=== PATIENT | male | born 1955 | race American Indian/Alaskan Native ===

== ENCOUNTER 2017-08-07 07:49 | Emergency (ER) | payer MEDICAID ==
[~2017-08-07] VITALS: Ht 177.8 cm; Wt 78.0 kg
[~2017-08-07 07:49] MED LIST: ATOR10TA PO; CANE-100; CHLO25CA10 PO; DICL75TA5 PO; HYDR-569 PO; IBUP-1985 PO; IBUP-1986 PO; LEVE250T PO; LEVO137T2 PO; LEVO150T PO; NAPR-1154 PO; NAPR220T67 PO; PHE12.5T PO
[2017-08-07] MEDS ORDERED: normal saline 1000ML IV soln IVB ONE (08:40)
[2017-08-07 09:14] LABS: BASOPHILS % (AUTO) 0.5 % (0-1); EOSINOPHILS % (AUTO) 1.3 % (0-6); HEMATOCRIT 29.7 % (42.0-52.0); HEMOGLOBIN 10.3 g/dl (14.0-17.9); LYMPHOCYTES # (AUTO) 1.1 X10'3 (1.1-4.8); LYMPHOCYTES % (AUTO) 36.3 % (21-51); MEAN CORPUSCULAR HEMOGLOBIN 34.5 PG (27.0-31.0); MEAN CORPUSCULAR HGB CONC 34.8 % (33.0-36.5); MEAN CORPUSCULAR VOLUME 99.2 FL (78-98); MEAN PLATELET VOLUME 6.5 FL (7.4-10.4); MONOCYTES # (AUTO) 0.2 X10'3 (0-0.9); MONOCYTES % (AUTO) 7.5 % (2-12); NEUTROPHILS # (AUTO) 1.7 X10'3 (1.8-7.7); NEUTROPHILS % (AUTO) 54.4 % (42-75); PLATELET COUNT 110 X10'3 (140-440); RED CELL DISTRIBUTION WIDTH 18.1 % (11.5-14.5); WHITE BLOOD COUNT 3.1 X10'3 (4.5-11.0)
[2017-08-07] MEDS: ondansetron/PF 4mg/2ml inj IV ONE ×2 (09:20→09:38)
[2017-08-07] MEDS ORDERED: LEVO75TA PO (09:25)
[2017-08-07 09:28] LABS: ALANINE AMINOTRANSFERASE 50 U/L (12-78); ALBUMIN 3.4 G/DL (3.4-5.0); ALBUMIN/GLOBULIN RATIO 0.9 (1.1-1.5); ALKALINE PHOSPHATASE 92 IU/L (46-116); ANION GAP 13 (8-16); ASPARTATE AMINO TRANSFERASE 98 U/L (10-37); BILIRUBIN,TOTAL 0.4 MG/DL (0.1-1.0); BLOOD UREA NITROGEN 10 MG/DL (7-18); BUN/CREATININE RATIO 9.1 (5.4-32.0); CALCIUM 8.4 MG/DL (8.5-10.1); CHLORIDE 103 MMOL/L (99-107); ETHANOL 0.189 GM/DL (0.0-0.010); GLUCOSE 98 MG/DL (70-104); POTASSIUM 3.5 MMOL/L (3.5-5.1); SODIUM 141 MMOL/L (135-145); TOTAL CARBON DIOXIDE 24.9 MMOL/L (24-32); TOTAL PROTEIN 7.4 G/DL (6.4-8.2); eGFR 68 ML/MIN
[2017-08-07] MEDS ORDERED: AMOX500C2 PO (09:36)
[2017-08-07 09:58] LABS: PROTHROMBIN TIME 10.4 SECONDS (9.0-12.0)
[2017-08-07 10:12] LABS: URINE AMPHETAMINE SCREEN POSITIVE (Neg); URINE BARBITUATE SCREEN NEGATIVE (Neg); URINE BENZODIAZEPINES SCREEN NEGATIVE (Neg); URINE CANNABINOID SCREEN NEGATIVE (Neg); URINE COCAINE SCREEN NEGATIVE (Neg); URINE METHADONE SCREEN NEGATIVE (Neg); URINE OPIATE SCREEN NEGATIVE (Neg); URINE PHENCYCLIDINE SCREEN NEGATIVE (Neg)
[2017-08-07 10:25] VITALS: BP 119/75
[2017-08-09] MEDS ORDERED: AMOX-422 PO (17:30)
[2017-08-09] MEDS ORDERED: HYDR-569 PO (17:30)
[2017-08-09] MEDS ORDERED: LEVO150T PO (17:30)
[2017-08-26] MEDS ORDERED: SYN0.088T PO (07:00)
[2017-08-26] MEDS ORDERED: LEVO150T PO (07:14)
== END 2017-08-07 10:28 | disposition home or self-care (01) ==
LOC: ER 07:50
DX: S02.40DA Maxillary fracture, left side, initial encounter for closed fracture (principal); S02.40FA Zygomatic fracture, left side, initial encounter for closed fracture; S02.2XXA Fracture of nasal bones, initial encounter for closed fracture; G89.29 Other chronic pain; I10 Essential (primary) hypertension; E03.9 Hypothyroidism, unspecified; F12.10 Cannabis abuse, uncomplicated; F15.10 Other stimulant abuse, uncomplicated; F10.10 Alcohol abuse, uncomplicated; Z86.73 Personal history of transient ischemic attack (TIA), and cerebral infarction without residual deficits; Z98.890 Other specified postprocedural states; Z88.8 Allergy status to other drugs, medicaments and biological substances; X58.XXXA Exposure to other specified factors, initial encounter; Y93.89 Activity, other specified; Y92.89 Other specified places as the place of occurrence of the external cause; Y99.8 Other external cause status
CPT/HCPCS: 36415; 70450; 70486; 80053; 80305; 80320; 82140; 85025; 85610; 99285; J2405; J7030

== ENCOUNTER 2017-09-05 03:02 | Emergency (ER) | payer MEDICAID ==
[~2017-09-05] VITALS: Ht 157.5 cm; Wt 80.0 kg
[~2017-09-05 03:02] MED LIST changes: +AMOX500C2 PO; -ATOR10TA PO; -CANE-100; -CHLO25CA10 PO; -DICL75TA5 PO; -IBUP-1985 PO; -IBUP-1986 PO; -LEVE250T PO; -LEVO137T2 PO; +LEVO75TA PO; -NAPR-1154 PO; -NAPR220T67 PO; -PHE12.5T PO; +SYN0.088T PO
[2017-09-05] MEDS ORDERED: ibuprofen tablet 400 MG TABLET PO ONE (03:40)
[2017-09-05] MEDS ORDERED: ondansetron 4mg rapidly disintigrating tab PO ONE (03:40)
[2017-09-05 03:47] VITALS: BP 125/82
== END 2017-09-05 04:06 | disposition home or self-care (01) ==
LOC: ER 03:02
DX: G44.309 Post-traumatic headache, unspecified, not intractable (principal); I10 Essential (primary) hypertension; E03.9 Hypothyroidism, unspecified; G89.29 Other chronic pain; Z87.442 Personal history of urinary calculi; F12.10 Cannabis abuse, uncomplicated; F15.10 Other stimulant abuse, uncomplicated; Z88.8 Allergy status to other drugs, medicaments and biological substances
CPT/HCPCS: 99283

== ENCOUNTER 2017-09-08 15:40 | Emergency (ER) | payer MEDICAID ==
[~2017-09-08] VITALS: Ht 175.3 cm; Wt 70.0 kg
[~2017-09-08 15:40] MED LIST changes: -AMOX500C2 PO
[2017-09-08] MEDS ORDERED: normal saline 1000ML IV soln IVB ONE (16:35)
[2017-09-08] MEDS ORDERED: pantoprazole 40 MG vial IV ONE (16:35)
[2017-09-08] MEDS ORDERED: ondansetron/PF 4mg/2ml inj IV ONE (16:35)
[2017-09-08 16:50] LABS: BASOPHILS % (AUTO) 0.4 % (0-1); EOSINOPHILS # (AUTO) 0.2 X10'3 (0-0.9); EOSINOPHILS % (AUTO) 4.2 % (0-6); HEMATOCRIT 30.4 % (42.0-52.0); HEMOGLOBIN 10.1 g/dl (14.0-17.9); LYMPHOCYTES # (AUTO) 1.4 X10'3 (1.1-4.8); LYMPHOCYTES % (AUTO) 30.8 % (21-51); MEAN CORPUSCULAR HEMOGLOBIN 32.3 PG (27.0-31.0); MEAN CORPUSCULAR HGB CONC 33.3 % (33.0-36.5); MEAN CORPUSCULAR VOLUME 96.8 FL (78-98); MEAN PLATELET VOLUME 6.1 FL (7.4-10.4); MONOCYTES # (AUTO) 0.5 X10'3 (0-0.9); MONOCYTES % (AUTO) 10.9 % (2-12); NEUTROPHILS # (AUTO) 2.5 X10'3 (1.8-7.7); NEUTROPHILS % (AUTO) 53.7 % (42-75); PLATELET COUNT 200 X10'3 (140-440); RED BLOOD COUNT 3.14 X10'6 (4.70-6.10); RED CELL DISTRIBUTION WIDTH 16.6 % (11.5-14.5); WHITE BLOOD COUNT 4.6 X10'3 (4.5-11.0)
[2017-09-08 17:00] LABS: PROTHROMBIN TIME 10.2 SECONDS (9.0-12.0)
[2017-09-08 17:06] LABS: ALANINE AMINOTRANSFERASE 51 U/L (12-78); ALBUMIN 3.2 G/DL (3.4-5.0); ALBUMIN/GLOBULIN RATIO 0.7 (1.1-1.5); ALKALINE PHOSPHATASE 99 IU/L (46-116); ANION GAP 9 (8-16); ASPARTATE AMINO TRANSFERASE 65 U/L (10-37); BILIRUBIN,TOTAL 0.3 MG/DL (0.1-1.0); BLOOD UREA NITROGEN 8 MG/DL (7-18); BUN/CREATININE RATIO 9.4 (5.4-32.0); CALCIUM 8.2 MG/DL (8.5-10.1); CHLORIDE 107 MMOL/L (99-107); CREATININE 0.85 MG/DL (0.60-1.10); ETHANOL 0.042 GM/DL (0.0-0.010); GLUCOSE 107 MG/DL (70-104); LIPASE 136 U/L (73-393); POTASSIUM 3.3 MMOL/L (3.5-5.1); SODIUM 142 MMOL/L (135-145); TOTAL CARBON DIOXIDE 26.2 MMOL/L (24-32); TOTAL PROTEIN 7.5 G/DL (6.4-8.2); eGFR > 90 ML/MIN
[2017-09-08] MEDS ORDERED: PANT-47 PO (18:07)
[2017-09-08 18:36] VITALS: BP 120/81
== END 2017-09-08 18:38 | disposition home or self-care (01) ==
LOC: ER 15:41
DX: K29.20 Alcoholic gastritis without bleeding (principal); R10.13 Epigastric pain; R07.9 Chest pain, unspecified; I10 Essential (primary) hypertension; E03.9 Hypothyroidism, unspecified; G89.29 Other chronic pain; F12.10 Cannabis abuse, uncomplicated; F15.10 Other stimulant abuse, uncomplicated; F17.200 Nicotine dependence, unspecified, uncomplicated; Z90.89 Acquired absence of other organs; Z98.890 Other specified postprocedural states; Z59.0 Homelessness; Z56.0 Unemployment, unspecified; Z86.73 Personal history of transient ischemic attack (TIA), and cerebral infarction without residual deficits; Z87.442 Personal history of urinary calculi; Z79.899 Other long term (current) drug therapy; Z88.8 Allergy status to other drugs, medicaments and biological substances
CPT/HCPCS: 36415; 71045; 80053; 80320; 83690; 84484; 85025; 85610; 93005; 99285

== ENCOUNTER 2017-09-11 22:46 | Emergency (ER) | payer MEDICAID ==
[~2017-09-11] VITALS: Ht 177.8 cm; Wt 80.0 kg
[~2017-09-11 22:46] MED LIST changes: +PANT-47 PO
[2017-09-11 22:53] VITALS: BP 152/78
[2017-09-11 23:14] LABS: BASOPHILS % (AUTO) 0.4 % (0-1); EOSINOPHILS % (AUTO) 0.6 % (0-6); HEMATOCRIT 28.6 % (42.0-52.0); HEMOGLOBIN 9.8 g/dl (14.0-17.9); LYMPHOCYTES # (AUTO) 1.2 X10'3 (1.1-4.8); LYMPHOCYTES % (AUTO) 33.2 % (21-51); MEAN CORPUSCULAR HEMOGLOBIN 32.2 PG (27.0-31.0); MEAN CORPUSCULAR HGB CONC 34.2 % (33.0-36.5); MEAN PLATELET VOLUME 6.9 FL (7.4-10.4); MONOCYTES # (AUTO) 0.5 X10'3 (0-0.9); MONOCYTES % (AUTO) 13.8 % (2-12); NEUTROPHILS # (AUTO) 1.9 X10'3 (1.8-7.7); PLATELET COUNT 135 X10'3 (140-440); RED BLOOD COUNT 3.05 X10'6 (4.70-6.10); RED CELL DISTRIBUTION WIDTH 16.6 % (11.5-14.5); WHITE BLOOD COUNT 3.7 X10'3 (4.5-11.0)
[2017-09-11 23:28] LABS: ALANINE AMINOTRANSFERASE 40 U/L (12-78); ALBUMIN/GLOBULIN RATIO 0.7 (1.1-1.5); ALKALINE PHOSPHATASE 86 IU/L (46-116); ANION GAP 11 (8-16); ASPARTATE AMINO TRANSFERASE 60 U/L (10-37); BILIRUBIN,TOTAL 0.4 MG/DL (0.1-1.0); BLOOD UREA NITROGEN 13 MG/DL (7-18); BUN/CREATININE RATIO 13.1 (5.4-32.0); CALCIUM 8.3 MG/DL (8.5-10.1); CHLORIDE 98 MMOL/L (99-107); CREATININE 0.99 MG/DL (0.60-1.10); GLUCOSE 104 MG/DL (70-104); POTASSIUM 3.3 MMOL/L (3.5-5.1); SODIUM 134 MMOL/L (135-145); TOTAL CARBON DIOXIDE 25.3 MMOL/L (24-32); TOTAL PROTEIN 7.2 G/DL (6.4-8.2); eGFR 77 ML/MIN
[2017-09-12] MEDS ORDERED: levoFLOXACIN 500mg tablet PO ONE (00:50)
[2017-09-12] MEDS ORDERED: LEVO750T21 PO (00:52)
== END 2017-09-12 01:18 | disposition home or self-care (01) ==
LOC: ER 22:47
DX: J18.9 Pneumonia, unspecified organism (principal); I10 Essential (primary) hypertension; E03.9 Hypothyroidism, unspecified; G89.29 Other chronic pain; F17.200 Nicotine dependence, unspecified, uncomplicated; F15.10 Other stimulant abuse, uncomplicated; F12.10 Cannabis abuse, uncomplicated; Z86.73 Personal history of transient ischemic attack (TIA), and cerebral infarction without residual deficits; Z87.442 Personal history of urinary calculi; Z98.890 Other specified postprocedural states; Z59.0 Homelessness; Z56.0 Unemployment, unspecified; Z88.8 Allergy status to other drugs, medicaments and biological substances; Z79.899 Other long term (current) drug therapy
CPT/HCPCS: 36415; 71046; 80053; 84484; 85025; 93005; 99285

== ENCOUNTER 2017-09-20 14:45 | Emergency (ER) | payer MEDICAID ==
[~2017-09-20] VITALS: Ht 177.8 cm; Wt 77.3 kg
[2017-09-20 16:14] LABS: BASOPHILS % (AUTO) 0.4 % (0-1); EOSINOPHILS # (AUTO) 0.2 X10'3 (0-0.9); HEMATOCRIT 29.4 % (42.0-52.0); HEMOGLOBIN 9.9 g/dl (14.0-17.9); LYMPHOCYTES # (AUTO) 1.9 X10'3 (1.1-4.8); LYMPHOCYTES % (AUTO) 23.7 % (21-51); MEAN CORPUSCULAR HEMOGLOBIN 31.4 PG (27.0-31.0); MEAN CORPUSCULAR HGB CONC 33.5 % (33.0-36.5); MEAN CORPUSCULAR VOLUME 93.8 FL (78-98); MEAN PLATELET VOLUME 6.3 FL (7.4-10.4); MONOCYTES # (AUTO) 0.6 X10'3 (0-0.9); MONOCYTES % (AUTO) 7.3 % (2-12); NEUTROPHILS # (AUTO) 5.3 X10'3 (1.8-7.7); NEUTROPHILS % (AUTO) 66.6 % (42-75); PLATELET COUNT 258 X10'3 (140-440); RED BLOOD COUNT 3.14 X10'6 (4.70-6.10); WHITE BLOOD COUNT 7.9 X10'3 (4.5-11.0)
[2017-09-20 16:29] LABS: ALANINE AMINOTRANSFERASE 48 U/L (12-78); ALBUMIN 2.7 G/DL (3.4-5.0); ALBUMIN/GLOBULIN RATIO 0.5 (1.1-1.5); ALKALINE PHOSPHATASE 89 IU/L (46-116); ANION GAP 7 (8-16); ASPARTATE AMINO TRANSFERASE 77 U/L (10-37); BILIRUBIN,TOTAL 0.3 MG/DL (0.1-1.0); BLOOD UREA NITROGEN 14 MG/DL (7-18); BUN/CREATININE RATIO 10.8 (5.4-32.0); CHLORIDE 103 MMOL/L (99-107); GLUCOSE 99 MG/DL (70-104); POTASSIUM 3.1 MMOL/L (3.5-5.1); SODIUM 138 MMOL/L (135-145); TOTAL PROTEIN 7.9 G/DL (6.4-8.2); eGFR 56 ML/MIN
[2017-09-20 16:40] LABS: PARTIAL THROMBOPLASTIN TIME 30 SECONDS (22-32); PROTHROMBIN TIME 10.2 SECONDS (9.0-12.0)
[2017-09-20] MEDS ORDERED: CefTRIAXone 2gm/NS 100ml IVPB 100 ML IV ONE (17:00)
[2017-09-20] MEDS ORDERED: azithromycin 250mg tablet PO ONE (17:00)
[2017-09-20] MEDS ORDERED: AZIT-63 PO (17:03)
[2017-09-20] MEDS ORDERED: potassium Cl oral solution 20 MEQ/15 ML PO ONE (17:05)
[2017-09-20] MEDS ORDERED: acetaminophen 325mg tablet PO ONE (17:05)
[2017-09-20] MEDS ORDERED: normal saline 1000ML IV soln IVB ONE (17:05)
[2017-09-20 18:08] VITALS: BP 161/93
== END 2017-09-20 18:08 | disposition home or self-care (01) ==
LOC: ER 14:47
DX: J18.1 Lobar pneumonia, unspecified organism (principal); R74.0 Nonspecific elevation of levels of transaminase and lactic acid dehydrogenase [LDH]; E87.6 Hypokalemia; I10 Essential (primary) hypertension; E03.9 Hypothyroidism, unspecified; G89.29 Other chronic pain; F12.10 Cannabis abuse, uncomplicated; F15.10 Other stimulant abuse, uncomplicated; Z86.73 Personal history of transient ischemic attack (TIA), and cerebral infarction without residual deficits; Z90.89 Acquired absence of other organs; Z59.0 Homelessness; Z56.0 Unemployment, unspecified; Z98.890 Other specified postprocedural states; Z88.8 Allergy status to other drugs, medicaments and biological substances; Z79.899 Other long term (current) drug therapy
CPT/HCPCS: 36415; 71045; 80053; 83605; 85025; 85610; 85730; 87040; 87502; 87503; 93005; 96365; 99285; J0696; J7030; 84484

== ENCOUNTER 2018-01-19 13:30 | Emergency (ER) | payer MEDICAID ==
[~2018-01-19] VITALS: Ht 177.8 cm; Wt 79.5 kg
[~2018-01-19 13:30] MED LIST changes: -SYN0.088T PO
[2018-01-19 13:39] VITALS: BP 156/134
[2018-01-19] MEDS ORDERED: HYDROcodone/acetaminophen 10/325mg tab PO ONE (14:05)
[2018-01-19] MEDS ORDERED: HYDR-565 PO (14:49)
== END 2018-01-19 15:03 | disposition home or self-care (01) ==
LOC: ER 13:31
DX: S22.32XA Fracture of one rib, left side, initial encounter for closed fracture (principal); I10 Essential (primary) hypertension; E03.9 Hypothyroidism, unspecified; G89.29 Other chronic pain; F12.10 Cannabis abuse, uncomplicated; F15.10 Other stimulant abuse, uncomplicated; Z87.442 Personal history of urinary calculi; Z86.73 Personal history of transient ischemic attack (TIA), and cerebral infarction without residual deficits; Z98.890 Other specified postprocedural states; Z56.0 Unemployment, unspecified; Z59.0 Homelessness; Z88.8 Allergy status to other drugs, medicaments and biological substances; Z79.899 Other long term (current) drug therapy; X58.XXXA Exposure to other specified factors, initial encounter; Y93.89 Activity, other specified; Y92.89 Other specified places as the place of occurrence of the external cause; Y99.8 Other external cause status
CPT/HCPCS: 71046; 99284

== ENCOUNTER 2018-02-08 10:19 | Emergency (ER) | payer MEDICAID ==
[~2018-02-08] VITALS: Ht 177.8 cm; Wt 76.3 kg
[~2018-02-08 10:19] MED LIST changes: +HYDR-565 PO
[2018-02-08 10:37] VITALS: BP 121/83
[2018-02-08] MEDS ORDERED: IBUP-1984 PO (11:01)
== END 2018-02-08 11:12 | disposition home or self-care (01) ==
LOC: ER 10:19
DX: S29.9XXA Unspecified injury of thorax, initial encounter (principal); M25.522 Pain in left elbow; I10 Essential (primary) hypertension; E03.9 Hypothyroidism, unspecified; G89.29 Other chronic pain; F12.90 Cannabis use, unspecified, uncomplicated; F15.90 Other stimulant use, unspecified, uncomplicated; Z86.73 Personal history of transient ischemic attack (TIA), and cerebral infarction without residual deficits; Z87.442 Personal history of urinary calculi; Z98.890 Other specified postprocedural states; Z59.0 Homelessness; Z56.0 Unemployment, unspecified; Z88.8 Allergy status to other drugs, medicaments and biological substances; Z79.899 Other long term (current) drug therapy; W18.30XA Fall on same level, unspecified, initial encounter; Y93.89 Activity, other specified; Y92.89 Other specified places as the place of occurrence of the external cause; Y99.8 Other external cause status
CPT/HCPCS: 71046; 99284

== ENCOUNTER 2018-02-19 08:22 | Emergency (ER) | payer MEDICAID ==
[~2018-02-19] VITALS: Ht 177.8 cm; Wt 85.0 kg
[~2018-02-19 08:22] MED LIST changes: +IBUP-1984 PO
[2018-02-19] MEDS ORDERED: dexamethasone 4mg tablet PO STA (09:20)
[2018-02-19] MEDS ORDERED: ketorolac trometh inj. 60 MG/2 ML VIAL IM STA (09:20)
[2018-02-19] MEDS ORDERED: GUAI600T45 PO (09:22)
[2018-02-19 09:50] VITALS: BP 131/78
== END 2018-02-19 09:52 | disposition home or self-care (01) ==
LOC: ER 08:23
DX: G89.29 Other chronic pain (principal); M54.9 Dorsalgia, unspecified; I10 Essential (primary) hypertension; E03.9 Hypothyroidism, unspecified; F12.10 Cannabis abuse, uncomplicated; F15.10 Other stimulant abuse, uncomplicated; Z86.73 Personal history of transient ischemic attack (TIA), and cerebral infarction without residual deficits; Z88.6 Allergy status to analgesic agent
CPT/HCPCS: 96372; 99284; J1885; J8540

== ENCOUNTER 2018-03-02 21:20 | Emergency (ER) | payer MEDICAID ==
[~2018-03-02] VITALS: Ht 180.3 cm; Wt 74.0 kg
[~2018-03-02 21:20] MED LIST changes: +GUAI600T45 PO; -HYDR-565 PO
[2018-03-02 21:45] LABS: PARTIAL THROMBOPLASTIN TIME 29 SECONDS (22-32); PROTHROMBIN TIME 10.2 SECONDS (9.0-12.0)
[2018-03-02 21:48] LABS: ANION GAP 10 (8-16); BILIRUBIN,TOTAL 0.3 MG/DL (0.1-1.0); BLOOD UREA NITROGEN 8 MG/DL (7-18); BUN/CREATININE RATIO 8.5 (5.4-32.0); CALCIUM 8.6 MG/DL (8.5-10.1); CHLORIDE 103 MMOL/L (99-107); CREATININE 0.94 MG/DL (0.60-1.10); GLUCOSE 103 MG/DL (70-104); POTASSIUM 4.2 MMOL/L (3.5-5.1); SODIUM 139 MMOL/L (135-145); eGFR 82 ML/MIN
[2018-03-02 21:49] LABS: ALANINE AMINOTRANSFERASE 79 U/L (12-78); ALBUMIN 3.8 G/DL (3.4-5.0); ALBUMIN/GLOBULIN RATIO 0.8 (1.1-1.5); ALKALINE PHOSPHATASE 120 IU/L (46-116); ASPARTATE AMINO TRANSFERASE 166 U/L (10-37); TOTAL PROTEIN 8.4 G/DL (6.4-8.2)
[2018-03-02 21:51] LABS: TROPONIN I < 0.04 NG/ML (0.0-0.05)
[2018-03-02 21:56] LABS: BASOPHILS % (AUTO) 0.8 % (0-1); EOSINOPHILS # (AUTO) 0.1 X10'3 (0-0.9); EOSINOPHILS % (AUTO) 2.3 % (0-6); HEMATOCRIT 31.8 % (42.0-52.0); HEMOGLOBIN 11.2 g/dl (14.0-17.9); LYMPHOCYTES # (AUTO) 2.7 X10'3 (1.1-4.8); LYMPHOCYTES % (AUTO) 59.6 % (21-51); MEAN CORPUSCULAR HEMOGLOBIN 33.7 PG (27.0-31.0); MEAN CORPUSCULAR HGB CONC 35.3 % (33.0-36.5); MEAN CORPUSCULAR VOLUME 95.5 FL (78-98); MEAN PLATELET VOLUME 6.9 FL (7.4-10.4); MONOCYTES # (AUTO) 0.4 X10'3 (0-0.9); MONOCYTES % (AUTO) 9.1 % (2-12); NEUTROPHILS # (AUTO) 1.3 X10'3 (1.8-7.7); NEUTROPHILS % (AUTO) 28.2 % (42-75); PLATELET COUNT 125 X10'3 (140-440); RED BLOOD COUNT 3.33 X10'6 (4.70-6.10); RED CELL DISTRIBUTION WIDTH 17.9 % (11.5-14.5); WHITE BLOOD COUNT 4.6 X10'3 (4.5-11.0)
[2018-03-02 22:54] LABS: ETHANOL 0.384 GM/DL (0.0-0.010)
[2018-03-02 23:33] VITALS: BP 145/99
[2018-03-02 23:43] LABS: CLARITY,URINE CLEAR (Clear); COLOR,URINE YELLOW (Yellow); GLUCOSE, URINE NEGATIVE (Neg); KETONES,URINE NEGATIVE (Neg); LEUKOCYTE ESTERASE ,URINE NEGATIVE (Neg); NITRITES, URINE NEGATIVE (Neg); OCCULT BLOOD,URINE NEGATIVE (Neg); PROTEIN,URINE NEGATIVE (Neg); UROBILINOGEN,URINE 0.2 E.U/dL (0.2-1.0)
[2018-03-02 23:55] LABS: UA COLLECTION TYPE CLN CATCH MIDSTREAM
[2018-03-02 23:56] LABS: URINE AMPHETAMINE SCREEN NEGATIVE (Neg); URINE BARBITUATE SCREEN NEGATIVE (Neg); URINE BENZODIAZEPINES SCREEN NEGATIVE (Neg); URINE CANNABINOID SCREEN NEGATIVE (Neg); URINE COCAINE SCREEN NEGATIVE (Neg); URINE METHADONE SCREEN NEGATIVE (Neg); URINE OPIATE SCREEN NEGATIVE (Neg); URINE PHENCYCLIDINE SCREEN NEGATIVE (Neg)
[2018-03-04] MEDS ORDERED: THI100T PO (10:03)
[2018-03-04] MEDS ORDERED: FOLI0.4T2 PO (10:03)
[2018-03-04] MEDS ORDERED: CEPH-571 PO (10:03)
== END 2018-03-03 01:19 | disposition home or self-care (01) ==
LOC: ER 21:21
DX: F10.129 Alcohol abuse with intoxication, unspecified (principal); I10 Essential (primary) hypertension; F12.90 Cannabis use, unspecified, uncomplicated; F15.90 Other stimulant use, unspecified, uncomplicated; G89.29 Other chronic pain; E89.0 Postprocedural hypothyroidism; Z59.0 Homelessness; Z56.0 Unemployment, unspecified; Z88.8 Allergy status to other drugs, medicaments and biological substances; Z79.899 Other long term (current) drug therapy
CPT/HCPCS: 36415; 70450; 71045; 80053; 80305; 80320; 81003; 84484; 85025; 85610; 85730; 93005; 99285

== ENCOUNTER 2018-03-04 09:41 | Emergency (ER) | payer MEDICAID ==
[~2018-03-04] VITALS: Ht 175.3 cm; Wt 80.0 kg
[2018-03-04] MEDS ORDERED: CEPH-571 PO (10:03)
[2018-03-04] MEDS ORDERED: FOLI0.4T2 PO (10:03)
[2018-03-04] MEDS ORDERED: THI100T PO (10:03)
[2018-03-04] MEDS ORDERED: thiamine 100mg/ml 2ml inj. IV ONE (10:50)
[2018-03-04] MEDS ORDERED: normal saline 1000ML IV soln IVB ONE (10:50)
[2018-03-04] MEDS ORDERED: ondansetron/PF 4mg/2ml inj IV ONE (10:50)
[2018-03-04] MEDS ORDERED: folic acid 1mg/0.2ml inj IV ONE (10:50)
[2018-03-04] MEDS ORDERED: acetaminophen 325mg tablet PO ONE (11:50)
[2018-03-04 11:54] VITALS: BP 144/91
== END 2018-03-04 13:25 | disposition home or self-care (01) ==
LOC: ER 09:41
DX: F10.929 Alcohol use, unspecified with intoxication, unspecified (principal); L03.114 Cellulitis of left upper limb; F12.90 Cannabis use, unspecified, uncomplicated; F15.90 Other stimulant use, unspecified, uncomplicated; I10 Essential (primary) hypertension; G89.29 Other chronic pain; E03.9 Hypothyroidism, unspecified; Z86.73 Personal history of transient ischemic attack (TIA), and cerebral infarction without residual deficits; Z88.8 Allergy status to other drugs, medicaments and biological substances; Z79.899 Other long term (current) drug therapy; Z59.0 Homelessness; Z56.0 Unemployment, unspecified
CPT/HCPCS: 70450; 96374; 96375; 99285; J2405; J3411; J3490; J7030

== ENCOUNTER 2018-03-09 01:01 | Emergency (ER) | payer MEDICAID ==
[~2018-03-09] VITALS: Ht 172.7 cm; Wt 81.8 kg
[~2018-03-09 01:01] MED LIST changes: +CEPH-571 PO; +FOLI0.4T2 PO; +THI100T PO
[2018-03-09 01:05] VITALS: BP 123/78
[2018-03-09] MEDS ORDERED: ketorolac trometh inj. 60 MG/2 ML VIAL IM ONE (01:35)
== END 2018-03-09 02:00 | disposition home or self-care (01) ==
LOC: ER 01:01
DX: F10.129 Alcohol abuse with intoxication, unspecified (principal); I10 Essential (primary) hypertension; G89.29 Other chronic pain; F17.210 Nicotine dependence, cigarettes, uncomplicated; F12.90 Cannabis use, unspecified, uncomplicated; F15.90 Other stimulant use, unspecified, uncomplicated; E89.0 Postprocedural hypothyroidism; Z59.0 Homelessness; Z56.0 Unemployment, unspecified; Z98.890 Other specified postprocedural states; Z79.2 Long term (current) use of antibiotics; Z88.8 Allergy status to other drugs, medicaments and biological substances; Z79.899 Other long term (current) drug therapy
CPT/HCPCS: 96372; 99284; J1885

== ENCOUNTER 2018-04-11 14:05 | Emergency (ER) | payer MEDICAID ==
[~2018-04-11] VITALS: Ht 177.8 cm; Wt 77.0 kg
[~2018-04-11 14:05] MED LIST changes: -FOLI0.4T2 PO; -IBUP-1984 PO; -THI100T PO
[2018-04-11] MEDS ORDERED: normal saline 1000ML IV soln IVB ONE (14:15)
[2018-04-11 14:39] LABS: BASOPHILS % (AUTO) 0.6 % (0-1); EOSINOPHILS # (AUTO) 0.1 X10'3 (0-0.9); EOSINOPHILS % (AUTO) 4.1 % (0-6); HEMATOCRIT 26.3 % (42.0-52.0); HEMOGLOBIN 8.9 g/dl (14.0-17.9); LYMPHOCYTES # (AUTO) 1.4 X10'3 (1.1-4.8); LYMPHOCYTES % (AUTO) 44.1 % (21-51); MEAN CORPUSCULAR HEMOGLOBIN 31.9 PG (27.0-31.0); MEAN CORPUSCULAR HGB CONC 33.9 % (33.0-36.5); MEAN PLATELET VOLUME 6.6 FL (7.4-10.4); MONOCYTES # (AUTO) 0.3 X10'3 (0-0.9); MONOCYTES % (AUTO) 10.3 % (2-12); NEUTROPHILS # (AUTO) 1.3 X10'3 (1.8-7.7); NEUTROPHILS % (AUTO) 40.9 % (42-75); PLATELET COUNT 135 X10'3 (140-440); RED CELL DISTRIBUTION WIDTH 16.6 % (11.5-14.5); WHITE BLOOD COUNT 3.1 X10'3 (4.5-11.0)
[2018-04-11 14:53] LABS: ALANINE AMINOTRANSFERASE 35 U/L (12-78); ALBUMIN 3.1 G/DL (3.4-5.0); ALBUMIN/GLOBULIN RATIO 0.8 (1.1-1.5); ALKALINE PHOSPHATASE 86 IU/L (46-116); ANION GAP 13 (8-16); ASPARTATE AMINO TRANSFERASE 50 U/L (10-37); BILIRUBIN,TOTAL 0.2 MG/DL (0.1-1.0); BLOOD UREA NITROGEN 12 MG/DL (7-18); BUN/CREATININE RATIO 11.8 (5.4-32.0); CALCIUM 7.7 MG/DL (8.5-10.1); CHLORIDE 107 MMOL/L (99-107); CREATININE 1.02 MG/DL (0.60-1.10); GLUCOSE 109 MG/DL (70-104); POTASSIUM 3.2 MMOL/L (3.5-5.1); SODIUM 141 MMOL/L (135-145); TOTAL CARBON DIOXIDE 20.7 MMOL/L (24-32); TOTAL PROTEIN 6.9 G/DL (6.4-8.2); eGFR 74 ML/MIN
[2018-04-11] MEDS ORDERED: thiamine 100mg tablet PO ONE (14:55)
[2018-04-11] MEDS ORDERED: folic acid 1mg tablet PO ONE (14:55)
[2018-04-11] MEDS ORDERED: magnesium oxide 400mg tablet PO ONE (14:55)
[2018-04-11] MEDS ORDERED: potassium Cl 20 mEq SR tablet PO ONE (14:55)
[2018-04-11 15:00] LABS: CREATINE KINASE 96 U/L (39-308); ETHANOL 0.278 GM/DL (0.0-0.010); MAGNESIUM 1.6 MG/DL (1.5-2.4)
[2018-04-11 15:20] VITALS: BP 146/94
== END 2018-04-11 15:37 | disposition home or self-care (01) ==
LOC: ER 14:06
DX: F10.129 Alcohol abuse with intoxication, unspecified (principal); E87.8 Other disorders of electrolyte and fluid balance, not elsewhere classified; D64.9 Anemia, unspecified; Y90.9 Presence of alcohol in blood, level not specified; I10 Essential (primary) hypertension; G89.29 Other chronic pain; E03.9 Hypothyroidism, unspecified; F12.90 Cannabis use, unspecified, uncomplicated; F15.90 Other stimulant use, unspecified, uncomplicated; Z86.73 Personal history of transient ischemic attack (TIA), and cerebral infarction without residual deficits; Z98.890 Other specified postprocedural states; Z88.8 Allergy status to other drugs, medicaments and biological substances; Z79.899 Other long term (current) drug therapy; Z59.0 Homelessness; Z56.0 Unemployment, unspecified
CPT/HCPCS: 36415; 80053; 80320; 82550; 83735; 83874; 84484; 85025; 93005; 96360; 99285; J7030

== ENCOUNTER 2018-04-14 12:16 | Emergency (ER) | payer MEDICAID ==
[~2018-04-14] VITALS: Ht 177.8 cm; Wt 79.0 kg
[2018-04-14] MEDS ORDERED: levoTHYROXINE 75mcg tablet PO ONE (12:35)
[2018-04-14] MEDS ORDERED: LEVO150T8 PO (12:36)
[2018-04-14 13:33] LABS: HEMATOCRIT 28.8 % (42.0-52.0); HEMOGLOBIN 9.8 g/dl (14.0-17.9); MEAN CORPUSCULAR HEMOGLOBIN 31.6 PG (27.0-31.0); MEAN CORPUSCULAR VOLUME 92.9 FL (78-98); MEAN PLATELET VOLUME 6.5 FL (7.4-10.4); PLATELET COUNT 115 X10'3 (140-440); RED CELL DISTRIBUTION WIDTH 15.4 % (11.5-14.5); WHITE BLOOD COUNT 2.9 X10'3 (4.5-11.0)
[2018-04-14 13:49] LABS: ALANINE AMINOTRANSFERASE 34 U/L (12-78); ALBUMIN 3.4 G/DL (3.4-5.0); ALBUMIN/GLOBULIN RATIO 0.8 (1.1-1.5); ALKALINE PHOSPHATASE 98 IU/L (46-116); ANION GAP 9 (8-16); ASPARTATE AMINO TRANSFERASE 54 U/L (10-37); BILIRUBIN,TOTAL 0.6 MG/DL (0.1-1.0); BLOOD UREA NITROGEN 8 MG/DL (7-18); BUN/CREATININE RATIO 9.3 (5.4-32.0); CALCIUM 8.4 MG/DL (8.5-10.1); CHLORIDE 101 MMOL/L (99-107); CREATININE 0.86 MG/DL (0.60-1.10); ETHANOL < 0.010 GM/DL (0.0-0.010); GLUCOSE 100 MG/DL (70-104); SODIUM 136 MMOL/L (135-145); TOTAL CARBON DIOXIDE 25.9 MMOL/L (24-32); TOTAL PROTEIN 7.5 G/DL (6.4-8.2); eGFR 90 ML/MIN
[2018-04-14] MEDS ORDERED: LORazepam 2 mg/ml vial IV ONE (14:05)
[2018-04-14 14:10] LABS: TOTAL CELLS COUNTED 100
[2018-04-14 14:12] LABS: URINE AMPHETAMINE SCREEN NEGATIVE (Neg); URINE BARBITUATE SCREEN NEGATIVE (Neg); URINE BENZODIAZEPINES SCREEN POSITIVE (Neg); URINE CANNABINOID SCREEN NEGATIVE (Neg); URINE COCAINE SCREEN NEGATIVE (Neg); URINE METHADONE SCREEN NEGATIVE (Neg); URINE OPIATE SCREEN NEGATIVE (Neg); URINE PHENCYCLIDINE SCREEN NEGATIVE (Neg)
[2018-04-14 14:13] LABS: PLATELET ESTIMATE DECREASED
[2018-04-14] MEDS ORDERED: CHLO25CA10 PO (15:36)
[2018-04-14 16:33] VITALS: BP 148/84
== END 2018-04-14 16:36 | disposition home or self-care (01) ==
LOC: ER 12:17
DX: R41.0 Disorientation, unspecified (principal); M54.5 Low back pain; F10.230 Alcohol dependence with withdrawal, uncomplicated; I10 Essential (primary) hypertension; E03.9 Hypothyroidism, unspecified; F12.90 Cannabis use, unspecified, uncomplicated; F15.90 Other stimulant use, unspecified, uncomplicated; F17.210 Nicotine dependence, cigarettes, uncomplicated; G89.29 Other chronic pain; Z86.73 Personal history of transient ischemic attack (TIA), and cerebral infarction without residual deficits; Z98.890 Other specified postprocedural states; Z88.8 Allergy status to other drugs, medicaments and biological substances; Z79.899 Other long term (current) drug therapy; Y90.9 Presence of alcohol in blood, level not specified; Z59.0 Homelessness; Z56.0 Unemployment, unspecified
CPT/HCPCS: 36415; 70450; 80053; 80305; 80320; 85025; 93005; 96374; 99285; J2060

== ENCOUNTER 2018-04-20 23:33 | Emergency (ER) | payer MEDICAID ==
[~2018-04-20] VITALS: Ht 177.8 cm; Wt 80.0 kg
[~2018-04-20 23:33] MED LIST changes: -CEPH-571 PO; +FERR325T29 PO; -GUAI600T45 PO; -HYDR-569 PO; -LEVO75TA PO; -PANT-47 PO; +PANT40TA4 PO
[2018-04-20 23:36] VITALS: BP 149/96
[2018-04-21] MEDS ORDERED: diphenhydrAMINE 25mg capsule PO ONE (01:05)
[2018-04-21] MEDS ORDERED: DIPH-423 PO (01:07)
[2018-04-21] MEDS ORDERED: THI100T PO (01:07)
[2018-04-21] MEDS ORDERED: thiamine 100mg tablet PO ONE (01:10)
[2018-04-21] MEDS ORDERED: traMADol 50MG tablet PO ONE (01:10)
== END 2018-04-21 01:16 | disposition home or self-care (01) ==
LOC: ER 23:33
DX: L29.9 Pruritus, unspecified (principal); R06.02 Shortness of breath; I10 Essential (primary) hypertension; E03.9 Hypothyroidism, unspecified; G89.29 Other chronic pain; F12.10 Cannabis abuse, uncomplicated; F15.10 Other stimulant abuse, uncomplicated; Z86.73 Personal history of transient ischemic attack (TIA), and cerebral infarction without residual deficits; Z90.89 Acquired absence of other organs; Z56.0 Unemployment, unspecified; Z59.0 Homelessness; Z98.890 Other specified postprocedural states; Z88.8 Allergy status to other drugs, medicaments and biological substances; Z79.899 Other long term (current) drug therapy
CPT/HCPCS: 99284; Q0163

== ENCOUNTER 2018-05-03 17:03 | Emergency (ER) | payer MEDICAID ==
[~2018-05-03] VITALS: Ht 177.8 cm; Wt 80.0 kg
[~2018-05-03 17:03] MED LIST changes: +DIPH-423 PO; +THI100T PO
[2018-05-03 17:26] VITALS: BP 102/71
[2018-05-04] MEDS ORDERED: CEPH500C5 PO (17:24)
[2018-05-04] MEDS ORDERED: SULF1TAB49 PO (17:24)
== END 2018-05-03 19:00 | disposition left against medical advice (07) ==
LOC: ER 17:04
DX: L98.9 Disorder of the skin and subcutaneous tissue, unspecified (principal); Z53.21 Procedure and treatment not carried out due to patient leaving prior to being seen by health care provider

== ENCOUNTER 2018-05-10 14:11 | Emergency (ER) | payer MEDICAID ==
[~2018-05-10] VITALS: Ht 177.8 cm; Wt 79.0 kg
[~2018-05-10 14:11] MED LIST changes: +CEPH500C5 PO; +SULF1TAB49 PO
[2018-05-10] MEDS ORDERED: CEPH-571 PO (14:34)
[2018-05-10] MEDS ORDERED: SULF1TAB49 PO (14:34)
[2018-05-10 14:42] VITALS: BP 124/92
== END 2018-05-10 14:43 | disposition home or self-care (01) ==
LOC: ER 14:12
DX: L03.114 Cellulitis of left upper limb (principal); L03.113 Cellulitis of right upper limb; F19.10 Other psychoactive substance abuse, uncomplicated; I10 Essential (primary) hypertension; E03.9 Hypothyroidism, unspecified; G89.29 Other chronic pain; F12.90 Cannabis use, unspecified, uncomplicated; F15.90 Other stimulant use, unspecified, uncomplicated; Z86.73 Personal history of transient ischemic attack (TIA), and cerebral infarction without residual deficits; Z98.890 Other specified postprocedural states; Z59.0 Homelessness; Z56.0 Unemployment, unspecified; Z88.6 Allergy status to analgesic agent; Z88.8 Allergy status to other drugs, medicaments and biological substances; Z79.899 Other long term (current) drug therapy
CPT/HCPCS: 99283

== ENCOUNTER 2018-05-17 07:33 | Emergency (ER) | payer MEDICAID ==
[~2018-05-17] VITALS: Ht 177.8 cm; Wt 82.3 kg
[~2018-05-17 07:33] MED LIST changes: +CEPH-571 PO
[2018-05-17 08:35] VITALS: BP 108/59
== END 2018-05-17 08:36 | disposition home or self-care (01) ==
LOC: ER 07:34
DX: G89.29 Other chronic pain (principal); R53.1 Weakness; I10 Essential (primary) hypertension; E03.9 Hypothyroidism, unspecified; F12.90 Cannabis use, unspecified, uncomplicated; F15.90 Other stimulant use, unspecified, uncomplicated; Z86.73 Personal history of transient ischemic attack (TIA), and cerebral infarction without residual deficits; Z98.890 Other specified postprocedural states; Z59.0 Homelessness; Z56.0 Unemployment, unspecified; Z90.89 Acquired absence of other organs; Z87.442 Personal history of urinary calculi; Z88.8 Allergy status to other drugs, medicaments and biological substances; Z88.6 Allergy status to analgesic agent; Z79.899 Other long term (current) drug therapy
CPT/HCPCS: 99281

== ENCOUNTER 2018-06-17 14:43 | Emergency (ER) | payer MEDICAID ==
[~2018-06-17] VITALS: Ht 177.8 cm; Wt 80.0 kg
[~2018-06-17 14:43] MED LIST changes: -SULF1TAB49 PO; -THI100T PO
[2018-06-17] MEDS ORDERED: ketorolac trometh inj. 60 MG/2 ML VIAL IM ONE (15:05)
[2018-06-17] MEDS ORDERED: acetaminophen 325mg tablet PO ONE (15:05)
[2018-06-17] MEDS ORDERED: LIDOcaine 5% patch TP ONE (15:05)
[2018-06-17] MEDS ORDERED: levoFLOXACIN 750MG TABLET PO ONE (15:55)
[2018-06-17] MEDS ORDERED: HYDR-3965 PO (16:06)
[2018-06-17] MEDS ORDERED: LEVO750T21 PO (16:06)
[2018-06-17] MEDS ORDERED: LIDO700A32 TOP (16:06)
[2018-06-17 16:18] VITALS: BP 139/89
== END 2018-06-17 16:19 | disposition home or self-care (01) ==
LOC: ER 14:43
DX: R07.81 Pleurodynia (principal); R07.89 Other chest pain; I10 Essential (primary) hypertension; E03.9 Hypothyroidism, unspecified; G89.29 Other chronic pain; E10.9 Type 1 diabetes mellitus without complications; F12.90 Cannabis use, unspecified, uncomplicated; F15.90 Other stimulant use, unspecified, uncomplicated; Z88.8 Allergy status to other drugs, medicaments and biological substances; Z79.2 Long term (current) use of antibiotics; Z79.899 Other long term (current) drug therapy; Z86.73 Personal history of transient ischemic attack (TIA), and cerebral infarction without residual deficits; Z86.718 Personal history of other venous thrombosis and embolism; Z87.442 Personal history of urinary calculi; Z56.0 Unemployment, unspecified; Z59.0 Homelessness
CPT/HCPCS: 71045; 93005; 96372; 99284; J1885

== ENCOUNTER 2018-06-23 08:00 | Emergency (ER) | payer MEDICAID ==
[~2018-06-23] VITALS: Ht 177.8 cm; Wt 79.1 kg
[~2018-06-23 08:00] MED LIST changes: +HYDR-3965 PO; +LEVO750T21 PO; +LIDO700A32 TOP
[2018-06-23] MEDS ORDERED: normal saline 1000ML IV soln IVB ONE (08:10)
[2018-06-23 08:34] LABS: BASOPHILS % (AUTO) 0.5 % (0-1); EOSINOPHILS % (AUTO) 0.9 % (0-6); HEMATOCRIT 31.5 % (42.0-52.0); HEMOGLOBIN 10.6 g/dl (14.0-17.9); LYMPHOCYTES # (AUTO) 1.1 X10'3 (1.1-4.8); MEAN CORPUSCULAR HEMOGLOBIN 29.1 PG (27.0-31.0); MEAN CORPUSCULAR HGB CONC 33.8 % (33.0-36.5); MEAN CORPUSCULAR VOLUME 86.2 FL (78-98); MEAN PLATELET VOLUME 7.2 FL (7.4-10.4); MONOCYTES # (AUTO) 0.5 X10'3 (0-0.9); MONOCYTES % (AUTO) 15.9 % (2-12); NEUTROPHILS # (AUTO) 1.4 X10'3 (1.8-7.7); NEUTROPHILS % (AUTO) 46.7 % (42-75); PLATELET COUNT 128 X10'3 (140-440); RED BLOOD COUNT 3.65 X10'6 (4.70-6.10); RED CELL DISTRIBUTION WIDTH 21.4 % (11.5-14.5); WHITE BLOOD COUNT 3.1 X10'3 (4.5-11.0)
[2018-06-23 08:51] LABS: ALANINE AMINOTRANSFERASE 34 U/L (12-78); ALBUMIN 3.6 G/DL (3.4-5.0); ALBUMIN/GLOBULIN RATIO 0.8 (1.1-1.5); ALKALINE PHOSPHATASE 85 IU/L (46-116); ANION GAP 12 (8-16); ASPARTATE AMINO TRANSFERASE 68 U/L (10-37); BILIRUBIN,TOTAL 0.8 MG/DL (0.1-1.0); BLOOD UREA NITROGEN 18 MG/DL (7-18); BUN/CREATININE RATIO 11.5 (5.4-32.0); CALCIUM 8.9 MG/DL (8.5-10.1); CHLORIDE 94 MMOL/L (99-107); CREATININE 1.56 MG/DL (0.60-1.10); ETHANOL 0.033 GM/DL (0.0-0.010); GLUCOSE 102 MG/DL (70-104); MAGNESIUM 1.8 MG/DL (1.5-2.4); SODIUM 131 MMOL/L (135-145); TOTAL PROTEIN 8.3 G/DL (6.4-8.2); TROPONIN I < 0.04 NG/ML (0.0-0.05); eGFR 45 ML/MIN
[2018-06-23 08:53] LABS: ACETAMINOPHEN < 2.0 UG/ML (10-30)
[2018-06-23 08:55] LABS: POTASSIUM 2.9 MMOL/L (3.5-5.1)
[2018-06-23] MEDS ORDERED: potassium Cl 20 mEq SR tablet PO ONE (09:00)
[2018-06-23] MEDS ORDERED: thiamine 100mg/ml 2ml inj. IV ONE (09:00)
[2018-06-23 09:36] LABS: PARTIAL THROMBOPLASTIN TIME 29 SECONDS (22-32); PROTHROMBIN TIME 10.8 SECONDS (9.0-12.0)
[2018-06-23] MEDS ORDERED: THI100T PO (09:57)
[2018-06-23 10:27] VITALS: BP 131/62
== END 2018-06-23 10:28 | disposition home or self-care (01) ==
LOC: ER 08:00
DX: E87.6 Hypokalemia (principal); F10.20 Alcohol dependence, uncomplicated; R53.1 Weakness; I10 Essential (primary) hypertension; E03.9 Hypothyroidism, unspecified; G89.29 Other chronic pain; F12.90 Cannabis use, unspecified, uncomplicated; F15.90 Other stimulant use, unspecified, uncomplicated; Z59.0 Homelessness; Z56.0 Unemployment, unspecified; Z90.89 Acquired absence of other organs; Z98.890 Other specified postprocedural states; Z86.73 Personal history of transient ischemic attack (TIA), and cerebral infarction without residual deficits; Z88.8 Allergy status to other drugs, medicaments and biological substances; Z88.6 Allergy status to analgesic agent; Z79.899 Other long term (current) drug therapy; Y90.9 Presence of alcohol in blood, level not specified
CPT/HCPCS: 36415; 70450; 71045; 80053; 80320; 80329; 83735; 84484; 85025; 85610; 85730; 93005; 99285; J3411; J7030; 96360

== ENCOUNTER 2018-07-11 15:15 | Emergency (ER) | payer MEDICAID ==
[~2018-07-11] VITALS: Ht 177.8 cm; Wt 83.8 kg
[~2018-07-11 15:15] MED LIST changes: -LEVO750T21 PO; +THI100T PO
[2018-07-11 15:17] VITALS: BP 122/80
[2018-07-11] MEDS ORDERED: SYN0.088T PO (16:44)
[2018-07-11] MEDS ORDERED: ciprofloxacin 0.3% 2.5ml ophthalmic solution LEFTEYE SCH (20:00)
== END 2018-07-11 16:54 | disposition home or self-care (01) ==
LOC: ER 15:15
DX: S02.82XD Fracture of other specified skull and facial bones, left side, subsequent encounter for fracture with routine healing (principal); S02.2XXD Fracture of nasal bones, subsequent encounter for fracture with routine healing; H10.89 Other conjunctivitis; I10 Essential (primary) hypertension; E03.9 Hypothyroidism, unspecified; G89.29 Other chronic pain; F12.90 Cannabis use, unspecified, uncomplicated; F15.90 Other stimulant use, unspecified, uncomplicated; Z76.0 Encounter for issue of repeat prescription; Z86.73 Personal history of transient ischemic attack (TIA), and cerebral infarction without residual deficits; Z90.89 Acquired absence of other organs; Z98.890 Other specified postprocedural states; Z59.0 Homelessness; Z56.0 Unemployment, unspecified; Z88.8 Allergy status to other drugs, medicaments and biological substances; Z88.6 Allergy status to analgesic agent; Z79.899 Other long term (current) drug therapy; Y04.0XXD Assault by unarmed brawl or fight, subsequent encounter
CPT/HCPCS: 99284

== ENCOUNTER 2018-07-24 12:55 | Emergency (ER) | payer MEDICAID ==
[~2018-07-24] VITALS: Ht 157.5 cm; Wt 80.0 kg
[~2018-07-24 12:55] MED LIST changes: -HYDR-3965 PO; +SYN0.088T PO
[2018-07-24 13:19] VITALS: BP 114/75
[2018-07-24] MEDS ORDERED: TRAM50TA2 PO (15:17)
== END 2018-07-24 15:34 | disposition home or self-care (01) ==
LOC: ER 12:55
DX: S52.121A Displaced fracture of head of right radius, initial encounter for closed fracture (principal); S22.32XA Fracture of one rib, left side, initial encounter for closed fracture; M25.562 Pain in left knee; R60.0 Localized edema; I10 Essential (primary) hypertension; E03.9 Hypothyroidism, unspecified; G89.29 Other chronic pain; F12.90 Cannabis use, unspecified, uncomplicated; F15.90 Other stimulant use, unspecified, uncomplicated; Z88.8 Allergy status to other drugs, medicaments and biological substances; Z79.2 Long term (current) use of antibiotics; Z79.899 Other long term (current) drug therapy; Z86.73 Personal history of transient ischemic attack (TIA), and cerebral infarction without residual deficits; Z59.0 Homelessness; Z56.0 Unemployment, unspecified; W18.39XA Other fall on same level, initial encounter; Y93.89 Activity, other specified; Y92.89 Other specified places as the place of occurrence of the external cause; Y99.8 Other external cause status
CPT/HCPCS: 29105; 29505; 71111; 73080; 73564; 99284

== ENCOUNTER 2018-09-01 10:59 | Emergency (ER) | payer MEDICAID ==
[~2018-09-01] VITALS: Ht 177.8 cm; Wt 87.0 kg
[~2018-09-01 10:59] MED LIST changes: -SYN0.088T PO; -THI100T PO
[2018-09-01 12:58] LABS: BASOPHILS % (AUTO) 0.3 % (0-1); EOSINOPHILS % (AUTO) 0.9 % (0-6); HEMATOCRIT 27.3 % (42.0-52.0); HEMOGLOBIN 9.1 g/dl (14.0-17.9); LYMPHOCYTES # (AUTO) 1.6 X10'3 (1.1-4.8); LYMPHOCYTES % (AUTO) 53.1 % (21-51); MEAN CORPUSCULAR HEMOGLOBIN 29.7 PG (27.0-31.0); MEAN CORPUSCULAR HGB CONC 33.5 % (33.0-36.5); MEAN CORPUSCULAR VOLUME 88.7 FL (78-98); MEAN PLATELET VOLUME 7.2 FL (7.4-10.4); MONOCYTES # (AUTO) 0.3 X10'3 (0-0.9); MONOCYTES % (AUTO) 8.8 % (2-12); NEUTROPHILS # (AUTO) 1.1 X10'3 (1.8-7.7); NEUTROPHILS % (AUTO) 36.9 % (42-75); PLATELET COUNT 77 X10'3 (140-440); RED BLOOD COUNT 3.08 X10'6 (4.70-6.10); RED CELL DISTRIBUTION WIDTH 16.7 % (11.5-14.5)
[2018-09-01 13:00] LABS: CLARITY,URINE CLEAR (Clear); COLOR,URINE STRAW (Yellow); GLUCOSE, URINE NEGATIVE (Neg); KETONES,URINE NEGATIVE (Neg); LEUKOCYTE ESTERASE ,URINE NEGATIVE (Neg); NITRITES, URINE NEGATIVE (Neg); OCCULT BLOOD,URINE NEGATIVE (Neg); PROTEIN,URINE NEGATIVE (Neg)
[2018-09-01 13:01] LABS: UA COLLECTION TYPE CLN CATCH MIDSTREAM
[2018-09-01 13:10] LABS: INR 1.1 INR; PARTIAL THROMBOPLASTIN TIME 29 SECONDS (22-32); PROTHROMBIN TIME 10.7 SECONDS (9.0-12.0)
[2018-09-01 13:18] LABS: ALANINE AMINOTRANSFERASE 37 U/L (12-78); ALBUMIN 3.6 G/DL (3.4-5.0); ALBUMIN/GLOBULIN RATIO 0.9 (1.1-1.5); ALKALINE PHOSPHATASE 87 IU/L (46-116); ANION GAP 11 (8-16); ASPARTATE AMINO TRANSFERASE 82 U/L (10-37); BILIRUBIN,TOTAL 0.4 MG/DL (0.1-1.0); BLOOD UREA NITROGEN 18 MG/DL (7-18); BUN/CREATININE RATIO 14.6 (5.4-32.0); CALCIUM 8.6 MG/DL (8.5-10.1); CHLORIDE 99 MMOL/L (99-107); CREATININE 1.23 MG/DL (0.60-1.10); GLUCOSE 79 MG/DL (70-104); POTASSIUM 3.6 MMOL/L (3.5-5.1); SODIUM 136 MMOL/L (135-145); TOTAL CARBON DIOXIDE 25.8 MMOL/L (24-32); TOTAL PROTEIN 7.7 G/DL (6.4-8.2); eGFR 60 ML/MIN
[2018-09-01 13:20] LABS: ETHANOL < 0.010 GM/DL (0.0-0.010); MAGNESIUM 1.6 MG/DL (1.5-2.4); PHOSPHORUS 4.4 MG/DL (2.3-4.5); TROPONIN I < 0.04 NG/ML (0.0-0.05)
[2018-09-01 13:25] LABS: URINE AMPHETAMINE SCREEN NEGATIVE (Neg); URINE BARBITUATE SCREEN NEGATIVE (Neg); URINE BENZODIAZEPINES SCREEN NEGATIVE (Neg); URINE CANNABINOID SCREEN POSITIVE (Neg); URINE COCAINE SCREEN NEGATIVE (Neg); URINE METHADONE SCREEN NEGATIVE (Neg); URINE OPIATE SCREEN NEGATIVE (Neg); URINE PHENCYCLIDINE SCREEN NEGATIVE (Neg)
[2018-09-01 14:27] VITALS: BP 154/88
== END 2018-09-01 14:31 | disposition home or self-care (01) ==
LOC: ER 10:59
DX: E87.8 Other disorders of electrolyte and fluid balance, not elsewhere classified (principal); I10 Essential (primary) hypertension; E03.9 Hypothyroidism, unspecified; G89.29 Other chronic pain; F12.90 Cannabis use, unspecified, uncomplicated; F14.90 Cocaine use, unspecified, uncomplicated; Z98.890 Other specified postprocedural states; Z86.73 Personal history of transient ischemic attack (TIA), and cerebral infarction without residual deficits; Z86.69 Personal history of other diseases of the nervous system and sense organs; Z59.0 Homelessness; Z56.0 Unemployment, unspecified; Z79.899 Other long term (current) drug therapy; Z79.2 Long term (current) use of antibiotics; Z88.8 Allergy status to other drugs, medicaments and biological substances
CPT/HCPCS: 36415; 70450; 71045; 80053; 80305; 80320; 81003; 82140; 82948; 83735; 84100; 84484; 85025; 85610; 85730; 93005; 99284

== ENCOUNTER 2018-09-15 11:50 | Emergency (ER) | payer MEDICAID ==
[~2018-09-15] VITALS: Ht 177.8 cm; Wt 80.0 kg
[2018-09-15 11:53] VITALS: BP 138/85
[2018-09-15] MEDS ORDERED: ketorolac trometh inj. 60 MG/2 ML VIAL IM ONE (12:35)
== END 2018-09-15 13:25 | disposition home or self-care (01) ==
LOC: ER 11:51
DX: S20.211A Contusion of right front wall of thorax, initial encounter (principal); S40.211A Abrasion of right shoulder, initial encounter; F10.129 Alcohol abuse with intoxication, unspecified; I10 Essential (primary) hypertension; E03.9 Hypothyroidism, unspecified; G89.29 Other chronic pain; Z86.73 Personal history of transient ischemic attack (TIA), and cerebral infarction without residual deficits; F12.90 Cannabis use, unspecified, uncomplicated; F15.90 Other stimulant use, unspecified, uncomplicated; F17.200 Nicotine dependence, unspecified, uncomplicated; Z90.89 Acquired absence of other organs; Z88.8 Allergy status to other drugs, medicaments and biological substances; Z79.2 Long term (current) use of antibiotics; Z79.899 Other long term (current) drug therapy; Y90.9 Presence of alcohol in blood, level not specified; Z56.0 Unemployment, unspecified; Z59.0 Homelessness; W18.39XA Other fall on same level, initial encounter; Y93.89 Activity, other specified; Y92.89 Other specified places as the place of occurrence of the external cause; Y99.8 Other external cause status
CPT/HCPCS: 71045; 96372; 99284; J1885

== ENCOUNTER 2018-09-15 18:36 | Emergency (ER) | payer MEDICAID ==
[~2018-09-15] VITALS: Ht 185.4 cm; Wt 104.0 kg
--- NOTE | 2018-09-15 19:31 | NUR ---
PT APPEARS TO BE SLEEPING, IN NO DISTRESS. RESP EQUAL, UNLABORED.
[2018-09-15 19:35] VITALS: BP 134/66
--- NOTE | 2018-09-15 20:17 | NUR ---
PT UP AND WALKING WITH ASSISTANCE FROM HIS WALKER. PT ABLE TO DRINK WATER. PER PT WANTS TO GO TO "[facility]" ADDRESS: [id number], [facility].
== END 2018-09-15 21:28 | disposition home or self-care (01) ==
LOC: ER 18:37
DX: S61.011A Laceration without foreign body of right thumb without damage to nail, initial encounter (principal); R07.81 Pleurodynia; F10.129 Alcohol abuse with intoxication, unspecified; I10 Essential (primary) hypertension; E03.9 Hypothyroidism, unspecified; G89.29 Other chronic pain; Z86.73 Personal history of transient ischemic attack (TIA), and cerebral infarction without residual deficits; F12.90 Cannabis use, unspecified, uncomplicated; F15.90 Other stimulant use, unspecified, uncomplicated; Z90.89 Acquired absence of other organs; Z98.890 Other specified postprocedural states; Z88.8 Allergy status to other drugs, medicaments and biological substances; Z79.2 Long term (current) use of antibiotics; Z79.899 Other long term (current) drug therapy; Y90.9 Presence of alcohol in blood, level not specified; Z59.0 Homelessness; Z56.0 Unemployment, unspecified; W25.XXXA Contact with sharp glass, initial encounter; Y93.89 Activity, other specified; Y92.89 Other specified places as the place of occurrence of the external cause; Y99.8 Other external cause status
CPT/HCPCS: 99284

== ENCOUNTER 2018-09-17 11:40 | Emergency (ER) | payer MEDICAID ==
[~2018-09-17] VITALS: Ht 182.9 cm; Wt 104.0 kg
[2018-09-17 12:10] VITALS: BP 110/76
== END 2018-09-17 13:15 | disposition home or self-care (01) ==
LOC: ER 11:40
DX: F10.929 Alcohol use, unspecified with intoxication, unspecified (principal); G89.29 Other chronic pain; M54.9 Dorsalgia, unspecified; I10 Essential (primary) hypertension; E03.9 Hypothyroidism, unspecified; F17.210 Nicotine dependence, cigarettes, uncomplicated; F12.90 Cannabis use, unspecified, uncomplicated; F15.90 Other stimulant use, unspecified, uncomplicated; Z86.73 Personal history of transient ischemic attack (TIA), and cerebral infarction without residual deficits; Z56.0 Unemployment, unspecified; Z59.0 Homelessness; Z88.6 Allergy status to analgesic agent; Z88.8 Allergy status to other drugs, medicaments and biological substances
CPT/HCPCS: 99283

== ENCOUNTER 2018-09-28 05:26 | Emergency (ER) | payer MEDICAID ==
[~2018-09-28] VITALS: Ht 177.8 cm; Wt 80.0 kg
[2018-09-28] MEDS ORDERED: ketorolac trometh. 30mg/ml inj. IM ONE (05:45)
[2018-09-28 06:10] VITALS: BP 117/57
== END 2018-09-28 06:13 | disposition home or self-care (01) ==
LOC: ER 05:27
DX: G89.29 Other chronic pain (principal); M54.5 Low back pain; I10 Essential (primary) hypertension; E03.9 Hypothyroidism, unspecified; F17.210 Nicotine dependence, cigarettes, uncomplicated; F12.10 Cannabis abuse, uncomplicated; F15.10 Other stimulant abuse, uncomplicated; Z86.73 Personal history of transient ischemic attack (TIA), and cerebral infarction without residual deficits; Z87.442 Personal history of urinary calculi; Z98.890 Other specified postprocedural states; Z59.0 Homelessness; Z56.0 Unemployment, unspecified; Z88.8 Allergy status to other drugs, medicaments and biological substances
CPT/HCPCS: 96372; 99283; J1885

== ENCOUNTER 2018-11-27 15:53 | Inpatient (IN) | payer MEDICAID ==
[~2018-11-27] VITALS: Ht 177.8 cm; Wt 81.8 kg
[~2018-11-27 15:53] MED LIST changes: +AZIT250T PO; +ONDA4TAB6 PO
[2018-11-27] MEDS ORDERED: iohexol 350MG/ML 100ml bottle IV ONE (16:15)
--- NOTE | 2018-11-27 16:15 | NUR ---
SYNCOPAL EPISODE WHILE SITTING IN ER AT 'S BEDSIDE. FELL OUT OF CHAIR TO THE FLOOR, STRIKING HEAD ON FLOOR. UNRESPONSIVE FOR APPROX 10 SECONDS, THEN AWAKENED WITH TACTILE AND VERBAL STIMULI. PLACED ON [facility] FOR FURTHER EXAMINATION.
[2018-11-27 16:16] LABS: BASOPHILS % (AUTO) 0.7 % (0-1); EOSINOPHILS # (AUTO) 0.1 X10'3 (0-0.9); EOSINOPHILS % (AUTO) 1.2 % (0-6); HEMATOCRIT 25.9 % (42.0-52.0); HEMOGLOBIN 8.3 g/dl (14.0-17.9); LYMPHOCYTES # (AUTO) 4.3 X10'3 (1.1-4.8); LYMPHOCYTES % (AUTO) 65.7 % (21-51); MEAN CORPUSCULAR HEMOGLOBIN 27.7 PG (27.0-31.0); MEAN CORPUSCULAR HGB CONC 32.2 g/dL (33.0-36.5); MEAN CORPUSCULAR VOLUME 86.1 FL (78-98); MONOCYTES # (AUTO) 0.7 X10'3 (0-0.9); MONOCYTES % (AUTO) 10.8 % (2-12); NEUTROPHILS # (AUTO) 1.4 X10'3 (1.8-7.7); NEUTROPHILS % (AUTO) 21.6 % (42-75); PLATELET COUNT 176 X10'3 (140-440); RED CELL DISTRIBUTION WIDTH 20.6 % (11.5-14.5); WHITE BLOOD COUNT 6.6 X10'3 (4.5-11.0)
[2018-11-27 16:28] LABS: ALANINE AMINOTRANSFERASE 41 U/L (12-78); ALBUMIN 3.7 G/DL (3.4-5.0); ALBUMIN/GLOBULIN RATIO 0.8 (1.1-1.5); ALKALINE PHOSPHATASE 89 IU/L (46-116); ANION GAP 7 (8-16); ASPARTATE AMINO TRANSFERASE 74 U/L (10-37); BILIRUBIN,TOTAL 0.3 MG/DL (0.1-1.0); BLOOD UREA NITROGEN 15 MG/DL (7-18); BUN/CREATININE RATIO 14.2 (5.4-32.0); CALCIUM 8.4 MG/DL (8.5-10.1); CHLORIDE 100 MMOL/L (99-107); CREATININE 1.06 MG/DL (0.60-1.10); ETHANOL 0.217 GM/DL (0.0-0.010); GLUCOSE 111 MG/DL (70-104); MAGNESIUM 1.6 MG/DL (1.5-2.4); PHOSPHORUS 3.6 MG/DL (2.3-4.5); POTASSIUM 3.2 MMOL/L (3.5-5.1); SODIUM 135 MMOL/L (135-145); TOTAL CARBON DIOXIDE 28.2 MMOL/L (24-32); TOTAL PROTEIN 8.3 G/DL (6.4-8.2); eGFR 71 ML/MIN
[2018-11-27 16:32] LABS: TOTAL CELLS COUNTED 100
[2018-11-27 16:33] LABS: ANISOCYTOSIS 3+; HYPOCHROMASIA 1+; PLATELET ESTIMATE NORMAL
[2018-11-27 16:34] LABS: PROTHROMBIN TIME 10.5 SECONDS (9.0-12.0)
--- NOTE | 2018-11-27 17:15 | NUR ---
ARRIVED AT 1613 FOR LEVEL 1 WITH ONSET WITNESSED IN ED AT 1550. PT APPARENTLY PASSED OUT TWICE IN SIG OTHERS ROOM. THE SECOND TIME HE SAYS HE WOKE UP TO SOMEONE "POUNDING ON HIS CHES." PT RETURNED FROM CT AT 1630. HE IS ALERT WITH SLURRED SPEECH AND HEAVY ODOR OF ETOH ON BREATH. ADMITS TO DRINKING 1 BEER TODAY. SIG OTHER SAYS HE PASSES OUT FREQUENTLY. HE KEEPS HIS LEFT EYE CLOSED AND EXHIBITS A NEAR LEFT TOTAL FACIAL PARALYSIS. HE CAN MOVE HIS LEFT ARM SOME, UNABLE TO LIFT OFF GURNEY, SAME WITH THE LEG.HE FEELS NUMB OVER HIS LEFT FACE,ARM AND LEG. HE HAS CHRONIC LEFT EYE BLURRING. 165 TE[address] NEUR[address] EXAM WITH DR MACKEY. TPA EXCLUDED. 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 PT STATES HE HAS CHRONIC LEFT SIDED WEAKNESS, BUT "NOTHING LIKE THIS." 171 PT CAN NOW LIFT THE LEFT ARM OFF THE BED BUT NOT HOLD, HE HAS SHOULDER PAIN WITH GRIMACING AND STRAINING WHILE LIFTING LEFT ARM. SAME WITH LEFT LEG. HE DRINKS ALCOHOL AND SMOKES BOTH CIGARETTES AND "POT." HE IS ANEMIC WITH HGB OF 8.3. LABS DISCUSSED WITH NEUROLOGIST
[2018-11-27 17:16] LABS: CLARITY,URINE CLEAR (Clear); COLOR,URINE STRAW (Yellow); GLUCOSE, URINE NEGATIVE (Neg); KETONES,URINE NEGATIVE (Neg); LEUKOCYTE ESTERASE ,URINE NEGATIVE (Neg); NITRITES, URINE NEGATIVE (Neg); OCCULT BLOOD,URINE NEGATIVE (Neg); PROTEIN,URINE NEGATIVE (Neg); UROBILINOGEN,URINE 0.2 E.U/dL (0.2-1.0)
[2018-11-27 17:18] LABS: UA COLLECTION TYPE VOIDED
[2018-11-27 17:28] LABS: URINE AMPHETAMINE SCREEN NEGATIVE (Neg); URINE BARBITUATE SCREEN NEGATIVE (Neg); URINE BENZODIAZEPINES SCREEN NEGATIVE (Neg); URINE CANNABINOID SCREEN NEGATIVE (Neg); URINE COCAINE SCREEN NEGATIVE (Neg); URINE METHADONE SCREEN NEGATIVE (Neg); URINE OPIATE SCREEN NEGATIVE (Neg); URINE PHENCYCLIDINE SCREEN NEGATIVE (Neg)
--- NOTE | 2018-11-27 17:46 | NUR ---
FAILED WATER SWALLOW. KEEP NPO AND HAVE SPEECH EVAL.
--- NOTE | 2018-11-27 17:51 | NUR ---
THE PT HAS BEEN SEEN OPENING LEFT EYE ON OCCASION.
[2018-11-27] MEDS ORDERED: aspirin 325mg tablet PO ONE (18:20)
[2018-11-27] MEDS ORDERED: potassium Cl 40MEQ/NS 500ml 500 ML IV PRN ×2 (18:55)
[2018-11-27] MEDS ORDERED: mag hydrox/Alum hydrox/simeth 30ml oral suspension PO PRN (18:55)
[2018-11-27] MEDS ORDERED: acetaminophen 325mg tablet PO PRN ×2 (18:55)
[2018-11-27] MEDS ORDERED: potassium Cl 20 mEq SR tablet PO PRN ×2 (18:55)
[2018-11-27] MEDS ORDERED: magnesium 4gm in 100ml NS 100 ML IV PRN (18:55)
[2018-11-27] MEDS ORDERED: magnesium Cl slow-release 64mg tablet PO PRN (18:55)
[2018-11-27] MEDS ORDERED: HYDROcodone/acetaminophen 5mg/325mg tablet PO PRN (18:55)
[2018-11-27] MEDS ORDERED: magnesium 2GM in 50ml NS 50 ML IV PRN (18:55)
[2018-11-27] MEDS ORDERED: ondansetron/PF 4mg/2ml inj IV PRN (18:55)
[2018-11-27] MEDS ORDERED: HYDROcodone/acetaminophen 10/325mg tab PO PRN (18:55)
[2018-11-27] MEDS ORDERED: morphine 4 MG/ML inj SYRINge IV PRN ×2 (18:55)
[2018-11-27] MEDS ORDERED: magnesium hydroxide 30ml (MOM) UD suspension PO PRN (18:55)
--- NOTE | 2018-11-27 19:11 | NUR ---
Discussed pt's fine/coarse tremors, light and sound sensitivity with Dr Cuellar; new orders received for Ativan 1mg IV.
[2018-11-27] MEDS ORDERED: LORazepam 2 mg/ml vial IV ONE (19:15)
--- NOTE | 2018-11-27 19:48 | NUR ---
DR. BENI MARIE FOR MRI TO BE DONE IN AM
[2018-11-27] MEDS ORDERED: atorvastatin 20mg tablet PO SCH (21:00)
[2018-11-27 23:00] VITALS: BP 154/96
[2018-11-28 02:00] VITALS: BP 167/95
[2018-11-28 06:00] VITALS: BP 158/94
--- NOTE | 2018-11-28 06:46 | NUR ---
Received report from Katarzyna TRAN
[2018-11-28 06:52] LABS: BASOPHILS % (AUTO) 0.5 % (0-1); EOSINOPHILS # (AUTO) 0.1 X10'3 (0-0.9); EOSINOPHILS % (AUTO) 1.7 % (0-6); HEMOGLOBIN 8.5 g/dl (14.0-17.9); LYMPHOCYTES # (AUTO) 2.2 X10'3 (1.1-4.8); LYMPHOCYTES % (AUTO) 54.2 % (21-51); MEAN CORPUSCULAR HEMOGLOBIN 27.8 PG (27.0-31.0); MEAN CORPUSCULAR HGB CONC 32.7 g/dL (33.0-36.5); MEAN PLATELET VOLUME 7.3 FL (7.4-10.4); MONOCYTES # (AUTO) 0.6 X10'3 (0-0.9); MONOCYTES % (AUTO) 14.1 % (2-12); NEUTROPHILS # (AUTO) 1.2 X10'3 (1.8-7.7); NEUTROPHILS % (AUTO) 29.5 % (42-75); PLATELET COUNT 142 X10'3 (140-440); RED BLOOD COUNT 3.06 X10'6 (4.70-6.10); RED CELL DISTRIBUTION WIDTH 20.5 % (11.5-14.5); WHITE BLOOD COUNT 4.1 X10'3 (4.5-11.0)
[2018-11-28] MEDS ORDERED: levoTHYROXINE 75mcg tablet PO SCH (07:00)
[2018-11-28 07:04] LABS: ALBUMIN 3.5 G/DL (3.4-5.0); ANION GAP 9 (8-16); BLOOD UREA NITROGEN 15 MG/DL (7-18); BUN/CREATININE RATIO 14.4 (5.4-32.0); CALCIUM 9.1 MG/DL (8.5-10.1); CHLORIDE 101 MMOL/L (99-107); CHOLESTEROL 167 MG/DL (0-200); CREATININE 1.04 MG/DL (0.60-1.10); GLUCOSE 99 MG/DL (70-104); HDL CHOLESTEROL 42 MG/DL (35-60); LDL CHOLESTEROL 108 MG/DL (50-100); MAGNESIUM 1.7 MG/DL (1.5-2.4); PHOSPHORUS 3.8 MG/DL (2.3-4.5); POTASSIUM 3.8 MMOL/L (3.5-5.1); SODIUM 138 MMOL/L (135-145); TOTAL CARBON DIOXIDE 27.6 MMOL/L (24-32); TRIGLYCERIDES 94 MG/DL (20-135); eGFR 72 ML/MIN
[2018-11-28 07:11] LABS: HEMOGLOBIN A1C 5.4 % (4.5-6.2)
[2018-11-28] MEDS ORDERED: K and/or MAG REPLACEMENT MC SCH (08:00)
[2018-11-28] MEDS ORDERED: enoxaparin 40mg/0.4ml syringe SQ SCH (08:00)
[2018-11-28] MEDS ORDERED: aspirin 325mg tablet, delayed-release (Ecotrin) PO SCH (08:00)
[2018-11-28] MEDS ORDERED: LORazepam 2 mg/ml vial IM ONE (09:25)
[2018-11-28 09:35] LABS: ANISOCYTOSIS 3+; PLATELET ESTIMATE DECREASED
[2018-11-28 12:13] VITALS: BP 164/90
[2018-11-28] MEDS ORDERED: ATOR20TA PO (15:28)
[2018-11-28] MEDS ORDERED: ASPI81TA52 PO (15:28)
--- NOTE | 2018-11-28 17:20 | NUR ---
Pateint was discharged IV and tele was removed from patient. patient was alert and oriented at time of discharge. yellow cab was pickinh up patient patient
== END 2018-11-28 17:09 | disposition home or self-care (01) | DRG 204 ==
LOC: ER 15:53 → ED HOLD 18:54 → CMPBEDREQ 21:59 → ORTHO 4S 22:45
PROVIDERS: ADMIT Hospitalist; ATTEND Family Medicine
PROC: B3251ZZ Computerized Tomography (CT Scan) of Bilateral Common Carotid Arteries using Low Osmolar Contrast (ICD-10-PCS; principal; 2018-11-27)
PROC: B3281ZZ Computerized Tomography (CT Scan) of Bilateral Internal Carotid Arteries using Low Osmolar Contrast (ICD-10-PCS; 2018-11-27)
DX: R55 Syncope and collapse (principal); E89.0 Postprocedural hypothyroidism; F17.210 Nicotine dependence, cigarettes, uncomplicated; G89.4 Chronic pain syndrome; M54.9 Dorsalgia, unspecified; W07.XXXA Fall from chair, initial encounter; Y92.238 Other place in hospital as the place of occurrence of the external cause; I10 Essential (primary) hypertension; Z59.0 Homelessness; Z83.3 Family history of diabetes mellitus; Z86.73 Personal history of transient ischemic attack (TIA), and cerebral infarction without residual deficits; Z87.442 Personal history of urinary calculi; Y93.89 Activity, other specified; Y99.8 Other external cause status; Z88.8 Allergy status to other drugs, medicaments and biological substances; Z80.8 Family history of malignant neoplasm of other organs or systems; Z79.890 Hormone replacement therapy; Z71.6 Tobacco abuse counseling; Z91.14 Patient's other noncompliance with medication regimen
CPT/HCPCS: 36415; 70450; 70496; 70498; 70544; 70551; 71045; 80048; 80053; 80061; 80305; 80320; 81003; 82140; 82948; 83036; 83735; 84100; 84484; 85025; 85610; 87070; 93005; 93306; 97110; 97116; 97163; 97530; 99285; G0378; J1650; J2060; J2405; Q9967

== ENCOUNTER 2018-12-04 17:30 | Emergency (ER) | payer MEDICAID ==
[~2018-12-04] VITALS: Ht 177.8 cm; Wt 81.0 kg
[~2018-12-04 17:30] MED LIST changes: +ASPI81TA52 PO; +ATOR20TA PO; -AZIT250T PO; -CEPH-571 PO; -CEPH500C5 PO; -DIPH-423 PO; -FERR325T29 PO; -LIDO700A32 TOP; -ONDA4TAB6 PO; -PANT40TA4 PO
[2018-12-04] MEDS ORDERED: thiamine 100mg/ml 2ml inj. IV ONE (17:45)
[2018-12-04] MEDS ORDERED: folic acid 1mg/0.2ml inj IV ONE (17:45)
[2018-12-04] MEDS ORDERED: normal saline 1000ML IV soln IVB ONE (17:45)
[2018-12-04 18:14] LABS: HEMOGLOBIN 7.9 g/dl (14.0-17.9); LYMPHOCYTES # (AUTO) 3.1 X10'3 (1.1-4.8); MEAN CORPUSCULAR VOLUME 83.1 FL (78-98); MEAN PLATELET VOLUME 6.4 FL (7.4-10.4); MONOCYTES # (AUTO) 0.5 X10'3 (0-0.9); NEUTROPHILS # (AUTO) 1.5 X10'3 (1.8-7.7); PLATELET COUNT 150 X10'3 (140-440)
[2018-12-04 18:16] LABS: BASOPHILS % (AUTO) 0.7 % (0-1); EOSINOPHILS % (AUTO) 0.9 % (0-6); HEMATOCRIT 24.6 % (42.0-52.0); LYMPHOCYTES % (AUTO) 60.2 % (21-51); MEAN CORPUSCULAR HEMOGLOBIN 26.8 PG (27.0-31.0); MEAN CORPUSCULAR HGB CONC 32.3 g/dL (33.0-36.5); MONOCYTES % (AUTO) 10.1 % (2-12); NEUTROPHILS % (AUTO) 28.1 % (42-75); RED BLOOD COUNT 2.96 X10'6 (4.70-6.10); WHITE BLOOD COUNT 5.2 X10'3 (4.5-11.0)
[2018-12-04 18:25] LABS: ALANINE AMINOTRANSFERASE 48 U/L (12-78); ALBUMIN 3.4 G/DL (3.4-5.0); ALBUMIN/GLOBULIN RATIO 0.8 (1.1-1.5); ALKALINE PHOSPHATASE 82 IU/L (46-116); ANION GAP 10 (8-16); ASPARTATE AMINO TRANSFERASE 90 U/L (10-37); BILIRUBIN,TOTAL 0.2 MG/DL (0.1-1.0); BLOOD UREA NITROGEN 16 MG/DL (7-18); BUN/CREATININE RATIO 14.5 (5.4-32.0); CALCIUM 8.4 MG/DL (8.5-10.1); CHLORIDE 107 MMOL/L (99-107); ETHANOL 0.276 GM/DL (0.0-0.010); GLUCOSE 101 MG/DL (70-104); POTASSIUM 3.4 MMOL/L (3.5-5.1); SODIUM 143 MMOL/L (135-145); TOTAL CARBON DIOXIDE 25.8 MMOL/L (24-32); TOTAL PROTEIN 7.8 G/DL (6.4-8.2); eGFR 68 ML/MIN
[2018-12-04] MEDS ORDERED: GUAI120015 PO (18:54)
[2018-12-04] MEDS ORDERED: AZIT250T2 PO (18:54)
[2018-12-04 19:00] LABS: URINE AMPHETAMINE SCREEN NEGATIVE (Neg); URINE BARBITUATE SCREEN NEGATIVE (Neg); URINE BENZODIAZEPINES SCREEN NEGATIVE (Neg); URINE CANNABINOID SCREEN NEGATIVE (Neg); URINE COCAINE SCREEN NEGATIVE (Neg); URINE METHADONE SCREEN NEGATIVE (Neg); URINE OPIATE SCREEN NEGATIVE (Neg); URINE PHENCYCLIDINE SCREEN NEGATIVE (Neg)
[2018-12-04 19:07] VITALS: BP 148/90
== END 2018-12-04 19:09 | disposition home or self-care (01) ==
LOC: ER 17:30
DX: F10.129 Alcohol abuse with intoxication, unspecified (principal); I10 Essential (primary) hypertension; J40 Bronchitis, not specified as acute or chronic; D64.89 Other specified anemias; E03.9 Hypothyroidism, unspecified; G89.29 Other chronic pain; F12.90 Cannabis use, unspecified, uncomplicated; F15.90 Other stimulant use, unspecified, uncomplicated; Z59.0 Homelessness; Z56.0 Unemployment, unspecified; Z86.73 Personal history of transient ischemic attack (TIA), and cerebral infarction without residual deficits; Z98.890 Other specified postprocedural states; Z88.6 Allergy status to analgesic agent; Z79.82 Long term (current) use of aspirin; Z79.899 Other long term (current) drug therapy; Y90.9 Presence of alcohol in blood, level not specified
CPT/HCPCS: 36415; 71045; 80053; 80305; 80320; 82948; 85025; 93005; 96374; 96375; 99284; J3411; J3490; J7030

== ENCOUNTER 2018-12-08 15:26 | Emergency (ER) | payer MEDICAID ==
[~2018-12-08] VITALS: Ht 154.9 cm; Wt 81.1 kg
[~2018-12-08 15:26] MED LIST changes: +AZIT250T2 PO; +GUAI120015 PO
[2018-12-08 16:01] LABS: BASOPHILS % (AUTO) 0.6 % (0-1); EOSINOPHILS # (AUTO) 0.1 X10'3 (0-0.9); EOSINOPHILS % (AUTO) 0.8 % (0-6); HEMATOCRIT 24.6 % (42.0-52.0); HEMOGLOBIN 8.1 g/dl (14.0-17.9); LYMPHOCYTES # (AUTO) 5.3 X10'3 (1.1-4.8); LYMPHOCYTES % (AUTO) 69.7 % (21-51); MEAN CORPUSCULAR HEMOGLOBIN 27.2 PG (27.0-31.0); MEAN CORPUSCULAR HGB CONC 32.9 g/dL (33.0-36.5); MEAN CORPUSCULAR VOLUME 82.6 FL (78-98); MEAN PLATELET VOLUME 7.1 FL (7.4-10.4); MONOCYTES # (AUTO) 0.4 X10'3 (0-0.9); MONOCYTES % (AUTO) 5.9 % (2-12); NEUTROPHILS # (AUTO) 1.7 X10'3 (1.8-7.7); PLATELET COUNT 110 X10'3 (140-440); RED BLOOD COUNT 2.98 X10'6 (4.70-6.10); WHITE BLOOD COUNT 7.6 X10'3 (4.5-11.0)
[2018-12-08 16:15] LABS: ALANINE AMINOTRANSFERASE 54 U/L (12-78); ALBUMIN 3.4 G/DL (3.4-5.0); ALBUMIN/GLOBULIN RATIO 0.8 (1.1-1.5); ALKALINE PHOSPHATASE 97 IU/L (46-116); ANION GAP 11 (8-16); ASPARTATE AMINO TRANSFERASE 95 U/L (10-37); BILIRUBIN,TOTAL 0.3 MG/DL (0.1-1.0); BLOOD UREA NITROGEN 11 MG/DL (7-18); BUN/CREATININE RATIO 9.2 (5.4-32.0); CALCIUM 8.5 MG/DL (8.5-10.1); CHLORIDE 101 MMOL/L (99-107); CREATININE 1.19 MG/DL (0.60-1.10); GLUCOSE 89 MG/DL (70-104); POTASSIUM 3.7 MMOL/L (3.5-5.1); SODIUM 137 MMOL/L (135-145); TOTAL CARBON DIOXIDE 24.6 MMOL/L (24-32); TOTAL PROTEIN 7.8 G/DL (6.4-8.2); eGFR 62 ML/MIN
[2018-12-08 16:29] LABS: INR 1.1 INR; PARTIAL THROMBOPLASTIN TIME 31 SECONDS (22-32); PROTHROMBIN TIME 10.7 SECONDS (9.0-12.0)
[2018-12-08 18:06] VITALS: BP 158/113
[2018-12-08] MEDS ORDERED: ketorolac tromethamine 15mg/ml inj. IV ONE (18:55)
--- NOTE | 2018-12-08 20:16 | NUR ---
PT IS DC READY BUT WILL NEED TO BE GAIT TESTED. PT REMAINS VERY SLEEPY AND UNABLE TO SAFELY GET UP YET.
--- NOTE | 2018-12-08 21:10 | NUR ---
PT PASSED GAIT TEST.PT TO BE GIVEN TAXI RIDE HOME. HE WISHES TO GET DROPPED OFF AT AN APARTMENT COMPLEX [address]OSS [address] FROM THE [facility]LEY. SACK LUNCH PROVIDED. DENIES NEED FOR ANY ADTL CLOTHING. PT SITTING IN WC IN LOBBY.BOTH TAXI COMPANIES CURRENTLY VERY BACKED UP AND NOT TAKING ANY NEW JABIER AT THIS TIME. PT AND WELLFIELD TECHNICIAN UPDATED.
== END 2018-12-08 21:14 | disposition home or self-care (01) ==
LOC: ER 15:26
DX: R07.89 Other chest pain (principal); F10.129 Alcohol abuse with intoxication, unspecified; G89.29 Other chronic pain; M54.9 Dorsalgia, unspecified; I10 Essential (primary) hypertension; E03.9 Hypothyroidism, unspecified; F12.90 Cannabis use, unspecified, uncomplicated; F15.90 Other stimulant use, unspecified, uncomplicated; Z86.73 Personal history of transient ischemic attack (TIA), and cerebral infarction without residual deficits; Z86.69 Personal history of other diseases of the nervous system and sense organs; Z98.890 Other specified postprocedural states; Z59.0 Homelessness; Z56.0 Unemployment, unspecified; Y90.9 Presence of alcohol in blood, level not specified
CPT/HCPCS: 36415; 71045; 80053; 84484; 85025; 85610; 85730; 93005; 96374; 99284; J1885

== ENCOUNTER 2018-12-27 20:53 | Emergency (ER) | payer MEDICAID ==
[~2018-12-27] VITALS: Ht 177.8 cm; Wt 81.8 kg
[~2018-12-27 20:53] MED LIST changes: -AZIT250T2 PO
[2018-12-27 21:01] VITALS: BP 133/81
== END 2018-12-27 21:21 ==
LOC: ER 20:53
DX: F10.129 Alcohol abuse with intoxication, unspecified (principal); Z02.89 Encounter for other administrative examinations; R07.89 Other chest pain; I10 Essential (primary) hypertension; E03.9 Hypothyroidism, unspecified; G89.29 Other chronic pain; F12.90 Cannabis use, unspecified, uncomplicated; F15.90 Other stimulant use, unspecified, uncomplicated; Z59.0 Homelessness; Z56.0 Unemployment, unspecified; Z98.890 Other specified postprocedural states; Z87.442 Personal history of urinary calculi; Z88.8 Allergy status to other drugs, medicaments and biological substances; Z79.82 Long term (current) use of aspirin; Z86.73 Personal history of transient ischemic attack (TIA), and cerebral infarction without residual deficits; Z79.899 Other long term (current) drug therapy; Y90.9 Presence of alcohol in blood, level not specified
CPT/HCPCS: 93005; 99283

== ENCOUNTER 2019-01-10 17:53 | Emergency (ER) | payer MEDICAID ==
[~2019-01-10] VITALS: Ht 175.3 cm; Wt 82.0 kg
[2019-01-10] MEDS ORDERED: ketorolac tromethamine 15mg/ml inj. IV ONE (18:00)
[2019-01-10] MEDS ORDERED: normal saline 1000ML IV soln IVB ONE ×2 (18:00→19:10)
[2019-01-10] MEDS ORDERED: ondansetron/PF 4mg/2ml inj IV ONE (18:00)
[2019-01-10 18:28] LABS: EOSINOPHILS # (AUTO) 0.1 X10'3 (0-0.9); EOSINOPHILS % (AUTO) 1.3 % (0-6); HEMATOCRIT 23.4 % (42.0-52.0); HEMOGLOBIN 7.6 g/dl (14.0-17.9); LYMPHOCYTES # (AUTO) 3.2 X10'3 (1.1-4.8); LYMPHOCYTES % (AUTO) 66.5 % (21-51); MEAN CORPUSCULAR HEMOGLOBIN 26.3 PG (27.0-31.0); MEAN CORPUSCULAR HGB CONC 32.7 g/dL (33.0-36.5); MEAN CORPUSCULAR VOLUME 80.5 FL (78-98); MEAN PLATELET VOLUME 6.9 FL (7.4-10.4); MONOCYTES # (AUTO) 0.4 X10'3 (0-0.9); MONOCYTES % (AUTO) 8.2 % (2-12); NEUTROPHILS # (AUTO) 1.1 X10'3 (1.8-7.7); PLATELET COUNT 107 X10'3 (140-440); RED CELL DISTRIBUTION WIDTH 21.9 % (11.5-14.5); WHITE BLOOD COUNT 4.8 X10'3 (4.5-11.0)
[2019-01-10 18:44] LABS: ALANINE AMINOTRANSFERASE 48 U/L (12-78); ALBUMIN 3.6 G/DL (3.4-5.0); ALBUMIN/GLOBULIN RATIO 0.9 (1.1-1.5); ALKALINE PHOSPHATASE 83 IU/L (46-116); ANION GAP 13 (8-16); ASPARTATE AMINO TRANSFERASE 89 U/L (10-37); BILIRUBIN,TOTAL 0.5 MG/DL (0.1-1.0); BLOOD UREA NITROGEN 16 MG/DL (7-18); BUN/CREATININE RATIO 13.3 (5.4-32.0); CALCIUM 8.4 MG/DL (8.5-10.1); CHLORIDE 103 MMOL/L (99-107); GLUCOSE 96 MG/DL (70-104); POTASSIUM 3.7 MMOL/L (3.5-5.1); SODIUM 137 MMOL/L (135-145); TOTAL CARBON DIOXIDE 21.2 MMOL/L (24-32); TOTAL PROTEIN 7.6 G/DL (6.4-8.2); eGFR 61 ML/MIN
[2019-01-10 18:47] LABS: LIPASE 279 U/L (73-393); TROPONIN I < 0.04 NG/ML (0.0-0.05)
[2019-01-10 18:59] LABS: ANISOCYTOSIS 3+; PLATELET ESTIMATE DECREASED
[2019-01-10 19:00] LABS: HYPOCHROMASIA 1+; MICROCYTOSIS 1+
[2019-01-10 19:32] LABS: CLARITY,URINE CLEAR (Clear); COLOR,URINE YELLOW (Yellow); GLUCOSE, URINE NEGATIVE (Neg); KETONES,URINE NEGATIVE (Neg); LEUKOCYTE ESTERASE ,URINE NEGATIVE (Neg); NITRITES, URINE NEGATIVE (Neg); OCCULT BLOOD,URINE NEGATIVE (Neg); PROTEIN,URINE NEGATIVE (Neg); UROBILINOGEN,URINE 0.2 E.U/dL (0.2-1.0)
--- NOTE | 2019-01-10 19:42 | NUR ---
PT WAS JUST SEEN PUNCHING HIMSELF IN HIS CHEST, AND WAS TOLD NOT TO DO THAT.
[2019-01-10 19:52] LABS: UA COLLECTION TYPE CLN CATCH MIDSTREAM
[2019-01-10 22:08] VITALS: BP 126/74
== END 2019-01-10 23:15 | disposition home or self-care (01) ==
LOC: ER 17:53
DX: R10.12 Left upper quadrant pain (principal); I10 Essential (primary) hypertension; E03.9 Hypothyroidism, unspecified; G89.29 Other chronic pain; F12.90 Cannabis use, unspecified, uncomplicated; F15.90 Other stimulant use, unspecified, uncomplicated; F17.210 Nicotine dependence, cigarettes, uncomplicated; Z87.442 Personal history of urinary calculi; Z86.73 Personal history of transient ischemic attack (TIA), and cerebral infarction without residual deficits; Z98.890 Other specified postprocedural states; Z56.0 Unemployment, unspecified; Z59.0 Homelessness; Z88.8 Allergy status to other drugs, medicaments and biological substances; Z79.82 Long term (current) use of aspirin; Z79.899 Other long term (current) drug therapy
CPT/HCPCS: 36415; 71045; 71250; 74176; 80053; 81003; 83690; 84145; 84484; 85025; 93005; 96374; 96375; 99284; J1885; J2405; J7030

== ENCOUNTER 2019-01-12 04:34 | Emergency (ER) | payer MEDICAID ==
[~2019-01-12] VITALS: Ht 177.8 cm; Wt 79.5 kg
[2019-01-12] MEDS ORDERED: levetiracetam 250mg tablet PO ONE (04:40)
[2019-01-12] MEDS ORDERED: LORazepam 2 mg/ml vial IM ONE (04:40)
[2019-01-12] MEDS ORDERED: levetiracetam inj 1,000 MG in normal saline 100ml IV soln 90 ML IV ONE (04:45)
[2019-01-12] MEDS ORDERED: thiamine 100mg/ml 2ml inj. IV ONE (04:45)
[2019-01-12] MEDS ORDERED: normal saline 1000ml 1,000 ML IV ONE (04:45)
[2019-01-12 05:03] LABS: BASOPHILS % (AUTO) 0.7 % (0-1); EOSINOPHILS % (AUTO) 0 % (0-6); HEMATOCRIT 25.4 % (42.0-52.0); LYMPHOCYTES # (AUTO) 1.9 X10'3 (1.1-4.8); LYMPHOCYTES % (AUTO) 41.9 % (21-51); MEAN CORPUSCULAR HEMOGLOBIN 25.9 PG (27.0-31.0); MEAN CORPUSCULAR HGB CONC 31.5 g/dL (33.0-36.5); MEAN CORPUSCULAR VOLUME 82.4 FL (78-98); MEAN PLATELET VOLUME 6.9 FL (7.4-10.4); MONOCYTES # (AUTO) 0.4 X10'3 (0-0.9); MONOCYTES % (AUTO) 8.1 % (2-12); NEUTROPHILS # (AUTO) 2.2 X10'3 (1.8-7.7); NEUTROPHILS % (AUTO) 49.3 % (42-75); PLATELET COUNT 92 X10'3 (140-440); RED BLOOD COUNT 3.08 X10'6 (4.70-6.10); RED CELL DISTRIBUTION WIDTH 21.5 % (11.5-14.5); WHITE BLOOD COUNT 4.5 X10'3 (4.5-11.0)
[2019-01-12 05:15] LABS: ALANINE AMINOTRANSFERASE 51 U/L (12-78); ALBUMIN 3.8 G/DL (3.4-5.0); ALBUMIN/GLOBULIN RATIO 0.9 (1.1-1.5); ALKALINE PHOSPHATASE 93 IU/L (46-116); ANION GAP 13 (8-16); ASPARTATE AMINO TRANSFERASE 84 U/L (10-37); BILIRUBIN,TOTAL 0.9 MG/DL (0.1-1.0); BLOOD UREA NITROGEN 14 MG/DL (7-18); BUN/CREATININE RATIO 12.3 (5.4-32.0); CHLORIDE 98 MMOL/L (99-107); CREATININE 1.14 MG/DL (0.60-1.10); GLUCOSE 192 MG/DL (70-104); POTASSIUM 3.9 MMOL/L (3.5-5.1); SODIUM 135 MMOL/L (135-145); TOTAL PROTEIN 8.2 G/DL (6.4-8.2); eGFR 65 ML/MIN
[2019-01-12] MEDS ORDERED: chlordiazePOXIDE 25mg capsule PO ONE (05:35)
[2019-01-12 06:24] LABS: ANISOCYTOSIS 3+; HYPOCHROMASIA 1+; PLATELET ESTIMATE DECREASED; POLYCHROMASIA 1+; STOMATOCYTES 1+
[2019-01-12 06:46] VITALS: BP 130/82
== END 2019-01-12 06:48 | disposition home or self-care (01) ==
LOC: ER 04:35
DX: F10.239 Alcohol dependence with withdrawal, unspecified (principal); R56.9 Unspecified convulsions; I10 Essential (primary) hypertension; E03.9 Hypothyroidism, unspecified; G89.29 Other chronic pain; F12.90 Cannabis use, unspecified, uncomplicated; F15.90 Other stimulant use, unspecified, uncomplicated; Z98.890 Other specified postprocedural states; Z86.73 Personal history of transient ischemic attack (TIA), and cerebral infarction without residual deficits; Z59.0 Homelessness; Z56.0 Unemployment, unspecified; Z79.82 Long term (current) use of aspirin; Z79.899 Other long term (current) drug therapy; Z88.8 Allergy status to other drugs, medicaments and biological substances; Y90.9 Presence of alcohol in blood, level not specified
CPT/HCPCS: 36415; 80053; 85025; 96365; 96372; 96375; 99283; J1953; J2060; J3411; J7030

== ENCOUNTER 2019-01-17 05:11 | Emergency (ER) | payer MEDICAID, OTHER ==
[~2019-01-17] VITALS: Ht 177.8 cm; Wt 82.7 kg
[2019-01-17 05:59] LABS: BASOPHILS % (AUTO) 0.7 % (0-1); EOSINOPHILS % (AUTO) 0.7 % (0-6); HEMATOCRIT 22.1 % (42.0-52.0); HEMOGLOBIN 7.2 g/dl (14.0-17.9); LYMPHOCYTES # (AUTO) 1.5 X10'3 (1.1-4.8); LYMPHOCYTES % (AUTO) 39.9 % (21-51); MEAN CORPUSCULAR HEMOGLOBIN 26.7 PG (27.0-31.0); MEAN CORPUSCULAR HGB CONC 32.5 g/dL (33.0-36.5); MEAN CORPUSCULAR VOLUME 82.2 FL (78-98); MEAN PLATELET VOLUME 7.9 FL (7.4-10.4); MONOCYTES # (AUTO) 0.7 X10'3 (0-0.9); MONOCYTES % (AUTO) 17.3 % (2-12); NEUTROPHILS # (AUTO) 1.6 X10'3 (1.8-7.7); NEUTROPHILS % (AUTO) 41.4 % (42-75); PLATELET COUNT 133 X10'3 (140-440); RED BLOOD COUNT 2.69 X10'6 (4.70-6.10); RED CELL DISTRIBUTION WIDTH 22.2 % (11.5-14.5); WHITE BLOOD COUNT 3.8 X10'3 (4.5-11.0)
[2019-01-17 06:09] LABS: URINE AMPHETAMINE SCREEN NEGATIVE (Neg); URINE BARBITUATE SCREEN NEGATIVE (Neg); URINE BENZODIAZEPINES SCREEN POSITIVE (Neg); URINE CANNABINOID SCREEN NEGATIVE (Neg); URINE COCAINE SCREEN NEGATIVE (Neg); URINE METHADONE SCREEN NEGATIVE (Neg); URINE OPIATE SCREEN NEGATIVE (Neg); URINE PHENCYCLIDINE SCREEN NEGATIVE (Neg)
[2019-01-17 06:13] LABS: ALANINE AMINOTRANSFERASE 48 U/L (12-78); ALBUMIN 4.1 G/DL (3.4-5.0); ALKALINE PHOSPHATASE 75 IU/L (46-116); ANION GAP 15 (8-16); ASPARTATE AMINO TRANSFERASE 68 U/L (10-37); BILIRUBIN,TOTAL 1.1 MG/DL (0.1-1.0); BLOOD UREA NITROGEN 35 MG/DL (7-18); BUN/CREATININE RATIO 19.3 (5.4-32.0); CHLORIDE 104 MMOL/L (99-107); CREATININE 1.81 MG/DL (0.60-1.10); GLUCOSE 97 MG/DL (70-104); POTASSIUM 3.4 MMOL/L (3.5-5.1); SODIUM 141 MMOL/L (135-145); TOTAL CARBON DIOXIDE 22.4 MMOL/L (24-32); TOTAL PROTEIN 8.2 G/DL (6.4-8.2); eGFR 38 ML/MIN
[2019-01-17 06:23] LABS: ETHANOL < 0.010 GM/DL (0.0-0.010)
[2019-01-17] MEDS ORDERED: normal saline 1000ML IV soln IVB ONE (06:35)
[2019-01-17 06:45] VITALS: BP 137/90
[2019-01-17 07:40] LABS: ANISOCYTOSIS 3+; PLATELET ESTIMATE DECREASED
[2019-01-17 07:41] LABS: HYPOCHROMASIA 1+; SCHISTOCYTES FEW
== END 2019-01-17 07:30 ==
LOC: ER 05:12
DX: R41.82 Altered mental status, unspecified (principal); I10 Essential (primary) hypertension; E03.9 Hypothyroidism, unspecified; G89.29 Other chronic pain; F12.90 Cannabis use, unspecified, uncomplicated; F15.90 Other stimulant use, unspecified, uncomplicated; Z59.0 Homelessness; Z88.8 Allergy status to other drugs, medicaments and biological substances; Z87.442 Personal history of urinary calculi; Z98.890 Other specified postprocedural states; Z79.82 Long term (current) use of aspirin; Z79.899 Other long term (current) drug therapy; Z86.73 Personal history of transient ischemic attack (TIA), and cerebral infarction without residual deficits; Z56.0 Unemployment, unspecified
CPT/HCPCS: 36415; 80053; 80305; 80320; 84443; 85025; 96360; 99284; J7030; 96361; 96374; 96375; 99283

== ENCOUNTER 2019-01-24 03:25 | Emergency (ER) | payer OTHER ==
[~2019-01-24] VITALS: Ht 177.8 cm; Wt 81.8 kg
[2019-01-24 03:29] VITALS: BP 152/108
[2019-01-24 04:21] LABS: BASOPHILS # (AUTO) 0.1 X10'3 (0-0.2); EOSINOPHILS # (AUTO) 0.1 X10'3 (0-0.9); EOSINOPHILS % (AUTO) 1.9 % (0-6); HEMATOCRIT 26.9 % (42.0-52.0); HEMOGLOBIN 8.7 g/dl (14.0-17.9); LYMPHOCYTES # (AUTO) 2.6 X10'3 (1.1-4.8); LYMPHOCYTES % (AUTO) 49.9 % (21-51); MEAN CORPUSCULAR HEMOGLOBIN 26.2 PG (27.0-31.0); MEAN CORPUSCULAR HGB CONC 32.1 g/dL (33.0-36.5); MEAN CORPUSCULAR VOLUME 81.7 FL (78-98); MEAN PLATELET VOLUME 7.6 FL (7.4-10.4); MONOCYTES # (AUTO) 0.5 X10'3 (0-0.9); MONOCYTES % (AUTO) 10.1 % (2-12); NEUTROPHILS % (AUTO) 37.1 % (42-75); PLATELET COUNT 228 X10'3 (140-440); RED CELL DISTRIBUTION WIDTH 21.9 % (11.5-14.5); WHITE BLOOD COUNT 5.3 X10'3 (4.5-11.0)
[2019-01-24 04:36] LABS: ALANINE AMINOTRANSFERASE 45 U/L (12-78); ALBUMIN 3.3 G/DL (3.4-5.0); ALBUMIN/GLOBULIN RATIO 0.7 (1.1-1.5); ALKALINE PHOSPHATASE 73 IU/L (46-116); ANION GAP 5 (8-16); ASPARTATE AMINO TRANSFERASE 72 U/L (10-37); BILIRUBIN,TOTAL 0.4 MG/DL (0.1-1.0); BLOOD UREA NITROGEN 19 MG/DL (7-18); BUN/CREATININE RATIO 14.1 (5.4-32.0); CHLORIDE 102 MMOL/L (99-107); CREATININE 1.35 MG/DL (0.60-1.10); GLUCOSE 91 MG/DL (70-104); SODIUM 137 MMOL/L (135-145); TOTAL CARBON DIOXIDE 29.7 MMOL/L (24-32); eGFR 54 ML/MIN
[2019-01-24 04:40] LABS: TROPONIN I < 0.04 NG/ML (0.0-0.05)
[2019-01-24 04:42] LABS: ETHANOL < 0.010 GM/DL (0.0-0.010)
[2019-01-24 04:45] LABS: PARTIAL THROMBOPLASTIN TIME 29 SECONDS (22-32)
[2019-01-24 05:02] LABS: URINE AMPHETAMINE SCREEN NEGATIVE (Neg); URINE BARBITUATE SCREEN NEGATIVE (Neg); URINE BENZODIAZEPINES SCREEN POSITIVE (Neg); URINE CANNABINOID SCREEN NEGATIVE (Neg); URINE COCAINE SCREEN NEGATIVE (Neg); URINE METHADONE SCREEN NEGATIVE (Neg); URINE OPIATE SCREEN NEGATIVE (Neg); URINE PHENCYCLIDINE SCREEN NEGATIVE (Neg)
== END 2019-01-24 05:17 ==
LOC: ER 03:26
DX: S00.01XA Abrasion of scalp, initial encounter (principal); I10 Essential (primary) hypertension; E03.9 Hypothyroidism, unspecified; G89.29 Other chronic pain; F12.90 Cannabis use, unspecified, uncomplicated; F15.90 Other stimulant use, unspecified, uncomplicated; R79.1 Abnormal coagulation profile; Z86.73 Personal history of transient ischemic attack (TIA), and cerebral infarction without residual deficits; Z98.890 Other specified postprocedural states; Z56.0 Unemployment, unspecified; Z59.0 Homelessness; Z88.8 Allergy status to other drugs, medicaments and biological substances; Z79.82 Long term (current) use of aspirin; Z79.899 Other long term (current) drug therapy; W18.39XA Other fall on same level, initial encounter; Y93.89 Activity, other specified; Y92.89 Other specified places as the place of occurrence of the external cause; Y99.8 Other external cause status
CPT/HCPCS: 36415; 70450; 80053; 80305; 80320; 84484; 85025; 85610; 85730; 93005; 99284

== ENCOUNTER 2019-02-12 11:02 | Emergency (ER) | payer OTHER ==
[~2019-02-12] VITALS: Ht 177.8 cm; Wt 81.8 kg
[2019-02-12 11:28] LABS: BASOPHILS % (AUTO) 0.5 % (0-1); EOSINOPHILS # (AUTO) 0.3 X10'3 (0-0.9); EOSINOPHILS % (AUTO) 4.7 % (0-6); HEMATOCRIT 24.7 % (42.0-52.0); HEMOGLOBIN 8.2 g/dl (14.0-17.9); LYMPHOCYTES # (AUTO) 2.2 X10'3 (1.1-4.8); LYMPHOCYTES % (AUTO) 40.9 % (21-51); MEAN CORPUSCULAR HEMOGLOBIN 25.9 PG (27.0-31.0); MEAN CORPUSCULAR HGB CONC 33.1 g/dL (33.0-36.5); MEAN CORPUSCULAR VOLUME 78.3 FL (78-98); MEAN PLATELET VOLUME 6.6 FL (7.4-10.4); MONOCYTES # (AUTO) 0.7 X10'3 (0-0.9); MONOCYTES % (AUTO) 12.9 % (2-12); NEUTROPHILS # (AUTO) 2.2 X10'3 (1.8-7.7); PLATELET COUNT 134 X10'3 (140-440); RED BLOOD COUNT 3.15 X10'6 (4.70-6.10); RED CELL DISTRIBUTION WIDTH 19.9 % (11.5-14.5); WHITE BLOOD COUNT 5.5 X10'3 (4.5-11.0)
[2019-02-12 11:33] VITALS: BP 122/74
[2019-02-12 11:41] LABS: PARTIAL THROMBOPLASTIN TIME 29 SECONDS (22-32)
[2019-02-12 11:43] LABS: ALANINE AMINOTRANSFERASE 44 U/L (12-78); ALBUMIN 3.2 G/DL (3.4-5.0); ALBUMIN/GLOBULIN RATIO 0.7 (1.1-1.5); ALKALINE PHOSPHATASE 80 IU/L (46-116); ANION GAP 6 (8-16); ASPARTATE AMINO TRANSFERASE 37 U/L (10-37); BILIRUBIN,TOTAL 0.2 MG/DL (0.1-1.0); BLOOD UREA NITROGEN 22 MG/DL (7-18); BUN/CREATININE RATIO 17.6 (5.4-32.0); CALCIUM 8.7 MG/DL (8.5-10.1); CHLORIDE 101 MMOL/L (99-107); CREATININE 1.25 MG/DL (0.60-1.10); GLUCOSE 103 MG/DL (70-104); POTASSIUM 3.8 MMOL/L (3.5-5.1); SODIUM 136 MMOL/L (135-145); TOTAL CARBON DIOXIDE 28.9 MMOL/L (24-32); TOTAL PROTEIN 7.8 G/DL (6.4-8.2); eGFR 59 ML/MIN
[2019-02-12 12:06] LABS: ANISOCYTOSIS 2+; HYPOCHROMASIA 1+; MICROCYTOSIS 1+; PLATELET ESTIMATE DECREASED
== END 2019-02-12 13:04 | disposition home or self-care (01) ==
LOC: ER 11:02
DX: R55 Syncope and collapse (principal); D64.9 Anemia, unspecified; R41.0 Disorientation, unspecified; I10 Essential (primary) hypertension; E03.9 Hypothyroidism, unspecified; G89.29 Other chronic pain; F12.90 Cannabis use, unspecified, uncomplicated; F15.90 Other stimulant use, unspecified, uncomplicated; Z86.73 Personal history of transient ischemic attack (TIA), and cerebral infarction without residual deficits; Z98.890 Other specified postprocedural states; Z59.0 Homelessness; Z56.0 Unemployment, unspecified; Z88.8 Allergy status to other drugs, medicaments and biological substances; Z79.82 Long term (current) use of aspirin; Z79.899 Other long term (current) drug therapy
CPT/HCPCS: 36415; 80053; 84484; 85025; 85610; 85730; 93005; 99284

== ENCOUNTER 2019-04-14 04:22 | Emergency (ER) | payer OTHER ==
[~2019-04-14] VITALS: Ht 177.8 cm; Wt 81.8 kg
[2019-04-14] MEDS ORDERED: naproxen 500mg tablet PO ONE (04:40)
[2019-04-14] MEDS ORDERED: cyclobenzaprine 10mg tablet PO ONE (04:40)
--- NOTE | 2019-04-14 04:45 | NUR ---
stroke alert cancelled by dr stai all orders cancelled by dr tsai denies need for any stroke work up at this time due to symptoms and complaint continuously changing.
[2019-04-14] MEDS ORDERED: NAPR-56 PO (05:18)
[2019-04-14 05:32] VITALS: BP 149/93
== END 2019-04-14 06:06 | disposition home or self-care (01) ==
LOC: ER 04:23
DX: M54.6 Pain in thoracic spine (principal); R29.810 Facial weakness; R20.0 Anesthesia of skin; R47.81 Slurred speech; I10 Essential (primary) hypertension; E03.9 Hypothyroidism, unspecified; G89.29 Other chronic pain; F12.90 Cannabis use, unspecified, uncomplicated; F15.90 Other stimulant use, unspecified, uncomplicated; Z86.73 Personal history of transient ischemic attack (TIA), and cerebral infarction without residual deficits; Z86.69 Personal history of other diseases of the nervous system and sense organs; Z98.890 Other specified postprocedural states; Z56.0 Unemployment, unspecified; Z59.0 Homelessness; Z88.8 Allergy status to other drugs, medicaments and biological substances; Z79.82 Long term (current) use of aspirin; Z79.899 Other long term (current) drug therapy
CPT/HCPCS: 71045; 72070; 99284

== ENCOUNTER 2019-05-15 09:06 | Emergency (ER) | payer MEDICAID, OTHER ==
[~2019-05-15] VITALS: Ht 177.8 cm; Wt 81.0 kg
[~2019-05-15 09:06] MED LIST changes: +NAPR-56 PO
[2019-05-15] MEDS ORDERED: ondansetron 4mg rapidly disintigrating tab PO ONE (09:20)
[2019-05-15 09:46] LABS: BASOPHILS % (AUTO) 0.5 % (0-1); EOSINOPHILS % (AUTO) 0.7 % (0-6); HEMATOCRIT 35.9 % (42.0-52.0); HEMOGLOBIN 11.8 g/dl (14.0-17.9); LYMPHOCYTES # (AUTO) 1.8 X10'3 (1.1-4.8); LYMPHOCYTES % (AUTO) 40.3 % (21-51); MEAN CORPUSCULAR HEMOGLOBIN 26.4 PG (27.0-31.0); MEAN CORPUSCULAR VOLUME 80.1 FL (78-98); MEAN PLATELET VOLUME 6.5 FL (7.4-10.4); MONOCYTES # (AUTO) 0.3 X10'3 (0-0.9); MONOCYTES % (AUTO) 5.9 % (2-12); NEUTROPHILS # (AUTO) 2.3 X10'3 (1.8-7.7); NEUTROPHILS % (AUTO) 52.6 % (42-75); PLATELET COUNT 150 X10'3 (140-440); RED BLOOD COUNT 4.48 X10'6 (4.70-6.10); RED CELL DISTRIBUTION WIDTH 27.4 % (11.5-14.5); WHITE BLOOD COUNT 4.5 X10'3 (4.5-11.0)
[2019-05-15 10:03] LABS: ALANINE AMINOTRANSFERASE 74 U/L (12-78); ALBUMIN 3.7 G/DL (3.4-5.0); ALBUMIN/GLOBULIN RATIO 0.8 (1.1-1.5); ALKALINE PHOSPHATASE 104 IU/L (46-116); ANION GAP 13 (8-16); ASPARTATE AMINO TRANSFERASE 73 U/L (10-37); BILIRUBIN,TOTAL 0.8 MG/DL (0.1-1.0); BLOOD UREA NITROGEN 16 MG/DL (7-18); BUN/CREATININE RATIO 15.2 (5.4-32.0); CALCIUM 8.4 MG/DL (8.5-10.1); CHLORIDE 101 MMOL/L (99-107); CREATININE 1.05 MG/DL (0.60-1.10); ETHANOL 0.101 GM/DL (0.0-0.010); GLUCOSE 91 MG/DL (70-104); POTASSIUM 3.8 MMOL/L (3.5-5.1); SODIUM 136 MMOL/L (135-145); TOTAL CARBON DIOXIDE 21.9 MMOL/L (24-32); TOTAL PROTEIN 8.5 G/DL (6.4-8.2); eGFR 71 ML/MIN
[2019-05-15 10:04] LABS: ANISOCYTOSIS 3+; PLATELET ESTIMATE NORMAL
[2019-05-15] MEDS ORDERED: ONDA4TAB6 PO (10:04)
[2019-05-15 10:15] VITALS: BP 144/99
== END 2019-05-15 10:16 | disposition home or self-care (01) ==
LOC: ER 09:07
DX: F10.920 Alcohol use, unspecified with intoxication, uncomplicated (principal); E86.0 Dehydration; I10 Essential (primary) hypertension; E03.9 Hypothyroidism, unspecified; G89.29 Other chronic pain; M54.9 Dorsalgia, unspecified; F12.90 Cannabis use, unspecified, uncomplicated; F15.90 Other stimulant use, unspecified, uncomplicated; Z86.73 Personal history of transient ischemic attack (TIA), and cerebral infarction without residual deficits; Z56.0 Unemployment, unspecified; Z59.0 Homelessness; Z88.8 Allergy status to other drugs, medicaments and biological substances
CPT/HCPCS: 36415; 80053; 80320; 85025; 93005; 99284

== ENCOUNTER 2019-05-28 17:17 | Emergency (ER) | payer MEDICAID ==
[~2019-05-28] VITALS: Ht 172.7 cm; Wt 80.0 kg
[~2019-05-28 17:17] MED LIST changes: -NAPR-56 PO; +ONDA4TAB6 PO
[2019-05-28 17:33] VITALS: BP 142/89
[2019-05-28] MEDS ORDERED: proparacaine 0.5% ophthalmic drops 15ml EACHEYE ONE (17:55)
== END 2019-05-28 19:14 | disposition home or self-care (01) ==
LOC: ER 17:17
DX: H57.12 Ocular pain, left eye (principal); R51 Headache; F10.99 Alcohol use, unspecified with unspecified alcohol-induced disorder; I10 Essential (primary) hypertension; E03.9 Hypothyroidism, unspecified; G89.29 Other chronic pain; F12.90 Cannabis use, unspecified, uncomplicated; F15.90 Other stimulant use, unspecified, uncomplicated; Z87.442 Personal history of urinary calculi; Z86.2 Personal history of diseases of the blood and blood-forming organs and certain disorders involving the immune mechanism; Z86.69 Personal history of other diseases of the nervous system and sense organs; Z86.73 Personal history of transient ischemic attack (TIA), and cerebral infarction without residual deficits; Z98.890 Other specified postprocedural states; Z90.89 Acquired absence of other organs; Z56.0 Unemployment, unspecified; Z59.0 Homelessness; Z88.8 Allergy status to other drugs, medicaments and biological substances; Z88.5 Allergy status to narcotic agent; Z79.82 Long term (current) use of aspirin; Z79.899 Other long term (current) drug therapy; Y90.9 Presence of alcohol in blood, level not specified
CPT/HCPCS: 70450; 99284

== ENCOUNTER 2019-05-31 09:30 | Emergency (ER) | payer MEDICAID ==
[~2019-05-31] VITALS: Ht 177.8 cm; Wt 85.0 kg
[2019-05-31 10:04] LABS: BASOPHILS % (AUTO) 0.8 % (0-1); EOSINOPHILS % (AUTO) 1.2 % (0-6); HEMATOCRIT 34.1 % (42.0-52.0); HEMOGLOBIN 11.2 g/dl (14.0-17.9); MEAN CORPUSCULAR HEMOGLOBIN 27.1 PG (27.0-31.0); MEAN CORPUSCULAR HGB CONC 32.9 g/dL (33.0-36.5); MEAN CORPUSCULAR VOLUME 82.3 FL (78-98); MEAN PLATELET VOLUME 6.4 FL (7.4-10.4); MONOCYTES # (AUTO) 0.4 X10'3 (0-0.9); MONOCYTES % (AUTO) 9.9 % (2-12); NEUTROPHILS # (AUTO) 1.1 X10'3 (1.8-7.7); NEUTROPHILS % (AUTO) 32.1 % (42-75); PLATELET COUNT 133 X10'3 (140-440); RED BLOOD COUNT 4.15 X10'6 (4.70-6.10); WHITE BLOOD COUNT 3.6 X10'3 (4.5-11.0)
[2019-05-31 10:15] LABS: ALANINE AMINOTRANSFERASE 75 U/L (12-78); ALBUMIN 3.7 G/DL (3.4-5.0); ALBUMIN/GLOBULIN RATIO 0.8 (1.1-1.5); ALKALINE PHOSPHATASE 114 IU/L (46-116); ANION GAP 14 (8-16); ASPARTATE AMINO TRANSFERASE 83 U/L (10-37); BILIRUBIN,TOTAL 0.6 MG/DL (0.1-1.0); BLOOD UREA NITROGEN 11 MG/DL (7-18); BUN/CREATININE RATIO 9.9 (5.4-32.0); CALCIUM 8.6 MG/DL (8.5-10.1); CHLORIDE 103 MMOL/L (99-107); CREATININE 1.11 MG/DL (0.60-1.10); GLUCOSE 92 MG/DL (70-104); POTASSIUM 3.5 MMOL/L (3.5-5.1); SODIUM 138 MMOL/L (135-145); TOTAL CARBON DIOXIDE 20.8 MMOL/L (24-32); TOTAL PROTEIN 8.2 G/DL (6.4-8.2); eGFR 67 ML/MIN
[2019-05-31 10:19] LABS: PARTIAL THROMBOPLASTIN TIME 29 SECONDS (22-32); TROPONIN I < 0.04 NG/ML (0.0-0.05)
[2019-05-31 10:36] LABS: TOTAL CELLS COUNTED 100
[2019-05-31 10:37] LABS: ANISOCYTOSIS 3+; PLATELET ESTIMATE DECREASED
[2019-05-31 11:00] LABS: ETHANOL 0.161 GM/DL (0.0-0.010)
[2019-05-31 11:25] LABS: URINE AMPHETAMINE SCREEN NEGATIVE (Neg); URINE BARBITUATE SCREEN NEGATIVE (Neg); URINE BENZODIAZEPINES SCREEN NEGATIVE (Neg); URINE CANNABINOID SCREEN NEGATIVE (Neg); URINE COCAINE SCREEN NEGATIVE (Neg); URINE METHADONE SCREEN NEGATIVE (Neg); URINE OPIATE SCREEN NEGATIVE (Neg); URINE PHENCYCLIDINE SCREEN NEGATIVE (Neg)
--- NOTE | 2019-05-31 11:37 | NUR ---
TELE NEURO HAS BEEN INITIATED.
[2019-05-31] MEDS ORDERED: PANT-47 PO (12:28)
[2019-05-31 13:40] VITALS: BP 129/82
== END 2019-05-31 13:44 | disposition home or self-care (01) ==
LOC: ER 09:30
DX: S42.252A Displaced fracture of greater tuberosity of left humerus, initial encounter for closed fracture (principal); R53.1 Weakness; R51 Headache; I10 Essential (primary) hypertension; E03.9 Hypothyroidism, unspecified; G89.29 Other chronic pain; C7A.00 Malignant carcinoid tumor of unspecified site; F12.90 Cannabis use, unspecified, uncomplicated; F15.90 Other stimulant use, unspecified, uncomplicated; Z56.0 Unemployment, unspecified; Z59.0 Homelessness; Z88.8 Allergy status to other drugs, medicaments and biological substances; Z86.73 Personal history of transient ischemic attack (TIA), and cerebral infarction without residual deficits; Z98.890 Other specified postprocedural states; Z79.899 Other long term (current) drug therapy; X58.XXXA Exposure to other specified factors, initial encounter; Y93.89 Activity, other specified; Y92.89 Other specified places as the place of occurrence of the external cause; Y99.8 Other external cause status
CPT/HCPCS: 36415; 70450; 71045; 73030; 80053; 80305; 80320; 84484; 85025; 85610; 85730; 93005; 99284

== ENCOUNTER 2019-06-11 15:36 | Emergency (ER) | payer MEDICAID ==
[~2019-06-11] VITALS: Ht 177.8 cm; Wt 80.0 kg
[~2019-06-11 15:36] MED LIST changes: -ASPI81TA52 PO; -ATOR20TA PO; -GUAI120015 PO; -ONDA4TAB6 PO; +PANT-47 PO
[2019-06-11] MEDS ORDERED: folic acid 1mg/0.2ml inj IV ONE (15:55)
[2019-06-11] MEDS ORDERED: normal saline 1000ML IV soln IVB ONE (15:55)
[2019-06-11] MEDS ORDERED: thiamine 100mg/ml 2ml inj. IV ONE (15:55)
--- NOTE | 2019-06-11 16:09 | NUR ---
PT TO CT
[2019-06-11 16:12] LABS: BASOPHILS % (AUTO) 0.9 % (0-1); EOSINOPHILS % (AUTO) 0.8 % (0-6); HEMATOCRIT 32.2 % (42.0-52.0); HEMOGLOBIN 10.9 g/dl (14.0-17.9); LYMPHOCYTES # (AUTO) 3.5 X10'3 (1.1-4.8); LYMPHOCYTES % (AUTO) 64.9 % (21-51); MEAN CORPUSCULAR HEMOGLOBIN 28.3 PG (27.0-31.0); MEAN CORPUSCULAR HGB CONC 33.7 g/dL (33.0-36.5); MEAN PLATELET VOLUME 6.2 FL (7.4-10.4); MONOCYTES # (AUTO) 0.3 X10'3 (0-0.9); NEUTROPHILS # (AUTO) 1.5 X10'3 (1.8-7.7); NEUTROPHILS % (AUTO) 27.4 % (42-75); PLATELET COUNT 153 X10'3 (140-440); RED BLOOD COUNT 3.84 X10'6 (4.70-6.10); RED CELL DISTRIBUTION WIDTH 28.2 % (11.5-14.5); WHITE BLOOD COUNT 5.5 X10'3 (4.5-11.0)
[2019-06-11] MEDS ORDERED: acetaminophen 325mg tablet PO ONE (16:30)
[2019-06-11 16:36] LABS: ALANINE AMINOTRANSFERASE 44 U/L (12-78); ALBUMIN 3.5 G/DL (3.4-5.0); ALBUMIN/GLOBULIN RATIO 0.7 (1.1-1.5); ALKALINE PHOSPHATASE 128 IU/L (46-116); ANION GAP 12 (8-16); ASPARTATE AMINO TRANSFERASE 75 U/L (10-37); BILIRUBIN,TOTAL 0.4 MG/DL (0.1-1.0); BLOOD UREA NITROGEN 6 MG/DL (7-18); BUN/CREATININE RATIO 6.1 (5.4-32.0); CHLORIDE 107 MMOL/L (99-107); CREATININE 0.99 MG/DL (0.60-1.10); GLUCOSE 101 MG/DL (70-104); POTASSIUM 3.7 MMOL/L (3.5-5.1); SODIUM 143 MMOL/L (135-145); TOTAL CARBON DIOXIDE 24.3 MMOL/L (24-32); TOTAL PROTEIN 8.7 G/DL (6.4-8.2); eGFR 76 ML/MIN
[2019-06-11 16:52] LABS: ETHANOL 0.344 GM/DL (0.0-0.010)
[2019-06-11 17:29] LABS: PLATELET ESTIMATE NORMAL; TOTAL CELLS COUNTED 100
[2019-06-11 17:30] LABS: ANISOCYTOSIS 3+; ELLIPTOCYTES FEW; POLYCHROMASIA FEW; SCHISTOCYTES FEW; SMUDGE CELLS 1+; SPHEROCYTES FEW; TEAR DROP CELLS FEW
[2019-06-11 17:43] VITALS: BP 145/95
== END 2019-06-11 17:46 | disposition home or self-care (01) ==
LOC: ER 15:37
DX: F10.929 Alcohol use, unspecified with intoxication, unspecified (principal); I10 Essential (primary) hypertension; E03.9 Hypothyroidism, unspecified; G89.29 Other chronic pain; F12.90 Cannabis use, unspecified, uncomplicated; F15.90 Other stimulant use, unspecified, uncomplicated; Z59.0 Homelessness; Z56.0 Unemployment, unspecified; Z86.73 Personal history of transient ischemic attack (TIA), and cerebral infarction without residual deficits; Z90.89 Acquired absence of other organs; Z98.890 Other specified postprocedural states; Z88.8 Allergy status to other drugs, medicaments and biological substances; Z79.899 Other long term (current) drug therapy; Y90.9 Presence of alcohol in blood, level not specified
CPT/HCPCS: 36415; 70450; 80053; 80320; 85025; 85610; 96374; 96375; 99284; J3411; J3490; J7030

== ENCOUNTER 2019-07-26 05:39 | Emergency (ER) | payer MEDICAID ==
[~2019-07-26] VITALS: Ht 177.8 cm; Wt 75.0 kg
[2019-07-26 05:43] VITALS: BP 135/96
[2019-07-26] MEDS ORDERED: DOXY100C43 PO (05:48)
[2019-07-26] MEDS ORDERED: PRED20TA PO (05:48)
[2019-07-26] MEDS ORDERED: ALBU18HF2 INH (05:48)
--- NOTE | 2019-07-26 10:44 | NUR ---
pt. lost his rx's while waiting for a cab. pt. came back in and wanted his rx's called in to [facility] on [address]. called in ventolin inhaler, doxycycline, prednisone
== END 2019-07-26 06:06 | disposition home or self-care (01) ==
LOC: ER 05:40
DX: J20.9 Acute bronchitis, unspecified (principal); J06.9 Acute upper respiratory infection, unspecified; I10 Essential (primary) hypertension; E03.9 Hypothyroidism, unspecified; F17.299 Nicotine dependence, other tobacco product, with unspecified nicotine-induced disorders; G89.29 Other chronic pain; F12.90 Cannabis use, unspecified, uncomplicated; F15.90 Other stimulant use, unspecified, uncomplicated; Z86.73 Personal history of transient ischemic attack (TIA), and cerebral infarction without residual deficits; Z59.0 Homelessness; Z56.0 Unemployment, unspecified; Z98.890 Other specified postprocedural states; Z90.89 Acquired absence of other organs; Z87.442 Personal history of urinary calculi; Z88.8 Allergy status to other drugs, medicaments and biological substances; Z79.899 Other long term (current) drug therapy
CPT/HCPCS: 99283; 99406

== ENCOUNTER 2019-08-09 15:30 | Emergency (ER) | payer MEDICAID ==
[~2019-08-09] VITALS: Ht 177.8 cm; Wt 75.0 kg
[~2019-08-09 15:30] MED LIST changes: +ALBU18HF2 INH; +PRED20TA PO
--- NOTE | 2019-08-09 16:57 | NUR ---
Pneumonia protocol orders placed due to the patient's productive and persistent cough.
[2019-08-09 17:34] LABS: BASOPHILS % (AUTO) 0.5 % (0-1); EOSINOPHILS % (AUTO) 1.1 % (0-6); HEMATOCRIT 29.8 % (42.0-52.0); HEMOGLOBIN 10.2 g/dl (14.0-17.9); LYMPHOCYTES # (AUTO) 1.8 X10'3 (1.1-4.8); LYMPHOCYTES % (AUTO) 38.7 % (21-51); MEAN CORPUSCULAR HEMOGLOBIN 32.4 PG (27.0-31.0); MEAN CORPUSCULAR HGB CONC 34.1 g/dL (33.0-36.5); MEAN PLATELET VOLUME 7.8 FL (7.4-10.4); MONOCYTES # (AUTO) 0.6 X10'3 (0-0.9); MONOCYTES % (AUTO) 13.6 % (2-12); NEUTROPHILS # (AUTO) 2.1 X10'3 (1.8-7.7); NEUTROPHILS % (AUTO) 46.1 % (42-75); PLATELET COUNT 124 X10'3 (140-440); RED BLOOD COUNT 3.14 X10'6 (4.70-6.10); RED CELL DISTRIBUTION WIDTH 18.8 % (11.5-14.5); WHITE BLOOD COUNT 4.6 X10'3 (4.5-11.0)
--- NOTE | 2019-08-09 17:35 | NUR ---
Pt started to fall during x-ray and centura technical lead senior developer caught him and helped him back to bed. Pt given strict instructions not to get out of bed due to fall risk issues.
[2019-08-09 17:38] LABS: ALANINE AMINOTRANSFERASE 49 U/L (12-78); ALKALINE PHOSPHATASE 79 IU/L (46-116); ANION GAP 12 (8-16); ASPARTATE AMINO TRANSFERASE 84 U/L (10-37); BILIRUBIN,TOTAL 0.9 MG/DL (0.1-1.0); BLOOD UREA NITROGEN 12 MG/DL (7-18); BUN/CREATININE RATIO 11.7 (5.4-32.0); CALCIUM 8.9 MG/DL (8.5-10.1); CHLORIDE 93 MMOL/L (99-107); CREATININE 1.03 MG/DL (0.60-1.10); GLUCOSE 103 MG/DL (70-104); POTASSIUM 3.6 MMOL/L (3.5-5.1); SODIUM 127 MMOL/L (135-145); TOTAL CARBON DIOXIDE 21.9 MMOL/L (24-32); TOTAL PROTEIN 8.1 G/DL (6.4-8.2); eGFR 73 ML/MIN
[2019-08-09 18:48] LABS: PARTIAL THROMBOPLASTIN TIME 29 SECONDS (22-32)
[2019-08-09 18:58] LABS: CLARITY,URINE CLEAR (Clear); COLOR,URINE YELLOW (Yellow); GLUCOSE, URINE NEGATIVE (Neg); KETONES,URINE NEGATIVE (Neg); LEUKOCYTE ESTERASE ,URINE NEGATIVE (Neg); NITRITES, URINE NEGATIVE (Neg); OCCULT BLOOD,URINE NEGATIVE (Neg); PROTEIN,URINE NEGATIVE (Neg); UROBILINOGEN,URINE 0.2 E.U/dL (0.2-1.0)
[2019-08-09 18:59] LABS: UA COLLECTION TYPE URINAL
[2019-08-09] MEDS ORDERED: CETI10CA PO (19:37)
[2019-08-09 19:56] VITALS: BP 127/84
== END 2019-08-09 19:59 | disposition home or self-care (01) ==
LOC: ER 15:31
DX: J06.9 Acute upper respiratory infection, unspecified (principal); R21 Rash and other nonspecific skin eruption; G89.29 Other chronic pain; M25.561 Pain in right knee; I10 Essential (primary) hypertension; R11.2 Nausea with vomiting, unspecified; E03.9 Hypothyroidism, unspecified; F10.99 Alcohol use, unspecified with unspecified alcohol-induced disorder; F12.90 Cannabis use, unspecified, uncomplicated; F15.90 Other stimulant use, unspecified, uncomplicated; Z86.69 Personal history of other diseases of the nervous system and sense organs; Z87.442 Personal history of urinary calculi; Z86.73 Personal history of transient ischemic attack (TIA), and cerebral infarction without residual deficits; Z98.890 Other specified postprocedural states; Z59.0 Homelessness; Z88.8 Allergy status to other drugs, medicaments and biological substances; Z79.899 Other long term (current) drug therapy; Y90.9 Presence of alcohol in blood, level not specified
CPT/HCPCS: 36415; 71045; 80053; 81003; 83605; 83880; 84145; 84484; 85025; 85610; 85730; 87040; 93005; 99284

== ENCOUNTER 2019-08-16 08:04 | Emergency (ER) | payer MEDICAID ==
[~2019-08-16] VITALS: Ht 177.8 cm; Wt 79.1 kg
[~2019-08-16 08:04] MED LIST changes: +CETI10CA PO
[2019-08-16 08:10] VITALS: BP 138/87
[2019-08-16] MEDS ORDERED: PERM60CR4 TP (08:23)
[2019-08-16] MEDS ORDERED: LEVO150T8 PO (08:23)
== END 2019-08-16 08:30 | disposition home or self-care (01) ==
LOC: ER 08:05
DX: R21 Rash and other nonspecific skin eruption (principal); I10 Essential (primary) hypertension; G89.29 Other chronic pain; F10.99 Alcohol use, unspecified with unspecified alcohol-induced disorder; F17.210 Nicotine dependence, cigarettes, uncomplicated; F12.90 Cannabis use, unspecified, uncomplicated; F15.90 Other stimulant use, unspecified, uncomplicated; Z59.0 Homelessness; Z56.0 Unemployment, unspecified; Z86.73 Personal history of transient ischemic attack (TIA), and cerebral infarction without residual deficits; Z86.69 Personal history of other diseases of the nervous system and sense organs; Z87.442 Personal history of urinary calculi; Z86.2 Personal history of diseases of the blood and blood-forming organs and certain disorders involving the immune mechanism; Z90.89 Acquired absence of other organs; Z98.890 Other specified postprocedural states; Z88.8 Allergy status to other drugs, medicaments and biological substances; Z79.899 Other long term (current) drug therapy; Y90.9 Presence of alcohol in blood, level not specified
CPT/HCPCS: 99284

== ENCOUNTER 2019-08-28 08:12 | Emergency (ER) | payer MEDICAID ==
[~2019-08-28] VITALS: Ht 177.8 cm; Wt 80.0 kg
[~2019-08-28 08:12] MED LIST changes: +LEVO150T8 PO; +PERM60CR4 TP; -PRED20TA PO
[2019-08-28] MEDS ORDERED: folic acid 1mg/0.2ml inj IV ONE (08:20)
[2019-08-28] MEDS ORDERED: normal saline 1000ML IV soln IVB ONE (08:20)
[2019-08-28] MEDS ORDERED: thiamine 100mg/ml 2ml inj. IV ONE (08:20)
[2019-08-28 08:52] LABS: HEMATOCRIT 28.4 % (42.0-52.0); HEMOGLOBIN 9.7 g/dl (14.0-17.9); MEAN CORPUSCULAR HGB CONC 34.2 g/dL (33.0-36.5); MEAN CORPUSCULAR VOLUME 93.6 FL (78-98); MEAN PLATELET VOLUME 6.8 FL (7.4-10.4); PLATELET COUNT 123 X10'3 (140-440); RED BLOOD COUNT 3.04 X10'6 (4.70-6.10); RED CELL DISTRIBUTION WIDTH 18.7 % (11.5-14.5)
[2019-08-28 09:05] LABS: ALANINE AMINOTRANSFERASE 46 U/L (12-78); ALBUMIN 3.4 G/DL (3.4-5.0); ALBUMIN/GLOBULIN RATIO 0.8 (1.1-1.5); ALKALINE PHOSPHATASE 89 IU/L (46-116); ANION GAP 8 (8-16); ASPARTATE AMINO TRANSFERASE 68 U/L (10-37); BILIRUBIN,TOTAL 0.3 MG/DL (0.1-1.0); BLOOD UREA NITROGEN 9 MG/DL (7-18); BUN/CREATININE RATIO 9.6 (5.4-32.0); CALCIUM 8.4 MG/DL (8.5-10.1); CHLORIDE 104 MMOL/L (99-107); CREATININE 0.94 MG/DL (0.60-1.10); GLUCOSE 100 MG/DL (70-104); POTASSIUM 3.7 MMOL/L (3.5-5.1); SODIUM 138 MMOL/L (135-145); TOTAL CARBON DIOXIDE 25.9 MMOL/L (24-32); TOTAL PROTEIN 7.7 G/DL (6.4-8.2); eGFR 81 ML/MIN
[2019-08-28 09:09] LABS: ETHANOL 0.316 GM/DL (0.0-0.010)
[2019-08-28 10:45] VITALS: BP 148/92
[2019-08-28 10:52] LABS: ANISOCYTOSIS 2+; PLATELET ESTIMATE DECREASED; TOTAL CELLS COUNTED 100
[2019-08-28 10:54] LABS: POLYCHROMASIA FEW
== END 2019-08-28 10:48 | disposition home or self-care (01) ==
LOC: ER 08:13
DX: F10.129 Alcohol abuse with intoxication, unspecified (principal); E86.0 Dehydration; G89.29 Other chronic pain; I10 Essential (primary) hypertension; E03.9 Hypothyroidism, unspecified; F12.90 Cannabis use, unspecified, uncomplicated; F15.90 Other stimulant use, unspecified, uncomplicated; Z86.2 Personal history of diseases of the blood and blood-forming organs and certain disorders involving the immune mechanism; Z87.442 Personal history of urinary calculi; Z86.73 Personal history of transient ischemic attack (TIA), and cerebral infarction without residual deficits; Z59.0 Homelessness; Z56.0 Unemployment, unspecified; Z98.890 Other specified postprocedural states; Z88.8 Allergy status to other drugs, medicaments and biological substances; Z88.5 Allergy status to narcotic agent; Z79.899 Other long term (current) drug therapy; Y90.0 Blood alcohol level of less than 20 mg/100 ml
CPT/HCPCS: 80053; 80320; 82948; 85025; 96361; 96374; 96375; 99284; J3411; J3490; J7030

== ENCOUNTER 2019-09-06 23:28 | Emergency (ER) | payer MEDICAID ==
[~2019-09-06] VITALS: Ht 157.5 cm; Wt 80.0 kg
[2019-09-07 00:16] LABS: BASOPHILS % (AUTO) 0.3 % (0-1); EOSINOPHILS # (AUTO) 0.1 X10'3 (0-0.9); EOSINOPHILS % (AUTO) 1.7 % (0-6); HEMOGLOBIN 9.9 g/dl (14.0-17.9); LYMPHOCYTES # (AUTO) 3.5 X10'3 (1.1-4.8); LYMPHOCYTES % (AUTO) 59.6 % (21-51); MEAN CORPUSCULAR HEMOGLOBIN 30.9 PG (27.0-31.0); MEAN CORPUSCULAR VOLUME 90.7 FL (78-98); MONOCYTES # (AUTO) 0.5 X10'3 (0-0.9); MONOCYTES % (AUTO) 9.2 % (2-12); NEUTROPHILS # (AUTO) 1.7 X10'3 (1.8-7.7); NEUTROPHILS % (AUTO) 29.2 % (42-75); PLATELET COUNT 109 X10'3 (140-440); RED CELL DISTRIBUTION WIDTH 17.9 % (11.5-14.5); WHITE BLOOD COUNT 5.8 X10'3 (4.5-11.0)
[2019-09-07] MEDS ORDERED: normal saline 1000ML IV soln IVB ONE (00:20)
[2019-09-07] MEDS ORDERED: metoclopramide 5 mg/ml inj IV ONE (00:20)
[2019-09-07 00:33] LABS: ALANINE AMINOTRANSFERASE 38 U/L (12-78); ALBUMIN 3.6 G/DL (3.4-5.0); ALBUMIN/GLOBULIN RATIO 0.9 (1.1-1.5); ALKALINE PHOSPHATASE 80 IU/L (46-116); ANION GAP 10 (8-16); ASPARTATE AMINO TRANSFERASE 64 U/L (10-37); BILIRUBIN,TOTAL 0.5 MG/DL (0.1-1.0); BLOOD UREA NITROGEN 16 MG/DL (7-18); BUN/CREATININE RATIO 13.1 (5.4-32.0); CALCIUM 8.2 MG/DL (8.5-10.1); CHLORIDE 98 MMOL/L (99-107); CREATININE 1.22 MG/DL (0.60-1.10); GLUCOSE 98 MG/DL (70-104); POTASSIUM 3.1 MMOL/L (3.5-5.1); SODIUM 131 MMOL/L (135-145); TOTAL CARBON DIOXIDE 22.9 MMOL/L (24-32); TOTAL PROTEIN 7.6 G/DL (6.4-8.2); eGFR 60 ML/MIN
[2019-09-07] MEDS ORDERED: potassium Cl 20 mEq SR tablet PO STA (00:39)
[2019-09-07 00:40] LABS: LIPASE 230 U/L (73-393)
[2019-09-07 01:06] VITALS: BP 113/70
--- NOTE | 2019-09-07 01:07 | NUR ---
PT VOMITED IN TRASH CAN, PULLED IV OUT AND TOOK SECURITY COMPLIANCE ENGINEER OFF. NEW IV STARTED, HE WAS GIVEN IV REGLAN AND POTASSIUM PO. HE NOW HAS IV FLUIDS INFUSING AND WILL BE DC'D PER PA. PT IS WANTING TO GO NOW BUT WAS ENCOURAGED TO WAIT FOR FLUIDS TO STOP INFUSING WITHIN AN HOUR.
--- NOTE | 2019-09-07 01:13 | NUR ---
PT ATE A SANDWHICH AND TOOK HIS PO POTASSIUM TOGETHER. AT THIS TIME, PT HAS BEEN ABLE TO KEEP IT DOWN. IV FLUIDS AT THIS TIME.
[2019-09-11] MEDS ORDERED: LORA10TA7 PO (13:44)
[2019-09-11] MEDS ORDERED: ASPI-1265 PO (13:44)
[2019-09-11] MEDS ORDERED: ATOR40TA72 PO (13:44)
[2019-09-11] MEDS ORDERED: ALBU8.5H8 IH (13:45)
[2019-09-12] MEDS ORDERED: THIA100T66 PO (14:02)
[2019-09-12] MEDS ORDERED: FOLI0.4T2 PO (14:02)
== END 2019-09-07 01:45 | disposition home or self-care (01) ==
LOC: ER 23:29
DX: K29.20 Alcoholic gastritis without bleeding (principal); F10.10 Alcohol abuse, uncomplicated; I10 Essential (primary) hypertension; E03.9 Hypothyroidism, unspecified; G89.29 Other chronic pain; F12.90 Cannabis use, unspecified, uncomplicated; F15.90 Other stimulant use, unspecified, uncomplicated; Z87.442 Personal history of urinary calculi; Z98.890 Other specified postprocedural states; Z59.0 Homelessness; Z56.0 Unemployment, unspecified; Z88.8 Allergy status to other drugs, medicaments and biological substances; Z79.899 Other long term (current) drug therapy; Y90.9 Presence of alcohol in blood, level not specified
CPT/HCPCS: 36415; 71045; 80053; 83690; 84484; 85025; 93005; 96361; 96374; 99284; J2765; J7030

== ENCOUNTER 2019-09-09 12:05 | Emergency (ER) | payer MEDICAID ==
[~2019-09-09] VITALS: Ht 170.2 cm; Wt 77.0 kg
--- NOTE | 2019-09-09 12:30 | NUR ---
security at bedside, pt was in wheelchair and slowly fell out, on to the floor, no LOC, moving all extremities well, assisted pt to bed
[2019-09-09] MEDS ORDERED: normal saline 1000ML IV soln IV ONE (12:45)
--- NOTE | 2019-09-09 12:45 | NUR ---
Dr Cuellar aware of core temp, I was unable to get oral or axillary temp, pt had dried feces on buttocks, all clothes removed and Nicole hugger placed on pt, pt is GCS 15, c/o back and knee pain,
--- NOTE | 2019-09-09 12:55 | NUR ---
pt to CT
--- NOTE | 2019-09-09 13:13 | NUR ---
assisting RN with pt care, 1st liter NS infusing on fluid warmer
[2019-09-09 13:31] LABS: BASOPHILS % (AUTO) 0.7 % (0-1); EOSINOPHILS % (AUTO) 0.4 % (0-6); HEMATOCRIT 31.2 % (42.0-52.0); HEMOGLOBIN 10.5 g/dl (14.0-17.9); LYMPHOCYTES # (AUTO) 3.7 X10'3 (1.1-4.8); LYMPHOCYTES % (AUTO) 58.4 % (21-51); MEAN CORPUSCULAR HEMOGLOBIN 30.8 PG (27.0-31.0); MEAN CORPUSCULAR HGB CONC 33.6 g/dL (33.0-36.5); MEAN CORPUSCULAR VOLUME 91.7 FL (78-98); MEAN PLATELET VOLUME 6.9 FL (7.4-10.4); MONOCYTES # (AUTO) 0.5 X10'3 (0-0.9); MONOCYTES % (AUTO) 7.9 % (2-12); NEUTROPHILS # (AUTO) 2.1 X10'3 (1.8-7.7); NEUTROPHILS % (AUTO) 32.6 % (42-75); PLATELET COUNT 147 X10'3 (140-440); RED CELL DISTRIBUTION WIDTH 18.4 % (11.5-14.5); WHITE BLOOD COUNT 6.4 X10'3 (4.5-11.0)
[2019-09-09 13:43] LABS: PARTIAL THROMBOPLASTIN TIME 29 SECONDS (22-32)
[2019-09-09 13:45] LABS: ALANINE AMINOTRANSFERASE 52 U/L (12-78); ALBUMIN 3.5 G/DL (3.4-5.0); ALBUMIN/GLOBULIN RATIO 0.8 (1.1-1.5); ALKALINE PHOSPHATASE 83 IU/L (46-116); ANION GAP 13 (8-16); ASPARTATE AMINO TRANSFERASE 140 U/L (10-37); BILIRUBIN,TOTAL 0.3 MG/DL (0.1-1.0); BLOOD UREA NITROGEN 14 MG/DL (7-18); BUN/CREATININE RATIO 12.4 (5.4-32.0); CHLORIDE 108 MMOL/L (99-107); CREATININE 1.13 MG/DL (0.60-1.10); GLUCOSE 94 MG/DL (70-104); POTASSIUM 3.6 MMOL/L (3.5-5.1); SODIUM 143 MMOL/L (135-145); TOTAL CARBON DIOXIDE 22.1 MMOL/L (24-32); TOTAL PROTEIN 7.7 G/DL (6.4-8.2); eGFR 66 ML/MIN
[2019-09-09 14:00] LABS: ETHANOL 0.477 GM/DL (0.0-0.010)
[2019-09-09 17:14] LABS: CLARITY,URINE CLEAR (Clear); COLOR,URINE YELLOW (Yellow); GLUCOSE, URINE NEGATIVE (Neg); KETONES,URINE NEGATIVE (Neg); LEUKOCYTE ESTERASE ,URINE NEGATIVE (Neg); NITRITES, URINE NEGATIVE (Neg); OCCULT BLOOD,URINE TRACE-INTACT (Neg); PH,URINE 5.5 (4.8-8.0); PROTEIN,URINE NEGATIVE (Neg); UROBILINOGEN,URINE 0.2 E.U/dL (0.2-1.0)
[2019-09-09 17:15] LABS: UA COLLECTION TYPE STRAIGHT CATH
[2019-09-09 17:25] LABS: BACTERIA,URINE NONE SEEN /HPF (Neg); HYALINE CASTS 0-3 /LPF (NEGATIVE); MUCUS STRANDS FEW /LPF (Neg); RBC,URINE 0-2 /HPF (0-2); SQUAMOUS EPITHELIAL CELL,UR FEW /LPF (FEW); WBC,URINE NONE SEEN /HPF (0-4)
[2019-09-09 22:17] VITALS: BP 105/46
[2019-09-11] MEDS ORDERED: ATOR40TA72 PO (13:44)
[2019-09-11] MEDS ORDERED: ASPI-1265 PO (13:44)
[2019-09-11] MEDS ORDERED: LORA10TA7 PO (13:44)
[2019-09-11] MEDS ORDERED: ALBU8.5H8 IH (13:45)
[2019-09-12] MEDS ORDERED: FOLI0.4T2 PO (14:02)
[2019-09-12] MEDS ORDERED: THIA100T66 PO (14:02)
== END 2019-09-09 22:21 | disposition home or self-care (01) ==
LOC: ER 12:06
DX: S00.83XA Contusion of other part of head, initial encounter (principal); T68.XXXA Hypothermia, initial encounter; F10.929 Alcohol use, unspecified with intoxication, unspecified; R41.0 Disorientation, unspecified; I10 Essential (primary) hypertension; E03.9 Hypothyroidism, unspecified; G89.29 Other chronic pain; F12.90 Cannabis use, unspecified, uncomplicated; F15.90 Other stimulant use, unspecified, uncomplicated; Z59.0 Homelessness; Z56.0 Unemployment, unspecified; Z98.890 Other specified postprocedural states; Z87.442 Personal history of urinary calculi; Z86.73 Personal history of transient ischemic attack (TIA), and cerebral infarction without residual deficits; Z88.8 Allergy status to other drugs, medicaments and biological substances; Z79.899 Other long term (current) drug therapy; W18.30XA Fall on same level, unspecified, initial encounter; Y93.89 Activity, other specified; Y92.89 Other specified places as the place of occurrence of the external cause; Y99.9 Unspecified external cause status
CPT/HCPCS: 36415; 70450; 71045; 80053; 80320; 81001; 83605; 83735; 84145; 85025; 85610; 85730; 87040; 87502; 87503; 93005; 96360; 99284; J7030

== ENCOUNTER 2019-09-25 14:06 | Emergency (ER) | payer MEDICAID ==
[~2019-09-25] VITALS: Ht 177.8 cm; Wt 80.0 kg
[~2019-09-25 14:06] MED LIST changes: -ALBU18HF2 INH; +ALBU8.5H8 IH; +ASPI-1265 PO; +ATOR40TA72 PO; -CETI10CA PO; +FOLI0.4T2 PO; -LEVO150T8 PO; +LORA10TA7 PO; -PERM60CR4 TP; +THIA100T66 PO
[2019-09-25 14:18] VITALS: BP 120/88
[2019-09-25] MEDS ORDERED: DIPH25CA83 PO (15:13)
[2019-09-25] MEDS ORDERED: LORA10TA7 PO (15:13)
[2019-09-25] MEDS ORDERED: TRIA15CR61 TOP (15:13)
== END 2019-09-25 15:30 | disposition home or self-care (01) ==
LOC: ER 14:06
DX: S40.022A Contusion of left upper arm, initial encounter (principal); S40.021A Contusion of right upper arm, initial encounter; S10.93XA Contusion of unspecified part of neck, initial encounter; R21 Rash and other nonspecific skin eruption; R11.10 Vomiting, unspecified; I10 Essential (primary) hypertension; E03.9 Hypothyroidism, unspecified; G89.29 Other chronic pain; F12.90 Cannabis use, unspecified, uncomplicated; F15.90 Other stimulant use, unspecified, uncomplicated; F10.99 Alcohol use, unspecified with unspecified alcohol-induced disorder; F17.200 Nicotine dependence, unspecified, uncomplicated; Z87.442 Personal history of urinary calculi; Z86.73 Personal history of transient ischemic attack (TIA), and cerebral infarction without residual deficits; Z59.0 Homelessness; Z56.0 Unemployment, unspecified; Z98.890 Other specified postprocedural states; Z88.8 Allergy status to other drugs, medicaments and biological substances; Z79.82 Long term (current) use of aspirin; Z79.899 Other long term (current) drug therapy; X58.XXXA Exposure to other specified factors, initial encounter; Y93.89 Activity, other specified; Y92.89 Other specified places as the place of occurrence of the external cause; Y99.8 Other external cause status; Y90.9 Presence of alcohol in blood, level not specified
CPT/HCPCS: 99283

== ENCOUNTER 2019-10-06 22:15 | Emergency (ER) | payer MEDICAID ==
[~2019-10-06] VITALS: Ht 177.8 cm; Wt 80.0 kg
[~2019-10-06 22:15] MED LIST changes: +DIPH25CA83 PO; +TRIA15CR61 TOP
[2019-10-06 22:17] VITALS: BP 140/89
[2019-10-06 23:57] LABS: EOSINOPHILS # (AUTO) 0.1 X10'3 (0-0.9); HEMATOCRIT 27.3 % (42.0-52.0); LYMPHOCYTES # (AUTO) 2.7 X10'3 (1.1-4.8); MONOCYTES # (AUTO) 0.4 X10'3 (0-0.9); NEUTROPHILS # (AUTO) 0.9 X10'3 (1.8-7.7); PLATELET COUNT 133 X10'3 (140-440); WHITE BLOOD COUNT 4.1 X10'3 (4.5-11.0)
[2019-10-06 23:59] LABS: BASOPHILS % (AUTO) 0.5 % (0-1); EOSINOPHILS % (AUTO) 1.8 % (0-6); HEMOGLOBIN 9.2 g/dl (14.0-17.9); LYMPHOCYTES % (AUTO) 65.4 % (21-51); MEAN CORPUSCULAR HGB CONC 33.5 g/dL (33.0-36.5); MEAN CORPUSCULAR VOLUME 89.5 FL (78-98); MONOCYTES % (AUTO) 9.8 % (2-12); NEUTROPHILS % (AUTO) 22.5 % (42-75); RED BLOOD COUNT 3.05 X10'6 (4.70-6.10); RED CELL DISTRIBUTION WIDTH 18.3 % (11.5-14.5)
[2019-10-07 00:11] LABS: ALANINE AMINOTRANSFERASE 40 U/L (12-78); ALBUMIN 3.2 G/DL (3.4-5.0); ALBUMIN/GLOBULIN RATIO 0.8 (1.1-1.5); ALKALINE PHOSPHATASE 80 IU/L (46-116); ANION GAP 12 (8-16); ASPARTATE AMINO TRANSFERASE 56 U/L (10-37); BILIRUBIN,TOTAL 0.1 MG/DL (0.1-1.0); BLOOD UREA NITROGEN 12 MG/DL (7-18); BUN/CREATININE RATIO 11.5 (5.4-32.0); CALCIUM 7.9 MG/DL (8.5-10.1); CHLORIDE 109 MMOL/L (99-107); CREATININE 1.04 MG/DL (0.60-1.10); ETHANOL 0.242 GM/DL (0.0-0.010); GLUCOSE 109 MG/DL (70-104); LIPASE 234 U/L (73-393); MAGNESIUM 1.8 MG/DL (1.5-2.4); POTASSIUM 3.5 MMOL/L (3.5-5.1); SODIUM 145 MMOL/L (135-145); TOTAL CARBON DIOXIDE 24.4 MMOL/L (24-32); TOTAL PROTEIN 7.2 G/DL (6.4-8.2); eGFR 72 ML/MIN
[2019-10-07 00:19] LABS: PARTIAL THROMBOPLASTIN TIME 28 SECONDS (22-32)
[2019-10-09 13:20] LABS: OCCULT BLOOD STOOL NEGATIVE (Neg)
== END 2019-10-07 00:20 | disposition home or self-care (01) ==
LOC: ER 22:15
DX: F10.129 Alcohol abuse with intoxication, unspecified (principal); K42.9 Umbilical hernia without obstruction or gangrene; I10 Essential (primary) hypertension; E03.9 Hypothyroidism, unspecified; G89.29 Other chronic pain; F12.90 Cannabis use, unspecified, uncomplicated; F15.90 Other stimulant use, unspecified, uncomplicated; Z87.442 Personal history of urinary calculi; Z86.73 Personal history of transient ischemic attack (TIA), and cerebral infarction without residual deficits; Z59.0 Homelessness; Z56.0 Unemployment, unspecified; Z98.890 Other specified postprocedural states; Z88.8 Allergy status to other drugs, medicaments and biological substances; Z79.82 Long term (current) use of aspirin; Z79.899 Other long term (current) drug therapy; Y90.9 Presence of alcohol in blood, level not specified
CPT/HCPCS: 36415; 80053; 80320; 82272; 83690; 83735; 85025; 85610; 85730; 99283

== ENCOUNTER 2019-10-15 10:41 | Emergency (ER) | payer MEDICAID ==
[~2019-10-15] VITALS: Ht 177.8 cm; Wt 85.9 kg
[~2019-10-15 10:41] MED LIST changes: -FOLI0.4T2 PO
[2019-10-15 10:58] VITALS: BP 164/97
[2019-10-15] MEDS ORDERED: traMADol 50MG tablet PO ONE (12:15)
== END 2019-10-15 12:38 | disposition home or self-care (01) ==
LOC: ER 10:42
DX: C44.609 Unspecified malignant neoplasm of skin of left upper limb, including shoulder (principal); G89.29 Other chronic pain; M25.531 Pain in right wrist; M25.532 Pain in left wrist; F12.90 Cannabis use, unspecified, uncomplicated; F15.90 Other stimulant use, unspecified, uncomplicated; I10 Essential (primary) hypertension; E03.9 Hypothyroidism, unspecified; Z86.73 Personal history of transient ischemic attack (TIA), and cerebral infarction without residual deficits; Z86.2 Personal history of diseases of the blood and blood-forming organs and certain disorders involving the immune mechanism; Z87.442 Personal history of urinary calculi; Z86.69 Personal history of other diseases of the nervous system and sense organs; Z98.890 Other specified postprocedural states; Z72.89 Other problems related to lifestyle; Z59.0 Homelessness; Z56.0 Unemployment, unspecified; Z88.8 Allergy status to other drugs, medicaments and biological substances; Z79.82 Long term (current) use of aspirin; Z79.899 Other long term (current) drug therapy
CPT/HCPCS: 99283

== ENCOUNTER 2019-10-25 15:04 | Emergency (ER) | payer MEDICAID ==
[~2019-10-25] VITALS: Ht 177.8 cm; Wt 80.0 kg
[2019-10-25] MEDS ORDERED: normal saline 1000ML IV soln IVB ONE (15:10)
[2019-10-25] MEDS ORDERED: thiamine 100mg/ml 2ml inj. IV ONE ×2 (15:10→16:25)
[2019-10-25] MEDS ORDERED: folic acid 1mg/0.2ml inj IV ONE ×2 (15:10→16:25)
[2019-10-25] MEDS ORDERED: THIAMINE IV ONE (15:25)
[2019-10-25] MEDS ORDERED: NORMAL SALINE IV ONE (15:25)
[2019-10-25] MEDS ORDERED: FOLIC ACID IV ONE (15:25)
[2019-10-25 15:43] LABS: BASOPHILS % (AUTO) 0.4 % (0-1); EOSINOPHILS # (AUTO) 0.1 X10'3 (0-0.9); EOSINOPHILS % (AUTO) 1.3 % (0-6); HEMATOCRIT 27.6 % (42.0-52.0); HEMOGLOBIN 9.2 g/dl (14.0-17.9); LYMPHOCYTES # (AUTO) 3.1 X10'3 (1.1-4.8); LYMPHOCYTES % (AUTO) 63.6 % (21-51); MEAN CORPUSCULAR HEMOGLOBIN 28.7 PG (27.0-31.0); MEAN CORPUSCULAR HGB CONC 33.2 g/dL (33.0-36.5); MEAN CORPUSCULAR VOLUME 86.5 FL (78-98); MEAN PLATELET VOLUME 6.7 FL (7.4-10.4); MONOCYTES # (AUTO) 0.4 X10'3 (0-0.9); MONOCYTES % (AUTO) 8.6 % (2-12); NEUTROPHILS # (AUTO) 1.3 X10'3 (1.8-7.7); NEUTROPHILS % (AUTO) 26.1 % (42-75); PLATELET COUNT 157 X10'3 (140-440); RED BLOOD COUNT 3.19 X10'6 (4.70-6.10); RED CELL DISTRIBUTION WIDTH 18.7 % (11.5-14.5); WHITE BLOOD COUNT 4.9 X10'3 (4.5-11.0)
[2019-10-25 15:56] LABS: ALANINE AMINOTRANSFERASE 31 U/L (12-78); ALBUMIN 3.3 G/DL (3.4-5.0); ALBUMIN/GLOBULIN RATIO 0.8 (1.1-1.5); ALKALINE PHOSPHATASE 92 IU/L (46-116); ANION GAP 6 (8-16); ASPARTATE AMINO TRANSFERASE 55 U/L (10-37); BILIRUBIN,TOTAL 0.2 MG/DL (0.1-1.0); BLOOD UREA NITROGEN 9 MG/DL (7-18); CALCIUM 8.1 MG/DL (8.5-10.1); CHLORIDE 107 MMOL/L (99-107); CREATININE 1.12 MG/DL (0.60-1.10); GLUCOSE 114 MG/DL (70-104); POTASSIUM 3.8 MMOL/L (3.5-5.1); SODIUM 141 MMOL/L (135-145); TOTAL CARBON DIOXIDE 27.8 MMOL/L (24-32); TOTAL PROTEIN 7.5 G/DL (6.4-8.2); eGFR 66 ML/MIN
[2019-10-25 15:57] LABS: ETHANOL 0.329 GM/DL (0.0-0.010)
[2019-10-25 18:30] VITALS: BP 155/82
== END 2019-10-25 18:46 | disposition home or self-care (01) ==
LOC: ER 15:05
DX: F10.129 Alcohol abuse with intoxication, unspecified (principal); I10 Essential (primary) hypertension; E03.9 Hypothyroidism, unspecified; G89.29 Other chronic pain; F12.90 Cannabis use, unspecified, uncomplicated; F15.90 Other stimulant use, unspecified, uncomplicated; Z86.73 Personal history of transient ischemic attack (TIA), and cerebral infarction without residual deficits; Z86.69 Personal history of other diseases of the nervous system and sense organs; Z98.890 Other specified postprocedural states; Z59.0 Homelessness; Z56.0 Unemployment, unspecified; Z88.8 Allergy status to other drugs, medicaments and biological substances; Z79.82 Long term (current) use of aspirin; Z79.899 Other long term (current) drug therapy; Y90.0 Blood alcohol level of less than 20 mg/100 ml
CPT/HCPCS: 36415; 80053; 80320; 82948; 85025; 85610; 93005; 96374; 96375; 99284; J3411; J3490; J7030

== ENCOUNTER 2019-10-30 21:21 | Emergency (ER) | payer MEDICAID ==
[~2019-10-30] VITALS: Ht 177.8 cm; Wt 70.0 kg
[~2019-10-30 21:21] MED LIST changes: -TRIA15CR61 TOP
[2019-10-30 22:08] LABS: ALANINE AMINOTRANSFERASE 35 U/L (12-78); ALBUMIN 3.9 G/DL (3.4-5.0); ALBUMIN/GLOBULIN RATIO 0.9 (1.1-1.5); ALKALINE PHOSPHATASE 98 IU/L (46-116); ANION GAP 7 (8-16); ASPARTATE AMINO TRANSFERASE 68 U/L (10-37); BASOPHILS % (AUTO) 0.5 % (0-1); BILIRUBIN,TOTAL 0.5 MG/DL (0.1-1.0); BLOOD UREA NITROGEN 8 MG/DL (7-18); BUN/CREATININE RATIO 7.1 (5.4-32.0); CALCIUM 8.6 MG/DL (8.5-10.1); CHLORIDE 104 MMOL/L (99-107); CREATININE 1.13 MG/DL (0.60-1.10); EOSINOPHILS # (AUTO) 0.1 X10'3 (0-0.9); EOSINOPHILS % (AUTO) 1.4 % (0-6); GLUCOSE 96 MG/DL (70-104); HEMOGLOBIN 10.1 g/dl (14.0-17.9); NEUTROPHILS # (AUTO) 1.3 X10'3 (1.8-7.7); NEUTROPHILS % (AUTO) 18.5 % (42-75); POTASSIUM 3.9 MMOL/L (3.5-5.1); SODIUM 138 MMOL/L (135-145); TOTAL CARBON DIOXIDE 26.8 MMOL/L (24-32); TOTAL PROTEIN 8.3 G/DL (6.4-8.2); eGFR 66 ML/MIN
[2019-10-30 22:10] LABS: HEMATOCRIT 30.5 % (42.0-52.0); LYMPHOCYTES # (AUTO) 5.3 X10'3 (1.1-4.8); LYMPHOCYTES % (AUTO) 73.5 % (21-51); MEAN CORPUSCULAR HGB CONC 33.2 g/dL (33.0-36.5); MEAN CORPUSCULAR VOLUME 84.4 FL (78-98); MEAN PLATELET VOLUME 6.9 FL (7.4-10.4); MONOCYTES # (AUTO) 0.4 X10'3 (0-0.9); MONOCYTES % (AUTO) 6.1 % (2-12); PLATELET COUNT 144 X10'3 (140-440); RED BLOOD COUNT 3.62 X10'6 (4.70-6.10); RED CELL DISTRIBUTION WIDTH 18.6 % (11.5-14.5); WHITE BLOOD COUNT 7.2 X10'3 (4.5-11.0)
--- NOTE | 2019-10-30 22:47 | NUR ---
patient resting comfortably on gurney.
[2019-10-30] MEDS ORDERED: magnesium oxide 400mg tablet PO ONE (23:05)
[2019-10-30] MEDS ORDERED: nitroGLYCERIN 0.4mg SUBLingual tab SL PRN (23:05)
[2019-10-30] MEDS ORDERED: thiamine 100mg tablet PO ONE (23:05)
[2019-10-30] MEDS ORDERED: aspirin 81mg tab.chew PO ONE (23:05)
[2019-10-30] MEDS ORDERED: ondansetron/PF 4mg/2ml inj IV ONE (23:05)
[2019-10-30] MEDS ORDERED: normal saline 1000ML IV soln IVB ONE (23:05)
[2019-10-30 23:20] LABS: PARTIAL THROMBOPLASTIN TIME 29 SECONDS (22-32)
[2019-10-30 23:23] LABS: ANISOCYTOSIS 2+; PLATELET ESTIMATE NORMAL; TOTAL CELLS COUNTED 100
--- NOTE | 2019-10-30 23:50 | NUR ---
Patient to CT.
[2019-10-30] MEDS ORDERED: iohexol 350MG/ML 100ml bottle IV ONE (23:53)
--- NOTE | 2019-10-31 00:18 | NUR ---
Back from CT and resting comfortably on gurney, reports nitro helped with chest pain
[2019-10-31 00:30] LABS: ETHANOL 0.316 GM/DL (0.0-0.010)
--- NOTE | 2019-10-31 03:25 | NUR ---
pt 6 hr troponin drawn and sent to lab
--- NOTE | 2019-10-31 03:30 | NUR ---
DR CAPPS VERBALIZED THAT THE PATIENT MAY SLEEP , NO NEED TO REPEAT 6 HR EKG
--- NOTE | 2019-10-31 04:30 | NUR ---
PT SLEEPING PEACFULLY . RESP UN LABORED WILL CONTINUE TO MONITOR AND REASESS.
[2019-10-31 05:06] VITALS: BP 112/61
== END 2019-10-31 05:00 | disposition home or self-care (01) ==
LOC: ER 21:22
DX: F10.129 Alcohol abuse with intoxication, unspecified (principal); R07.89 Other chest pain; I10 Essential (primary) hypertension; E03.9 Hypothyroidism, unspecified; G89.29 Other chronic pain; F12.90 Cannabis use, unspecified, uncomplicated; F15.90 Other stimulant use, unspecified, uncomplicated; Z59.0 Homelessness; Z86.2 Personal history of diseases of the blood and blood-forming organs and certain disorders involving the immune mechanism; Z86.69 Personal history of other diseases of the nervous system and sense organs; Z86.73 Personal history of transient ischemic attack (TIA), and cerebral infarction without residual deficits; Z56.0 Unemployment, unspecified; Z98.890 Other specified postprocedural states; Z88.8 Allergy status to other drugs, medicaments and biological substances; Z79.82 Long term (current) use of aspirin; Z79.899 Other long term (current) drug therapy; Y90.0 Blood alcohol level of less than 20 mg/100 ml
CPT/HCPCS: 36415; 71045; 71275; 80053; 80320; 84439; 84443; 84484; 85025; 85379; 85610; 85730; 93005; 96374; 99285; J2405; J7030; Q9967

== ENCOUNTER 2019-11-12 10:30 | Emergency (ER) | payer MEDICAID ==
[~2019-11-12] VITALS: Ht 172.7 cm; Wt 81.8 kg
[2019-11-12 11:13] VITALS: BP 147/86
== END 2019-11-12 11:49 | disposition left against medical advice (07) ==
LOC: ER 10:31
DX: R05 Cough (principal); Z53.21 Procedure and treatment not carried out due to patient leaving prior to being seen by health care provider
CPT/HCPCS: 36415; 87502; 87503

== ENCOUNTER 2019-11-19 16:41 | Emergency (ER) | payer MEDICAID ==
[~2019-11-19] VITALS: Ht 167.6 cm; Wt 90.0 kg
[2019-11-19] MEDS ORDERED: DOXY100C76 PO (18:04)
--- NOTE | 2019-11-19 18:11 | NUR ---
Pt given food, communications operatorKennedy Parmar is getting the patient up for gait test in preparation for discharge to home.
[2019-11-19] MEDS ORDERED: PERM60CR19 TP (18:50)
[2019-11-19] MEDS ORDERED: dexamethasone 4mg tablet PO ONE (18:50)
[2019-11-19] MEDS ORDERED: dexamethasone sod phosphate 10mg/ml inj PO ONE (18:50)
[2019-11-19] MEDS ORDERED: HYDR-3686 PO (18:50)
[2019-11-19] MEDS ORDERED: hydrOXYzine 25 MG tablet PO ONE (18:50)
[2019-11-19 19:42] VITALS: BP 138/74
== END 2019-11-19 19:05 | disposition home or self-care (01) ==
LOC: ER 16:42
DX: F10.129 Alcohol abuse with intoxication, unspecified (principal); J18.9 Pneumonia, unspecified organism; I10 Essential (primary) hypertension; Z86.2 Personal history of diseases of the blood and blood-forming organs and certain disorders involving the immune mechanism; E03.9 Hypothyroidism, unspecified; G89.29 Other chronic pain; F12.90 Cannabis use, unspecified, uncomplicated; F15.90 Other stimulant use, unspecified, uncomplicated; Z98.890 Other specified postprocedural states; Z86.73 Personal history of transient ischemic attack (TIA), and cerebral infarction without residual deficits; Z87.442 Personal history of urinary calculi; Z59.0 Homelessness; Z56.0 Unemployment, unspecified; Z88.8 Allergy status to other drugs, medicaments and biological substances; Z79.82 Long term (current) use of aspirin; Z79.899 Other long term (current) drug therapy; Y90.0 Blood alcohol level of less than 20 mg/100 ml
CPT/HCPCS: 36415; 71045; 80320; 93005; 99285; J1100; Z7610

== ENCOUNTER 2019-11-28 17:27 | Emergency (ER) | payer MEDICAID ==
[~2019-11-28] VITALS: Ht 177.8 cm; Wt 82.3 kg
[~2019-11-28 17:27] MED LIST changes: +HYDR-3686 PO
[2019-11-28 18:33] LABS: EOSINOPHILS # (AUTO) 0.1 X10'3 (0-0.9); HEMATOCRIT 28.9 % (42.0-52.0); HEMOGLOBIN 9.5 g/dl (14.0-17.9); LYMPHOCYTES # (AUTO) 2.4 X10'3 (1.1-4.8); MEAN PLATELET VOLUME 6.9 FL (7.4-10.4); MONOCYTES # (AUTO) 0.3 X10'3 (0-0.9); MONOCYTES % (AUTO) 8.6 % (2-12); NEUTROPHILS # (AUTO) 1.1 X10'3 (1.8-7.7); WHITE BLOOD COUNT 3.9 X10'3 (4.5-11.0)
[2019-11-28 18:35] LABS: BASOPHILS % (AUTO) 1.1 % (0-1); EOSINOPHILS % (AUTO) 1.5 % (0-6); LYMPHOCYTES % (AUTO) 61.9 % (21-51); MEAN CORPUSCULAR HEMOGLOBIN 28.5 PG (27.0-31.0); MEAN CORPUSCULAR HGB CONC 32.8 g/dL (33.0-36.5); MEAN CORPUSCULAR VOLUME 86.9 FL (78-98); NEUTROPHILS % (AUTO) 26.9 % (42-75); PLATELET COUNT 107 X10'3 (140-440); RED BLOOD COUNT 3.32 X10'6 (4.70-6.10); RED CELL DISTRIBUTION WIDTH 22.2 % (11.5-14.5)
[2019-11-28 19:08] LABS: PLATELET ESTIMATE DECREASED; TOTAL CELLS COUNTED 100
[2019-11-28 19:10] LABS: ANISOCYTOSIS 2+; MICROCYTOSIS 1+
[2019-11-28 19:16] LABS: ALANINE AMINOTRANSFERASE 67 U/L (12-78); ALBUMIN 3.6 G/DL (3.4-5.0); ALBUMIN/GLOBULIN RATIO 0.8 (1.1-1.5); ALKALINE PHOSPHATASE 95 IU/L (46-116); ANION GAP 11 (8-16); ASPARTATE AMINO TRANSFERASE 149 U/L (10-37); BILIRUBIN,TOTAL 0.2 MG/DL (0.1-1.0); BLOOD UREA NITROGEN 17 MG/DL (7-18); BUN/CREATININE RATIO 17.5 (5.4-32.0); CALCIUM 8.3 MG/DL (8.5-10.1); CHLORIDE 106 MMOL/L (99-107); CREATININE 0.97 MG/DL (0.60-1.10); GLUCOSE 121 MG/DL (70-104); POTASSIUM 3.8 MMOL/L (3.5-5.1); SODIUM 141 MMOL/L (135-145); TOTAL CARBON DIOXIDE 23.7 MMOL/L (24-32); TOTAL PROTEIN 7.9 G/DL (6.4-8.2); eGFR 78 ML/MIN
[2019-11-28 19:31] LABS: ETHANOL 0.272 GM/DL (0.0-0.010)
[2019-11-28 20:11] LABS: URINE AMPHETAMINE SCREEN POSITIVE (Neg); URINE BARBITUATE SCREEN NEGATIVE (Neg); URINE BENZODIAZEPINES SCREEN NEGATIVE (Neg); URINE CANNABINOID SCREEN NEGATIVE (Neg); URINE COCAINE SCREEN NEGATIVE (Neg); URINE METHADONE SCREEN NEGATIVE (Neg); URINE OPIATE SCREEN NEGATIVE (Neg); URINE PHENCYCLIDINE SCREEN NEGATIVE (Neg)
[2019-11-28 20:32] VITALS: BP 151/84
== END 2019-11-28 20:34 | disposition home or self-care (01) ==
LOC: ER 17:27
DX: F10.129 Alcohol abuse with intoxication, unspecified (principal); I10 Essential (primary) hypertension; F15.10 Other stimulant abuse, uncomplicated; E03.9 Hypothyroidism, unspecified; F12.90 Cannabis use, unspecified, uncomplicated; G89.29 Other chronic pain; K08.89 Other specified disorders of teeth and supporting structures; Z86.73 Personal history of transient ischemic attack (TIA), and cerebral infarction without residual deficits; Z86.69 Personal history of other diseases of the nervous system and sense organs; Z98.890 Other specified postprocedural states; Z59.0 Homelessness; Z56.0 Unemployment, unspecified; Z88.8 Allergy status to other drugs, medicaments and biological substances; Z79.82 Long term (current) use of aspirin; Z79.899 Other long term (current) drug therapy; Y90.0 Blood alcohol level of less than 20 mg/100 ml
CPT/HCPCS: 36415; 71045; 80053; 80305; 80320; 83880; 84484; 85025; 93005; 99285

== ENCOUNTER 2019-12-02 22:40 | Emergency (ER) | payer MEDICAID ==
[~2019-12-02] VITALS: Ht 177.8 cm; Wt 81.0 kg
[~2019-12-02 22:40] MED LIST changes: -HYDR-3686 PO
[2019-12-02] MEDS ORDERED: AZIT-63 PO (22:55)
[2019-12-02] MEDS ORDERED: IBUP-1985 PO (22:55)
[2019-12-02] MEDS ORDERED: ALBU8.5H8 IH (22:56)
[2019-12-02] MEDS ORDERED: ibuprofen tablet 400 MG TABLET PO ONE (23:00)
[2019-12-02] MEDS ORDERED: azithromycin 250mg tablet PO ONE (23:00)
[2019-12-02 23:18] VITALS: BP 124/79
== END 2019-12-02 23:20 | disposition home or self-care (01) ==
LOC: ER 22:41
DX: J44.9 Chronic obstructive pulmonary disease, unspecified (principal); I10 Essential (primary) hypertension; E03.9 Hypothyroidism, unspecified; G89.29 Other chronic pain; F12.90 Cannabis use, unspecified, uncomplicated; F15.90 Other stimulant use, unspecified, uncomplicated; Z86.73 Personal history of transient ischemic attack (TIA), and cerebral infarction without residual deficits; Z56.0 Unemployment, unspecified; Z59.0 Homelessness; Z79.2 Long term (current) use of antibiotics; Z98.890 Other specified postprocedural states; Z88.8 Allergy status to other drugs, medicaments and biological substances; Z79.82 Long term (current) use of aspirin; Z79.899 Other long term (current) drug therapy
CPT/HCPCS: 99284

== ENCOUNTER 2019-12-10 11:11 | Emergency (ER) | payer MEDICAID ==
[~2019-12-10] VITALS: Ht 177.8 cm; Wt 82.3 kg
[~2019-12-10 11:11] MED LIST changes: +AZIT-63 PO; +IBUP-1985 PO
[2019-12-10] MEDS ORDERED: ALBU8.5H8 INH (12:05)
[2019-12-10] MEDS ORDERED: AZIT250T29 PO (12:05)
[2019-12-10 12:13] VITALS: BP 133/82
== END 2019-12-10 12:25 | disposition home or self-care (01) ==
LOC: ER 11:11
DX: J40 Bronchitis, not specified as acute or chronic (principal); I10 Essential (primary) hypertension; E03.9 Hypothyroidism, unspecified; G89.29 Other chronic pain; F12.90 Cannabis use, unspecified, uncomplicated; F15.90 Other stimulant use, unspecified, uncomplicated; Z86.73 Personal history of transient ischemic attack (TIA), and cerebral infarction without residual deficits; Z86.2 Personal history of diseases of the blood and blood-forming organs and certain disorders involving the immune mechanism; Z86.69 Personal history of other diseases of the nervous system and sense organs; Z98.890 Other specified postprocedural states; Z87.442 Personal history of urinary calculi; Z59.0 Homelessness; Z56.0 Unemployment, unspecified; Z72.89 Other problems related to lifestyle; Z88.8 Allergy status to other drugs, medicaments and biological substances; Z79.82 Long term (current) use of aspirin; Z79.899 Other long term (current) drug therapy
CPT/HCPCS: 71045; 99284

== ENCOUNTER 2019-12-21 14:03 | Emergency (ER) | payer MEDICAID ==
[~2019-12-21] VITALS: Ht 180.3 cm; Wt 81.8 kg
[~2019-12-21 14:03] MED LIST changes: +ALBU8.5H8 INH
[2019-12-21 15:09] LABS: LYMPHOCYTES # (AUTO) 2.8 X10'3 (1.1-4.8); MONOCYTES # (AUTO) 0.4 X10'3 (0-0.9)
[2019-12-21 15:11] LABS: BASOPHILS % (AUTO) 0.9 % (0-1); EOSINOPHILS % (AUTO) 0.7 % (0-6); HEMATOCRIT 27.5 % (42.0-52.0); LYMPHOCYTES % (AUTO) 62.5 % (21-51); MEAN CORPUSCULAR HEMOGLOBIN 29.1 PG (27.0-31.0); MEAN CORPUSCULAR HGB CONC 32.7 g/dL (33.0-36.5); MEAN PLATELET VOLUME 6.4 FL (7.4-10.4); MONOCYTES % (AUTO) 7.9 % (2-12); NEUTROPHILS # (AUTO) 1.2 X10'3 (1.8-7.7); PLATELET COUNT 103 X10'3 (140-440); RED BLOOD COUNT 3.09 X10'6 (4.70-6.10); RED CELL DISTRIBUTION WIDTH 21.9 % (11.5-14.5); WHITE BLOOD COUNT 4.4 X10'3 (4.5-11.0)
[2019-12-21 15:28] LABS: ALANINE AMINOTRANSFERASE 41 U/L (12-78); ALBUMIN 3.6 G/DL (3.4-5.0); ALBUMIN/GLOBULIN RATIO 0.9 (1.1-1.5); ALKALINE PHOSPHATASE 103 IU/L (46-116); ANION GAP 9 (8-16); ASPARTATE AMINO TRANSFERASE 89 U/L (10-37); BILIRUBIN,TOTAL 0.4 MG/DL (0.1-1.0); BLOOD UREA NITROGEN 10 MG/DL (7-18); BUN/CREATININE RATIO 8.9 (5.4-32.0); CALCIUM 8.4 MG/DL (8.5-10.1); CHLORIDE 103 MMOL/L (99-107); CREATININE 1.12 MG/DL (0.60-1.10); GLUCOSE 95 MG/DL (70-104); POTASSIUM 3.6 MMOL/L (3.5-5.1); SODIUM 137 MMOL/L (135-145); TOTAL CARBON DIOXIDE 24.7 MMOL/L (24-32); TOTAL PROTEIN 7.5 G/DL (6.4-8.2); eGFR 66 ML/MIN
[2019-12-21 15:33] LABS: MAGNESIUM 2.1 MG/DL (1.5-2.4)
[2019-12-21 15:54] LABS: ANISOCYTOSIS 3+; HYPOCHROMASIA 1+; PLATELET ESTIMATE DECREASED; TOTAL CELLS COUNTED 100
[2019-12-21 16:16] VITALS: BP 162/101
[2019-12-21] MEDS ORDERED: AZIT-63 PO (16:19)
== END 2019-12-21 16:50 | disposition home or self-care (01) ==
LOC: ER 14:03
DX: J40 Bronchitis, not specified as acute or chronic (principal); R53.1 Weakness; R05 Cough; I10 Essential (primary) hypertension; E03.9 Hypothyroidism, unspecified; G89.29 Other chronic pain; F17.210 Nicotine dependence, cigarettes, uncomplicated; F12.90 Cannabis use, unspecified, uncomplicated; F15.90 Other stimulant use, unspecified, uncomplicated; Z72.89 Other problems related to lifestyle; Z98.890 Other specified postprocedural states; Z60.2 Problems related to living alone; Z86.73 Personal history of transient ischemic attack (TIA), and cerebral infarction without residual deficits; Z86.69 Personal history of other diseases of the nervous system and sense organs; Z56.0 Unemployment, unspecified; Z88.8 Allergy status to other drugs, medicaments and biological substances; Z79.82 Long term (current) use of aspirin; Z79.2 Long term (current) use of antibiotics; Z79.899 Other long term (current) drug therapy; W19.XXXA Unspecified fall, initial encounter; Y93.89 Activity, other specified; Y92.89 Other specified places as the place of occurrence of the external cause; Y99.8 Other external cause status
CPT/HCPCS: 36415; 70450; 71045; 80053; 83735; 83880; 84484; 85025; 93005; 99285

== ENCOUNTER 2019-12-27 10:17 | Emergency (ER) | payer MEDICAID ==
[~2019-12-27] VITALS: Ht 167.6 cm; Wt 86.4 kg
[2019-12-27 10:19] VITALS: BP 149/89
== END 2019-12-27 10:32 | disposition home or self-care (01) ==
LOC: ER 10:18
DX: F10.129 Alcohol abuse with intoxication, unspecified (principal); H53.8 Other visual disturbances; R51 Headache; I10 Essential (primary) hypertension; G89.29 Other chronic pain; F12.90 Cannabis use, unspecified, uncomplicated; F15.90 Other stimulant use, unspecified, uncomplicated; E03.9 Hypothyroidism, unspecified; Z86.69 Personal history of other diseases of the nervous system and sense organs; Z86.2 Personal history of diseases of the blood and blood-forming organs and certain disorders involving the immune mechanism; Z86.73 Personal history of transient ischemic attack (TIA), and cerebral infarction without residual deficits; Z98.890 Other specified postprocedural states; Z59.0 Homelessness; Z56.0 Unemployment, unspecified; Z88.5 Allergy status to narcotic agent; Z79.82 Long term (current) use of aspirin; Z79.899 Other long term (current) drug therapy; Z88.8 Allergy status to other drugs, medicaments and biological substances; Y90.0 Blood alcohol level of less than 20 mg/100 ml
CPT/HCPCS: 99281

== ENCOUNTER 2019-12-28 11:48 | Emergency (ER) | payer MEDICAID ==
[~2019-12-28] VITALS: Ht 177.8 cm; Wt 180.0 kg
[2019-12-28 11:52] VITALS: BP 139/75
== END 2019-12-28 12:41 | disposition home or self-care (01) ==
LOC: ER 11:48
DX: H57.12 Ocular pain, left eye (principal); R05 Cough; R09.3 Abnormal sputum; I10 Essential (primary) hypertension; E03.9 Hypothyroidism, unspecified; F12.90 Cannabis use, unspecified, uncomplicated; F15.90 Other stimulant use, unspecified, uncomplicated; Z86.2 Personal history of diseases of the blood and blood-forming organs and certain disorders involving the immune mechanism; Z86.73 Personal history of transient ischemic attack (TIA), and cerebral infarction without residual deficits; Z86.69 Personal history of other diseases of the nervous system and sense organs; Z87.442 Personal history of urinary calculi; Z98.890 Other specified postprocedural states; Z59.0 Homelessness; Z56.0 Unemployment, unspecified; Z72.89 Other problems related to lifestyle; Z88.5 Allergy status to narcotic agent; Z88.8 Allergy status to other drugs, medicaments and biological substances; Z79.82 Long term (current) use of aspirin; Z79.899 Other long term (current) drug therapy; W18.39XA Other fall on same level, initial encounter; Y93.89 Activity, other specified; Y92.89 Other specified places as the place of occurrence of the external cause; Y99.8 Other external cause status
CPT/HCPCS: 99284

== ENCOUNTER 2019-12-31 14:07 | Emergency (ER) | payer MEDICAID ==
[~2019-12-31] VITALS: Ht 177.8 cm; Wt 82.7 kg
[2019-12-31] MEDS ORDERED: normal saline 1000ML IV soln IVB ONE (14:25)
[2019-12-31 14:41] LABS: EOSINOPHILS % (AUTO) 0.6 % (0-6); HEMATOCRIT 28.6 % (42.0-52.0); HEMOGLOBIN 9.5 g/dl (14.0-17.9); LYMPHOCYTES # (AUTO) 3.6 X10'3 (1.1-4.8); MEAN CORPUSCULAR HEMOGLOBIN 29.8 PG (27.0-31.0); MEAN PLATELET VOLUME 7.1 FL (7.4-10.4); MONOCYTES # (AUTO) 0.4 X10'3 (0-0.9)
[2019-12-31 14:43] LABS: BASOPHILS % (AUTO) 0.8 % (0-1); LYMPHOCYTES % (AUTO) 65.9 % (21-51); MEAN CORPUSCULAR HGB CONC 33.2 g/dL (33.0-36.5); MEAN CORPUSCULAR VOLUME 89.9 FL (78-98); MONOCYTES % (AUTO) 6.5 % (2-12); NEUTROPHILS # (AUTO) 1.4 X10'3 (1.8-7.7); NEUTROPHILS % (AUTO) 26.2 % (42-75); PLATELET COUNT 88 X10'3 (140-440); RED BLOOD COUNT 3.18 X10'6 (4.70-6.10); RED CELL DISTRIBUTION WIDTH 22.5 % (11.5-14.5); WHITE BLOOD COUNT 5.4 X10'3 (4.5-11.0)
[2019-12-31 14:57] LABS: ALANINE AMINOTRANSFERASE 52 U/L (12-78); ALBUMIN 3.8 G/DL (3.4-5.0); ALBUMIN/GLOBULIN RATIO 0.9 (1.1-1.5); ALKALINE PHOSPHATASE 113 IU/L (46-116); ANION GAP 12 (8-16); ASPARTATE AMINO TRANSFERASE 152 U/L (10-37); BILIRUBIN,TOTAL 0.6 MG/DL (0.1-1.0); BLOOD UREA NITROGEN 11 MG/DL (7-18); CALCIUM 8.2 MG/DL (8.5-10.1); CHLORIDE 103 MMOL/L (99-107); CREATININE 1.38 MG/DL (0.60-1.10); GLUCOSE 93 MG/DL (70-104); POTASSIUM 3.4 MMOL/L (3.5-5.1); SODIUM 138 MMOL/L (135-145); TOTAL CARBON DIOXIDE 22.7 MMOL/L (24-32); eGFR 52 ML/MIN
[2019-12-31 15:02] LABS: ANISOCYTOSIS 3+; PLATELET ESTIMATE DECREASED; POLYCHROMASIA FEW; TEAR DROP CELLS FEW
[2019-12-31] MEDS ORDERED: TOBR5DRO2 LEFTEYE (15:24)
[2019-12-31 15:25] LABS: ETHANOL 0.333 GM/DL (0.0-0.010)
[2019-12-31] MEDS ORDERED: LEVO150T8 PO (15:51)
[2019-12-31] MEDS ORDERED: tobramycin/dexamethasone ophthalmic suspension LEFTEYE ONE (15:55)
--- NOTE | 2019-12-31 18:46 | NUR ---
Patient sleeping comfortably on gurney, vitals WNL
--- NOTE | 2019-12-31 19:29 | NUR ---
second gait test, patient still too unsteady for discharge. Will re-evaluate him again after some time.
--- NOTE | 2019-12-31 20:24 | NUR ---
Patient gait tested and is able to ambulate 300+ feet with no assistance. Patient reports being ready to leave and wishes to [facility] with his . Patient educated that he needs to get his Rx filled NATE but states he needs to find her before dark.
[2019-12-31 20:26] VITALS: BP 141/79
== END 2019-12-31 20:28 | disposition home or self-care (01) ==
LOC: ER 14:07
DX: R07.89 Other chest pain (principal); H57.12 Ocular pain, left eye; F10.129 Alcohol abuse with intoxication, unspecified; R11.10 Vomiting, unspecified; I10 Essential (primary) hypertension; E03.9 Hypothyroidism, unspecified; G89.29 Other chronic pain; E89.0 Postprocedural hypothyroidism; F17.200 Nicotine dependence, unspecified, uncomplicated; F12.90 Cannabis use, unspecified, uncomplicated; F15.90 Other stimulant use, unspecified, uncomplicated; Z98.890 Other specified postprocedural states; Z59.0 Homelessness; Z86.69 Personal history of other diseases of the nervous system and sense organs; Z72.89 Other problems related to lifestyle; Z86.73 Personal history of transient ischemic attack (TIA), and cerebral infarction without residual deficits; Z56.0 Unemployment, unspecified; Z88.8 Allergy status to other drugs, medicaments and biological substances; Z79.82 Long term (current) use of aspirin; Z79.2 Long term (current) use of antibiotics; Z79.899 Other long term (current) drug therapy; Y90.8 Blood alcohol level of 240 mg/100 ml or more
CPT/HCPCS: 36415; 71045; 80053; 80320; 84443; 84484; 85025; 96360; 99285; J7030; 93005

== ENCOUNTER 2020-01-18 14:04 | Inpatient (IN) | payer MEDICAID ==
[~2020-01-18] VITALS: Ht 177.8 cm; Wt 70.0 kg
[~2020-01-18 14:04] MED LIST changes: -AZIT-63 PO; +LEVO150T8 PO; +TOBR5DRO2 LEFTEYE
[2020-01-18] MEDS ORDERED: thiamine 100mg/ml 2ml inj. IV ONE (14:20)
[2020-01-18] MEDS ORDERED: multivitamins, therapeutics tablet PO ONE (14:20)
[2020-01-18 14:24] LABS: BASOPHILS % (AUTO) 0.7 % (0-1); EOSINOPHILS % (AUTO) 0.3 % (0-6); MONOCYTES # (AUTO) 0.3 X10'3 (0-0.9); NEUTROPHILS # (AUTO) 0.8 X10'3 (1.8-7.7); WHITE BLOOD COUNT 3.1 X10'3 (4.5-11.0)
[2020-01-18 14:25] LABS: HEMATOCRIT 29.5 % (42.0-52.0); LYMPHOCYTES % (AUTO) 64.3 % (21-51); MEAN CORPUSCULAR HEMOGLOBIN 31.2 PG (27.0-31.0); MEAN CORPUSCULAR HGB CONC 33.9 g/dL (33.0-36.5); MEAN CORPUSCULAR VOLUME 91.9 FL (78-98); MONOCYTES % (AUTO) 9.8 % (2-12); NEUTROPHILS % (AUTO) 24.9 % (42-75); PLATELET COUNT 93 X10'3 (140-440); RED BLOOD COUNT 3.21 X10'6 (4.70-6.10); RED CELL DISTRIBUTION WIDTH 20.5 % (11.5-14.5)
[2020-01-18 14:35] LABS: PARTIAL THROMBOPLASTIN TIME 30 SECONDS (22-32)
[2020-01-18 14:39] LABS: ALANINE AMINOTRANSFERASE 52 U/L (12-78); ALBUMIN 3.6 G/DL (3.4-5.0); ALBUMIN/GLOBULIN RATIO 0.9 (1.1-1.5); ALKALINE PHOSPHATASE 135 IU/L (46-116); ANION GAP 11 (8-16); ASPARTATE AMINO TRANSFERASE 165 U/L (10-37); BILIRUBIN,TOTAL 0.4 MG/DL (0.1-1.0); BLOOD UREA NITROGEN 8 MG/DL (7-18); BUN/CREATININE RATIO 5.9 (5.4-32.0); CALCIUM 8.3 MG/DL (8.5-10.1); CHLORIDE 97 MMOL/L (99-107); CREATININE 1.36 MG/DL (0.60-1.10); GLUCOSE 107 MG/DL (70-104); POTASSIUM 3.7 MMOL/L (3.5-5.1); SODIUM 132 MMOL/L (135-145); TOTAL CARBON DIOXIDE 24.3 MMOL/L (24-32); TOTAL PROTEIN 7.6 G/DL (6.4-8.2); eGFR 53 ML/MIN
[2020-01-18 14:41] LABS: ETHANOL 0.275 GM/DL (0.0-0.010); TROPONIN I < 0.04 NG/ML (0.0-0.05)
[2020-01-18 14:44] LABS: ANISOCYTOSIS 3+; PLATELET ESTIMATE DECREASED; TARGET CELLS FEW
[2020-01-18] MEDS ORDERED: MVI, adult No.4 with vit. K 10 ML in dextrose 5% water 500ml 500 ML IV ONE ×2 (14:50)
[2020-01-18] MEDS ORDERED: magnesium 2GM in 50ml NS 50 ML IV ONE (15:00)
[2020-01-18] MEDS ORDERED: iohexol 350MG/ML 100ml bottle IV ONE (15:01)
[2020-01-18 15:03] LABS: MAGNESIUM 1.9 MG/DL (1.5-2.4)
[2020-01-18] MEDS ORDERED: acetaminophen 325mg tablet PO PRN ×2 (16:45)
[2020-01-18] MEDS ORDERED: normal saline 1000ml 1,000 ML IV SCH (16:45)
[2020-01-18] MEDS ORDERED: magnesium Cl slow-release 64mg tablet PO PRN (16:45)
[2020-01-18] MEDS ORDERED: morphine 2 MG/ML inj. syringe IV PRN ×2 (16:45)
[2020-01-18] MEDS ORDERED: magnesium 4gm in 100ml NS 100 ML IV PRN (16:45)
[2020-01-18] MEDS ORDERED: potassium CL 10mEq/100ml bag 100 ML IV PRN ×2 (16:45)
[2020-01-18] MEDS ORDERED: ondansetron/PF 4mg/2ml inj IV PRN (16:45)
[2020-01-18] MEDS ORDERED: magnesium 2GM in 50ml NS 50 ML IV PRN (16:45)
[2020-01-18] MEDS ORDERED: potassium Cl 20 mEq SR tablet PO PRN (16:45)
[2020-01-18] MEDS ORDERED: LORazepam 2 mg/ml vial IV PRN (16:45)
[2020-01-18] MEDS ORDERED: HYDROcodone/acetaminophen 5mg/325mg tablet PO PRN (16:45)
[2020-01-18 17:33] LABS: HEMOGLOBIN A1C 4.8 % (4.5-6.2)
[2020-01-18 17:44] LABS: URINE AMPHETAMINE SCREEN POSITIVE (Neg); URINE BARBITUATE SCREEN NEGATIVE (Neg); URINE BENZODIAZEPINES SCREEN NEGATIVE (Neg); URINE CANNABINOID SCREEN NEGATIVE (Neg); URINE COCAINE SCREEN NEGATIVE (Neg); URINE METHADONE SCREEN NEGATIVE (Neg); URINE OPIATE SCREEN NEGATIVE (Neg); URINE PHENCYCLIDINE SCREEN NEGATIVE (Neg)
[2020-01-18] MEDS: clopidogrel 300mg tablet PO ONE ×2 (17:45→18:13)
--- NOTE | 2020-01-18 17:53 | NUR ---
MD Gao aware that the pt does not pass the swallow eval and can't take his plavix. she gave telephone order for 325mg ASA rectal. will add this order.
[2020-01-18] MEDS ORDERED: aspirin 300mg supp.rect RC ONE (17:55)
[2020-01-18] MEDS: normal saline 1000ml 1,000 ML IV SCH (18:15)
--- NOTE | 2020-01-18 18:19 | NUR ---
pt now swallowing water with no issues. he states earlier he just "coughed while taking the water". so attempted again. pt has chronic hx of left sided facial and body weakness. pt was able to swallow water with out choking or change to voice. pt now eating sherbert with no issues.
--- NOTE | 2020-01-18 18:36 | NUR ---
VS US being performed at bedside by tech at this time.
--- NOTE | 2020-01-18 18:45 | NUR ---
Pt. given dinner and tolerating it well. No signs of difficulty swallowing.
[2020-01-18 19:50] VITALS: BP 167/96
[2020-01-18] MEDS: K and/or MAG REPLACEMENT MC SCH (20:00)
[2020-01-18] MEDS ORDERED: temazepam 15mg capsule PO PRN (21:00)
[2020-01-18] MEDS: LORazepam 1 MG tablet PO PRN (21:07)
[2020-01-18] MEDS: HYDROcodone/acetaminophen 10/325mg tab PO PRN (21:08)
[2020-01-18] MEDS: docusate sod 100mg capsule PO SCH (21:15)
[2020-01-18 22:00] VITALS: BP 148/82
[2020-01-19] MEDS ORDERED: diphenhydrAMINE 50 mg/ml inj IV ONE (00:10)
[2020-01-19] MEDS ORDERED: proCHLORperazine 10 MG/2 ml inj IV PRN (00:10)
--- NOTE | 2020-01-19 00:13 | NUR ---
student nurse came to me to tell me that patient c/o itching and rash under patients arm. remembered that resource nurse notified me that she was going to give zofran, checked allergy and found that patient is allergic to zofran. Notified MD. Order for benedryl and to dc zofran. new order for compazine instead.
--- NOTE | 2020-01-19 00:54 | NUR ---
reassessed patient after benedryl. patient still itching - notified MD - new orders for famotadine and solumedrol
[2020-01-19] MEDS ORDERED: methylPREDNISolone sod succ 125mg/2ml vial IV ONE (01:00)
[2020-01-19] MEDS ORDERED: famotidine 20mg tablet PO ONE (01:00)
--- NOTE | 2020-01-19 01:34 | NUR ---
reviewed and agree with SRN assessment findings
[2020-01-19] MEDS: LORazepam 1 MG tablet PO PRN ×3 (01:42→13:32)
[2020-01-19] MEDS: HYDROcodone/acetaminophen 10/325mg tab PO PRN ×3 (01:44→13:32)
[2020-01-19 02:00] VITALS: BP 158/95
[2020-01-19] MEDS: normal saline 1000ml 1,000 ML IV SCH ×3 (03:16→15:58)
[2020-01-19 05:52] LABS: BASOPHILS % (AUTO) 0.4 % (0-1); EOSINOPHILS % (AUTO) 0.2 % (0-6); HEMATOCRIT 29.3 % (42.0-52.0); LYMPHOCYTES # (AUTO) 0.5 X10'3 (1.1-4.8); LYMPHOCYTES % (AUTO) 36.6 % (21-51); MEAN CORPUSCULAR HGB CONC 33.9 g/dL (33.0-36.5); MEAN CORPUSCULAR VOLUME 91.5 FL (78-98); MEAN PLATELET VOLUME 7.2 FL (7.4-10.4); MONOCYTES # (AUTO) 0.1 X10'3 (0-0.9); MONOCYTES % (AUTO) 3.8 % (2-12); NEUTROPHILS # (AUTO) 0.9 X10'3 (1.8-7.7); PLATELET COUNT 77 X10'3 (140-440); RED BLOOD COUNT 3.21 X10'6 (4.70-6.10); RED CELL DISTRIBUTION WIDTH 20.5 % (11.5-14.5); WHITE BLOOD COUNT 1.5 X10'3 (4.5-11.0)
[2020-01-19 06:00] VITALS: BP 146/83
[2020-01-19 06:17] LABS: ALANINE AMINOTRANSFERASE 55 U/L (12-78); ALBUMIN 3.6 G/DL (3.4-5.0); ALBUMIN/GLOBULIN RATIO 0.9 (1.1-1.5); ALKALINE PHOSPHATASE 143 IU/L (46-116); ANION GAP 8 (8-16); ASPARTATE AMINO TRANSFERASE 147 U/L (10-37); BILIRUBIN,TOTAL 0.5 MG/DL (0.1-1.0); BLOOD UREA NITROGEN 9 MG/DL (7-18); BUN/CREATININE RATIO 8.1 (5.4-32.0); CALCIUM 8.2 MG/DL (8.5-10.1); CHLORIDE 98 MMOL/L (99-107); CHOL/HDL RATIO 3.6 (0.00-4.99); CHOLESTEROL 161 MG/DL (0-200); CREATININE 1.11 MG/DL (0.60-1.10); GLUCOSE 133 MG/DL (70-104); HDL CHOLESTEROL 45 MG/DL (35-60); LDL CHOLESTEROL 98 MG/DL (50-100); MAGNESIUM 1.9 MG/DL (1.5-2.4); POTASSIUM 3.6 MMOL/L (3.5-5.1); SODIUM 132 MMOL/L (135-145); TOTAL CARBON DIOXIDE 25.7 MMOL/L (24-32); TOTAL PROTEIN 7.8 G/DL (6.4-8.2); TRIGLYCERIDES 57 MG/DL (20-135); eGFR 67 ML/MIN
--- NOTE | 2020-01-19 06:19 | NUR ---
Problems reprioritized. Patient report given, questions answered & plan of care reviewed with MARC Resendiz.
[2020-01-19 06:29] LABS: ANISOCYTOSIS 3+; PLATELET ESTIMATE DECREASED; TOTAL CELLS COUNTED 100
--- NOTE | 2020-01-19 07:16 | NUR ---
PAGER ID: [phone] MESSAGE: Astrid CHEN re [phone] re Fernando Avitia in [id number]- he is impulsive and constantly getting out of bed. Fall risk. Can I have a sitter order please?
[2020-01-19] MEDS: K and/or MAG REPLACEMENT MC SCH ×2 (08:00→20:00)
[2020-01-19] MEDS ORDERED: nicotine 21mg patch - 24 hr TD SCH (08:00)
[2020-01-19] MEDS: docusate sod 100mg capsule PO SCH ×2 (08:00→20:00)
[2020-01-19 08:59] VITALS: BP 168/92
[2020-01-19] MEDS: folic acid 1mg tablet PO SCH (08:59)
[2020-01-19] MEDS: levoTHYROXINE 75mcg tablet PO SCH (08:59)
[2020-01-19] MEDS: clopidogrel 75mg tablet PO SCH (08:59)
[2020-01-19] MEDS: thiamine 100mg tablet PO SCH (09:00)
[2020-01-19] MEDS: aspirin 325mg tablet PO SCH (09:00)
[2020-01-19 11:00] VITALS: BP 146/82
--- NOTE | 2020-01-19 11:25 | NUR ---
PAGER ID: [phone] MESSAGE: Astrid Fransico nina Santillanalan in [id number]- he is itchy, requesting Benadryl. Can we order 25mg q6? Also, nicotine patch 21 mg ordered for 1/4 pack a day smoker, can we decrease dose?
--- NOTE | 2020-01-19 13:24 | NUR ---
pt is standing at bedside dressed, iv out tele leads off. states someone brought him a message that his son is in trouble. Wants to leave. Pt is up walking with Student RN and Pt Aide. PT now re evaluating pt as they walk down the high. Will reinstate sitter if staffing permits
[2020-01-19] MEDS ORDERED: diphenhydrAMINE 25mg capsule PO PRN (13:30)
--- NOTE | 2020-01-19 13:56 | NUR ---
PAGER ID: [phone] MESSAGE: [phone] CATINA IS TRYING TO LEAVE AMA. PLEASE CALL LANIE [phone]
--- NOTE | 2020-01-19 14:09 | NUR ---
spoke to Dr Diaz re pt condition. He is aware. We will try to convince the pt to stay
[2020-01-19] MEDS: nicotine 7mg patch - 24hr TD SCH (15:52)
[2020-01-19 18:00] VITALS: BP 162/91
[2020-01-19 22:00] VITALS: BP 149/78
[2020-01-20 02:00] VITALS: BP 139/54
[2020-01-20] MEDS: normal saline 1000ml 1,000 ML IV SCH (02:00)
[2020-01-20] MEDS: LORazepam 1 MG tablet PO PRN ×4 (04:39→17:31)
[2020-01-20] MEDS: HYDROcodone/acetaminophen 10/325mg tab PO PRN ×2 (04:40→12:52)
[2020-01-20 05:59] LABS: BASOPHILS % (AUTO) 0.3 % (0-1); EOSINOPHILS % (AUTO) 0 % (0-6); HEMATOCRIT 28.9 % (42.0-52.0); HEMOGLOBIN 9.7 g/dl (14.0-17.9); LYMPHOCYTES # (AUTO) 1.4 X10'3 (1.1-4.8); LYMPHOCYTES % (AUTO) 30.5 % (21-51); MEAN CORPUSCULAR HEMOGLOBIN 31.2 PG (27.0-31.0); MEAN CORPUSCULAR HGB CONC 33.6 g/dL (33.0-36.5); MEAN CORPUSCULAR VOLUME 92.8 FL (78-98); MEAN PLATELET VOLUME 7.6 FL (7.4-10.4); MONOCYTES # (AUTO) 0.4 X10'3 (0-0.9); MONOCYTES % (AUTO) 8.6 % (2-12); NEUTROPHILS # (AUTO) 2.8 X10'3 (1.8-7.7); NEUTROPHILS % (AUTO) 60.6 % (42-75); PLATELET COUNT 83 X10'3 (140-440); RED BLOOD COUNT 3.11 X10'6 (4.70-6.10); RED CELL DISTRIBUTION WIDTH 20.8 % (11.5-14.5); WHITE BLOOD COUNT 4.7 X10'3 (4.5-11.0)
[2020-01-20 06:00] VITALS: BP 133/76
[2020-01-20 06:15] LABS: ALANINE AMINOTRANSFERASE 43 U/L (12-78); ALBUMIN 3.3 G/DL (3.4-5.0); ALBUMIN/GLOBULIN RATIO 0.8 (1.1-1.5); ALKALINE PHOSPHATASE 120 IU/L (46-116); ANION GAP 6 (8-16); ASPARTATE AMINO TRANSFERASE 87 U/L (10-37); BILIRUBIN,TOTAL 0.6 MG/DL (0.1-1.0); BLOOD UREA NITROGEN 19 MG/DL (7-18); BUN/CREATININE RATIO 15.7 (5.4-32.0); CALCIUM 8.1 MG/DL (8.5-10.1); CHLORIDE 100 MMOL/L (99-107); CREATININE 1.21 MG/DL (0.60-1.10); GLUCOSE 107 MG/DL (70-104); MAGNESIUM 1.8 MG/DL (1.5-2.4); POTASSIUM 3.3 MMOL/L (3.5-5.1); SODIUM 131 MMOL/L (135-145); TOTAL CARBON DIOXIDE 24.6 MMOL/L (24-32); TOTAL PROTEIN 7.2 G/DL (6.4-8.2); eGFR 61 ML/MIN
--- NOTE | 2020-01-20 06:26 | NUR ---
Problems reprioritized. Patient report given, questions answered & plan of care reviewed with MARC Queen.
--- NOTE | 2020-01-20 06:28 | NUR ---
Patient in room PCU 3028. I have received report from Lupe TRAN and had the opportunity to ask questions and assume patient care.
[2020-01-20 06:55] LABS: PLATELET ESTIMATE DECREASED; POLYCHROMASIA FEW
[2020-01-20 06:56] LABS: ANISOCYTOSIS 3+; TARGET CELLS FEW; TEAR DROP CELLS FEW
[2020-01-20] MEDS: K and/or MAG REPLACEMENT MC SCH (07:39)
[2020-01-20] MEDS: aspirin 325mg tablet PO SCH (07:46)
[2020-01-20] MEDS: clopidogrel 75mg tablet PO SCH (07:46)
[2020-01-20] MEDS: thiamine 100mg tablet PO SCH (07:46)
[2020-01-20] MEDS: nicotine 7mg patch - 24hr TD SCH (07:47)
[2020-01-20] MEDS: folic acid 1mg tablet PO SCH (07:47)
[2020-01-20] MEDS: potassium Cl 20 mEq SR tablet PO PRN ×3 (07:47→17:31)
[2020-01-20] MEDS: levoTHYROXINE 75mcg tablet PO SCH (07:47)
[2020-01-20] MEDS: docusate sod 100mg capsule PO SCH (07:53)
[2020-01-20 11:00] VITALS: BP 137/76
--- NOTE | 2020-01-20 14:15 | NUR ---
Spoke with Dr Cain concerning this patient, Dr Cain wants CM/director social involved to give this patient resources to stop abusing alcohol outside of the hospital. Put in a director social consult, will continue to monitor this patient closely.
[2020-01-20 15:00] VITALS: BP 138/65
--- NOTE | 2020-01-20 18:41 | NUR ---
Problems reprioritized. Patient report given, questions answered & plan of care reviewed with Rukhsana TRAN.
--- NOTE | 2020-01-20 20:32 | NUR ---
NOTIFIED OF PT DECISION TO MELODIE RIZO
== END 2020-01-20 20:32 | disposition left against medical advice (07) | DRG 861 ==
LOC: ER 14:04 → ED HOLD 16:45 → PCU 3S 19:40
PROVIDERS: ADMIT Internal Medicine; ATTEND Internal Medicine
DX: R53.1 Weakness (principal); D61.818 Other pancytopenia; D69.6 Thrombocytopenia, unspecified; E87.1 Hypo-osmolality and hyponatremia; I69.354 Hemiplegia and hemiparesis following cerebral infarction affecting left non-dominant side; N18.3 Chronic kidney disease, stage 3 (moderate); F17.210 Nicotine dependence, cigarettes, uncomplicated; I12.9 Hypertensive chronic kidney disease with stage 1 through stage 4 chronic kidney disease, or unspecified chronic kidney disease; M50.30 Other cervical disc degeneration, unspecified cervical region; M51.36 Other intervertebral disc degeneration, lumbar region; F15.10 Other stimulant abuse, uncomplicated; Z53.29 Procedure and treatment not carried out because of patient's decision for other reasons; G89.29 Other chronic pain; M54.9 Dorsalgia, unspecified; Z66 Do not resuscitate; Z59.0 Homelessness; Z83.3 Family history of diabetes mellitus; Z87.442 Personal history of urinary calculi; Z88.8 Allergy status to other drugs, medicaments and biological substances; Z72.89 Other problems related to lifestyle; Z79.899 Other long term (current) drug therapy; Z79.82 Long term (current) use of aspirin; Z71.41 Alcohol abuse counseling and surveillance of alcoholic
CPT/HCPCS: 36415; 70450; 70496; 70498; 70544; 70551; 71045; 72141; 72148; 80053; 80061; 80305; 80320; 82948; 83036; 83735; 84443; 84484; 85025; 85610; 85730; 87081; 93005; 93306; 93880; 97110; 97116; 97161; 97530; 99291; G0378; J0780; J1200; J2405; J2930; J3411; J3475; J7030; Q0163; Q9967

== ENCOUNTER 2020-02-08 07:55 | Emergency (ER) | payer MEDICAID ==
[~2020-02-08] VITALS: Ht 182.9 cm; Wt 77.0 kg
[~2020-02-08 07:55] MED LIST changes: -ALBU8.5H8 IH; -ALBU8.5H8 INH; -ASPI-1265 PO; -ATOR40TA72 PO; -DIPH25CA83 PO; -IBUP-1985 PO; -LEVO150T8 PO; -LORA10TA7 PO; -PANT-47 PO; -THIA100T66 PO; -TOBR5DRO2 LEFTEYE
[2020-02-08 08:31] LABS: HEMATOCRIT 32.6 % (42.0-52.0); HEMOGLOBIN 10.8 g/dl (14.0-17.9); MONOCYTES # (AUTO) 1.3 X10'3 (0-0.9); RED CELL DISTRIBUTION WIDTH 20.3 % (11.5-14.5)
[2020-02-08 08:33] LABS: BASOPHILS # (AUTO) 0.1 X10'3 (0-0.2); BASOPHILS % (AUTO) 1.3 % (0-1); EOSINOPHILS # (AUTO) 0.2 X10'3 (0-0.9); EOSINOPHILS % (AUTO) 2.6 % (0-6); LYMPHOCYTES # (AUTO) 5.4 X10'3 (1.1-4.8); LYMPHOCYTES % (AUTO) 56.4 % (21-51); MEAN CORPUSCULAR HEMOGLOBIN 30.8 PG (27.0-31.0); MEAN CORPUSCULAR HGB CONC 33.1 g/dL (33.0-36.5); MEAN CORPUSCULAR VOLUME 93.1 FL (78-98); MONOCYTES % (AUTO) 13.3 % (2-12); NEUTROPHILS # (AUTO) 2.5 X10'3 (1.8-7.7); NEUTROPHILS % (AUTO) 26.4 % (42-75); PLATELET COUNT 878 X10'3 (140-440); WHITE BLOOD COUNT 9.5 X10'3 (4.5-11.0)
[2020-02-08 08:53] LABS: ALANINE AMINOTRANSFERASE 83 U/L (12-78); ALBUMIN 2.7 G/DL (3.4-5.0); ALBUMIN/GLOBULIN RATIO 0.6 (1.1-1.5); ALKALINE PHOSPHATASE 195 IU/L (46-116); ANION GAP 11 (8-16); ASPARTATE AMINO TRANSFERASE 187 U/L (10-37); BILIRUBIN,TOTAL 0.5 MG/DL (0.1-1.0); BLOOD UREA NITROGEN 8 MG/DL (7-18); CALCIUM 8.4 MG/DL (8.5-10.1); CHLORIDE 107 MMOL/L (99-107); CREATININE 1.33 MG/DL (0.60-1.10); ETHANOL 0.281 GM/DL (0.0-0.010); GLUCOSE 109 MG/DL (70-104); LIPASE 628 U/L (73-393); POTASSIUM 3.5 MMOL/L (3.5-5.1); SODIUM 140 MMOL/L (135-145); TOTAL CARBON DIOXIDE 21.6 MMOL/L (24-32); TOTAL PROTEIN 7.6 G/DL (6.4-8.2); eGFR 54 ML/MIN
--- NOTE | 2020-02-08 08:53 | NUR ---
Removed sharon from pt's abdominal incision per Dr Garcia's verbal order. Incision is intact without any signs of infection.
[2020-02-08] MEDS ORDERED: normal saline 1000ML IV soln IVB ONE (09:15)
[2020-02-08 09:23] LABS: CLARITY,URINE CLEAR (Clear); COLOR,URINE STRAW (Yellow); GLUCOSE, URINE NEGATIVE (Neg); KETONES,URINE NEGATIVE (Neg); LEUKOCYTE ESTERASE ,URINE NEGATIVE (Neg); NITRITES, URINE NEGATIVE (Neg); OCCULT BLOOD,URINE NEGATIVE (Neg); PROTEIN,URINE NEGATIVE (Neg); UROBILINOGEN,URINE 0.2 E.U/dL (0.2-1.0)
[2020-02-08 09:25] LABS: UA COLLECTION TYPE CLN CATCH MIDSTREAM
[2020-02-08 09:35] LABS: ANISOCYTOSIS 3+; PLATELET ESTIMATE INCREASED; TOTAL CELLS COUNTED 100
[2020-02-08 09:36] LABS: HYPOCHROMASIA 1+
[2020-02-08 09:36] LABS: URINE AMPHETAMINE SCREEN NEGATIVE (Neg); URINE BARBITUATE SCREEN NEGATIVE (Neg); URINE BENZODIAZEPINES SCREEN NEGATIVE (Neg); URINE CANNABINOID SCREEN NEGATIVE (Neg); URINE COCAINE SCREEN NEGATIVE (Neg); URINE METHADONE SCREEN NEGATIVE (Neg); URINE OPIATE SCREEN NEGATIVE (Neg); URINE PHENCYCLIDINE SCREEN NEGATIVE (Neg)
--- NOTE | 2020-02-08 09:40 | NUR ---
Pt doesn't want the 2nd Liter of NS, he wants to leave now. Dr Garcia aware and will print d/c instructions.
[2020-02-08 09:42] LABS: SCHISTOCYTES FEW
[2020-02-08 09:50] VITALS: BP 127/87
== END 2020-02-08 09:53 | disposition home or self-care (01) ==
LOC: ER 07:56
DX: R53.1 Weakness (principal); Z48.02 Encounter for removal of sutures; I10 Essential (primary) hypertension; E03.9 Hypothyroidism, unspecified; G89.29 Other chronic pain; F17.210 Nicotine dependence, cigarettes, uncomplicated; F12.90 Cannabis use, unspecified, uncomplicated; F15.90 Other stimulant use, unspecified, uncomplicated; Z86.73 Personal history of transient ischemic attack (TIA), and cerebral infarction without residual deficits; Z86.69 Personal history of other diseases of the nervous system and sense organs; Z86.2 Personal history of diseases of the blood and blood-forming organs and certain disorders involving the immune mechanism; Z87.442 Personal history of urinary calculi; Z59.0 Homelessness; Z56.0 Unemployment, unspecified; Z98.890 Other specified postprocedural states; Z72.89 Other problems related to lifestyle; Z88.5 Allergy status to narcotic agent; Z88.8 Allergy status to other drugs, medicaments and biological substances; Z79.899 Other long term (current) drug therapy
CPT/HCPCS: 36415; 70450; 74176; 80053; 80305; 80320; 81003; 83690; 85025; 93005; 99285; J7030

== ENCOUNTER 2020-02-09 00:45 | Emergency (ER) | payer MEDICAID ==
[~2020-02-09] VITALS: Ht 177.8 cm; Wt 80.0 kg
[2020-02-09] MEDS ORDERED: normal saline 1000ML IV soln IVB ONE (00:55)
[2020-02-09 01:37] LABS: BASOPHILS # (AUTO) 0.2 X10'3 (0-0.2); EOSINOPHILS # (AUTO) 0.1 X10'3 (0-0.9); LYMPHOCYTES # (AUTO) 5.3 X10'3 (1.1-4.8); MONOCYTES # (AUTO) 1.3 X10'3 (0-0.9)
[2020-02-09 01:40] LABS: BASOPHILS % (AUTO) 1.8 % (0-1); HEMATOCRIT 32.4 % (42.0-52.0); HEMOGLOBIN 10.8 g/dl (14.0-17.9); LYMPHOCYTES % (AUTO) 48.6 % (21-51); MEAN CORPUSCULAR HGB CONC 33.4 g/dL (33.0-36.5); MEAN CORPUSCULAR VOLUME 92.8 FL (78-98); MONOCYTES % (AUTO) 12.1 % (2-12); NEUTROPHILS # (AUTO) 3.9 X10'3 (1.8-7.7); NEUTROPHILS % (AUTO) 36.5 % (42-75); PLATELET COUNT 750 X10'3 (140-440); RED BLOOD COUNT 3.49 X10'6 (4.70-6.10); RED CELL DISTRIBUTION WIDTH 20.6 % (11.5-14.5); WHITE BLOOD COUNT 10.8 X10'3 (4.5-11.0)
[2020-02-09 01:51] LABS: ALANINE AMINOTRANSFERASE 72 U/L (12-78); ALBUMIN 2.8 G/DL (3.4-5.0); ALBUMIN/GLOBULIN RATIO 0.6 (1.1-1.5); ALKALINE PHOSPHATASE 201 IU/L (46-116); ANION GAP 11 (8-16); ASPARTATE AMINO TRANSFERASE 157 U/L (10-37); BILIRUBIN,TOTAL 0.6 MG/DL (0.1-1.0); BLOOD UREA NITROGEN 7 MG/DL (7-18); CALCIUM 8.2 MG/DL (8.5-10.1); CHLORIDE 105 MMOL/L (99-107); CREATININE 1.17 MG/DL (0.60-1.10); GLUCOSE 92 MG/DL (70-104); LIPASE 695 U/L (73-393); SODIUM 138 MMOL/L (135-145); TOTAL CARBON DIOXIDE 22.5 MMOL/L (24-32); TOTAL PROTEIN 7.7 G/DL (6.4-8.2); eGFR 63 ML/MIN
[2020-02-09 01:53] LABS: POTASSIUM 3.7 MMOL/L (3.5-5.1)
[2020-02-09 02:30] LABS: CLARITY,URINE CLEAR (Clear); COLOR,URINE YELLOW (Yellow); GLUCOSE, URINE NEGATIVE (Neg); KETONES,URINE NEGATIVE (Neg); LEUKOCYTE ESTERASE ,URINE NEGATIVE (Neg); NITRITES, URINE NEGATIVE (Neg); OCCULT BLOOD,URINE NEGATIVE (Neg); PH,URINE 5.5 (4.8-8.0); PROTEIN,URINE NEGATIVE (Neg); UROBILINOGEN,URINE 0.2 E.U/dL (0.2-1.0)
[2020-02-09 02:31] VITALS: BP 145/96
[2020-02-09 02:31] LABS: UA COLLECTION TYPE CLN CATCH MIDSTREAM
[2020-02-09 04:12] LABS: ANISOCYTOSIS 3+; LARGE PLATELETS FEW; PLATELET ESTIMATE INCREASED
[2020-02-10] MEDS ORDERED: DOXY100C43 PO (04:55)
== END 2020-02-09 02:33 | disposition home or self-care (01) ==
LOC: ER 00:45
DX: M79.10 Myalgia, unspecified site (principal); R07.89 Other chest pain; R53.1 Weakness; G89.29 Other chronic pain; I10 Essential (primary) hypertension; E03.9 Hypothyroidism, unspecified; F12.90 Cannabis use, unspecified, uncomplicated; F15.90 Other stimulant use, unspecified, uncomplicated; F17.210 Nicotine dependence, cigarettes, uncomplicated; Z86.69 Personal history of other diseases of the nervous system and sense organs; Z86.73 Personal history of transient ischemic attack (TIA), and cerebral infarction without residual deficits; Z98.890 Other specified postprocedural states; Z59.0 Homelessness; Z56.0 Unemployment, unspecified; Z88.8 Allergy status to other drugs, medicaments and biological substances; Z79.899 Other long term (current) drug therapy
CPT/HCPCS: 36415; 80053; 81003; 83690; 85025; 99283; J7030

== ENCOUNTER 2020-02-10 04:47 | Emergency (ER) | payer MEDICAID ==
[~2020-02-10] VITALS: Ht 180.3 cm; Wt 80.6 kg
[2020-02-10] MEDS ORDERED: DOXY100C43 PO (04:55)
[2020-02-10 05:22] VITALS: BP 123/87
== END 2020-02-10 05:25 | disposition home or self-care (01) ==
LOC: ER 04:47
DX: J40 Bronchitis, not specified as acute or chronic (principal); R06.02 Shortness of breath; R05 Cough; I10 Essential (primary) hypertension; E03.9 Hypothyroidism, unspecified; G89.29 Other chronic pain; F17.210 Nicotine dependence, cigarettes, uncomplicated; F12.90 Cannabis use, unspecified, uncomplicated; F15.90 Other stimulant use, unspecified, uncomplicated; Z86.73 Personal history of transient ischemic attack (TIA), and cerebral infarction without residual deficits; Z86.69 Personal history of other diseases of the nervous system and sense organs; Z86.2 Personal history of diseases of the blood and blood-forming organs and certain disorders involving the immune mechanism; Z87.442 Personal history of urinary calculi; Z98.890 Other specified postprocedural states; Z72.89 Other problems related to lifestyle; Z56.0 Unemployment, unspecified; Z59.0 Homelessness; Z88.8 Allergy status to other drugs, medicaments and biological substances; Z79.2 Long term (current) use of antibiotics; Z79.899 Other long term (current) drug therapy
CPT/HCPCS: 71045; 99283

== ENCOUNTER 2020-02-10 13:04 | Emergency (ER) | payer MEDICAID ==
[~2020-02-10] VITALS: Ht 177.8 cm; Wt 77.7 kg
[~2020-02-10 13:04] MED LIST changes: +DOXY100C43 PO
[2020-02-10 13:10] VITALS: BP 149/81
--- NOTE | 2020-02-10 13:40 | NUR ---
pt is able to use a walker and walk around. pt states he has a walker at his camp site. getting the pt a taxi ride to his camp site.
== END 2020-02-10 13:50 | disposition home or self-care (01) ==
LOC: ER 13:05
DX: F10.920 Alcohol use, unspecified with intoxication, uncomplicated (principal); R06.02 Shortness of breath; I10 Essential (primary) hypertension; E03.9 Hypothyroidism, unspecified; F12.90 Cannabis use, unspecified, uncomplicated; F15.90 Other stimulant use, unspecified, uncomplicated; G89.29 Other chronic pain; Z86.73 Personal history of transient ischemic attack (TIA), and cerebral infarction without residual deficits; Z86.69 Personal history of other diseases of the nervous system and sense organs; Z86.2 Personal history of diseases of the blood and blood-forming organs and certain disorders involving the immune mechanism; Z87.442 Personal history of urinary calculi; Z98.890 Other specified postprocedural states; Z72.89 Other problems related to lifestyle; Z56.0 Unemployment, unspecified; Z59.0 Homelessness; Z88.8 Allergy status to other drugs, medicaments and biological substances; Z79.2 Long term (current) use of antibiotics; Z79.899 Other long term (current) drug therapy
CPT/HCPCS: 99284

== ENCOUNTER 2020-03-02 18:04 | Inpatient (IN) | payer MEDICAID ==
[~2020-03-02] VITALS: Ht 177.8 cm; Wt 77.3 kg
[2020-03-02] MEDS ORDERED: normal saline 1000ML IV soln IVB ONE ×2 (18:15→19:00)
[2020-03-02 18:33] LABS: BASOPHILS # (AUTO) 0.1 X10'3 (0-0.2); EOSINOPHILS # (AUTO) 0.1 X10'3 (0-0.9); HEMOGLOBIN 11.4 g/dl (14.0-17.9); RED BLOOD COUNT 3.66 X10'6 (4.70-6.10)
[2020-03-02 18:35] LABS: BASOPHILS % (AUTO) 0.7 % (0-1); EOSINOPHILS % (AUTO) 0.5 % (0-6); HEMATOCRIT 34.4 % (42.0-52.0); LYMPHOCYTES % (AUTO) 77.4 % (21-51); MEAN CORPUSCULAR HEMOGLOBIN 31.2 PG (27.0-31.0); MEAN CORPUSCULAR HGB CONC 33.2 g/dL (33.0-36.5); MEAN PLATELET VOLUME 6.6 FL (7.4-10.4); MONOCYTES # (AUTO) 1.6 X10'3 (0-0.9); MONOCYTES % (AUTO) 8.2 % (2-12); NEUTROPHILS # (AUTO) 2.5 X10'3 (1.8-7.7); NEUTROPHILS % (AUTO) 13.2 % (42-75); PLATELET COUNT 291 X10'3 (140-440); RED CELL DISTRIBUTION WIDTH 19.8 % (11.5-14.5); WHITE BLOOD COUNT 19.3 X10'3 (4.5-11.0)
[2020-03-02 18:51] LABS: ALANINE AMINOTRANSFERASE 36 U/L (12-78); ALBUMIN 3.5 G/DL (3.4-5.0); ALBUMIN/GLOBULIN RATIO 0.7 (1.1-1.5); ALKALINE PHOSPHATASE 183 IU/L (46-116); ANION GAP 15 (8-16); ASPARTATE AMINO TRANSFERASE 64 U/L (10-37); BILIRUBIN,TOTAL 0.5 MG/DL (0.1-1.0); BLOOD UREA NITROGEN 13 MG/DL (7-18); BUN/CREATININE RATIO 10.5 (5.4-32.0); CALCIUM 8.7 MG/DL (8.5-10.1); CHLORIDE 96 MMOL/L (99-107); CREATININE 1.24 MG/DL (0.60-1.10); GLUCOSE 102 MG/DL (70-104); POTASSIUM 3.8 MMOL/L (3.5-5.1); SODIUM 131 MMOL/L (135-145); TOTAL CARBON DIOXIDE 19.9 MMOL/L (24-32); TOTAL PROTEIN 8.6 G/DL (6.4-8.2); eGFR 59 ML/MIN
[2020-03-02 18:53] LABS: PARTIAL THROMBOPLASTIN TIME 30 SECONDS (22-32)
[2020-03-02 18:54] LABS: ETHANOL 0.173 GM/DL (0.0-0.010); TROPONIN I < 0.04 NG/ML (0.0-0.05)
[2020-03-02 19:11] LABS: ANISOCYTOSIS 2+; PLATELET ESTIMATE NORMAL; TOTAL CELLS COUNTED 100
[2020-03-02] MEDS ORDERED: aspirin 81mg tab.chew PO ONE (19:15)
[2020-03-02 19:35] LABS: CLARITY,URINE CLEAR (Clear); COLOR,URINE YELLOW (Yellow); GLUCOSE, URINE NEGATIVE (Neg); KETONES,URINE NEGATIVE (Neg); LEUKOCYTE ESTERASE ,URINE NEGATIVE (Neg); NITRITES, URINE NEGATIVE (Neg); OCCULT BLOOD,URINE NEGATIVE (Neg); PROTEIN,URINE NEGATIVE (Neg); UROBILINOGEN,URINE 0.2 E.U/dL (0.2-1.0)
[2020-03-02 19:44] LABS: UA COLLECTION TYPE NON-SPECIFIED
[2020-03-02 19:52] LABS: URINE AMPHETAMINE SCREEN POSITIVE (Neg); URINE BARBITUATE SCREEN NEGATIVE (Neg); URINE BENZODIAZEPINES SCREEN NEGATIVE (Neg); URINE CANNABINOID SCREEN NEGATIVE (Neg); URINE COCAINE SCREEN NEGATIVE (Neg); URINE METHADONE SCREEN NEGATIVE (Neg); URINE OPIATE SCREEN NEGATIVE (Neg); URINE PHENCYCLIDINE SCREEN NEGATIVE (Neg)
[2020-03-02] MEDS ORDERED: mag hydrox/Alum hydrox/simeth 30ml oral suspension PO PRN (20:55)
[2020-03-02] MEDS ORDERED: thiamine inj. 100 MG in normal saline 100ml IV soln 100 ML IV ONE (20:55)
[2020-03-02] MEDS ORDERED: potassium CL 10mEq/100ml bag 100 ML IV PRN ×2 (20:55)
[2020-03-02] MEDS ORDERED: potassium Cl 20 mEq SR tablet PO PRN (20:55)
[2020-03-02] MEDS ORDERED: magnesium hydroxide 30ml (MOM) UD suspension PO PRN (20:55)
[2020-03-02] MEDS ORDERED: acetaminophen 325mg tablet PO PRN (20:55)
--- NOTE | 2020-03-02 22:19 | NUR ---
Patient in room ED 3. I have received report from MARC BRITTON and had the opportunity to ask questions and awaiting patient arrival to [facility].
[2020-03-02 22:30] VITALS: BP 171/106
--- NOTE | 2020-03-02 22:39 | NUR ---
PATIENT ARRIVED TO FLOOR AT 2230 VIA GURNEY. AMBULATED FROM GURNEY TO BEDSIDE WITH SLIGHT DIFFICULTY. PATIENT VERY WEAK ON LEFT SIDE. BELONGINGS PLACED IN CLOSET AND BEDSIDE TABLE. PLACED ON DOOR AND ARRIVAL ATTENDANT 50 WITH HR IN 80'S AND IN SR. WILL CONTINUE TO MONITOR CLOSELY.
[2020-03-02] MEDS: LORazepam 2 mg/ml vial IV PRN (22:52)
[2020-03-02] MEDS: HYDROcodone/acetaminophen 5mg/325mg tablet PO PRN (22:53)
[2020-03-02] MEDS: normal saline 1000ml 1,000 ML IV SCH (22:54)
[2020-03-03] VITALS (7 sets, daily range): BP systolic 139–161; BP diastolic 79–101
[2020-03-03] MEDS: LORazepam 2 mg/ml vial IV PRN (04:54)
[2020-03-03] MEDS: HYDROcodone/acetaminophen 5mg/325mg tablet PO PRN ×4 (04:55→21:41)
[2020-03-03 05:27] LABS: BASOPHILS # (AUTO) 0.1 X10'3 (0-0.2); BASOPHILS % (AUTO) 0.6 % (0-1); EOSINOPHILS # (AUTO) 0.1 X10'3 (0-0.9); EOSINOPHILS % (AUTO) 0.6 % (0-6); HEMOGLOBIN 10.7 g/dl (14.0-17.9); RED CELL DISTRIBUTION WIDTH 19.9 % (11.5-14.5)
[2020-03-03 05:30] LABS: HEMATOCRIT 32.4 % (42.0-52.0); LYMPHOCYTES # (AUTO) 11.1 X10'3 (1.1-4.8); LYMPHOCYTES % (AUTO) 77.3 % (21-51); MEAN CORPUSCULAR HEMOGLOBIN 30.8 PG (27.0-31.0); MEAN CORPUSCULAR HGB CONC 33.1 g/dL (33.0-36.5); MEAN CORPUSCULAR VOLUME 92.9 FL (78-98); MEAN PLATELET VOLUME 6.9 FL (7.4-10.4); MONOCYTES # (AUTO) 1.5 X10'3 (0-0.9); MONOCYTES % (AUTO) 10.4 % (2-12); NEUTROPHILS # (AUTO) 1.6 X10'3 (1.8-7.7); NEUTROPHILS % (AUTO) 11.1 % (42-75); PLATELET COUNT 277 X10'3 (140-440); RED BLOOD COUNT 3.48 X10'6 (4.70-6.10); WHITE BLOOD COUNT 14.3 X10'3 (4.5-11.0)
[2020-03-03 05:35] LABS: ALANINE AMINOTRANSFERASE 31 U/L (12-78); ALBUMIN 2.9 G/DL (3.4-5.0); ALBUMIN/GLOBULIN RATIO 0.7 (1.1-1.5); ALKALINE PHOSPHATASE 158 IU/L (46-116); ANION GAP 12 (8-16); ASPARTATE AMINO TRANSFERASE 58 U/L (10-37); BILIRUBIN,TOTAL 0.6 MG/DL (0.1-1.0); BLOOD UREA NITROGEN 10 MG/DL (7-18); BUN/CREATININE RATIO 9.1 (5.4-32.0); CALCIUM 8.1 MG/DL (8.5-10.1); CHLORIDE 104 MMOL/L (99-107); GLUCOSE 96 MG/DL (70-104); POTASSIUM 3.7 MMOL/L (3.5-5.1); SODIUM 137 MMOL/L (135-145); TOTAL CARBON DIOXIDE 21.2 MMOL/L (24-32); TOTAL PROTEIN 7.3 G/DL (6.4-8.2); eGFR 68 ML/MIN
[2020-03-03 06:06] LABS: PLATELET ESTIMATE NORMAL; TOTAL CELLS COUNTED 100
[2020-03-03 06:07] LABS: ANISOCYTOSIS 2+; SMUDGE CELLS 1+
--- NOTE | 2020-03-03 06:16 | NUR ---
Problems reprioritized. Patient report given, questions answered & plan of care reviewed with MARC MG.
--- NOTE | 2020-03-03 06:30 | NUR ---
Patient in room PCU 3025. I have received report from MARC HUSSEIN and had the opportunity to ask questions and assume patient care.
[2020-03-03] MEDS ORDERED: haloperidol lactate 5mg/ml inj IM PRN (07:55)
[2020-03-03] MEDS ORDERED: LORazepam 1 MG tablet PO PRN (07:55)
[2020-03-03] MEDS ORDERED: haloperidol 5mg tablet PO PRN (07:55)
[2020-03-03] MEDS ORDERED: LORazepam 2 mg/ml vial IV PRN (07:55)
[2020-03-03] MEDS: K and/or MAG REPLACEMENT MC SCH ×2 (08:00→20:00)
[2020-03-03] MEDS: normal saline 1000ml 1,000 ML IV SCH ×2 (08:22→16:51)
[2020-03-03] MEDS: cefuroxime axetil 250mg tablet PO SCH ×2 (08:24→21:41)
[2020-03-03] MEDS: folic acid 1mg tablet PO SCH (08:25)
[2020-03-03] MEDS: multivitamins, therapeutics tablet PO SCH (08:27)
[2020-03-03] MEDS: thiamine 100mg tablet PO SCH (08:28)
[2020-03-03] MEDS: heparin, porcine 5000 units/ml vial SQ SCH ×2 (08:29→20:44)
[2020-03-03] MEDS ORDERED: pneumococcal 23-VAL P-sac vacc 25 mcg/0.5ml vial IMVAC ONE (10:00)
[2020-03-03] MEDS: levoTHYROXINE 75mcg tablet PO SCH (10:53)
--- NOTE | 2020-03-03 11:59 | NUR ---
PAGER ID: [phone] MESSAGE: DR. STEVENSON, [id number]/CATINA, LEVEL 9 LEFT HIP PAIN, SP HIP SURGERY X 1 MONTH. NORCO ONE Q 4 NOT EFFECTIVE. HARITHA [id number], TY
--- NOTE | 2020-03-03 13:50 | NUR ---
Malnutrition consult. BMI 24. No edema. Regular diet. Reports 2-13 lb weight loss, poor intake, "diet at home" varies. Per H&P pt is homeless. weight is emergency weight at 77.27 kg. History of EtOH with multiple pass visits for alcohol intoxication. Per admission wt and ED wt history wt fluctuates up and down and is overall around UBW. 50% of lunch consumed. No malnutrition. Addendum: 03/03/20 at [address] Amended: Links added.
--- NOTE | 2020-03-03 14:18 | NUR ---
PAGER ID: [phone] MESSAGE: DR. STEVENSON, [id number]/CATINA, C/O NAUSEA. NO ANTIEMETIC ORDERS, IS ALLERGIC TO ZOFRAN. HARITHA [id number]. TY
--- NOTE | 2020-03-03 18:35 | NUR ---
Problems reprioritized. Patient report given, questions answered & plan of care reviewed with MARC HAAS.
--- NOTE | 2020-03-03 19:08 | NUR ---
Patient in room PCU 3025. I have received report from Kashif TRAN and had the opportunity to ask questions and assume patient care.
[2020-03-04 02:00] VITALS: BP 153/96
[2020-03-04] MEDS: normal saline 1000ml 1,000 ML IV SCH ×3 (03:12→23:01)
[2020-03-04] MEDS: HYDROcodone/acetaminophen 5mg/325mg tablet PO PRN ×4 (04:36→19:46)
[2020-03-04 05:14] LABS: ALANINE AMINOTRANSFERASE 22 U/L (12-78); ALBUMIN 2.7 G/DL (3.4-5.0); ALBUMIN/GLOBULIN RATIO 0.6 (1.1-1.5); ALKALINE PHOSPHATASE 147 IU/L (46-116); AMYLASE 16 U/L (25-115); ANION GAP 7 (8-16); ASPARTATE AMINO TRANSFERASE 40 U/L (10-37); BILIRUBIN,TOTAL 0.6 MG/DL (0.1-1.0); BLOOD UREA NITROGEN 6 MG/DL (7-18); BUN/CREATININE RATIO 6.8 (5.4-32.0); CALCIUM 8.3 MG/DL (8.5-10.1); CHLORIDE 102 MMOL/L (99-107); CREATININE 0.88 MG/DL (0.60-1.10); GLUCOSE 103 MG/DL (70-104); LIPASE 92 U/L (73-393); MAGNESIUM 1.4 MG/DL (1.5-2.4); PHOSPHORUS 2.9 MG/DL (2.3-4.5); POTASSIUM 3.5 MMOL/L (3.5-5.1); SODIUM 132 MMOL/L (135-145); TOTAL CARBON DIOXIDE 22.9 MMOL/L (24-32); TOTAL PROTEIN 6.9 G/DL (6.4-8.2); eGFR 87 ML/MIN
[2020-03-04 05:20] LABS: BASOPHILS # (AUTO) 0.1 X10'3 (0-0.2); EOSINOPHILS # (AUTO) 0.1 X10'3 (0-0.9); MEAN PLATELET VOLUME 7.1 FL (7.4-10.4)
[2020-03-04 05:25] LABS: BASOPHILS % (AUTO) 0.4 % (0-1); EOSINOPHILS % (AUTO) 0.4 % (0-6); HEMOGLOBIN 11.5 g/dl (14.0-17.9); LYMPHOCYTES # (AUTO) 12.5 X10'3 (1.1-4.8); LYMPHOCYTES % (AUTO) 62.5 % (21-51); MEAN CORPUSCULAR HGB CONC 32.8 g/dL (33.0-36.5); MEAN CORPUSCULAR VOLUME 94.7 FL (78-98); MONOCYTES # (AUTO) 1.3 X10'3 (0-0.9); MONOCYTES % (AUTO) 6.4 % (2-12); NEUTROPHILS # (AUTO) 6.1 X10'3 (1.8-7.7); NEUTROPHILS % (AUTO) 30.3 % (42-75); PLATELET COUNT 241 X10'3 (140-440); RED BLOOD COUNT 3.69 X10'6 (4.70-6.10); RED CELL DISTRIBUTION WIDTH 19.7 % (11.5-14.5)
--- NOTE | 2020-03-04 06:08 | NUR ---
Problems reprioritized. Patient report given, questions answered & plan of care reviewed with Kody TRAN.
--- NOTE | 2020-03-04 06:39 | NUR ---
Patient in room PCU 3025. I have received report from Vannesa TRAN and had the opportunity to ask questions and assume patient care.
[2020-03-04 06:47] LABS: PLATELET ESTIMATE NORMAL; TOTAL CELLS COUNTED 100
[2020-03-04 06:48] LABS: ANISOCYTOSIS 1+; SMUDGE CELLS 1+
[2020-03-04 06:49] LABS: LARGE PLATELETS FEW; TARGET CELLS 1+
[2020-03-04 07:00] VITALS: BP 131/72
[2020-03-04] MEDS: K and/or MAG REPLACEMENT MC SCH ×4 (08:00→20:00)
[2020-03-04] MEDS: folic acid 1mg tablet PO SCH (08:27)
[2020-03-04] MEDS: multivitamins, therapeutics tablet PO SCH (08:27)
[2020-03-04] MEDS: levoTHYROXINE 75mcg tablet PO SCH (08:27)
[2020-03-04] MEDS: thiamine 100mg tablet PO SCH (08:28)
[2020-03-04] MEDS: cefuroxime axetil 250mg tablet PO SCH (08:28)
[2020-03-04] MEDS: heparin, porcine 5000 units/ml vial SQ SCH ×2 (08:28→19:47)
--- NOTE | 2020-03-04 08:36 | NUR ---
Cefuroxime would not scan, medication administered as scheduled.
--- NOTE | 2020-03-04 08:54 | NUR ---
resource nurse forgot to get 0800 blood sugar. patient ate.
[2020-03-04 11:00] VITALS: BP 145/87
--- NOTE | 2020-03-04 12:00 | NUR ---
Paged Dr. Cain. Fernando Avitia. [phone]. FYI patients morning Mg was 1.4. No replacement orders available. Please advise. TyOar Gates [phone]
[2020-03-04] MEDS ORDERED: magnesium 4gm in 100ml NS 100 ML IV PRN (13:00)
[2020-03-04] MEDS: magnesium Cl slow-release 64mg tablet PO PRN (13:17)
[2020-03-04 15:20] VITALS: BP 126/82
[2020-03-04] MEDS: CefTRIAXone/D5W-Rocephin 1gm 50 ML IV SCH (17:20)
[2020-03-04 18:00] VITALS: BP 145/87
--- NOTE | 2020-03-04 18:05 | NUR ---
Patient in room PCU 3025. I have received report from Kody TRAN and had the opportunity to ask questions and assume patient care. Patient had new onset Chest pain. Hospitalist DR Ant bajwa and stat EKG preformed.
--- NOTE | 2020-03-04 18:12 | NUR ---
Problems reprioritized. Patient report given, questions answered & plan of care reviewed with Vannesa TRAN.
--- NOTE | 2020-03-04 18:29 | NUR ---
Paged Dr Quinonez PAGER ID: [phone] MESSAGE: [phone] Fernando Avitia New onset chest pain. Described as pressure. Stat EKG preformed and being read in ER. Vannesa TRAN ext [phone]
--- NOTE | 2020-03-04 18:31 | NUR ---
PAGER ID: [phone] MESSAGE: [phone] Fernando Lego EKG interpreted as no STEMI by ER doc. Vannesa TRAN ext [phone]
--- NOTE | 2020-03-04 19:04 | NUR ---
Paged Dr East PAGER ID: [phone] MESSAGE: [phone] Fernando Avitia New onset chest pain/pressure at shift change. EKG read by ER doc no stemi Vitals 142/87 96% 76HR No response from Hospitalist. Vannesa TRAN
[2020-03-04] MEDS: lactobacillus rhamnosus 10,000 MMU CELLS/CAPSULE PO SCH (19:46)
[2020-03-04] MEDS ORDERED: LORazepam 1 MG tablet PO PRN (20:55)
[2020-03-04 22:00] VITALS: BP 145/87
[2020-03-05 01:31] LABS: ALANINE AMINOTRANSFERASE 22 U/L (12-78); ALBUMIN 2.5 G/DL (3.4-5.0); ALBUMIN/GLOBULIN RATIO 0.6 (1.1-1.5); ALKALINE PHOSPHATASE 138 IU/L (46-116); ANION GAP 9 (8-16); ASPARTATE AMINO TRANSFERASE 36 U/L (10-37); BILIRUBIN,TOTAL 0.5 MG/DL (0.1-1.0); BLOOD UREA NITROGEN 4 MG/DL (7-18); BUN/CREATININE RATIO 4.7 (5.4-32.0); CALCIUM 8.2 MG/DL (8.5-10.1); CHLORIDE 103 MMOL/L (99-107); CREATININE 0.86 MG/DL (0.60-1.10); GLUCOSE 93 MG/DL (70-104); POTASSIUM 3.3 MMOL/L (3.5-5.1); SODIUM 137 MMOL/L (135-145); TOTAL CARBON DIOXIDE 24.9 MMOL/L (24-32); TOTAL PROTEIN 6.8 G/DL (6.4-8.2); eGFR 90 ML/MIN
[2020-03-05 01:35] LABS: AMYLASE 15 U/L (25-115); LIPASE 84 U/L (73-393); MAGNESIUM 1.3 MG/DL (1.5-2.4); PHOSPHORUS 3.3 MG/DL (2.3-4.5)
[2020-03-05] MEDS: magnesium Cl slow-release 64mg tablet PO PRN ×3 (01:55→20:21)
[2020-03-05] MEDS: HYDROcodone/acetaminophen 5mg/325mg tablet PO PRN ×4 (01:55→16:47)
[2020-03-05 02:00] VITALS: BP 151/97
--- NOTE | 2020-03-05 06:23 | NUR ---
Problems reprioritized. Patient report given, questions answered & plan of care reviewed with Kody TRAN.
--- NOTE | 2020-03-05 06:29 | NUR ---
Patient in room PCU 3025. I have received report from Vannesa TRAN and had the opportunity to ask questions and assume patient care.
[2020-03-05 07:00] VITALS: BP 145/92
[2020-03-05 07:11] LABS: BASOPHILS # (AUTO) 0.1 X10'3 (0-0.2); BASOPHILS % (AUTO) 0.8 % (0-1); EOSINOPHILS # (AUTO) 0.3 X10'3 (0-0.9); EOSINOPHILS % (AUTO) 1.4 % (0-6); HEMATOCRIT 34.3 % (42.0-52.0); HEMOGLOBIN 11.2 g/dl (14.0-17.9); LYMPHOCYTES # (AUTO) 12.1 X10'3 (1.1-4.8); MEAN CORPUSCULAR HEMOGLOBIN 30.6 PG (27.0-31.0); MEAN CORPUSCULAR HGB CONC 32.5 g/dL (33.0-36.5); MEAN PLATELET VOLUME 7.4 FL (7.4-10.4); MONOCYTES # (AUTO) 1.4 X10'3 (0-0.9); MONOCYTES % (AUTO) 7.7 % (2-12); NEUTROPHILS # (AUTO) 4.2 X10'3 (1.8-7.7); NEUTROPHILS % (AUTO) 23.1 % (42-75); PLATELET COUNT 247 X10'3 (140-440); RED BLOOD COUNT 3.65 X10'6 (4.70-6.10); RED CELL DISTRIBUTION WIDTH 20.3 % (11.5-14.5)
[2020-03-05] MEDS: K and/or MAG REPLACEMENT MC SCH ×4 (08:00→20:00)
[2020-03-05 08:03] LABS: ANISOCYTOSIS 3+; PLATELET ESTIMATE NORMAL; SMUDGE CELLS 2+; TOTAL CELLS COUNTED 100
[2020-03-05 08:04] LABS: HYPOCHROMASIA 1+; TARGET CELLS FEW
[2020-03-05] MEDS: multivitamins, therapeutics tablet PO SCH (08:04)
[2020-03-05] MEDS: thiamine 100mg tablet PO SCH (08:05)
[2020-03-05] MEDS: lactobacillus rhamnosus 10,000 MMU CELLS/CAPSULE PO SCH ×2 (08:05→20:21)
[2020-03-05] MEDS: levoTHYROXINE 75mcg tablet PO SCH (08:05)
[2020-03-05] MEDS: folic acid 1mg tablet PO SCH (08:05)
[2020-03-05] MEDS: potassium Cl 20 mEq SR tablet PO PRN ×3 (08:05→16:46)
[2020-03-05] MEDS: heparin, porcine 5000 units/ml vial SQ SCH ×2 (08:07→20:21)
[2020-03-05] MEDS: CefTRIAXone/D5W-Rocephin 1gm 50 ML IV SCH (08:11)
[2020-03-05] MEDS: normal saline 1000ml 1,000 ML IV SCH ×2 (08:11→18:51)
[2020-03-05 11:00] VITALS: BP 110/59
--- NOTE | 2020-03-05 12:42 | NUR ---
Nutrition consult: Pt with probable right deltoid cellulitis per MD notes. Currently on a regular diet documented with fluctuating PO intake overall averaging 50% not meeting nutrient needs. Pt seen at bedside provided with written and verbal protein education and alternative regular diet menu to increase food options. Pt reports he has been having a low appetite however is currently endorsing a good appetite. Pt denies food allergies however reports dislike to spinach and squash and requests cold cereal q breakfast. Food preferences were d/w dietary as well as recommendation to visit pt daily for menu selection. Pt denies difficulty chewing however reports difficulty swallowing at times. Pt denies any specific relation of PO intake that causes difficulty swallowing however states his throat feels swollen and that he just tries to swallow the food rather than cough it up. Recommend BSS with ST to assess need for texture modification. LBM 03/03 per I&O, pt with PRN MoM last given 03/04. Pt provided with RD contact information and encouraged to reach out if needed. Will remain available. Addendum: 03/05/20 at [address] Amended: Links added.
[2020-03-05] MEDS ORDERED: clindamycin 600mg/D5W 50ml 50 ML IV ONE (13:20)
[2020-03-05 14:03] LABS: D-DIMER 2.21 MG/L FEU (0-0.50)
[2020-03-05 15:00] VITALS: BP 145/92
[2020-03-05 18:00] VITALS: BP 154/89
--- NOTE | 2020-03-05 18:30 | NUR ---
Patient in room PCU 3025. I have received report from Kody TRAN and had the opportunity to ask questions and assume patient care.
--- NOTE | 2020-03-05 18:44 | NUR ---
Problems reprioritized. Patient report given, questions answered & plan of care reviewed with Daphnie TRAN.
--- NOTE | 2020-03-05 19:09 | NUR ---
PAGER ID: [phone] MESSAGE: Fernando Avitia [id number] admitted with ETOH and chronic L side weakness, pt is complaining of being nausea but nothing ordered, pt is allergic to Zofran also. thank you Daphnie TRAN [phone]
[2020-03-05] MEDS ORDERED: proCHLORperazine 10 MG/2 ml inj IV PRN (19:15)
[2020-03-05] MEDS: enoxaparin 80mg/0.8ml syringe SUBCUT SCH (20:55)
[2020-03-05] MEDS ORDERED: iohexol 350MG/ML 100ml bottle IV ONE (21:31)
[2020-03-05 22:00] VITALS: BP 169/30
[2020-03-06] MEDS: normal saline 1000ml 1,000 ML IV SCH (04:51)
[2020-03-06 06:00] VITALS: BP 151/87
[2020-03-06 06:09] LABS: BASOPHILS # (AUTO) 0.1 X10'3 (0-0.2); HEMOGLOBIN 11.4 g/dl (14.0-17.9)
[2020-03-06 06:12] LABS: BASOPHILS % (AUTO) 0.5 % (0-1); EOSINOPHILS # (AUTO) 0.3 X10'3 (0-0.9); EOSINOPHILS % (AUTO) 1.8 % (0-6); HEMATOCRIT 34.9 % (42.0-52.0); LYMPHOCYTES # (AUTO) 11.7 X10'3 (1.1-4.8); LYMPHOCYTES % (AUTO) 69.6 % (21-51); MEAN CORPUSCULAR HEMOGLOBIN 30.7 PG (27.0-31.0); MEAN CORPUSCULAR HGB CONC 32.6 g/dL (33.0-36.5); MEAN CORPUSCULAR VOLUME 94.3 FL (78-98); MEAN PLATELET VOLUME 7.9 FL (7.4-10.4); MONOCYTES # (AUTO) 1.2 X10'3 (0-0.9); MONOCYTES % (AUTO) 7.2 % (2-12); NEUTROPHILS # (AUTO) 3.5 X10'3 (1.8-7.7); NEUTROPHILS % (AUTO) 20.9 % (42-75); PLATELET COUNT 279 X10'3 (140-440); RED CELL DISTRIBUTION WIDTH 20.6 % (11.5-14.5); WHITE BLOOD COUNT 16.8 X10'3 (4.5-11.0)
[2020-03-06 06:19] LABS: ALANINE AMINOTRANSFERASE 20 U/L (12-78); ALBUMIN 2.8 G/DL (3.4-5.0); ALBUMIN/GLOBULIN RATIO 0.6 (1.1-1.5); ALKALINE PHOSPHATASE 148 IU/L (46-116); AMYLASE 16 U/L (25-115); ANION GAP 10 (8-16); ASPARTATE AMINO TRANSFERASE 38 U/L (10-37); BILIRUBIN,TOTAL 0.4 MG/DL (0.1-1.0); BLOOD UREA NITROGEN 4 MG/DL (7-18); BUN/CREATININE RATIO 4.3 (5.4-32.0); CALCIUM 8.8 MG/DL (8.5-10.1); CHLORIDE 104 MMOL/L (99-107); CREATININE 0.92 MG/DL (0.60-1.10); GLUCOSE 100 MG/DL (70-104); LIPASE 99 U/L (73-393); MAGNESIUM 1.6 MG/DL (1.5-2.4); PHOSPHORUS 3.5 MG/DL (2.3-4.5); POTASSIUM 3.5 MMOL/L (3.5-5.1); SODIUM 136 MMOL/L (135-145); TOTAL CARBON DIOXIDE 21.7 MMOL/L (24-32); TOTAL PROTEIN 7.3 G/DL (6.4-8.2); eGFR 83 ML/MIN
--- NOTE | 2020-03-06 06:20 | NUR ---
Patient in room PCU 3025. I have received report from MARC Eller and had the opportunity to ask questions and assume patient care.
--- NOTE | 2020-03-06 06:41 | NUR ---
Problems reprioritized. Patient report given, questions answered & plan of care reviewed with Sharla TRAN.
[2020-03-06] MEDS: enoxaparin 80mg/0.8ml syringe SUBCUT SCH (07:17)
[2020-03-06] MEDS: levoTHYROXINE 75mcg tablet PO SCH (07:18)
[2020-03-06] MEDS: thiamine 100mg tablet PO SCH (07:18)
[2020-03-06] MEDS: folic acid 1mg tablet PO SCH (07:18)
[2020-03-06] MEDS: multivitamins, therapeutics tablet PO SCH (07:18)
[2020-03-06] MEDS: lactobacillus rhamnosus 10,000 MMU CELLS/CAPSULE PO SCH (07:18)
[2020-03-06] MEDS: CefTRIAXone/D5W-Rocephin 1gm 50 ML IV SCH (07:24)
[2020-03-06] MEDS: K and/or MAG REPLACEMENT MC SCH ×2 (08:00)
[2020-03-06 09:16] LABS: TOTAL CELLS COUNTED 100
[2020-03-06 09:17] LABS: ANISOCYTOSIS 2+; PLATELET ESTIMATE NORMAL
[2020-03-06 09:18] LABS: ELLIPTOCYTES FEW; HYPOCHROMASIA 1+; POLYCHROMASIA 1+; STOMATOCYTES FEW; TARGET CELLS 1+
[2020-03-06 09:20] LABS: SMUDGE CELLS 2+
--- NOTE | 2020-03-06 14:57 | NUR ---
Awaiting MD response. promotional table spacer PAGER ID: [phone] MESSAGE: Re: Fernando Avitia. [id number]. Patient is wanting to leave AMA. Sharla N #[phone]
--- NOTE | 2020-03-06 15:55 | NUR ---
Patient left AMA off unit. Both IV's discontinued. playground monitor discontinued. Patient at time of discharge hemodynamically stable. No acute distress. Doctor notified. AMA paper signed and dated. Patient wrist band cut and ambulated down to [facility] alongside RN. Patient last seen walking off premises.
[2020-03-06] MEDS ORDERED: LORazepam 1 MG tablet PO PRN (20:55)
== END 2020-03-06 16:14 | disposition left against medical advice (07) | DRG 383 ==
LOC: ER 18:04 → ED HOLD 20:51 → PCU 3S 22:25
PROVIDERS: ADMIT Internal Medicine; ATTEND Family Medicine
PROC: 3E0234Z Introduction of Serum, Toxoid and Vaccine into Muscle, Percutaneous Approach (ICD-10-PCS; principal; 2020-03-03)
PROC: B32T1ZZ Computerized Tomography (CT Scan) of Left Pulmonary Artery using Low Osmolar Contrast (ICD-10-PCS; 2020-03-05)
PROC: B3201ZZ Computerized Tomography (CT Scan) of Thoracic Aorta using Low Osmolar Contrast (ICD-10-PCS; 2020-03-05)
PROC: B32S1ZZ Computerized Tomography (CT Scan) of Right Pulmonary Artery using Low Osmolar Contrast (ICD-10-PCS; 2020-03-05)
DX: L03.113 Cellulitis of right upper limb (principal); G93.40 Encephalopathy, unspecified; E87.1 Hypo-osmolality and hyponatremia; I80.8 Phlebitis and thrombophlebitis of other sites; D72.820 Lymphocytosis (symptomatic); G40.909 Epilepsy, unspecified, not intractable, without status epilepticus; F10.229 Alcohol dependence with intoxication, unspecified; F12.90 Cannabis use, unspecified, uncomplicated; D64.9 Anemia, unspecified; Z53.29 Procedure and treatment not carried out because of patient's decision for other reasons; G89.29 Other chronic pain; M54.9 Dorsalgia, unspecified; Z20.828 Contact with and (suspected) exposure to other viral communicable diseases; M25.511 Pain in right shoulder; I10 Essential (primary) hypertension; Z59.0 Homelessness; Z83.3 Family history of diabetes mellitus; Z86.73 Personal history of transient ischemic attack (TIA), and cerebral infarction without residual deficits; Z87.442 Personal history of urinary calculi; Z90.81 Acquired absence of spleen; Z88.8 Allergy status to other drugs, medicaments and biological substances; Z91.14 Patient's other noncompliance with medication regimen; Z23 Encounter for immunization
CPT/HCPCS: 36415; 70450; 71045; 71275; 80053; 80305; 80320; 81003; 82150; 82948; 83605; 83690; 83735; 84100; 84484; 85025; 85379; 85610; 85730; 87040; 87081; 87635; 90732; 92508; 93005; 93971; 96360; 97110; 97116; 97161; 97530; 99285; G0378; J0696; J0780; J1644; J1650; J2060; J3411; J3490; J7030; Q9967

== ENCOUNTER 2020-03-10 16:39 | Emergency (ER) | payer MEDICAID ==
[~2020-03-10] VITALS: Ht 177.8 cm; Wt 81.8 kg
[~2020-03-10 16:39] MED LIST changes: -DOXY100C43 PO
[2020-03-10 17:22] LABS: EOSINOPHILS # (AUTO) 0.2 X10'3 (0-0.9); HEMOGLOBIN 9.8 g/dl (14.0-17.9); MEAN PLATELET VOLUME 6.8 FL (7.4-10.4); RED BLOOD COUNT 3.15 X10'6 (4.70-6.10)
[2020-03-10 17:23] LABS: BASOPHILS % (AUTO) 0.3 % (0-1); EOSINOPHILS % (AUTO) 1.5 % (0-6); HEMATOCRIT 29.9 % (42.0-52.0); LYMPHOCYTES # (AUTO) 11.7 X10'3 (1.1-4.8); LYMPHOCYTES % (AUTO) 80.5 % (21-51); MEAN CORPUSCULAR HGB CONC 32.7 g/dL (33.0-36.5); MEAN CORPUSCULAR VOLUME 94.8 FL (78-98); MONOCYTES # (AUTO) 1.2 X10'3 (0-0.9); MONOCYTES % (AUTO) 8.4 % (2-12); NEUTROPHILS # (AUTO) 1.3 X10'3 (1.8-7.7); NEUTROPHILS % (AUTO) 9.3 % (42-75); PLATELET COUNT 293 X10'3 (140-440); RED CELL DISTRIBUTION WIDTH 19.9 % (11.5-14.5); WHITE BLOOD COUNT 14.5 X10'3 (4.5-11.0)
[2020-03-10 17:33] LABS: PARTIAL THROMBOPLASTIN TIME 29 SECONDS (22-32)
[2020-03-10 17:35] LABS: ALANINE AMINOTRANSFERASE 33 U/L (12-78); ALBUMIN 2.8 G/DL (3.4-5.0); ALBUMIN/GLOBULIN RATIO 0.6 (1.1-1.5); ALKALINE PHOSPHATASE 142 IU/L (46-116); ANION GAP 11 (8-16); ASPARTATE AMINO TRANSFERASE 64 U/L (10-37); BILIRUBIN,TOTAL 0.3 MG/DL (0.1-1.0); BLOOD UREA NITROGEN 7 MG/DL (7-18); BUN/CREATININE RATIO 6.5 (5.4-32.0); CALCIUM 8.3 MG/DL (8.5-10.1); CHLORIDE 105 MMOL/L (99-107); CREATININE 1.08 MG/DL (0.60-1.10); GLUCOSE 101 MG/DL (70-104); POTASSIUM 3.6 MMOL/L (3.5-5.1); SODIUM 141 MMOL/L (135-145); TOTAL CARBON DIOXIDE 25.2 MMOL/L (24-32); TOTAL PROTEIN 7.2 G/DL (6.4-8.2); eGFR 69 ML/MIN
[2020-03-10 17:47] LABS: TOTAL CELLS COUNTED 200
[2020-03-10 17:48] LABS: BASOPHILS % (MANUAL) 0 % (0-1); MYELOCYTES % (MANUAL) 0 % (0-0)
[2020-03-10 17:49] LABS: ANISOCYTOSIS 2+; PLATELET ESTIMATE NORMAL
[2020-03-10 17:51] LABS: HYPOCHROMASIA 1+; POLYCHROMASIA FEW
[2020-03-10 17:52] LABS: SCHISTOCYTES FEW; SMUDGE CELLS FEW; TARGET CELLS FEW
[2020-03-10 19:11] LABS: LIPASE 233 U/L (73-393)
[2020-03-10] MEDS ORDERED: iohexol 300mg/ml 100ml inj. ONE (19:19)
[2020-03-10 20:17] VITALS: BP 136/88
[2020-03-10 20:18] LABS: CLARITY,URINE CLEAR (Clear); COLOR,URINE YELLOW (Yellow); GLUCOSE, URINE NEGATIVE (Neg); KETONES,URINE NEGATIVE (Neg); LEUKOCYTE ESTERASE ,URINE NEGATIVE (Neg); NITRITES, URINE NEGATIVE (Neg); OCCULT BLOOD,URINE NEGATIVE (Neg); PROTEIN,URINE NEGATIVE (Neg); UROBILINOGEN,URINE 0.2 E.U/dL (0.2-1.0)
[2020-03-10 20:20] LABS: UA COLLECTION TYPE CLN CATCH MIDSTREAM
[2020-03-12 16:09] LABS: OCCULT BLOOD STOOL NEGATIVE (Neg)
== END 2020-03-10 21:25 | disposition home or self-care (01) ==
LOC: ER 16:40
DX: S30.0XXA Contusion of lower back and pelvis, initial encounter (principal); D64.9 Anemia, unspecified; R07.89 Other chest pain; I10 Essential (primary) hypertension; E03.9 Hypothyroidism, unspecified; G89.29 Other chronic pain; F12.90 Cannabis use, unspecified, uncomplicated; F15.90 Other stimulant use, unspecified, uncomplicated; Z87.442 Personal history of urinary calculi; Z86.73 Personal history of transient ischemic attack (TIA), and cerebral infarction without residual deficits; Z86.69 Personal history of other diseases of the nervous system and sense organs; Z98.890 Other specified postprocedural states; Z72.89 Other problems related to lifestyle; Z59.0 Homelessness; Z56.0 Unemployment, unspecified; Z88.5 Allergy status to narcotic agent; Z88.8 Allergy status to other drugs, medicaments and biological substances; Z79.899 Other long term (current) drug therapy; X58.XXXA Exposure to other specified factors, initial encounter; Y93.89 Activity, other specified; Y92.89 Other specified places as the place of occurrence of the external cause; Y99.8 Other external cause status
CPT/HCPCS: 36415; 71045; 74177; 80053; 81003; 83690; 83880; 84484; 85025; 85610; 85730; 93005; 99285; Q9967; 82272

== ENCOUNTER 2020-03-23 19:40 | Emergency (ER) | payer MEDICAID ==
[~2020-03-23] VITALS: Ht 177.8 cm; Wt 85.0 kg
[2020-03-23 20:06] LABS: BASOPHILS # (AUTO) 0.1 X10'3 (0-0.2); BASOPHILS % (AUTO) 0.6 % (0-1); EOSINOPHILS # (AUTO) 0.1 X10'3 (0-0.9); HEMOGLOBIN 10.4 g/dl (14.0-17.9); MONOCYTES # (AUTO) 1.1 X10'3 (0-0.9)
[2020-03-23 20:07] LABS: EOSINOPHILS % (AUTO) 0.9 % (0-6); HEMATOCRIT 31.7 % (42.0-52.0); LYMPHOCYTES # (AUTO) 9.8 X10'3 (1.1-4.8); MEAN CORPUSCULAR HGB CONC 32.7 g/dL (33.0-36.5); MEAN CORPUSCULAR VOLUME 94.7 FL (78-98); MEAN PLATELET VOLUME 7.2 FL (7.4-10.4); NEUTROPHILS # (AUTO) 1.2 X10'3 (1.8-7.7); NEUTROPHILS % (AUTO) 9.5 % (42-75); PLATELET COUNT 224 X10'3 (140-440); RED BLOOD COUNT 3.35 X10'6 (4.70-6.10); RED CELL DISTRIBUTION WIDTH 19.1 % (11.5-14.5); WHITE BLOOD COUNT 12.3 X10'3 (4.5-11.0)
[2020-03-23 20:17] LABS: ALANINE AMINOTRANSFERASE 22 U/L (12-78); ALBUMIN 3.4 G/DL (3.4-5.0); ALBUMIN/GLOBULIN RATIO 0.8 (1.1-1.5); ALKALINE PHOSPHATASE 138 IU/L (46-116); ANION GAP 12 (8-16); ASPARTATE AMINO TRANSFERASE 43 U/L (10-37); BILIRUBIN,TOTAL 0.5 MG/DL (0.1-1.0); BLOOD UREA NITROGEN 10 MG/DL (7-18); BUN/CREATININE RATIO 8.2 (5.4-32.0); CALCIUM 7.8 MG/DL (8.5-10.1); CHLORIDE 97 MMOL/L (99-107); CREATININE 1.22 MG/DL (0.60-1.10); GLUCOSE 108 MG/DL (70-104); POTASSIUM 3.7 MMOL/L (3.5-5.1); SODIUM 130 MMOL/L (135-145); TOTAL CARBON DIOXIDE 21.2 MMOL/L (24-32); TOTAL PROTEIN 7.9 G/DL (6.4-8.2); eGFR 60 ML/MIN
[2020-03-23] MEDS ORDERED: ibuprofen tablet 400 MG TABLET PO ONE (21:55)
[2020-03-23] MEDS ORDERED: IBUP-1984 PO (21:57)
[2020-03-23 22:31] VITALS: BP 123/72
== END 2020-03-23 22:33 | disposition home or self-care (01) ==
LOC: ER 19:40
DX: R07.9 Chest pain, unspecified (principal); M94.0 Chondrocostal junction syndrome [Tietze]; R05 Cough; I10 Essential (primary) hypertension; E03.9 Hypothyroidism, unspecified; G89.29 Other chronic pain; F12.90 Cannabis use, unspecified, uncomplicated; F15.90 Other stimulant use, unspecified, uncomplicated; Z86.73 Personal history of transient ischemic attack (TIA), and cerebral infarction without residual deficits; Z86.69 Personal history of other diseases of the nervous system and sense organs; Z86.2 Personal history of diseases of the blood and blood-forming organs and certain disorders involving the immune mechanism; Z87.442 Personal history of urinary calculi; Z98.890 Other specified postprocedural states; Z72.89 Other problems related to lifestyle; Z56.0 Unemployment, unspecified; Z59.0 Homelessness; Z88.8 Allergy status to other drugs, medicaments and biological substances; Z79.899 Other long term (current) drug therapy
CPT/HCPCS: 71045; 80053; 84484; 85025; 93005; 99285

== ENCOUNTER → 2020-04-14 | Emergency (ER) | payer MEDICAID ==
[~2020-04-14] VITALS: Ht 172.7 cm; Wt 85.0 kg
[2020-04-14 20:35] VITALS: BP 124/76
== END | disposition left against medical advice (07) ==
LOC: ER 20:28
DX: K08.89 Other specified disorders of teeth and supporting structures (principal); H57.12 Ocular pain, left eye; Z53.21 Procedure and treatment not carried out due to patient leaving prior to being seen by health care provider

== ENCOUNTER 2020-04-19 16:52 | Emergency (ER) | payer MEDICAID ==
[~2020-04-19] VITALS: Ht 177.8 cm; Wt 80.0 kg
[2020-04-19] MEDS ORDERED: ketorolac trometh. 30mg/ml inj. IM ONE (17:20)
[2020-04-19 17:50] LABS: HEMOGLOBIN 10.7 g/dl (14.0-17.9); PLATELET COUNT 207 X10'3 (140-440)
[2020-04-19 17:52] LABS: BASOPHILS # (AUTO) 0.2 X10'3 (0-0.2); BASOPHILS % (AUTO) 1.5 % (0-1); EOSINOPHILS # (AUTO) 0.1 X10'3 (0-0.9); EOSINOPHILS % (AUTO) 1.2 % (0-6); LYMPHOCYTES # (AUTO) 9.1 X10'3 (1.1-4.8); LYMPHOCYTES % (AUTO) 78.6 % (21-51); MEAN CORPUSCULAR HGB CONC 33.4 g/dL (33.0-36.5); MEAN CORPUSCULAR VOLUME 95.7 FL (78-98); MONOCYTES # (AUTO) 0.8 X10'3 (0-0.9); NEUTROPHILS # (AUTO) 1.4 X10'3 (1.8-7.7); NEUTROPHILS % (AUTO) 11.7 % (42-75); RED BLOOD COUNT 3.35 X10'6 (4.70-6.10); RED CELL DISTRIBUTION WIDTH 18.1 % (11.5-14.5); WHITE BLOOD COUNT 11.6 X10'3 (4.5-11.0)
[2020-04-19 18:04] LABS: ALANINE AMINOTRANSFERASE 29 U/L (12-78); ALBUMIN 3.6 G/DL (3.4-5.0); ALBUMIN/GLOBULIN RATIO 0.8 (1.1-1.5); ALKALINE PHOSPHATASE 134 IU/L (46-116); ANION GAP 16 (8-16); ASPARTATE AMINO TRANSFERASE 65 U/L (10-37); BILIRUBIN,TOTAL 0.5 MG/DL (0.1-1.0); BLOOD UREA NITROGEN 7 MG/DL (7-18); BUN/CREATININE RATIO 6.6 (5.4-32.0); CALCIUM 8.6 MG/DL (8.5-10.1); CHLORIDE 99 MMOL/L (99-107); CREATININE 1.06 MG/DL (0.60-1.10); GLUCOSE 96 MG/DL (70-104); POTASSIUM 3.3 MMOL/L (3.5-5.1); SODIUM 136 MMOL/L (135-145); TOTAL PROTEIN 8.1 G/DL (6.4-8.2); eGFR 70 ML/MIN
[2020-04-19 18:06] LABS: TROPONIN I < 0.04 NG/ML (0.0-0.05)
[2020-04-19] MEDS ORDERED: potassium Cl 20 mEq SR tablet PO STA (18:14)
[2020-04-19 18:34] VITALS: BP 150/93
== END 2020-04-19 18:35 | disposition home or self-care (01) ==
LOC: ER 16:52
DX: R07.89 Other chest pain (principal); R06.02 Shortness of breath; I10 Essential (primary) hypertension; E03.9 Hypothyroidism, unspecified; G89.29 Other chronic pain; F17.210 Nicotine dependence, cigarettes, uncomplicated; F12.90 Cannabis use, unspecified, uncomplicated; F15.90 Other stimulant use, unspecified, uncomplicated; Z86.73 Personal history of transient ischemic attack (TIA), and cerebral infarction without residual deficits; Z86.69 Personal history of other diseases of the nervous system and sense organs; Z72.89 Other problems related to lifestyle; Z86.2 Personal history of diseases of the blood and blood-forming organs and certain disorders involving the immune mechanism; Z87.442 Personal history of urinary calculi; Z98.890 Other specified postprocedural states; Z56.0 Unemployment, unspecified; Z59.0 Homelessness; Z88.8 Allergy status to other drugs, medicaments and biological substances; Z79.899 Other long term (current) drug therapy
CPT/HCPCS: 36415; 71045; 80053; 84484; 85025; 93005; 96372; 99285; J1885

== ENCOUNTER 2020-04-20 17:10 | Emergency (ER) | payer MEDICAID ==
[~2020-04-20] VITALS: Ht 177.8 cm; Wt 80.0 kg
--- NOTE | 2020-04-20 17:26 | NUR ---
Note gabriella in EDM - 04/20/20 at 1729 by ANAHI pt brought in by ems r/t saying he is not feeling well and that he has had a cough. pt siting at end of bed breathing normal unlabored lungs clear stating 98% on ra no coughing noted
--- NOTE | 2020-04-20 17:29 | NUR ---
pt brought in by ems r/t saying he is not feeling well and that he has had a cough. pt siting at end of bed breathing normal unlabored lungs clear stating 98% on ra no coughing noted
[2020-04-20 17:55] VITALS: BP 146/94
== END 2020-04-20 18:44 | disposition home or self-care (01) ==
LOC: ER 17:10
DX: R07.89 Other chest pain (principal); F15.90 Other stimulant use, unspecified, uncomplicated; I10 Essential (primary) hypertension; E03.9 Hypothyroidism, unspecified; F12.90 Cannabis use, unspecified, uncomplicated; G89.29 Other chronic pain; Z86.69 Personal history of other diseases of the nervous system and sense organs; Z86.73 Personal history of transient ischemic attack (TIA), and cerebral infarction without residual deficits; Z98.890 Other specified postprocedural states; Z59.0 Homelessness; Z56.0 Unemployment, unspecified; Z88.8 Allergy status to other drugs, medicaments and biological substances; Z79.899 Other long term (current) drug therapy
CPT/HCPCS: 71045; 99284

== ENCOUNTER 2020-04-20 21:02 | Emergency (ER) | payer MEDICAID ==
[~2020-04-20] VITALS: Ht 177.8 cm; Wt 80.0 kg
[2020-04-20] MEDS ORDERED: normal saline 1000ML IV soln IVB ONE (21:10)
[2020-04-20 21:35] LABS: BASOPHILS # (AUTO) 0.1 X10'3 (0-0.2); BASOPHILS % (AUTO) 0.5 % (0-1); MEAN PLATELET VOLUME 7.1 FL (7.4-10.4); WHITE BLOOD COUNT 19.6 X10'3 (4.5-11.0)
[2020-04-20 21:36] LABS: EOSINOPHILS # (AUTO) 0.1 X10'3 (0-0.9); EOSINOPHILS % (AUTO) 0.7 % (0-6); HEMATOCRIT 30.7 % (42.0-52.0); HEMOGLOBIN 10.2 g/dl (14.0-17.9); LYMPHOCYTES # (AUTO) 16.4 X10'3 (1.1-4.8); LYMPHOCYTES % (AUTO) 83.7 % (21-51); MEAN CORPUSCULAR HGB CONC 33.3 g/dL (33.0-36.5); MONOCYTES # (AUTO) 1.2 X10'3 (0-0.9); MONOCYTES % (AUTO) 6.3 % (2-12); NEUTROPHILS # (AUTO) 1.7 X10'3 (1.8-7.7); NEUTROPHILS % (AUTO) 8.8 % (42-75); PLATELET COUNT 194 X10'3 (140-440); RED CELL DISTRIBUTION WIDTH 17.9 % (11.5-14.5)
[2020-04-20 21:49] LABS: ALANINE AMINOTRANSFERASE 27 U/L (12-78); ALBUMIN 3.4 G/DL (3.4-5.0); ALBUMIN/GLOBULIN RATIO 0.8 (1.1-1.5); ALKALINE PHOSPHATASE 128 IU/L (46-116); ANION GAP 13 (8-16); ASPARTATE AMINO TRANSFERASE 71 U/L (10-37); BILIRUBIN,TOTAL 0.4 MG/DL (0.1-1.0); BLOOD UREA NITROGEN 8 MG/DL (7-18); BUN/CREATININE RATIO 7.2 (5.4-32.0); CALCIUM 8.1 MG/DL (8.5-10.1); CHLORIDE 96 MMOL/L (99-107); CREATININE 1.11 MG/DL (0.60-1.10); GLUCOSE 106 MG/DL (70-104); POTASSIUM 3.5 MMOL/L (3.5-5.1); SODIUM 129 MMOL/L (135-145); TOTAL CARBON DIOXIDE 20.4 MMOL/L (24-32); TOTAL PROTEIN 7.7 G/DL (6.4-8.2); eGFR 67 ML/MIN
[2020-04-20 22:43] LABS: URINE AMPHETAMINE SCREEN POSITIVE (Neg); URINE BARBITUATE SCREEN NEGATIVE (Neg); URINE BENZODIAZEPINES SCREEN NEGATIVE (Neg); URINE CANNABINOID SCREEN NEGATIVE (Neg); URINE COCAINE SCREEN NEGATIVE (Neg); URINE METHADONE SCREEN NEGATIVE (Neg); URINE OPIATE SCREEN NEGATIVE (Neg); URINE PHENCYCLIDINE SCREEN NEGATIVE (Neg)
[2020-04-20 22:50] LABS: CLARITY,URINE CLEAR (Clear); COLOR,URINE YELLOW (Yellow); GLUCOSE, URINE NEGATIVE (Neg); KETONES,URINE NEGATIVE (Neg); LEUKOCYTE ESTERASE ,URINE NEGATIVE (Neg); NITRITES, URINE NEGATIVE (Neg); OCCULT BLOOD,URINE NEGATIVE (Neg); PH,URINE 5.5 (4.8-8.0); PROTEIN,URINE NEGATIVE (Neg); UA COLLECTION TYPE CLN CATCH MIDSTREAM; UROBILINOGEN,URINE 0.2 E.U/dL (0.2-1.0)
[2020-04-20 22:51] LABS: ETHANOL 0.374 GM/DL (0.0-0.010); MAGNESIUM 1.5 MG/DL (1.5-2.4)
[2020-04-20 23:05] LABS: TOTAL CELLS COUNTED 100
[2020-04-20 23:06] LABS: ANISOCYTOSIS 1+; PLATELET ESTIMATE NORMAL; TARGET CELLS 1+
--- NOTE | 2020-04-21 04:11 | NUR ---
Pt required to ambulate safely before discharge. Patient has been up to the bathroom two times useing cane to ambulate. Pt held on to wall, but was able to go from bed to bathroom with some shakiness.
[2020-04-21 05:00] VITALS: BP 134/68
[2020-04-22] MEDS ORDERED: PENI500T2 PO (15:23)
== END 2020-04-21 05:08 | disposition home or self-care (01) ==
LOC: ER 21:03
DX: F10.129 Alcohol abuse with intoxication, unspecified (principal); F15.10 Other stimulant abuse, uncomplicated; R07.89 Other chest pain; I10 Essential (primary) hypertension; E03.9 Hypothyroidism, unspecified; G89.29 Other chronic pain; F12.90 Cannabis use, unspecified, uncomplicated; F15.90 Other stimulant use, unspecified, uncomplicated; Z86.73 Personal history of transient ischemic attack (TIA), and cerebral infarction without residual deficits; Z59.0 Homelessness; Z56.0 Unemployment, unspecified; Z98.890 Other specified postprocedural states; Z88.8 Allergy status to other drugs, medicaments and biological substances; Z79.899 Other long term (current) drug therapy; Y90.0 Blood alcohol level of less than 20 mg/100 ml
CPT/HCPCS: 36415; 80053; 80305; 80320; 81003; 82948; 83735; 85007; 85025; 93005; 96360; 96361; 99284; J7030

== ENCOUNTER 2020-04-22 15:09 | Emergency (ER) | payer MEDICAID ==
[~2020-04-22] VITALS: Ht 177.8 cm; Wt 80.0 kg
[2020-04-22 15:10] VITALS: BP 109/68
[2020-04-22] MEDS ORDERED: PENI500T2 PO (15:23)
[2020-04-22] MEDS ORDERED: CefTRIAXone 1000mg IM Kit (w/lidocaine diluent) IM ONE (15:25)
== END 2020-04-22 15:59 | disposition home or self-care (01) ==
LOC: ER 15:09
DX: K02.9 Dental caries, unspecified (principal); I10 Essential (primary) hypertension; E03.9 Hypothyroidism, unspecified; G89.29 Other chronic pain; F12.90 Cannabis use, unspecified, uncomplicated; F15.90 Other stimulant use, unspecified, uncomplicated; Z86.2 Personal history of diseases of the blood and blood-forming organs and certain disorders involving the immune mechanism; Z86.69 Personal history of other diseases of the nervous system and sense organs; Z86.73 Personal history of transient ischemic attack (TIA), and cerebral infarction without residual deficits; Z98.890 Other specified postprocedural states; Z59.0 Homelessness; Z56.0 Unemployment, unspecified; Z72.89 Other problems related to lifestyle; Z88.8 Allergy status to other drugs, medicaments and biological substances; Z79.899 Other long term (current) drug therapy
CPT/HCPCS: 96372; 99284; J0696; 99283

== ENCOUNTER 2020-04-23 17:30 | Emergency (ER) | payer MEDICAID ==
[~2020-04-23] VITALS: Ht 177.8 cm; Wt 80.0 kg
[~2020-04-23 17:30] MED LIST changes: +PENI500T2 PO
[2020-04-23] MEDS ORDERED: normal saline 1000ML IV soln IVB ONE (17:45)
[2020-04-23] MEDS ORDERED: ketorolac trometh. 30mg/ml inj. IV ONE (17:45)
[2020-04-23 19:35] VITALS: BP 141/71
== END 2020-04-23 20:05 | disposition home or self-care (01) ==
LOC: ER 17:30
DX: F10.129 Alcohol abuse with intoxication, unspecified (principal); M54.5 Low back pain; G89.29 Other chronic pain; R53.1 Weakness; R47.81 Slurred speech; I10 Essential (primary) hypertension; E03.9 Hypothyroidism, unspecified; F17.210 Nicotine dependence, cigarettes, uncomplicated; F12.90 Cannabis use, unspecified, uncomplicated; F15.90 Other stimulant use, unspecified, uncomplicated; Z86.73 Personal history of transient ischemic attack (TIA), and cerebral infarction without residual deficits; Z86.69 Personal history of other diseases of the nervous system and sense organs; Z86.2 Personal history of diseases of the blood and blood-forming organs and certain disorders involving the immune mechanism; Z87.442 Personal history of urinary calculi; Z98.890 Other specified postprocedural states; Z72.89 Other problems related to lifestyle; Z56.0 Unemployment, unspecified; Z59.0 Homelessness; Z88.8 Allergy status to other drugs, medicaments and biological substances; Z79.2 Long term (current) use of antibiotics; Z79.899 Other long term (current) drug therapy
CPT/HCPCS: 96361; 96374; 99284; J1885; J7030

== ENCOUNTER 2020-04-26 17:27 | Emergency (ER) | payer MEDICAID ==
[~2020-04-26] VITALS: Ht 172.7 cm; Wt 79.5 kg
[2020-04-26 18:36] VITALS: BP 101/61
== END 2020-04-26 19:11 | disposition home or self-care (01) ==
LOC: ER 17:27
DX: R07.89 Other chest pain (principal); I10 Essential (primary) hypertension; E03.9 Hypothyroidism, unspecified; G89.29 Other chronic pain; F12.90 Cannabis use, unspecified, uncomplicated; F15.90 Other stimulant use, unspecified, uncomplicated; Z86.73 Personal history of transient ischemic attack (TIA), and cerebral infarction without residual deficits; Z86.69 Personal history of other diseases of the nervous system and sense organs; Z98.890 Other specified postprocedural states; Z59.0 Homelessness; Z56.0 Unemployment, unspecified; Z88.8 Allergy status to other drugs, medicaments and biological substances; Z79.899 Other long term (current) drug therapy
CPT/HCPCS: 93005; 99283

== ENCOUNTER 2020-04-30 12:05 | Emergency (ER) | payer MEDICAID ==
[~2020-04-30] VITALS: Ht 177.8 cm; Wt 80.0 kg
[2020-04-30 12:43] LABS: BASOPHILS # (AUTO) 0.1 X10'3 (0-0.2); BASOPHILS % (AUTO) 0.8 % (0-1); EOSINOPHILS # (AUTO) 0.1 X10'3 (0-0.9); EOSINOPHILS % (AUTO) 1.3 % (0-6); HEMATOCRIT 32.5 % (42.0-52.0); HEMOGLOBIN 10.9 g/dl (14.0-17.9); LYMPHOCYTES # (AUTO) 4.4 X10'3 (1.1-4.8); LYMPHOCYTES % (AUTO) 68.9 % (21-51); MEAN CORPUSCULAR HEMOGLOBIN 32.6 PG (27.0-31.0); MEAN CORPUSCULAR HGB CONC 33.4 g/dL (33.0-36.5); MEAN CORPUSCULAR VOLUME 97.6 FL (78-98); MEAN PLATELET VOLUME 7.6 FL (7.4-10.4); MONOCYTES # (AUTO) 0.8 X10'3 (0-0.9); MONOCYTES % (AUTO) 12.7 % (2-12); NEUTROPHILS % (AUTO) 16.3 % (42-75); PLATELET COUNT 139 X10'3 (140-440); RED BLOOD COUNT 3.33 X10'6 (4.70-6.10); RED CELL DISTRIBUTION WIDTH 17.8 % (11.5-14.5); WHITE BLOOD COUNT 6.4 X10'3 (4.5-11.0)
[2020-04-30 13:07] LABS: ALANINE AMINOTRANSFERASE 41 U/L (12-78); ALBUMIN 3.4 G/DL (3.4-5.0); ALBUMIN/GLOBULIN RATIO 0.8 (1.1-1.5); ALKALINE PHOSPHATASE 157 IU/L (46-116); ANION GAP 15 (8-16); ASPARTATE AMINO TRANSFERASE 129 U/L (10-37); BILIRUBIN,TOTAL 0.6 MG/DL (0.1-1.0); BLOOD UREA NITROGEN 9 MG/DL (7-18); BUN/CREATININE RATIO 9.2 (5.4-32.0); CALCIUM 8.3 MG/DL (8.5-10.1); CHLORIDE 102 MMOL/L (99-107); CREATININE 0.98 MG/DL (0.60-1.10); GLUCOSE 99 MG/DL (70-104); POTASSIUM 3.7 MMOL/L (3.5-5.1); SODIUM 138 MMOL/L (135-145); TOTAL CARBON DIOXIDE 21.2 MMOL/L (24-32); TOTAL PROTEIN 7.8 G/DL (6.4-8.2); eGFR 77 ML/MIN
[2020-04-30 13:09] LABS: ANISOCYTOSIS 1+; PLATELET ESTIMATE DECREASED; TARGET CELLS FEW; TOTAL CELLS COUNTED 100
[2020-04-30 13:14] LABS: ETHANOL 0.264 GM/DL (0.0-0.010)
[2020-04-30 13:34] VITALS: BP 129/86
== END 2020-04-30 13:37 | disposition home or self-care (01) ==
LOC: ER 12:05
DX: R07.89 Other chest pain (principal); R11.2 Nausea with vomiting, unspecified; I10 Essential (primary) hypertension; E03.9 Hypothyroidism, unspecified; G89.29 Other chronic pain; F12.90 Cannabis use, unspecified, uncomplicated; F15.90 Other stimulant use, unspecified, uncomplicated; Z86.73 Personal history of transient ischemic attack (TIA), and cerebral infarction without residual deficits; Z86.2 Personal history of diseases of the blood and blood-forming organs and certain disorders involving the immune mechanism; Z86.69 Personal history of other diseases of the nervous system and sense organs; Z98.890 Other specified postprocedural states; Z59.0 Homelessness; Z56.0 Unemployment, unspecified; Z72.89 Other problems related to lifestyle; Z88.8 Allergy status to other drugs, medicaments and biological substances; Z79.899 Other long term (current) drug therapy
CPT/HCPCS: 71045; 80053; 80320; 83880; 84484; 85007; 85025; 93005; 99285

== ENCOUNTER 2020-05-02 17:42 | Emergency (ER) | payer MEDICAID ==
[~2020-05-02] VITALS: Ht 177.8 cm; Wt 80.0 kg
[2020-05-02 18:01] VITALS: BP 96/64
== END 2020-05-02 20:03 | disposition left against medical advice (07) ==
LOC: ER 17:43
DX: R07.9 Chest pain, unspecified (principal); Z53.21 Procedure and treatment not carried out due to patient leaving prior to being seen by health care provider
CPT/HCPCS: 93005

== ENCOUNTER 2020-05-03 09:03 | Emergency (ER) | payer MEDICAID ==
[~2020-05-03] VITALS: Ht 177.8 cm; Wt 80.0 kg
[2020-05-03] MEDS ORDERED: normal saline 1000ML IV soln IVB ONE (09:20)
[2020-05-03 09:48] LABS: EOSINOPHILS # (AUTO) 0.1 X10'3 (0-0.9); LYMPHOCYTES % (AUTO) 55.3 % (21-51); MEAN CORPUSCULAR HEMOGLOBIN 33.4 PG (27.0-31.0); MEAN PLATELET VOLUME 7.8 FL (7.4-10.4); MONOCYTES % (AUTO) 13.8 % (2-12); NEUTROPHILS # (AUTO) 2.1 X10'3 (1.8-7.7)
[2020-05-03 09:50] LABS: BASOPHILS # (AUTO) 0.1 X10'3 (0-0.2); BASOPHILS % (AUTO) 1.7 % (0-1); EOSINOPHILS % (AUTO) 1.5 % (0-6); HEMATOCRIT 32.5 % (42.0-52.0); LYMPHOCYTES # (AUTO) 4.1 X10'3 (1.1-4.8); MEAN CORPUSCULAR VOLUME 98.2 FL (78-98); NEUTROPHILS % (AUTO) 27.7 % (42-75); PLATELET COUNT 164 X10'3 (140-440); RED CELL DISTRIBUTION WIDTH 18.1 % (11.5-14.5); WHITE BLOOD COUNT 7.4 X10'3 (4.5-11.0)
[2020-05-03 10:02] VITALS: BP 117/70
[2020-05-03 10:02] LABS: ALANINE AMINOTRANSFERASE 38 U/L (12-78); ALBUMIN 3.4 G/DL (3.4-5.0); ALBUMIN/GLOBULIN RATIO 0.8 (1.1-1.5); ALKALINE PHOSPHATASE 153 IU/L (46-116); ANION GAP 17 (8-16); ASPARTATE AMINO TRANSFERASE 105 U/L (10-37); BILIRUBIN,TOTAL 0.5 MG/DL (0.1-1.0); BLOOD UREA NITROGEN 11 MG/DL (7-18); BUN/CREATININE RATIO 7.4 (5.4-32.0); CALCIUM 8.3 MG/DL (8.5-10.1); CHLORIDE 100 MMOL/L (99-107); CREATININE 1.49 MG/DL (0.60-1.10); GLUCOSE 145 MG/DL (70-104); LIPASE 173 U/L (73-393); MAGNESIUM 1.8 MG/DL (1.5-2.4); POTASSIUM 3.1 MMOL/L (3.5-5.1); SODIUM 137 MMOL/L (135-145); TOTAL CARBON DIOXIDE 19.8 MMOL/L (24-32); TOTAL PROTEIN 7.6 G/DL (6.4-8.2); eGFR 47 ML/MIN
[2020-05-03 10:03] LABS: ETHANOL 0.312 GM/DL (0.0-0.010)
[2020-05-03] MEDS ORDERED: magnesium oxide 400mg tablet PO ONE (10:25)
[2020-05-03] MEDS ORDERED: potassium Cl 20 mEq SR tablet PO ONE (10:25)
== END 2020-05-03 11:29 | disposition home or self-care (01) ==
LOC: ER 09:04
DX: F10.129 Alcohol abuse with intoxication, unspecified (principal); E87.6 Hypokalemia; R06.02 Shortness of breath; R53.83 Other fatigue; R05 Cough; I10 Essential (primary) hypertension; E03.9 Hypothyroidism, unspecified; G89.29 Other chronic pain; F12.90 Cannabis use, unspecified, uncomplicated; F15.90 Other stimulant use, unspecified, uncomplicated; Z86.73 Personal history of transient ischemic attack (TIA), and cerebral infarction without residual deficits; Z86.69 Personal history of other diseases of the nervous system and sense organs; Z86.2 Personal history of diseases of the blood and blood-forming organs and certain disorders involving the immune mechanism; Z87.442 Personal history of urinary calculi; Z98.890 Other specified postprocedural states; Z72.89 Other problems related to lifestyle; Z56.0 Unemployment, unspecified; Z59.0 Homelessness; Z88.8 Allergy status to other drugs, medicaments and biological substances; Z79.899 Other long term (current) drug therapy; Y90.0 Blood alcohol level of less than 20 mg/100 ml
CPT/HCPCS: 36415; 80053; 80320; 83690; 83735; 85025; 96360; 99284; J7030

== ENCOUNTER 2020-05-04 12:38 | Emergency (ER) | payer MEDICAID ==
[~2020-05-04] VITALS: Ht 177.8 cm; Wt 80.0 kg
[~2020-05-04 12:38] MED LIST changes: -PENI500T2 PO
[2020-05-04 13:31] VITALS: BP 117/68
[2020-05-04] MEDS ORDERED: ondansetron 4mg rapidly disintigrating tab PO ONE (14:10)
== END 2020-05-04 14:42 | disposition home or self-care (01) ==
LOC: ER 12:39
DX: F10.129 Alcohol abuse with intoxication, unspecified (principal); R11.2 Nausea with vomiting, unspecified; I10 Essential (primary) hypertension; E03.9 Hypothyroidism, unspecified; G89.29 Other chronic pain; F12.90 Cannabis use, unspecified, uncomplicated; F15.90 Other stimulant use, unspecified, uncomplicated; Z86.73 Personal history of transient ischemic attack (TIA), and cerebral infarction without residual deficits; Z86.69 Personal history of other diseases of the nervous system and sense organs; Z98.890 Other specified postprocedural states; Z59.0 Homelessness; Z56.0 Unemployment, unspecified; Y90.9 Presence of alcohol in blood, level not specified
CPT/HCPCS: 99284

== ENCOUNTER 2020-05-05 07:49 | Emergency (ER) | payer MEDICAID ==
[~2020-05-05] VITALS: Ht 177.8 cm; Wt 80.0 kg
[2020-05-05 08:27] LABS: BASOPHILS # (AUTO) 0.1 X10'3 (0-0.2); BASOPHILS % (AUTO) 0.7 % (0-1); EOSINOPHILS # (AUTO) 0.2 X10'3 (0-0.9); EOSINOPHILS % (AUTO) 1.4 % (0-6); MONOCYTES # (AUTO) 1.2 X10'3 (0-0.9)
[2020-05-05 08:29] LABS: HEMATOCRIT 31.2 % (42.0-52.0); HEMOGLOBIN 10.6 g/dl (14.0-17.9); LYMPHOCYTES # (AUTO) 10.3 X10'3 (1.1-4.8); LYMPHOCYTES % (AUTO) 79.5 % (21-51); MEAN CORPUSCULAR HEMOGLOBIN 33.8 PG (27.0-31.0); MEAN CORPUSCULAR VOLUME 99.5 FL (78-98); MEAN PLATELET VOLUME 7.7 FL (7.4-10.4); MONOCYTES % (AUTO) 9.2 % (2-12); NEUTROPHILS # (AUTO) 1.2 X10'3 (1.8-7.7); NEUTROPHILS % (AUTO) 9.2 % (42-75); PLATELET COUNT 167 X10'3 (140-440); RED BLOOD COUNT 3.14 X10'6 (4.70-6.10); RED CELL DISTRIBUTION WIDTH 18.4 % (11.5-14.5); WHITE BLOOD COUNT 12.9 X10'3 (4.5-11.0)
[2020-05-05 08:37] LABS: ALANINE AMINOTRANSFERASE 37 U/L (12-78); ALBUMIN 3.3 G/DL (3.4-5.0); ALBUMIN/GLOBULIN RATIO 0.8 (1.1-1.5); ALKALINE PHOSPHATASE 145 IU/L (46-116); ANION GAP 13 (8-16); ASPARTATE AMINO TRANSFERASE 105 U/L (10-37); BILIRUBIN,TOTAL 0.4 MG/DL (0.1-1.0); BLOOD UREA NITROGEN 8 MG/DL (7-18); BUN/CREATININE RATIO 7.8 (5.4-32.0); CHLORIDE 103 MMOL/L (99-107); CREATININE 1.03 MG/DL (0.60-1.10); GLUCOSE 87 MG/DL (70-104); MAGNESIUM 1.6 MG/DL (1.5-2.4); SODIUM 137 MMOL/L (135-145); TOTAL CARBON DIOXIDE 21.2 MMOL/L (24-32); TOTAL PROTEIN 7.5 G/DL (6.4-8.2); eGFR 73 ML/MIN
[2020-05-05 08:39] LABS: POTASSIUM 3.9 MMOL/L (3.5-5.1)
[2020-05-05 10:08] VITALS: BP 129/78
[2020-05-05 10:30] LABS: TOTAL CELLS COUNTED 100
[2020-05-05 10:31] LABS: ANISOCYTOSIS 2+; PLATELET ESTIMATE NORMAL
[2020-05-05 10:34] LABS: SCHISTOCYTES FEW; TARGET CELLS 1+
== END 2020-05-05 10:11 | disposition home or self-care (01) ==
LOC: ER 07:49
DX: R07.89 Other chest pain (principal); R06.00 Dyspnea, unspecified; F10.10 Alcohol abuse, uncomplicated; I10 Essential (primary) hypertension; E03.9 Hypothyroidism, unspecified; G89.29 Other chronic pain; F12.90 Cannabis use, unspecified, uncomplicated; F15.90 Other stimulant use, unspecified, uncomplicated; F17.210 Nicotine dependence, cigarettes, uncomplicated; Z86.73 Personal history of transient ischemic attack (TIA), and cerebral infarction without residual deficits; Z86.2 Personal history of diseases of the blood and blood-forming organs and certain disorders involving the immune mechanism; Z87.442 Personal history of urinary calculi; Z59.0 Homelessness; Z56.0 Unemployment, unspecified; Z88.5 Allergy status to narcotic agent; Z79.899 Other long term (current) drug therapy; Y90.9 Presence of alcohol in blood, level not specified
CPT/HCPCS: 36415; 71045; 80053; 83735; 84484; 85007; 85025; 93005; 99285

== ENCOUNTER 2020-05-06 08:06 | Emergency (ER) | payer MEDICAID ==
[~2020-05-06] VITALS: Ht 177.8 cm; Wt 36.4 kg
--- NOTE | 2020-05-06 09:39 | NUR ---
PT STATES HE HAS BEEN DRINKING HIS NORMAL AMOUNT OF ALCOHOL OF A FEW BEERS A DAY.
[2020-05-06] MEDS ORDERED: proCHLORperazine 10 MG/2 ml inj IV ONE (10:00)
[2020-05-06] MEDS ORDERED: normal saline 1000ML IV soln IVB ONE (10:00)
[2020-05-06 12:02] VITALS: BP 131/74
== END 2020-05-06 11:55 | disposition home or self-care (01) ==
LOC: ER 08:07
DX: S00.93XA Contusion of unspecified part of head, initial encounter (principal); R11.10 Vomiting, unspecified; I10 Essential (primary) hypertension; E03.9 Hypothyroidism, unspecified; G89.29 Other chronic pain; F12.90 Cannabis use, unspecified, uncomplicated; F15.90 Other stimulant use, unspecified, uncomplicated; Z86.2 Personal history of diseases of the blood and blood-forming organs and certain disorders involving the immune mechanism; Z86.69 Personal history of other diseases of the nervous system and sense organs; Z86.73 Personal history of transient ischemic attack (TIA), and cerebral infarction without residual deficits; Z98.890 Other specified postprocedural states; Z72.89 Other problems related to lifestyle; Z59.0 Homelessness; Z56.0 Unemployment, unspecified; W18.39XA Other fall on same level, initial encounter; Y93.89 Activity, other specified; Y92.89 Other specified places as the place of occurrence of the external cause; Y99.8 Other external cause status
CPT/HCPCS: 70450; 96361; 96374; 99284; J0780; J7030

== ENCOUNTER 2020-05-07 03:04 | Emergency (ER) | payer MEDICAID ==
[~2020-05-07] VITALS: Ht 182.9 cm; Wt 77.3 kg
[2020-05-07 03:15] VITALS: BP 133/80
== END 2020-05-07 03:17 | disposition home or self-care (01) ==
LOC: ER 03:05
DX: F10.129 Alcohol abuse with intoxication, unspecified (principal); I10 Essential (primary) hypertension; E03.9 Hypothyroidism, unspecified; G89.29 Other chronic pain; F12.90 Cannabis use, unspecified, uncomplicated; F15.90 Other stimulant use, unspecified, uncomplicated; Z87.442 Personal history of urinary calculi; Z86.73 Personal history of transient ischemic attack (TIA), and cerebral infarction without residual deficits; Z86.2 Personal history of diseases of the blood and blood-forming organs and certain disorders involving the immune mechanism; Z59.0 Homelessness; Z56.0 Unemployment, unspecified; Z88.8 Allergy status to other drugs, medicaments and biological substances; Z79.899 Other long term (current) drug therapy; Y90.9 Presence of alcohol in blood, level not specified
CPT/HCPCS: 99284

== ENCOUNTER 2020-05-07 08:08 | Emergency (ER) | payer MEDICAID ==
[~2020-05-07] VITALS: Ht 177.8 cm; Wt 80.0 kg
--- NOTE | 2020-05-07 09:55 | NUR ---
TELE NEURO AT BEDSIDE
--- NOTE | 2020-05-07 11:18 | NUR ---
PT TO MRI
[2020-05-07 13:27] VITALS: BP 162/106
== END 2020-05-07 13:29 | disposition home or self-care (01) ==
LOC: ER 08:09
DX: S00.93XA Contusion of unspecified part of head, initial encounter (principal); I63.9 Cerebral infarction, unspecified; R06.02 Shortness of breath; R29.810 Facial weakness; I10 Essential (primary) hypertension; E03.9 Hypothyroidism, unspecified; G89.29 Other chronic pain; F12.90 Cannabis use, unspecified, uncomplicated; F15.90 Other stimulant use, unspecified, uncomplicated; Z86.2 Personal history of diseases of the blood and blood-forming organs and certain disorders involving the immune mechanism; Z86.69 Personal history of other diseases of the nervous system and sense organs; Z86.73 Personal history of transient ischemic attack (TIA), and cerebral infarction without residual deficits; Z87.442 Personal history of urinary calculi; Z98.890 Other specified postprocedural states; Z59.0 Homelessness; Z56.0 Unemployment, unspecified; Z72.89 Other problems related to lifestyle; Z88.8 Allergy status to other drugs, medicaments and biological substances; Z79.899 Other long term (current) drug therapy; X58.XXXA Exposure to other specified factors, initial encounter; Y93.89 Activity, other specified; Y92.89 Other specified places as the place of occurrence of the external cause; Y99.8 Other external cause status
CPT/HCPCS: 70551; 99285

== ENCOUNTER 2020-05-10 04:09 | Emergency (ER) | payer MEDICAID ==
[~2020-05-10] VITALS: Ht 177.8 cm; Wt 75.0 kg
[2020-05-10] MEDS ORDERED: TETanus/Pertussis (Acell)/Diphther VAC/PF (Tdap-Adult) 0.5ml syringe IMVAC ONE (04:35)
[2020-05-10] MEDS ORDERED: LIDOcaine 1% W/epiNEPHrine 1:200,000 10ml vial IJ ONE (04:35)
--- NOTE | 2020-05-10 04:39 | NUR ---
when the patient sat up for the MD his head was forward and he started to drip blood from his laceration. I placed a cold wet washcloth on it and called for help. MARC Cerda brought me sterile 4x4s and kerlix roll. We wrapped his head in it. He went out to CT now.
[2020-05-10] MEDS ORDERED: ketorolac trometh. 30mg/ml inj. IM ONE (06:20)
[2020-05-10 06:23] VITALS: BP 131/96
[2020-05-11] MEDS ORDERED: CEPH-572 PO (17:04)
[2020-05-11] MEDS ORDERED: SULF1TAB49 PO (17:04)
== END 2020-05-10 06:47 | disposition home or self-care (01) ==
LOC: ER 04:09
DX: S01.81XA Laceration without foreign body of other part of head, initial encounter (principal); S01.411A Laceration without foreign body of right cheek and temporomandibular area, initial encounter; F10.10 Alcohol abuse, uncomplicated; M54.2 Cervicalgia; R68.84 Jaw pain; I10 Essential (primary) hypertension; E03.9 Hypothyroidism, unspecified; F12.90 Cannabis use, unspecified, uncomplicated; F15.90 Other stimulant use, unspecified, uncomplicated; Z98.890 Other specified postprocedural states; Z59.0 Homelessness; Z56.0 Unemployment, unspecified; Z88.8 Allergy status to other drugs, medicaments and biological substances; Z79.899 Other long term (current) drug therapy; Y90.9 Presence of alcohol in blood, level not specified; W18.39XA Other fall on same level, initial encounter; Y93.89 Activity, other specified; Y92.89 Other specified places as the place of occurrence of the external cause; Y99.8 Other external cause status
CPT/HCPCS: 12013; 70450; 72125; 90471; 90715; 96372; 99285; J1885

== ENCOUNTER 2020-05-10 14:09 | Emergency (ER) | payer MEDICAID ==
[~2020-05-10] VITALS: Ht 177.8 cm; Wt 70.0 kg
[2020-05-10 14:17] VITALS: BP 109/74
[2020-05-10] MEDS ORDERED: metoclopramide 10mg tablet PO ONE ×2 (15:55→16:40)
--- NOTE | 2020-05-10 16:38 | NUR ---
joselan dropped by pt had to re order
[2020-05-11] MEDS ORDERED: CEPH-572 PO (17:04)
[2020-05-11] MEDS ORDERED: SULF1TAB49 PO (17:04)
== END 2020-05-10 16:56 | disposition home or self-care (01) ==
LOC: ER 14:10
DX: S01.81XD Laceration without foreign body of other part of head, subsequent encounter (principal); R11.2 Nausea with vomiting, unspecified; I10 Essential (primary) hypertension; E03.9 Hypothyroidism, unspecified; G89.29 Other chronic pain; F12.90 Cannabis use, unspecified, uncomplicated; F15.90 Other stimulant use, unspecified, uncomplicated; Z86.73 Personal history of transient ischemic attack (TIA), and cerebral infarction without residual deficits; Z86.69 Personal history of other diseases of the nervous system and sense organs; Z98.890 Other specified postprocedural states; Z59.0 Homelessness; Z56.0 Unemployment, unspecified; Z88.8 Allergy status to other drugs, medicaments and biological substances; Z79.899 Other long term (current) drug therapy; W01.10XD Fall on same level from slipping, tripping and stumbling with subsequent striking against unspecified object, subsequent encounter
CPT/HCPCS: 99284; J8597

== ENCOUNTER 2020-05-11 07:25 | Emergency (ER) | payer MEDICAID ==
[~2020-05-11] VITALS: Ht 177.8 cm; Wt 70.0 kg
[2020-05-11] MEDS ORDERED: metoclopramide 10mg tablet PO ONE (07:50)
[2020-05-11] MEDS ORDERED: phenobarbital inj 260 MG in normal saline 100ml IV soln 100 ML IV ONE (08:00)
[2020-05-11] MEDS ORDERED: thiamine inj. 100 MG in normal saline 100ml IV soln 99 ML IV ONE (08:00)
[2020-05-11] MEDS ORDERED: normal saline 1000ML IV soln IVB ONE (08:00)
[2020-05-11] MEDS ORDERED: magnesium 2GM in 50ml NS 50 ML IV ONE (08:00)
--- NOTE | 2020-05-11 08:00 | NUR ---
ct scan cancelled by provider as pt has one yest.
[2020-05-11 08:26] LABS: BASOPHILS # (AUTO) 0.1 X10'3 (0-0.2); MONOCYTES # (AUTO) 1.7 X10'3 (0-0.9); MONOCYTES % (AUTO) 11.2 % (2-12); WHITE BLOOD COUNT 15.3 X10'3 (4.5-11.0)
[2020-05-11 08:28] LABS: BASOPHILS % (AUTO) 0.4 % (0-1); EOSINOPHILS % (AUTO) 0.3 % (0-6); HEMATOCRIT 29.7 % (42.0-52.0); HEMOGLOBIN 10.3 g/dl (14.0-17.9); LYMPHOCYTES # (AUTO) 8.7 X10'3 (1.1-4.8); LYMPHOCYTES % (AUTO) 56.9 % (21-51); MEAN CORPUSCULAR HEMOGLOBIN 33.7 PG (27.0-31.0); MEAN CORPUSCULAR HGB CONC 34.5 g/dL (33.0-36.5); MEAN CORPUSCULAR VOLUME 97.5 FL (78-98); MEAN PLATELET VOLUME 8.2 FL (7.4-10.4); NEUTROPHILS # (AUTO) 4.8 X10'3 (1.8-7.7); NEUTROPHILS % (AUTO) 31.2 % (42-75); PLATELET COUNT 163 X10'3 (140-440); RED BLOOD COUNT 3.05 X10'6 (4.70-6.10); RED CELL DISTRIBUTION WIDTH 18.5 % (11.5-14.5)
[2020-05-11 08:37] LABS: ALANINE AMINOTRANSFERASE 39 U/L (12-78); ALBUMIN 3.3 G/DL (3.4-5.0); ALBUMIN/GLOBULIN RATIO 0.8 (1.1-1.5); ALKALINE PHOSPHATASE 158 IU/L (46-116); ANION GAP 8 (8-16); BILIRUBIN,TOTAL 0.8 MG/DL (0.1-1.0); BLOOD UREA NITROGEN 10 MG/DL (7-18); BUN/CREATININE RATIO 8.7 (5.4-32.0); CALCIUM 7.9 MG/DL (8.5-10.1); CHLORIDE 91 MMOL/L (99-107); CREATININE 1.15 MG/DL (0.60-1.10); ETHANOL 0.194 GM/DL (0.0-0.010); GLUCOSE 100 MG/DL (70-104); MAGNESIUM 1.4 MG/DL (1.5-2.4); SODIUM 123 MMOL/L (135-145); TOTAL CARBON DIOXIDE 23.7 MMOL/L (24-32); TOTAL PROTEIN 7.4 G/DL (6.4-8.2); eGFR 64 ML/MIN
[2020-05-11 08:39] LABS: ASPARTATE AMINO TRANSFERASE 96 U/L (10-37); POTASSIUM 3.9 MMOL/L (3.5-5.1)
[2020-05-11 08:49] LABS: TOTAL CELLS COUNTED 100
[2020-05-11 08:51] LABS: ANISOCYTOSIS 2+; PLATELET ESTIMATE NORMAL; POLYCHROMASIA FEW
[2020-05-11 08:53] LABS: SCHISTOCYTES FEW; TARGET CELLS FEW
[2020-05-11] MEDS ORDERED: phenobarbital inj 130 MG in normal saline 250ml IV soln 250 ML IV ONE (09:10)
[2020-05-11] MEDS ORDERED: phenobarbital inj 130 MG in normal saline 100ml IV soln 100 ML IV ONE (11:00)
--- NOTE | 2020-05-11 12:50 | NUR ---
pt came up to station and stated that he is ready to go out and see his buddies,jovon tovar removed his iv out and pt was almost going to fall when asked if he can lay in bed for another hour ,pt denied as per pt he has to see his chip he can;t wait ,pt walked out of er with his cane without any assistance,pt refused to take his paperwork also said he do not want new dressing as he is getting late ,informed to return to er for suture removala nd also discussed the pt d/c paperwork.
[2020-05-11 12:55] VITALS: BP 160/99
[2020-05-11] MEDS ORDERED: CEPH-572 PO (17:04)
[2020-05-11] MEDS ORDERED: SULF1TAB49 PO (17:04)
== END 2020-05-11 12:57 | disposition home or self-care (01) ==
LOC: ER 07:26
DX: S01.81XD Laceration without foreign body of other part of head, subsequent encounter (principal); F10.220 Alcohol dependence with intoxication, uncomplicated; I10 Essential (primary) hypertension; E03.9 Hypothyroidism, unspecified; G89.29 Other chronic pain; F12.90 Cannabis use, unspecified, uncomplicated; F15.90 Other stimulant use, unspecified, uncomplicated; Z86.73 Personal history of transient ischemic attack (TIA), and cerebral infarction without residual deficits; Z86.69 Personal history of other diseases of the nervous system and sense organs; Z98.890 Other specified postprocedural states; Z88.8 Allergy status to other drugs, medicaments and biological substances; Z79.899 Other long term (current) drug therapy; W01.10XD Fall on same level from slipping, tripping and stumbling with subsequent striking against unspecified object, subsequent encounter; Y90.0 Blood alcohol level of less than 20 mg/100 ml
CPT/HCPCS: 80053; 80320; 82948; 83735; 85007; 85025; 93005; 96365; 96366; 96368; 96375; 99285; J2560; J3411; J3475; J7030; J7050; J8597

== ENCOUNTER 2020-05-11 16:07 | Emergency (ER) | payer MEDICAID ==
[~2020-05-11] VITALS: Ht 177.8 cm; Wt 70.0 kg
[2020-05-11] MEDS ORDERED: mupirocin 2% ointment 22GM TP ONE (16:35)
[2020-05-11] MEDS ORDERED: SULF1TAB49 PO (17:04)
[2020-05-11] MEDS ORDERED: CEPH-572 PO (17:04)
[2020-05-11 17:52] VITALS: BP 142/92
== END 2020-05-11 17:56 | disposition home or self-care (01) ==
LOC: ER 16:08
DX: L03.211 Cellulitis of face (principal); L08.9 Local infection of the skin and subcutaneous tissue, unspecified; I10 Essential (primary) hypertension; E03.9 Hypothyroidism, unspecified; G89.29 Other chronic pain; F12.90 Cannabis use, unspecified, uncomplicated; F15.90 Other stimulant use, unspecified, uncomplicated; Z86.73 Personal history of transient ischemic attack (TIA), and cerebral infarction without residual deficits; Z98.890 Other specified postprocedural states; Z59.0 Homelessness; Z56.0 Unemployment, unspecified; Z88.8 Allergy status to other drugs, medicaments and biological substances; Z79.899 Other long term (current) drug therapy
CPT/HCPCS: 87070; 87077; 87186; 99283

== ENCOUNTER 2020-05-13 08:55 | Emergency (ER) | payer MEDICAID ==
[~2020-05-13] VITALS: Ht 177.8 cm; Wt 70.0 kg
[~2020-05-13 08:55] MED LIST changes: +CEPH-572 PO; +SULF1TAB49 PO
[2020-05-13 09:21] VITALS: BP 99/67
[2020-05-13] MEDS ORDERED: PEG 400/HYPROMELLOSE/GLYCERIN 15ml bottle EACHEYE PRN (10:20)
[2020-05-13] MEDS ORDERED: bacitracin 15gm ointment TP ONE (10:20)
== END 2020-05-13 11:53 | disposition home or self-care (01) ==
LOC: ER 08:55
DX: S05.12XD Contusion of eyeball and orbital tissues, left eye, subsequent encounter (principal); F10.129 Alcohol abuse with intoxication, unspecified; I10 Essential (primary) hypertension; E03.9 Hypothyroidism, unspecified; G89.29 Other chronic pain; F12.90 Cannabis use, unspecified, uncomplicated; F15.90 Other stimulant use, unspecified, uncomplicated; Z86.69 Personal history of other diseases of the nervous system and sense organs; Z98.890 Other specified postprocedural states; Z86.73 Personal history of transient ischemic attack (TIA), and cerebral infarction without residual deficits; Z59.0 Homelessness; Z86.2 Personal history of diseases of the blood and blood-forming organs and certain disorders involving the immune mechanism; Z56.0 Unemployment, unspecified; W18.39XD Other fall on same level, subsequent encounter; Y90.9 Presence of alcohol in blood, level not specified
CPT/HCPCS: 99284

== ENCOUNTER 2020-05-13 16:14 | Emergency (ER) | payer MEDICAID ==
[~2020-05-13] VITALS: Ht 177.8 cm; Wt 70.0 kg
[2020-05-13 16:50] VITALS: BP 97/73
== END 2020-05-13 17:02 | disposition home or self-care (01) ==
LOC: ER 16:14
DX: F10.129 Alcohol abuse with intoxication, unspecified (principal); R06.02 Shortness of breath; I10 Essential (primary) hypertension; E03.9 Hypothyroidism, unspecified; G89.29 Other chronic pain; F12.90 Cannabis use, unspecified, uncomplicated; F15.90 Other stimulant use, unspecified, uncomplicated; Z86.2 Personal history of diseases of the blood and blood-forming organs and certain disorders involving the immune mechanism; Z87.442 Personal history of urinary calculi; Z98.890 Other specified postprocedural states; Z86.73 Personal history of transient ischemic attack (TIA), and cerebral infarction without residual deficits; Z59.0 Homelessness; Z56.0 Unemployment, unspecified; Z88.8 Allergy status to other drugs, medicaments and biological substances; Z79.899 Other long term (current) drug therapy; Y90.9 Presence of alcohol in blood, level not specified
CPT/HCPCS: 99283

== ENCOUNTER 2020-05-16 13:51 | Emergency (ER) | payer MEDICAID ==
[~2020-05-16] VITALS: Ht 177.8 cm; Wt 72.7 kg
[2020-05-16 16:33] LABS: CLARITY,URINE CLEAR (Clear); COLOR,URINE YELLOW (Yellow); GLUCOSE, URINE NEGATIVE (Neg); KETONES,URINE NEGATIVE (Neg); LEUKOCYTE ESTERASE ,URINE NEGATIVE (Neg); NITRITES, URINE NEGATIVE (Neg); OCCULT BLOOD,URINE NEGATIVE (Neg); PROTEIN,URINE NEGATIVE (Neg); UROBILINOGEN,URINE 0.2 E.U/dL (0.2-1.0)
[2020-05-16 16:43] LABS: UA COLLECTION TYPE URINAL
[2020-05-16 16:45] LABS: ALANINE AMINOTRANSFERASE 44 U/L (12-78); ALBUMIN 3.2 G/DL (3.4-5.0); ALBUMIN/GLOBULIN RATIO 0.8 (1.1-1.5); ALKALINE PHOSPHATASE 197 IU/L (46-116); ANION GAP 9 (8-16); ASPARTATE AMINO TRANSFERASE 131 U/L (10-37); BILIRUBIN,TOTAL 0.5 MG/DL (0.1-1.0); BLOOD UREA NITROGEN 9 MG/DL (7-18); BUN/CREATININE RATIO 9.8 (5.4-32.0); CALCIUM 8.2 MG/DL (8.5-10.1); CHLORIDE 95 MMOL/L (99-107); CREATININE 0.92 MG/DL (0.60-1.10); GLUCOSE 103 MG/DL (70-104); POTASSIUM 3.2 MMOL/L (3.5-5.1); SODIUM 129 MMOL/L (135-145); TOTAL CARBON DIOXIDE 25.3 MMOL/L (24-32); TOTAL PROTEIN 7.1 G/DL (6.4-8.2); eGFR 83 ML/MIN
[2020-05-16 16:51] LABS: EOSINOPHILS # (AUTO) 0.1 X10'3 (0-0.9); HEMATOCRIT 29.5 % (42.0-52.0); MEAN PLATELET VOLUME 7.8 FL (7.4-10.4); NEUTROPHILS # (AUTO) 1.7 X10'3 (1.8-7.7)
[2020-05-16 16:52] LABS: BASOPHILS % (AUTO) 0.2 % (0-1); HEMOGLOBIN 10.1 g/dl (14.0-17.9); LYMPHOCYTES # (AUTO) 8.1 X10'3 (1.1-4.8); LYMPHOCYTES % (AUTO) 72.2 % (21-51); MEAN CORPUSCULAR HEMOGLOBIN 34.6 PG (27.0-31.0); MEAN CORPUSCULAR HGB CONC 34.3 g/dL (33.0-36.5); MONOCYTES # (AUTO) 1.3 X10'3 (0-0.9); MONOCYTES % (AUTO) 11.2 % (2-12); NEUTROPHILS % (AUTO) 15.4 % (42-75); PLATELET COUNT 192 X10'3 (140-440); RED BLOOD COUNT 2.93 X10'6 (4.70-6.10); RED CELL DISTRIBUTION WIDTH 19.7 % (11.5-14.5); WHITE BLOOD COUNT 11.3 X10'3 (4.5-11.0)
[2020-05-16 17:26] LABS: ANISOCYTOSIS 2+; PLATELET ESTIMATE NORMAL; TOTAL CELLS COUNTED 100
[2020-05-16 17:27] LABS: POLYCHROMASIA FEW; TARGET CELLS 1+
[2020-05-16 17:34] VITALS: BP 134/72
== END 2020-05-16 17:36 | disposition home or self-care (01) ==
LOC: ER 13:52
DX: R06.02 Shortness of breath (principal); I10 Essential (primary) hypertension; E03.9 Hypothyroidism, unspecified; G89.29 Other chronic pain; F12.90 Cannabis use, unspecified, uncomplicated; F15.90 Other stimulant use, unspecified, uncomplicated; Z86.2 Personal history of diseases of the blood and blood-forming organs and certain disorders involving the immune mechanism; Z86.69 Personal history of other diseases of the nervous system and sense organs; Z98.890 Other specified postprocedural states; Z86.73 Personal history of transient ischemic attack (TIA), and cerebral infarction without residual deficits; Z87.442 Personal history of urinary calculi; Z72.89 Other problems related to lifestyle; Z59.0 Homelessness; Z88.5 Allergy status to narcotic agent; Z88.8 Allergy status to other drugs, medicaments and biological substances; Z79.899 Other long term (current) drug therapy
CPT/HCPCS: 36415; 71045; 80053; 81003; 85007; 85025; 99285

== ENCOUNTER 2020-05-19 15:18 | Emergency (ER) | payer MEDICAID ==
[~2020-05-19] VITALS: Ht 177.8 cm; Wt 80.0 kg
[2020-05-19 15:36] VITALS: BP 108/65
== END 2020-05-19 17:08 | disposition home or self-care (01) ==
LOC: ER 15:18
DX: F10.129 Alcohol abuse with intoxication, unspecified (principal); I10 Essential (primary) hypertension; E03.9 Hypothyroidism, unspecified; G89.29 Other chronic pain; F12.90 Cannabis use, unspecified, uncomplicated; F15.90 Other stimulant use, unspecified, uncomplicated; Z86.69 Personal history of other diseases of the nervous system and sense organs; Z86.2 Personal history of diseases of the blood and blood-forming organs and certain disorders involving the immune mechanism; Z87.442 Personal history of urinary calculi; Z98.890 Other specified postprocedural states; Z59.0 Homelessness; Z56.0 Unemployment, unspecified; Z88.8 Allergy status to other drugs, medicaments and biological substances; Z79.899 Other long term (current) drug therapy; Y90.9 Presence of alcohol in blood, level not specified
CPT/HCPCS: 99283

== ENCOUNTER 2020-05-20 08:44 | Emergency (ER) | payer MEDICAID ==
[~2020-05-20] VITALS: Ht 177.8 cm; Wt 77.0 kg
--- NOTE | 2020-05-20 10:28 | NUR ---
Patient resting comfortably
[2020-05-20 10:39] VITALS: BP 140/82
== END 2020-05-20 10:43 | disposition home or self-care (01) ==
LOC: ER 08:45
DX: S05.41XA Penetrating wound of orbit with or without foreign body, right eye, initial encounter (principal); F10.129 Alcohol abuse with intoxication, unspecified; Z48.01 Encounter for change or removal of surgical wound dressing; I10 Essential (primary) hypertension; E03.9 Hypothyroidism, unspecified; F12.90 Cannabis use, unspecified, uncomplicated; F15.90 Other stimulant use, unspecified, uncomplicated; G89.29 Other chronic pain; Z86.2 Personal history of diseases of the blood and blood-forming organs and certain disorders involving the immune mechanism; Z86.73 Personal history of transient ischemic attack (TIA), and cerebral infarction without residual deficits; Z87.442 Personal history of urinary calculi; Z98.890 Other specified postprocedural states; Z59.0 Homelessness; Z56.0 Unemployment, unspecified; Z88.8 Allergy status to other drugs, medicaments and biological substances; Z79.899 Other long term (current) drug therapy; X58.XXXA Exposure to other specified factors, initial encounter; Y93.89 Activity, other specified; Y92.89 Other specified places as the place of occurrence of the external cause; Y99.8 Other external cause status; Y90.9 Presence of alcohol in blood, level not specified
CPT/HCPCS: 99284

== ENCOUNTER 2020-05-21 08:42 | Emergency (ER) | payer MEDICAID ==
[~2020-05-21] VITALS: Ht 177.8 cm; Wt 80.0 kg
[2020-05-21 08:47] VITALS: BP 140/87
== END 2020-05-21 09:33 | disposition home or self-care (01) ==
LOC: ER 08:43
DX: F10.129 Alcohol abuse with intoxication, unspecified (principal); Z48.01 Encounter for change or removal of surgical wound dressing; I10 Essential (primary) hypertension; E03.9 Hypothyroidism, unspecified; G89.29 Other chronic pain; F12.90 Cannabis use, unspecified, uncomplicated; F15.90 Other stimulant use, unspecified, uncomplicated; Z87.442 Personal history of urinary calculi; Z86.69 Personal history of other diseases of the nervous system and sense organs; Z86.73 Personal history of transient ischemic attack (TIA), and cerebral infarction without residual deficits; Z98.890 Other specified postprocedural states; Z86.2 Personal history of diseases of the blood and blood-forming organs and certain disorders involving the immune mechanism; Z56.0 Unemployment, unspecified; Z59.0 Homelessness; Z88.8 Allergy status to other drugs, medicaments and biological substances; Z79.899 Other long term (current) drug therapy; W18.39XA Other fall on same level, initial encounter; Y93.89 Activity, other specified; Y92.89 Other specified places as the place of occurrence of the external cause; Y99.8 Other external cause status; Y90.9 Presence of alcohol in blood, level not specified
CPT/HCPCS: 99284

== ENCOUNTER 2020-05-23 22:36 | Emergency (ER) | payer MEDICAID ==
[~2020-05-23] VITALS: Ht 177.8 cm; Wt 80.0 kg
[~2020-05-23 22:36] MED LIST changes: -CEPH-572 PO; -SULF1TAB49 PO
[2020-05-23] MEDS ORDERED: phenobarbital inj 260 MG in normal saline 100ml IV soln 100 ML IV ONE (22:45)
[2020-05-23] MEDS ORDERED: magnesium 2GM in 50ml NS 50 ML IV ONE (22:45)
[2020-05-23] MEDS ORDERED: thiamine inj. 100 MG in normal saline 100ml IV soln 99 ML IV ONE (22:45)
[2020-05-23] MEDS ORDERED: normal saline 1000ML IV soln IVB ONE (22:45)
[2020-05-23] MEDS ORDERED: thiamine inj. 100 MG in normal saline 100ml IV soln 100 ML IV ONE (22:50)
[2020-05-23 23:23] LABS: EOSINOPHILS # (AUTO) 0.1 X10'3 (0-0.9); EOSINOPHILS % (AUTO) 0.9 % (0-6); NEUTROPHILS # (AUTO) 2.4 X10'3 (1.8-7.7); PLATELET COUNT 280 X10'3 (140-440); RED BLOOD COUNT 2.88 X10'6 (4.70-6.10)
[2020-05-23 23:25] LABS: ALANINE AMINOTRANSFERASE 66 U/L (12-78); ALBUMIN 3.2 G/DL (3.4-5.0); ALBUMIN/GLOBULIN RATIO 0.7 (1.1-1.5); ALKALINE PHOSPHATASE 212 IU/L (46-116); ANION GAP 6 (8-16); ASPARTATE AMINO TRANSFERASE 178 U/L (10-37); BASOPHILS # (AUTO) 0.1 X10'3 (0-0.2); BASOPHILS % (AUTO) 0.7 % (0-1); BILIRUBIN,TOTAL 0.3 MG/DL (0.1-1.0); BLOOD UREA NITROGEN 8 MG/DL (7-18); BUN/CREATININE RATIO 9.2 (5.4-32.0); CALCIUM 8.3 MG/DL (8.5-10.1); CHLORIDE 103 MMOL/L (99-107); CREATININE 0.87 MG/DL (0.60-1.10); GLUCOSE 99 MG/DL (70-104); HEMATOCRIT 29.5 % (42.0-52.0); HEMOGLOBIN 10.1 g/dl (14.0-17.9); LYMPHOCYTES # (AUTO) 11.3 X10'3 (1.1-4.8); LYMPHOCYTES % (AUTO) 73.3 % (21-51); MEAN CORPUSCULAR HEMOGLOBIN 35.1 PG (27.0-31.0); MEAN CORPUSCULAR HGB CONC 34.2 g/dL (33.0-36.5); MEAN CORPUSCULAR VOLUME 102.5 FL (78-98); MEAN PLATELET VOLUME 6.8 FL (7.4-10.4); MONOCYTES # (AUTO) 1.5 X10'3 (0-0.9); MONOCYTES % (AUTO) 9.5 % (2-12); NEUTROPHILS % (AUTO) 15.6 % (42-75); POTASSIUM 3.3 MMOL/L (3.5-5.1); RED CELL DISTRIBUTION WIDTH 18.8 % (11.5-14.5); SODIUM 138 MMOL/L (135-145); TOTAL CARBON DIOXIDE 28.6 MMOL/L (24-32); TOTAL PROTEIN 7.5 G/DL (6.4-8.2); WHITE BLOOD COUNT 15.4 X10'3 (4.5-11.0); eGFR 88 ML/MIN
[2020-05-23 23:27] LABS: MAGNESIUM 1.6 MG/DL (1.5-2.4)
[2020-05-23 23:45] LABS: ANISOCYTOSIS 2+; ETHANOL 0.319 GM/DL (0.0-0.010); PLATELET ESTIMATE NORMAL; POLYCHROMASIA FEW; TARGET CELLS 1+; TOTAL CELLS COUNTED 100
[2020-05-24 05:29] VITALS: BP 149/89
== END 2020-05-24 05:33 | disposition home or self-care (01) ==
LOC: ER 22:37
DX: F10.129 Alcohol abuse with intoxication, unspecified (principal); S50.811A Abrasion of right forearm, initial encounter; S01.81XA Laceration without foreign body of other part of head, initial encounter; E87.6 Hypokalemia; I10 Essential (primary) hypertension; E03.9 Hypothyroidism, unspecified; F12.90 Cannabis use, unspecified, uncomplicated; F15.90 Other stimulant use, unspecified, uncomplicated; G89.29 Other chronic pain; Z86.73 Personal history of transient ischemic attack (TIA), and cerebral infarction without residual deficits; Z86.69 Personal history of other diseases of the nervous system and sense organs; Z86.2 Personal history of diseases of the blood and blood-forming organs and certain disorders involving the immune mechanism; Z87.442 Personal history of urinary calculi; Z98.890 Other specified postprocedural states; Z72.89 Other problems related to lifestyle; Z56.0 Unemployment, unspecified; Z59.0 Homelessness; Z88.8 Allergy status to other drugs, medicaments and biological substances; Z79.899 Other long term (current) drug therapy; X58.XXXA Exposure to other specified factors, initial encounter; Y93.89 Activity, other specified; Y92.89 Other specified places as the place of occurrence of the external cause; Y99.8 Other external cause status
CPT/HCPCS: 36415; 80053; 80320; 82948; 83735; 85007; 85025; 96365; 96366; 96368; 99285; J3411; J3475; J7030; 96367

== ENCOUNTER 2020-05-24 12:13 | Emergency (ER) | payer MEDICAID ==
[~2020-05-24] VITALS: Ht 177.8 cm; Wt 80.0 kg
[2020-05-24 13:47] VITALS: BP 117/83
== END 2020-05-24 13:50 | disposition home or self-care (01) ==
LOC: ER 12:14
DX: S00.83XA Contusion of other part of head, initial encounter (principal); F10.129 Alcohol abuse with intoxication, unspecified; I10 Essential (primary) hypertension; E03.9 Hypothyroidism, unspecified; G89.29 Other chronic pain; F12.90 Cannabis use, unspecified, uncomplicated; F15.90 Other stimulant use, unspecified, uncomplicated; F17.210 Nicotine dependence, cigarettes, uncomplicated; Z86.73 Personal history of transient ischemic attack (TIA), and cerebral infarction without residual deficits; Z86.69 Personal history of other diseases of the nervous system and sense organs; Z60.2 Problems related to living alone; Z56.0 Unemployment, unspecified; Z88.8 Allergy status to other drugs, medicaments and biological substances; Z79.899 Other long term (current) drug therapy; W18.39XA Other fall on same level, initial encounter; Y93.89 Activity, other specified; Y92.89 Other specified places as the place of occurrence of the external cause; Y99.8 Other external cause status; Y90.9 Presence of alcohol in blood, level not specified
CPT/HCPCS: 70450; 99284

== ENCOUNTER 2020-05-24 15:43 | Emergency (ER) | payer MEDICAID ==
[~2020-05-24] VITALS: Ht 177.8 cm; Wt 80.0 kg
[2020-05-24 15:54] VITALS: BP 115/71
== END 2020-05-24 16:23 | disposition home or self-care (01) ==
LOC: ER 15:44
DX: F10.129 Alcohol abuse with intoxication, unspecified (principal); I10 Essential (primary) hypertension; E03.9 Hypothyroidism, unspecified; G89.29 Other chronic pain; F12.90 Cannabis use, unspecified, uncomplicated; F15.90 Other stimulant use, unspecified, uncomplicated; Z86.73 Personal history of transient ischemic attack (TIA), and cerebral infarction without residual deficits; Z98.890 Other specified postprocedural states; Z59.0 Homelessness; Z56.0 Unemployment, unspecified; Z88.8 Allergy status to other drugs, medicaments and biological substances; Z79.899 Other long term (current) drug therapy; Y90.9 Presence of alcohol in blood, level not specified
CPT/HCPCS: 99283

== ENCOUNTER 2020-05-25 06:36 | Emergency (ER) | payer MEDICAID ==
[~2020-05-25] VITALS: Ht 177.8 cm; Wt 80.0 kg
[2020-05-25 06:47] VITALS: BP 120/77
== END 2020-05-25 07:06 | disposition home or self-care (01) ==
LOC: ER 06:37
DX: F10.129 Alcohol abuse with intoxication, unspecified (principal); I10 Essential (primary) hypertension; E03.9 Hypothyroidism, unspecified; G89.29 Other chronic pain; F12.90 Cannabis use, unspecified, uncomplicated; F15.90 Other stimulant use, unspecified, uncomplicated; F17.200 Nicotine dependence, unspecified, uncomplicated; Z59.0 Homelessness; Z56.0 Unemployment, unspecified; Z86.73 Personal history of transient ischemic attack (TIA), and cerebral infarction without residual deficits; Z98.890 Other specified postprocedural states; Y90.9 Presence of alcohol in blood, level not specified
CPT/HCPCS: 99283

== ENCOUNTER 2020-05-28 08:44 | Emergency (ER) | payer MEDICAID ==
[~2020-05-28] VITALS: Ht 177.8 cm; Wt 80.0 kg
[2020-05-28] MEDS ORDERED: acetaminophen 325mg tablet PO ONE (08:55)
[2020-05-28 10:35] VITALS: BP 129/101
== END 2020-05-28 10:40 | disposition home or self-care (01) ==
LOC: ER 08:45
DX: M17.11 Unilateral primary osteoarthritis, right knee (principal); I10 Essential (primary) hypertension; E03.9 Hypothyroidism, unspecified; G89.29 Other chronic pain; F17.200 Nicotine dependence, unspecified, uncomplicated; F12.90 Cannabis use, unspecified, uncomplicated; F15.90 Other stimulant use, unspecified, uncomplicated; F10.10 Alcohol abuse, uncomplicated; Z98.890 Other specified postprocedural states; Z87.442 Personal history of urinary calculi; Z86.73 Personal history of transient ischemic attack (TIA), and cerebral infarction without residual deficits; Z86.2 Personal history of diseases of the blood and blood-forming organs and certain disorders involving the immune mechanism; Z86.69 Personal history of other diseases of the nervous system and sense organs; Z59.0 Homelessness; Z56.0 Unemployment, unspecified; Z88.5 Allergy status to narcotic agent; Z88.8 Allergy status to other drugs, medicaments and biological substances; Z79.899 Other long term (current) drug therapy
CPT/HCPCS: 73564; 99283

== ENCOUNTER 2020-05-28 15:31 | Emergency (ER) | payer MEDICAID | END 2020-05-28 16:30 | disposition left against medical advice (07) | LOC: ER 15:31 | DX: R06.02 Shortness of breath (principal); Z53.21 Procedure and treatment not carried out due to patient leaving prior to being seen by health care provider ==

== ENCOUNTER 2020-06-04 20:52 | Emergency (ER) | payer MEDICAID ==
[~2020-06-04] VITALS: Ht 177.8 cm; Wt 80.0 kg
[2020-06-04 21:51] VITALS: BP 138/83
== END 2020-06-04 21:54 ==
LOC: ER 20:53
DX: S01.01XA Laceration without foreign body of scalp, initial encounter (principal); I10 Essential (primary) hypertension; E03.9 Hypothyroidism, unspecified; G89.29 Other chronic pain; F12.90 Cannabis use, unspecified, uncomplicated; F15.90 Other stimulant use, unspecified, uncomplicated; Z86.73 Personal history of transient ischemic attack (TIA), and cerebral infarction without residual deficits; Z86.69 Personal history of other diseases of the nervous system and sense organs; Z59.0 Homelessness; Z56.0 Unemployment, unspecified; Z88.8 Allergy status to other drugs, medicaments and biological substances; Z79.899 Other long term (current) drug therapy; W18.00XA Striking against unspecified object with subsequent fall, initial encounter; Y93.89 Activity, other specified; Y92.89 Other specified places as the place of occurrence of the external cause; Y99.8 Other external cause status
CPT/HCPCS: 70450; 99284

== ENCOUNTER 2020-06-17 11:45 | Emergency (ER) | payer MEDICAID ==
[~2020-06-17] VITALS: Ht 177.8 cm; Wt 80.0 kg
[2020-06-17] MEDS ORDERED: thiamine 100mg/ml 2ml inj. IV ONE (12:20)
[2020-06-17] MEDS ORDERED: normal saline 1000ML IV soln IVB ONE (12:20)
[2020-06-17] MEDS ORDERED: folic acid 1mg/0.2ml inj IV ONE (12:20)
[2020-06-17 12:37] LABS: BASOPHILS # (AUTO) 0.1 X10'3 (0-0.2); BASOPHILS % (AUTO) 0.9 % (0-1); EOSINOPHILS # (AUTO) 0.3 X10'3 (0-0.9); EOSINOPHILS % (AUTO) 3.1 % (0-6); HEMATOCRIT 27.4 % (42.0-52.0); HEMOGLOBIN 9.2 g/dl (14.0-17.9); LYMPHOCYTES # (AUTO) 6.7 X10'3 (1.1-4.8); LYMPHOCYTES % (AUTO) 65.8 % (21-51); MEAN CORPUSCULAR HEMOGLOBIN 33.8 PG (27.0-31.0); MEAN CORPUSCULAR HGB CONC 33.6 g/dL (33.0-36.5); MEAN CORPUSCULAR VOLUME 100.7 FL (78-98); MEAN PLATELET VOLUME 6.7 FL (7.4-10.4); MONOCYTES # (AUTO) 0.8 X10'3 (0-0.9); MONOCYTES % (AUTO) 7.9 % (2-12); NEUTROPHILS # (AUTO) 2.3 X10'3 (1.8-7.7); NEUTROPHILS % (AUTO) 22.3 % (42-75); PLATELET COUNT 214 X10'3 (140-440); RED BLOOD COUNT 2.72 X10'6 (4.70-6.10); RED CELL DISTRIBUTION WIDTH 17.6 % (11.5-14.5); WHITE BLOOD COUNT 10.2 X10'3 (4.5-11.0)
[2020-06-17 12:49] LABS: ALANINE AMINOTRANSFERASE 37 U/L (12-78); ALBUMIN/GLOBULIN RATIO 0.7 (1.1-1.5); ALKALINE PHOSPHATASE 140 IU/L (46-116); ANION GAP 8 (8-16); ASPARTATE AMINO TRANSFERASE 93 U/L (10-37); BILIRUBIN,TOTAL 0.3 MG/DL (0.1-1.0); BLOOD UREA NITROGEN 10 MG/DL (7-18); CALCIUM 7.5 MG/DL (8.5-10.1); CHLORIDE 107 MMOL/L (99-107); CREATININE 1.11 MG/DL (0.60-1.10); ETHANOL 0.215 GM/DL (0.0-0.010); GLUCOSE 99 MG/DL (70-104); POTASSIUM 3.5 MMOL/L (3.5-5.1); SODIUM 140 MMOL/L (135-145); TOTAL CARBON DIOXIDE 24.9 MMOL/L (24-32); TOTAL PROTEIN 7.3 G/DL (6.4-8.2); eGFR 67 ML/MIN
[2020-06-17] MEDS ORDERED: PERM60CR19 TP (13:24)
[2020-06-17 13:31] VITALS: BP 137/76
[2020-06-17 13:36] LABS: TOTAL CELLS COUNTED 100
[2020-06-17 13:37] LABS: ANISOCYTOSIS 1+; BURR CELLS A1; PLATELET ESTIMATE NORMAL
[2020-06-17 13:39] LABS: POLYCHROMASIA FEW
== END 2020-06-17 13:29 | disposition home or self-care (01) ==
LOC: ER 11:46
DX: F10.129 Alcohol abuse with intoxication, unspecified (principal); I10 Essential (primary) hypertension; E03.9 Hypothyroidism, unspecified; G89.29 Other chronic pain; F12.90 Cannabis use, unspecified, uncomplicated; F15.90 Other stimulant use, unspecified, uncomplicated; Z86.69 Personal history of other diseases of the nervous system and sense organs; Z87.442 Personal history of urinary calculi; Z86.73 Personal history of transient ischemic attack (TIA), and cerebral infarction without residual deficits; Z98.890 Other specified postprocedural states; Z59.0 Homelessness; Z56.0 Unemployment, unspecified; Z88.8 Allergy status to other drugs, medicaments and biological substances; Z79.899 Other long term (current) drug therapy
CPT/HCPCS: 36415; 70450; 80053; 80320; 85007; 85025; 96361; 96374; 96375; 99284; J3411; J3490; J7030

== ENCOUNTER 2020-06-20 09:33 | Emergency (ER) | payer MEDICAID ==
[~2020-06-20] VITALS: Ht 177.8 cm; Wt 80.0 kg
[~2020-06-20 09:33] MED LIST changes: +PERM60CR19 TP
[2020-06-20 09:47] VITALS: BP 108/72
[2020-06-20] MEDS ORDERED: naphazoline/pheniramine eye 1 DROP BOTTLE EACHEYE PRN (10:10)
[2020-06-20] MEDS ORDERED: diphenhydrAMINE 25mg capsule PO ONE (10:10)
[2020-06-20] MEDS ORDERED: TETR15DR84 EACHEYE (10:14)
[2020-06-20] MEDS ORDERED: DIPH25CA83 PO (10:14)
== END 2020-06-20 10:38 | disposition home or self-care (01) ==
LOC: ER 09:34
DX: H10.13 Acute atopic conjunctivitis, bilateral (principal); I10 Essential (primary) hypertension; E03.9 Hypothyroidism, unspecified; G89.29 Other chronic pain; F12.90 Cannabis use, unspecified, uncomplicated; F15.90 Other stimulant use, unspecified, uncomplicated; Z86.73 Personal history of transient ischemic attack (TIA), and cerebral infarction without residual deficits; Z86.69 Personal history of other diseases of the nervous system and sense organs; Z59.0 Homelessness; Z56.0 Unemployment, unspecified; Z98.890 Other specified postprocedural states; Z88.8 Allergy status to other drugs, medicaments and biological substances; Z79.899 Other long term (current) drug therapy
CPT/HCPCS: 99284; Q0163

== ENCOUNTER 2020-06-22 12:51 | Emergency (ER) | payer MEDICAID ==
[~2020-06-22] VITALS: Ht 172.7 cm; Wt 80.0 kg
[~2020-06-22 12:51] MED LIST changes: +DIPH25CA83 PO; +TETR15DR84 EACHEYE
[2020-06-22 13:29] LABS: BASOPHILS # (AUTO) 0.1 X10'3 (0-0.2); BASOPHILS % (AUTO) 1.6 % (0-1); EOSINOPHILS # (AUTO) 0.2 X10'3 (0-0.9); EOSINOPHILS % (AUTO) 2.2 % (0-6); HEMATOCRIT 27.3 % (42.0-52.0); HEMOGLOBIN 9.3 g/dl (14.0-17.9); LYMPHOCYTES % (AUTO) 63.3 % (21-51); MEAN CORPUSCULAR HEMOGLOBIN 33.7 PG (27.0-31.0); MEAN CORPUSCULAR HGB CONC 33.9 g/dL (33.0-36.5); MEAN CORPUSCULAR VOLUME 99.3 FL (78-98); MEAN PLATELET VOLUME 7.6 FL (7.4-10.4); MONOCYTES # (AUTO) 0.7 X10'3 (0-0.9); MONOCYTES % (AUTO) 7.9 % (2-12); NEUTROPHILS # (AUTO) 2.4 X10'3 (1.8-7.7); PLATELET COUNT 188 X10'3 (140-440); RED BLOOD COUNT 2.75 X10'6 (4.70-6.10); RED CELL DISTRIBUTION WIDTH 17.1 % (11.5-14.5); WHITE BLOOD COUNT 9.5 X10'3 (4.5-11.0)
[2020-06-22 13:44] LABS: ALANINE AMINOTRANSFERASE 32 U/L (12-78); ALBUMIN 3.2 G/DL (3.4-5.0); ALBUMIN/GLOBULIN RATIO 0.8 (1.1-1.5); ALKALINE PHOSPHATASE 146 IU/L (46-116); ANION GAP 11 (8-16); ASPARTATE AMINO TRANSFERASE 77 U/L (10-37); BILIRUBIN,TOTAL 0.4 MG/DL (0.1-1.0); BLOOD UREA NITROGEN 12 MG/DL (7-18); BUN/CREATININE RATIO 10.3 (5.4-32.0); CALCIUM 7.6 MG/DL (8.5-10.1); CHLORIDE 104 MMOL/L (99-107); CREATININE 1.16 MG/DL (0.60-1.10); GLUCOSE 96 MG/DL (70-104); POTASSIUM 3.4 MMOL/L (3.5-5.1); SODIUM 138 MMOL/L (135-145); TOTAL CARBON DIOXIDE 23.4 MMOL/L (24-32); TOTAL PROTEIN 7.4 G/DL (6.4-8.2); eGFR 63 ML/MIN
[2020-06-22 13:58] LABS: ANISOCYTOSIS 1+; PLATELET ESTIMATE NORMAL; POLYCHROMASIA 1+; TARGET CELLS 1+; TOTAL CELLS COUNTED 100
[2020-06-22] MEDS ORDERED: PERM60CR19 TOP (15:20)
[2020-06-22 15:40] VITALS: BP 137/66
== END 2020-06-22 15:42 | disposition home or self-care (01) ==
LOC: ER 12:52
DX: R07.89 Other chest pain (principal); B86 Scabies; R53.1 Weakness; H53.8 Other visual disturbances; R53.83 Other fatigue; I10 Essential (primary) hypertension; E03.9 Hypothyroidism, unspecified; G89.29 Other chronic pain; F12.90 Cannabis use, unspecified, uncomplicated; F15.90 Other stimulant use, unspecified, uncomplicated; Z86.73 Personal history of transient ischemic attack (TIA), and cerebral infarction without residual deficits; Z86.69 Personal history of other diseases of the nervous system and sense organs; Z87.442 Personal history of urinary calculi; Z98.890 Other specified postprocedural states; Z72.89 Other problems related to lifestyle; Z56.0 Unemployment, unspecified; Z59.0 Homelessness; Z88.8 Allergy status to other drugs, medicaments and biological substances; Z79.899 Other long term (current) drug therapy
CPT/HCPCS: 71045; 80053; 83880; 84484; 85007; 85025; 93005; 99285

== ENCOUNTER 2020-06-24 15:58 | Emergency (ER) | payer MEDICAID ==
[~2020-06-24] VITALS: Ht 177.8 cm; Wt 80.0 kg
[~2020-06-24 15:58] MED LIST changes: +PERM60CR19 TOP
--- NOTE | 2020-06-24 16:45 | NUR ---
PT REPORTS HE HAD HAD ATTEMPTED TO REPOSITION SELF AND GET UP TO WALK AND PT FELL TO GROUND. PT GOT UP TO CHAIR BY HIS SELF AND FOUND WITH NO WOUNDS. PT DENIES HEAD, NECK OR BACK PAIN AND IS WITHOUT CERVICAL TENDERNESS. PT ABLE TO STAND AND REPORTS NO HIP PAIN AND ABLE TO BEAR WEIGHT. SPOKE WITH MEG HOPE AND TO CONTINUE TO MONITOR PT, ORALLY HYDRATE AND RETAKE VS'S AND SEE HOW WELL PT ABLE TO AMBULATE.
--- NOTE | 2020-06-24 17:31 | NUR ---
assisting RN with pt care, pt is unable to ambulate, low BP 81/56, HR 106, N Trevor WEAVER aware, pt taken to HW16, waiting for room, pt is GCS 15, alert, "I only had one beer today", pt was drinking juice while waiting outside in RAP area,
[2020-06-24] MEDS ORDERED: folic acid 1mg/0.2ml inj IV ONE (17:50)
[2020-06-24] MEDS ORDERED: thiamine 100mg/ml 2ml inj. IV ONE (17:50)
[2020-06-24] MEDS ORDERED: normal saline 1000ML IV soln IVB ONE (17:50)
--- NOTE | 2020-06-24 18:15 | NUR ---
pt is able to transfer self from wheelchair without assist, using cane, gait is very unsteady, +slurred speech, left sided facial droop, pt also c/o left sided weakness "but I have had 3 or 4 strokes, Brenda WEAVER aware and will reevalate pt
[2020-06-24 18:19] LABS: BASOPHILS # (AUTO) 0.1 X10'3 (0-0.2); HEMOGLOBIN 9.7 g/dl (14.0-17.9); MONOCYTES # (AUTO) 0.8 X10'3 (0-0.9); NEUTROPHILS # (AUTO) 2.1 X10'3 (1.8-7.7); RED CELL DISTRIBUTION WIDTH 17.3 % (11.5-14.5)
[2020-06-24 18:20] LABS: BASOPHILS % (AUTO) 0.9 % (0-1); EOSINOPHILS # (AUTO) 0.3 X10'3 (0-0.9); EOSINOPHILS % (AUTO) 2.9 % (0-6); HEMATOCRIT 29.3 % (42.0-52.0); LYMPHOCYTES # (AUTO) 8.4 X10'3 (1.1-4.8); LYMPHOCYTES % (AUTO) 71.5 % (21-51); MEAN CORPUSCULAR HEMOGLOBIN 33.3 PG (27.0-31.0); MEAN CORPUSCULAR HGB CONC 33.1 g/dL (33.0-36.5); MEAN CORPUSCULAR VOLUME 100.6 FL (78-98); MEAN PLATELET VOLUME 7.4 FL (7.4-10.4); NEUTROPHILS % (AUTO) 17.7 % (42-75); PLATELET COUNT 208 X10'3 (140-440); RED BLOOD COUNT 2.92 X10'6 (4.70-6.10); WHITE BLOOD COUNT 11.7 X10'3 (4.5-11.0)
[2020-06-24 18:32] LABS: ALANINE AMINOTRANSFERASE 37 U/L (12-78); ALBUMIN 3.6 G/DL (3.4-5.0); ALBUMIN/GLOBULIN RATIO 0.8 (1.1-1.5); ALKALINE PHOSPHATASE 154 IU/L (46-116); ANION GAP 15 (8-16); ASPARTATE AMINO TRANSFERASE 101 U/L (10-37); BILIRUBIN,TOTAL 0.3 MG/DL (0.1-1.0); BLOOD UREA NITROGEN 13 MG/DL (7-18); BUN/CREATININE RATIO 8.4 (5.4-32.0); CALCIUM 8.5 MG/DL (8.5-10.1); CHLORIDE 102 MMOL/L (99-107); CREATININE 1.55 MG/DL (0.60-1.10); GLUCOSE 132 MG/DL (70-104); POTASSIUM 4.1 MMOL/L (3.5-5.1); SODIUM 137 MMOL/L (135-145); TOTAL CARBON DIOXIDE 20.4 MMOL/L (24-32); TOTAL PROTEIN 8.3 G/DL (6.4-8.2); eGFR 45 ML/MIN
[2020-06-24 18:56] LABS: ANISOCYTOSIS 1+; NUCLEATED RED BLOOD CELLS 1 /100WBC (0-0); PLATELET ESTIMATE NORMAL; POLYCHROMASIA 1+; TOTAL CELLS COUNTED 100
--- NOTE | 2020-06-24 18:56 | NUR ---
Brenda Murray PA at bedside to eval pt, gave verbal order for pt to be dc'd, pt amb with steady gait using cane
[2020-06-24 18:57] LABS: TARGET CELLS 1+
[2020-06-24 19:01] VITALS: BP 129/80
== END 2020-06-24 19:03 | disposition home or self-care (01) ==
LOC: ER 15:59
DX: I95.9 Hypotension, unspecified (principal); R53.1 Weakness; I10 Essential (primary) hypertension; E03.9 Hypothyroidism, unspecified; G89.29 Other chronic pain; F17.200 Nicotine dependence, unspecified, uncomplicated; F12.90 Cannabis use, unspecified, uncomplicated; F15.90 Other stimulant use, unspecified, uncomplicated; Z86.73 Personal history of transient ischemic attack (TIA), and cerebral infarction without residual deficits; Z86.69 Personal history of other diseases of the nervous system and sense organs; Z86.2 Personal history of diseases of the blood and blood-forming organs and certain disorders involving the immune mechanism; Z87.442 Personal history of urinary calculi; Z98.890 Other specified postprocedural states; Z72.89 Other problems related to lifestyle; Z56.0 Unemployment, unspecified; Z59.0 Homelessness; Z88.8 Allergy status to other drugs, medicaments and biological substances; Z79.899 Other long term (current) drug therapy
CPT/HCPCS: 80053; 85007; 85025; 93005; 96361; 96374; 96375; 99285; J3411; J3490; J7030

== ENCOUNTER 2020-06-25 10:57 | Emergency (ER) | payer MEDICAID | END 2020-06-25 11:18 | disposition home or self-care (01) | LOC: ER 10:57 | DX: Z72.89 Other problems related to lifestyle (principal); Z53.21 Procedure and treatment not carried out due to patient leaving prior to being seen by health care provider ==

== ENCOUNTER 2020-06-30 10:32 | Emergency (ER) | payer MEDICAID ==
[~2020-06-30] VITALS: Ht 177.8 cm; Wt 80.0 kg
--- NOTE | 2020-06-30 10:47 | NUR ---
spoke to dr nesbitt regarding pt stroke protocol ,discussed the sbar and notified that pt stated that he had ct scan done yest at the [facility] and for visual disturbance and lft sided weakness,but it got worse today.
--- NOTE | 2020-06-30 10:48 | NUR ---
as per dr nesbitt we get med records from [facility] .
[2020-06-30] MEDS ORDERED: thiamine 100mg/ml 2ml inj. IV ONE (11:00)
[2020-06-30] MEDS ORDERED: folic acid 1mg/0.2ml inj IV ONE (11:00)
[2020-06-30] MEDS ORDERED: normal saline 1000ML IV soln IVB ONE (11:00)
[2020-06-30 11:15] LABS: BASOPHILS # (AUTO) 0.1 X10'3 (0-0.2); EOSINOPHILS # (AUTO) 0.3 X10'3 (0-0.9); RED CELL DISTRIBUTION WIDTH 17.6 % (11.5-14.5); WHITE BLOOD COUNT 12.5 X10'3 (4.5-11.0)
[2020-06-30 11:17] LABS: BASOPHILS % (AUTO) 0.9 % (0-1); EOSINOPHILS % (AUTO) 2.6 % (0-6); HEMATOCRIT 28.9 % (42.0-52.0); HEMOGLOBIN 9.6 g/dl (14.0-17.9); LYMPHOCYTES # (AUTO) 7.5 X10'3 (1.1-4.8); LYMPHOCYTES % (AUTO) 59.8 % (21-51); MEAN CORPUSCULAR HEMOGLOBIN 33.4 PG (27.0-31.0); MEAN CORPUSCULAR HGB CONC 33.2 g/dL (33.0-36.5); MEAN CORPUSCULAR VOLUME 100.8 FL (78-98); MEAN PLATELET VOLUME 7.3 FL (7.4-10.4); MONOCYTES # (AUTO) 1.1 X10'3 (0-0.9); NEUTROPHILS # (AUTO) 3.5 X10'3 (1.8-7.7); NEUTROPHILS % (AUTO) 27.7 % (42-75); PLATELET COUNT 231 X10'3 (140-440); RED BLOOD COUNT 2.87 X10'6 (4.70-6.10)
[2020-06-30 11:35] LABS: ALANINE AMINOTRANSFERASE 42 U/L (12-78); ALBUMIN 3.7 G/DL (3.4-5.0); ALBUMIN/GLOBULIN RATIO 0.8 (1.1-1.5); ALKALINE PHOSPHATASE 148 IU/L (46-116); ANION GAP 15 (8-16); ASPARTATE AMINO TRANSFERASE 108 U/L (10-37); BILIRUBIN,TOTAL 0.3 MG/DL (0.1-1.0); BLOOD UREA NITROGEN 24 MG/DL (7-18); BUN/CREATININE RATIO 16.9 (5.4-32.0); CALCIUM 8.5 MG/DL (8.5-10.1); CHLORIDE 97 MMOL/L (99-107); CREATININE 1.42 MG/DL (0.60-1.10); ETHANOL 0.215 GM/DL (0.0-0.010); GLUCOSE 91 MG/DL (70-104); POTASSIUM 3.3 MMOL/L (3.5-5.1); SODIUM 135 MMOL/L (135-145); TOTAL CARBON DIOXIDE 23.4 MMOL/L (24-32); TOTAL PROTEIN 8.4 G/DL (6.4-8.2); TROPONIN I < 0.04 NG/ML (0.0-0.05); eGFR 50 ML/MIN
[2020-06-30] MEDS ORDERED: potassium Cl 20 mEq SR tablet PO STA (12:11)
[2020-06-30 12:45] VITALS: BP 117/84
== END 2020-06-30 12:49 | disposition home or self-care (01) ==
LOC: ER 10:32
DX: F10.129 Alcohol abuse with intoxication, unspecified (principal); R78.6 Finding of steroid agent in blood; E86.0 Dehydration; I10 Essential (primary) hypertension; I63.9 Cerebral infarction, unspecified; N20.0 Calculus of kidney; E07.89 Other specified disorders of thyroid; F12.10 Cannabis abuse, uncomplicated; F15.10 Other stimulant abuse, uncomplicated; Z90.49 Acquired absence of other specified parts of digestive tract; Z79.899 Other long term (current) drug therapy; Z98.890 Other specified postprocedural states; Z88.8 Allergy status to other drugs, medicaments and biological substances
CPT/HCPCS: 36415; 80053; 80320; 82140; 84484; 85025; 93005; 96374; 96375; 99284; J3411; J3490; J7030; 96361

== ENCOUNTER 2020-07-16 10:23 | Emergency (ER) | payer MEDICAID ==
[~2020-07-16] VITALS: Ht 157.5 cm; Wt 80.0 kg
[2020-07-16 11:31] VITALS: BP 148/90
--- NOTE | 2020-07-16 11:44 | NUR ---
Patient was seen after discharge having fallen in the parking lot. Patient landed on right elbow at which patient sustained a skin tear. Patient did not hit his head and has no head, neck, or back pain. Right elbow bandaged by EMT. No further complaints by patients. Patient refused to check back in. Dr. Alvarado notified. Patient given bus pass.
== END 2020-07-16 11:33 | disposition home or self-care (01) ==
LOC: ER 10:24
DX: G40.909 Epilepsy, unspecified, not intractable, without status epilepticus (principal); I10 Essential (primary) hypertension; E03.9 Hypothyroidism, unspecified; G89.29 Other chronic pain; F12.90 Cannabis use, unspecified, uncomplicated; F15.90 Other stimulant use, unspecified, uncomplicated; Z86.73 Personal history of transient ischemic attack (TIA), and cerebral infarction without residual deficits; Z86.69 Personal history of other diseases of the nervous system and sense organs; Z86.2 Personal history of diseases of the blood and blood-forming organs and certain disorders involving the immune mechanism; Z87.442 Personal history of urinary calculi; Z98.890 Other specified postprocedural states; Z72.89 Other problems related to lifestyle; Z56.0 Unemployment, unspecified; Z59.0 Homelessness; Z88.8 Allergy status to other drugs, medicaments and biological substances; Z79.899 Other long term (current) drug therapy
CPT/HCPCS: 99284

== ENCOUNTER 2020-07-17 05:08 | Emergency (ER) | payer MEDICAID ==
[~2020-07-17] VITALS: Ht 177.8 cm; Wt 75.0 kg
[2020-07-17 05:11] VITALS: BP 116/80
== END 2020-07-17 05:24 | disposition home or self-care (01) ==
LOC: ER 05:09
DX: G89.29 Other chronic pain (principal); I10 Essential (primary) hypertension; E03.9 Hypothyroidism, unspecified; F12.90 Cannabis use, unspecified, uncomplicated; F15.90 Other stimulant use, unspecified, uncomplicated; Z72.89 Other problems related to lifestyle; Z59.0 Homelessness; Z86.73 Personal history of transient ischemic attack (TIA), and cerebral infarction without residual deficits; Z86.69 Personal history of other diseases of the nervous system and sense organs; Z86.2 Personal history of diseases of the blood and blood-forming organs and certain disorders involving the immune mechanism; Z87.442 Personal history of urinary calculi; Z98.890 Other specified postprocedural states; Z56.0 Unemployment, unspecified; Z88.8 Allergy status to other drugs, medicaments and biological substances; Z79.899 Other long term (current) drug therapy
CPT/HCPCS: 99284

== ENCOUNTER 2020-07-20 19:51 | Emergency (ER) | payer MEDICAID ==
[~2020-07-20] VITALS: Ht 177.8 cm; Wt 78.2 kg
[~2020-07-20 19:51] MED LIST changes: -PERM60CR19 TP
[2020-07-20 20:05] VITALS: BP 117/79
[2020-07-20] MEDS ORDERED: LIDOcaine Viscous 15ml cup MM STA (22:06)
[2020-07-20] MEDS ORDERED: LIDO20SO16 PO (22:27)
== END 2020-07-20 22:33 | disposition home or self-care (01) ==
LOC: ER 19:52
DX: J38.7 Other diseases of larynx (principal); I63.9 Cerebral infarction, unspecified; I10 Essential (primary) hypertension; D64.9 Anemia, unspecified; E07.9 Disorder of thyroid, unspecified; G89.29 Other chronic pain; M54.9 Dorsalgia, unspecified; Z87.81 Personal history of (healed) traumatic fracture; Z88.8 Allergy status to other drugs, medicaments and biological substances; Z79.899 Other long term (current) drug therapy
CPT/HCPCS: 99283

== ENCOUNTER 2020-07-25 04:04 | Emergency (ER) | payer MEDICAID ==
[~2020-07-25] VITALS: Ht 177.8 cm; Wt 80.0 kg
[~2020-07-25 04:04] MED LIST changes: +LIDO20SO16 PO; -PERM60CR19 TOP
--- NOTE | 2020-07-25 04:15 | NUR ---
Radiology at bedside for CXR.
[2020-07-25] MEDS ORDERED: AZIT-63 PO (04:24)
[2020-07-25] MEDS ORDERED: azithromycin 250mg tablet PO ONE (04:25)
[2020-07-25 04:50] VITALS: BP 159/98
== END 2020-07-25 05:28 | disposition home or self-care (01) ==
LOC: ER 04:04
DX: J20.9 Acute bronchitis, unspecified (principal); I63.9 Cerebral infarction, unspecified; I10 Essential (primary) hypertension; D64.9 Anemia, unspecified; E07.89 Other specified disorders of thyroid; F15.10 Other stimulant abuse, uncomplicated; F12.10 Cannabis abuse, uncomplicated; Z87.442 Personal history of urinary calculi; Z59.0 Homelessness; Z56.0 Unemployment, unspecified; Z88.8 Allergy status to other drugs, medicaments and biological substances; Z79.899 Other long term (current) drug therapy; Z20.828 Contact with and (suspected) exposure to other viral communicable diseases
CPT/HCPCS: 71045; 87635; 99284; C9803

== ENCOUNTER 2020-07-30 21:03 | Emergency (ER) | payer MEDICAID ==
[~2020-07-30] VITALS: Ht 177.8 cm; Wt 80.0 kg
[~2020-07-30 21:03] MED LIST changes: +AZIT-63 PO
[2020-07-30 21:11] VITALS: BP 121/83
[2020-07-30] MEDS ORDERED: PERM60CR19 TOP (21:51)
[2020-07-30] MEDS ORDERED: AMOX500C2 PO (22:01)
[2020-07-30] MEDS ORDERED: LORA10TA7 PO (22:01)
[2020-07-30] MEDS ORDERED: AZIT500T3 PO (22:01)
== END 2020-07-30 22:15 | disposition home or self-care (01) ==
LOC: ER 21:04
DX: J18.9 Pneumonia, unspecified organism (principal); I10 Essential (primary) hypertension; D64.9 Anemia, unspecified; E78.00 Pure hypercholesterolemia, unspecified; F12.10 Cannabis abuse, uncomplicated; F15.10 Other stimulant abuse, uncomplicated; Z56.0 Unemployment, unspecified; Z59.0 Homelessness; Z88.8 Allergy status to other drugs, medicaments and biological substances
CPT/HCPCS: 99284

== ENCOUNTER 2020-08-03 03:08 | Emergency (ER) | payer MEDICAID ==
[~2020-08-03] VITALS: Ht 177.8 cm; Wt 80.0 kg
[~2020-08-03 03:08] MED LIST changes: +AMOX500C2 PO; +AZIT500T3 PO; +LORA10TA7 PO; +PERM60CR19 TOP
[2020-08-03] MEDS ORDERED: DOXY100C43 PO (03:15)
[2020-08-03] MEDS ORDERED: PERM60CR19 TOP (03:15)
[2020-08-03 03:18] VITALS: BP 121/85
== END 2020-08-03 03:38 | disposition home or self-care (01) ==
LOC: ER 03:09
DX: B86 Scabies (principal); F10.10 Alcohol abuse, uncomplicated; J20.9 Acute bronchitis, unspecified; I10 Essential (primary) hypertension; D64.9 Anemia, unspecified; G89.29 Other chronic pain; M54.9 Dorsalgia, unspecified; I63.9 Cerebral infarction, unspecified; Z87.442 Personal history of urinary calculi; Z88.8 Allergy status to other drugs, medicaments and biological substances; Z79.899 Other long term (current) drug therapy; Z98.890 Other specified postprocedural states
CPT/HCPCS: 99284

== ENCOUNTER 2020-08-12 15:52 | Emergency (ER) | payer MEDICAID ==
[~2020-08-12] VITALS: Ht 177.8 cm; Wt 80.0 kg
[~2020-08-12 15:52] MED LIST changes: -AMOX500C2 PO; -AZIT500T3 PO; +DOXY100C43 PO
[2020-08-12 15:56] VITALS: BP 131/82
--- NOTE | 2020-08-12 17:28 | NUR ---
PT MOVED FROM ER06 TO OF25 TO "SLEEP IT OFF". PT HAS AN ELEVATED ETOH LEVEL AND UNABLE TO AMBULATE WITHOUT ASSISTANCE
--- NOTE | 2020-08-12 18:36 | NUR ---
PT IS DC READY WHEN AWKE ENOUGH AND CAN AMBULATE STEADY ON HIS FEET FOR DISCHARGE.
== END 2020-08-12 20:11 | disposition home or self-care (01) ==
LOC: ER 15:52
DX: S50.311A Abrasion of right elbow, initial encounter (principal); R50.9 Fever, unspecified; M25.561 Pain in right knee; M79.672 Pain in left foot; F10.129 Alcohol abuse with intoxication, unspecified; I10 Essential (primary) hypertension; E03.9 Hypothyroidism, unspecified; G89.29 Other chronic pain; F12.90 Cannabis use, unspecified, uncomplicated; F15.90 Other stimulant use, unspecified, uncomplicated; Z86.73 Personal history of transient ischemic attack (TIA), and cerebral infarction without residual deficits; Z86.69 Personal history of other diseases of the nervous system and sense organs; Z86.2 Personal history of diseases of the blood and blood-forming organs and certain disorders involving the immune mechanism; Z87.442 Personal history of urinary calculi; Z98.890 Other specified postprocedural states; Z72.89 Other problems related to lifestyle; Z56.0 Unemployment, unspecified; Z59.0 Homelessness; Z88.8 Allergy status to other drugs, medicaments and biological substances; Z79.2 Long term (current) use of antibiotics; Z79.899 Other long term (current) drug therapy; W18.39XA Other fall on same level, initial encounter; Y93.89 Activity, other specified; Y92.89 Other specified places as the place of occurrence of the external cause; Y99.8 Other external cause status
CPT/HCPCS: 82948; 99283

== ENCOUNTER 2020-08-18 13:48 | Emergency (ER) | payer MEDICAID ==
[~2020-08-18] VITALS: Ht 177.8 cm; Wt 78.2 kg
[~2020-08-18 13:48] MED LIST changes: -AZIT-63 PO; -DOXY100C43 PO
[2020-08-18 14:20] VITALS: BP 116/72
== END 2020-08-18 15:15 | disposition home or self-care (01) ==
LOC: ER 13:49
DX: J20.9 Acute bronchitis, unspecified (principal); F10.120 Alcohol abuse with intoxication, uncomplicated; Z59.0 Homelessness; E03.9 Hypothyroidism, unspecified; G89.29 Other chronic pain; F12.90 Cannabis use, unspecified, uncomplicated; F15.90 Other stimulant use, unspecified, uncomplicated; Z87.442 Personal history of urinary calculi; Z86.2 Personal history of diseases of the blood and blood-forming organs and certain disorders involving the immune mechanism; Z86.72 Personal history of thrombophlebitis; Z86.61 Personal history of infections of the central nervous system; Z90.89 Acquired absence of other organs; Z56.0 Unemployment, unspecified; Z88.8 Allergy status to other drugs, medicaments and biological substances; Z79.2 Long term (current) use of antibiotics; Z79.899 Other long term (current) drug therapy
CPT/HCPCS: 93005; 99283

== ENCOUNTER 2020-08-22 20:58 | Emergency (ER) | payer MEDICAID ==
[~2020-08-22] VITALS: Ht 177.8 cm; Wt 78.2 kg
[2020-08-22 21:05] VITALS: BP 117/75
== END 2020-08-22 22:58 | disposition left against medical advice (07) ==
LOC: ER 20:59
DX: R07.9 Chest pain, unspecified (principal); Z53.21 Procedure and treatment not carried out due to patient leaving prior to being seen by health care provider

== ENCOUNTER 2020-08-27 19:46 | Emergency (ER) | payer MEDICAID ==
[~2020-08-27] VITALS: Ht 172.7 cm; Wt 79.5 kg
[2020-08-27 19:47] VITALS: BP 126/97
[2020-08-27] MEDS ORDERED: rabies vaccine (PCEC)/PF 2.5 unit kit IMVAC ONE (19:55)
[2020-08-27] MEDS ORDERED: amox tr/potassium clavulanate 875/125mg TAB PO ONE (19:55)
[2020-08-27] MEDS ORDERED: rabies immune globulin/PF 150 unit/ml inj IMVAC ONE (19:55)
[2020-08-27] MEDS ORDERED: AMOX-422 PO (19:57)
== END 2020-08-27 21:00 | disposition home or self-care (01) ==
LOC: ER 19:47
DX: S61.451A Open bite of right hand, initial encounter (principal); S66.991A Other injury of unspecified muscle, fascia and tendon at wrist and hand level, right hand, initial encounter; I10 Essential (primary) hypertension; W54.0XXA Bitten by dog, initial encounter; Z20.3 Contact with and (suspected) exposure to rabies; Y99.8 Other external cause status; Y93.89 Activity, other specified; Y92.89 Other specified places as the place of occurrence of the external cause; G89.29 Other chronic pain; E03.9 Hypothyroidism, unspecified; F12.90 Cannabis use, unspecified, uncomplicated; F15.90 Other stimulant use, unspecified, uncomplicated; Z86.73 Personal history of transient ischemic attack (TIA), and cerebral infarction without residual deficits; Z86.2 Personal history of diseases of the blood and blood-forming organs and certain disorders involving the immune mechanism; Z87.442 Personal history of urinary calculi; Z72.89 Other problems related to lifestyle; Z59.0 Homelessness; Z56.0 Unemployment, unspecified; Z88.8 Allergy status to other drugs, medicaments and biological substances; Z88.5 Allergy status to narcotic agent; Z79.899 Other long term (current) drug therapy
CPT/HCPCS: 90375; 90471; 90675; 96372; 99284

== ENCOUNTER 2020-08-28 05:11 | Emergency (ER) | payer MEDICAID ==
[~2020-08-28] VITALS: Ht 177.8 cm; Wt 85.0 kg
[~2020-08-28 05:11] MED LIST changes: +AMOX-422 PO
[2020-08-28 05:19] VITALS: BP 118/93
[2020-08-28] MEDS ORDERED: ibuprofen tablet 400 MG TABLET PO ONE (05:40)
[2020-08-28] MEDS ORDERED: metoclopramide 10mg tablet PO ONE (05:40)
[2020-08-28] MEDS ORDERED: acetaminophen 325mg tablet PO ONE ×2 (05:40→05:45)
== END 2020-08-28 05:58 | disposition home or self-care (01) ==
LOC: ER 05:13
DX: S61.451A Open bite of right hand, initial encounter (principal); R05 Cough; R11.0 Nausea; M79.641 Pain in right hand; R19.7 Diarrhea, unspecified; I10 Essential (primary) hypertension; E03.9 Hypothyroidism, unspecified; G89.29 Other chronic pain; F12.90 Cannabis use, unspecified, uncomplicated; F15.90 Other stimulant use, unspecified, uncomplicated; Z86.73 Personal history of transient ischemic attack (TIA), and cerebral infarction without residual deficits; Z86.69 Personal history of other diseases of the nervous system and sense organs; Z86.2 Personal history of diseases of the blood and blood-forming organs and certain disorders involving the immune mechanism; Z87.442 Personal history of urinary calculi; Z98.890 Other specified postprocedural states; Z72.89 Other problems related to lifestyle; Z56.0 Unemployment, unspecified; Z59.0 Homelessness; Z88.8 Allergy status to other drugs, medicaments and biological substances; Z79.2 Long term (current) use of antibiotics; Z79.899 Other long term (current) drug therapy; W54.0XXA Bitten by dog, initial encounter; Y93.89 Activity, other specified; Y92.89 Other specified places as the place of occurrence of the external cause; Y99.8 Other external cause status
CPT/HCPCS: 99284; J8597

== ENCOUNTER 2020-08-30 12:45 | Emergency (ER) | payer MEDICAID ==
[~2020-08-30] VITALS: Ht 177.8 cm; Wt 78.0 kg
[2020-08-30] MEDS ORDERED: rabies vaccine (PCEC)/PF 2.5 unit kit IMVAC ONE (14:15)
[2020-08-30] MEDS ORDERED: diphenhydrAMINE 25mg capsule PO ONE (14:25)
[2020-08-30] MEDS ORDERED: PERM60CR19 TOP (14:25)
[2020-08-30] MEDS ORDERED: TRIA15CR61 TOP (14:25)
[2020-08-30] MEDS ORDERED: predniSONE 20 mg tablet PO ONE (14:25)
[2020-08-30] MEDS ORDERED: Permethrin Cream 60gm TP ONE (14:25)
[2020-08-30] MEDS ORDERED: triamcinolone acetonide 0.5% cream 15gm TP SCH (20:00)
== END 2020-08-30 15:04 | disposition home or self-care (01) ==
LOC: ER 12:46
DX: R21 Rash and other nonspecific skin eruption (principal); I10 Essential (primary) hypertension; E03.9 Hypothyroidism, unspecified; G89.29 Other chronic pain; F12.90 Cannabis use, unspecified, uncomplicated; F15.90 Other stimulant use, unspecified, uncomplicated; Z20.3 Contact with and (suspected) exposure to rabies; Z86.73 Personal history of transient ischemic attack (TIA), and cerebral infarction without residual deficits; Z86.69 Personal history of other diseases of the nervous system and sense organs; Z86.2 Personal history of diseases of the blood and blood-forming organs and certain disorders involving the immune mechanism; Z87.442 Personal history of urinary calculi; Z98.890 Other specified postprocedural states; Z72.89 Other problems related to lifestyle; Z59.0 Homelessness; Z56.0 Unemployment, unspecified; Z88.8 Allergy status to other drugs, medicaments and biological substances; Z79.2 Long term (current) use of antibiotics; Z79.899 Other long term (current) drug therapy
CPT/HCPCS: 90471; 90675; 99283; J7512; Q0163

== ENCOUNTER 2020-09-08 13:11 | Emergency (ER) | payer MEDICAID ==
[~2020-09-08] VITALS: Ht 177.8 cm; Wt 78.2 kg
[~2020-09-08 13:11] MED LIST changes: +TRIA15CR61 TOP
[2020-09-08 14:12] VITALS: BP 117/69
[2020-09-08] MEDS ORDERED: bacitracin ointment unit dose packet TP STA (15:01)
[2020-09-08] MEDS ORDERED: bacitracin 15gm ointment TP STA (15:03)
== END 2020-09-08 15:53 | disposition home or self-care (01) ==
LOC: ER 13:11
DX: R07.89 Other chest pain (principal); R06.02 Shortness of breath; S61.401D Unspecified open wound of right hand, subsequent encounter; I10 Essential (primary) hypertension; E03.9 Hypothyroidism, unspecified; G89.29 Other chronic pain; F12.90 Cannabis use, unspecified, uncomplicated; F17.200 Nicotine dependence, unspecified, uncomplicated; F15.90 Other stimulant use, unspecified, uncomplicated; Z86.73 Personal history of transient ischemic attack (TIA), and cerebral infarction without residual deficits; Z20.3 Contact with and (suspected) exposure to rabies; Z86.2 Personal history of diseases of the blood and blood-forming organs and certain disorders involving the immune mechanism; Z87.442 Personal history of urinary calculi; Z98.890 Other specified postprocedural states; Z56.0 Unemployment, unspecified; Z59.0 Homelessness; Z72.89 Other problems related to lifestyle; Z88.8 Allergy status to other drugs, medicaments and biological substances; Z79.2 Long term (current) use of antibiotics; Z79.899 Other long term (current) drug therapy; W54.0XXD Bitten by dog, subsequent encounter
CPT/HCPCS: 93005; 99283

== ENCOUNTER 2020-09-11 09:18 | Emergency (ER) | payer MEDICAID ==
[~2020-09-11] VITALS: Ht 177.8 cm; Wt 78.2 kg
[2020-09-11 09:59] VITALS: BP 101/61
--- NOTE | 2020-09-11 11:24 | NUR ---
Iker WEAVER stated to me that patient had left without being seen. Patient was told by hunter trapper that he had medications currently requesting to be picked up at pharmacy. Iker WEAVER aware and no need to call patient back.
== END 2020-09-11 11:26 | disposition left against medical advice (07) ==
LOC: ER 09:19
DX: Z76.0 Encounter for issue of repeat prescription (principal); Z53.21 Procedure and treatment not carried out due to patient leaving prior to being seen by health care provider

== ENCOUNTER 2020-09-13 05:58 | Emergency (ER) | payer MEDICAID ==
[~2020-09-13] VITALS: Ht 177.8 cm; Wt 78.2 kg
[2020-09-13] MEDS ORDERED: rabies vaccine (PCEC)/PF 2.5 unit kit IMVAC ONE (06:15)
[2020-09-13 06:34] LABS: EOSINOPHILS # (AUTO) 0.1 X10'3 (0-0.9); EOSINOPHILS % (AUTO) 0.5 % (0-6); HEMOGLOBIN 9.2 g/dl (14.0-17.9); MONOCYTES # (AUTO) 0.8 X10'3 (0-0.9)
[2020-09-13 06:36] LABS: BASOPHILS # (AUTO) 0.1 X10'3 (0-0.2); BASOPHILS % (AUTO) 0.8 % (0-1); LYMPHOCYTES # (AUTO) 11.4 X10'3 (1.1-4.8); LYMPHOCYTES % (AUTO) 76.7 % (21-51); MEAN CORPUSCULAR HEMOGLOBIN 29.6 PG (27.0-31.0); MEAN CORPUSCULAR HGB CONC 32.8 g/dL (33.0-36.5); MEAN CORPUSCULAR VOLUME 90.2 FL (78-98); MEAN PLATELET VOLUME 7.2 FL (7.4-10.4); MONOCYTES % (AUTO) 5.5 % (2-12); NEUTROPHILS # (AUTO) 2.4 X10'3 (1.8-7.7); NEUTROPHILS % (AUTO) 16.5 % (42-75); PLATELET COUNT 366 X10'3 (140-440); RED CELL DISTRIBUTION WIDTH 19.3 % (11.5-14.5); WHITE BLOOD COUNT 14.9 X10'3 (4.5-11.0)
[2020-09-13 06:44] LABS: ALANINE AMINOTRANSFERASE 38 U/L (12-78); ALBUMIN 3.3 G/DL (3.4-5.0); ALBUMIN/GLOBULIN RATIO 0.7 (1.1-1.5); ALKALINE PHOSPHATASE 139 IU/L (46-116); ANION GAP 12 (8-16); ASPARTATE AMINO TRANSFERASE 63 U/L (10-37); BILIRUBIN,TOTAL 0.3 MG/DL (0.1-1.0); BLOOD UREA NITROGEN 10 MG/DL (7-18); BUN/CREATININE RATIO 9.3 (5.4-32.0); CALCIUM 7.8 MG/DL (8.5-10.1); CHLORIDE 100 MMOL/L (99-107); CREATININE 1.08 MG/DL (0.60-1.10); GLUCOSE 119 MG/DL (70-104); POTASSIUM 3.8 MMOL/L (3.5-5.1); SODIUM 136 MMOL/L (135-145); TOTAL CARBON DIOXIDE 23.6 MMOL/L (24-32); TOTAL PROTEIN 7.8 G/DL (6.4-8.2); eGFR 69 ML/MIN
[2020-09-13 06:52] LABS: ETHANOL 0.248 GM/DL (0.0-0.010); MAGNESIUM 1.9 MG/DL (1.5-2.4)
[2020-09-13] MEDS ORDERED: metoclopramide 5 mg/ml inj IV ONE (06:55)
[2020-09-13 07:12] LABS: ANISOCYTOSIS 2+; PLATELET ESTIMATE NORMAL; POIKILOCYTOSIS FEW; TARGET CELLS FEW; TOTAL CELLS COUNTED 100
[2020-09-13 08:10] VITALS: BP 166/96
== END 2020-09-13 08:11 | disposition home or self-care (01) ==
LOC: ER 05:58
DX: R07.89 Other chest pain (principal); F10.129 Alcohol abuse with intoxication, unspecified; I10 Essential (primary) hypertension; E07.9 Disorder of thyroid, unspecified; G89.29 Other chronic pain; F12.90 Cannabis use, unspecified, uncomplicated; F15.90 Other stimulant use, unspecified, uncomplicated; Z86.73 Personal history of transient ischemic attack (TIA), and cerebral infarction without residual deficits; Z86.2 Personal history of diseases of the blood and blood-forming organs and certain disorders involving the immune mechanism; Z86.61 Personal history of infections of the central nervous system; Z87.442 Personal history of urinary calculi; Z87.828 Personal history of other (healed) physical injury and trauma; Z98.890 Other specified postprocedural states; Z90.89 Acquired absence of other organs; Z56.0 Unemployment, unspecified; Z59.0 Homelessness; Z88.8 Allergy status to other drugs, medicaments and biological substances; Z79.2 Long term (current) use of antibiotics; Z79.899 Other long term (current) drug therapy; Y90.8 Blood alcohol level of 240 mg/100 ml or more
CPT/HCPCS: 36415; 71045; 80053; 80320; 83735; 83880; 84484; 85007; 85025; 90471; 90675; 93005; 96374; 99285; J2765

== ENCOUNTER 2020-11-08 23:47 | Emergency (ER) | payer MEDICAID ==
[~2020-11-08] VITALS: Ht 177.8 cm; Wt 78.0 kg
[~2020-11-08 23:47] MED LIST changes: -AMOX-422 PO; -TRIA15CR61 TOP
[2020-11-08 23:57] VITALS: BP 156/96
--- NOTE | 2020-11-09 00:26 | NUR ---
Patient checked in to room and while waiting to see provider patient wandered out towards [facility]. When questioned by RN where he was going, patient states he "wants to leave" and declined medical care. On triage patient stated he "just got out of [facility]". Patient in stable condition and ambulated out to [facility] with no sign or symptom of distress.
== END 2020-11-09 00:30 | disposition left against medical advice (07) ==
LOC: ER 23:47
DX: R06.02 Shortness of breath (principal); Z53.21 Procedure and treatment not carried out due to patient leaving prior to being seen by health care provider
CPT/HCPCS: 93005

== ENCOUNTER 2020-11-09 02:51 | Emergency (ER) | payer MEDICAID ==
[~2020-11-09] VITALS: Ht 172.7 cm; Wt 81.8 kg
[2020-11-09 05:10] VITALS: BP 146/80
== END 2020-11-09 05:12 | disposition home or self-care (01) ==
LOC: ER 02:52
DX: M79.672 Pain in left foot (principal); G43.909 Migraine, unspecified, not intractable, without status migrainosus; I10 Essential (primary) hypertension; G89.29 Other chronic pain; F12.90 Cannabis use, unspecified, uncomplicated; F15.90 Other stimulant use, unspecified, uncomplicated; Z87.81 Personal history of (healed) traumatic fracture; Z86.2 Personal history of diseases of the blood and blood-forming organs and certain disorders involving the immune mechanism; Z87.442 Personal history of urinary calculi; Z98.890 Other specified postprocedural states; Z56.0 Unemployment, unspecified; Z59.0 Homelessness; Z72.89 Other problems related to lifestyle; Z88.8 Allergy status to other drugs, medicaments and biological substances; Z79.899 Other long term (current) drug therapy
CPT/HCPCS: 73630; 99284

== ENCOUNTER 2020-11-13 10:59 | Emergency (ER) | payer MEDICAID ==
[~2020-11-13] VITALS: Ht 167.6 cm; Wt 81.8 kg
[2020-11-13 11:49] LABS: BASOPHILS # (AUTO) 0.1 X10'3 (0-0.2); EOSINOPHILS # (AUTO) 0.2 X10'3 (0-0.9); HEMOGLOBIN 7.7 g/dl (14.0-17.9); MEAN CORPUSCULAR HEMOGLOBIN 25.7 PG (27.0-31.0); MEAN CORPUSCULAR HGB CONC 32.1 g/dL (33.0-36.5); MEAN PLATELET VOLUME 6.6 FL (7.4-10.4)
[2020-11-13 11:50] LABS: BASOPHILS % (AUTO) 0.9 % (0-1); EOSINOPHILS % (AUTO) 2.1 % (0-6); HEMATOCRIT 23.9 % (42.0-52.0); LYMPHOCYTES # (AUTO) 6.9 X10'3 (1.1-4.8); LYMPHOCYTES % (AUTO) 71.2 % (21-51); MONOCYTES # (AUTO) 1.1 X10'3 (0-0.9); MONOCYTES % (AUTO) 11.2 % (2-12); NEUTROPHILS # (AUTO) 1.4 X10'3 (1.8-7.7); NEUTROPHILS % (AUTO) 14.6 % (42-75); PLATELET COUNT 362 X10'3 (140-440); RED BLOOD COUNT 2.99 X10'6 (4.70-6.10); RED CELL DISTRIBUTION WIDTH 21.6 % (11.5-14.5); WHITE BLOOD COUNT 9.6 X10'3 (4.5-11.0)
[2020-11-13 11:59] LABS: ALANINE AMINOTRANSFERASE 39 U/L (12-78); ALBUMIN/GLOBULIN RATIO 0.7 (1.1-1.5); ALKALINE PHOSPHATASE 123 IU/L (46-116); ANION GAP 11 (8-16); ASPARTATE AMINO TRANSFERASE 63 U/L (10-37); BILIRUBIN,TOTAL 0.4 MG/DL (0.1-1.0); BLOOD UREA NITROGEN 13 MG/DL (7-18); BUN/CREATININE RATIO 10.9 (5.4-32.0); CALCIUM 8.3 MG/DL (8.5-10.1); CHLORIDE 104 MMOL/L (99-107); CREATININE 1.19 MG/DL (0.60-1.10); GLUCOSE 93 MG/DL (70-104); POTASSIUM 3.7 MMOL/L (3.5-5.1); SODIUM 138 MMOL/L (135-145); TOTAL CARBON DIOXIDE 23.4 MMOL/L (24-32); TOTAL PROTEIN 7.3 G/DL (6.4-8.2); eGFR 62 ML/MIN
[2020-11-13] MEDS ORDERED: normal saline 1000ML IV soln IVB ONE (12:50)
[2020-11-13] MEDS ORDERED: iohexol 300mg/ml 100ml inj. ONE (12:53)
[2020-11-13 13:27] LABS: TOTAL CELLS COUNTED 100
[2020-11-13 13:37] LABS: PLATELET ESTIMATE NORMAL
[2020-11-13 13:38] LABS: ANISOCYTOSIS 3+
[2020-11-13 13:39] LABS: POLYCHROMASIA FEW; SCHISTOCYTES FEW; SMUDGE CELLS 1+; SPHEROCYTES FEW; TARGET CELLS 2+
[2020-11-13 14:17] VITALS: BP 160/95
== END 2020-11-13 15:22 | disposition home or self-care (01) ==
LOC: ER 11:00
DX: D50.0 Iron deficiency anemia secondary to blood loss (chronic) (principal); R51.9 Headache, unspecified; R05 Cough; I10 Essential (primary) hypertension; E03.9 Hypothyroidism, unspecified; G89.29 Other chronic pain; F12.90 Cannabis use, unspecified, uncomplicated; F15.90 Other stimulant use, unspecified, uncomplicated; Z59.0 Homelessness; Z86.73 Personal history of transient ischemic attack (TIA), and cerebral infarction without residual deficits; Z86.69 Personal history of other diseases of the nervous system and sense organs; Z86.2 Personal history of diseases of the blood and blood-forming organs and certain disorders involving the immune mechanism; Z87.442 Personal history of urinary calculi; Z98.890 Other specified postprocedural states; Z72.89 Other problems related to lifestyle; Z56.0 Unemployment, unspecified; Z88.8 Allergy status to other drugs, medicaments and biological substances; Z79.899 Other long term (current) drug therapy
CPT/HCPCS: 36415; 70450; 71045; 74177; 80053; 82948; 85007; 85025; 93005; 96360; 99285; J7030; Q9967

== ENCOUNTER 2020-11-13 21:17 | Emergency (ER) | payer MEDICAID ==
[~2020-11-13] VITALS: Ht 177.8 cm; Wt 78.2 kg
[2020-11-13 21:24] VITALS: BP 154/102
--- NOTE | 2020-11-13 22:18 | NUR ---
he had vomited in triage. It is from all his alcohol he drank.
== END 2020-11-13 22:19 | disposition home or self-care (01) ==
LOC: ER 21:17
DX: Z02.89 Encounter for other administrative examinations (principal); R11.10 Vomiting, unspecified; H57.12 Ocular pain, left eye; M79.672 Pain in left foot; I10 Essential (primary) hypertension; E03.9 Hypothyroidism, unspecified; G89.29 Other chronic pain; F12.90 Cannabis use, unspecified, uncomplicated; F15.90 Other stimulant use, unspecified, uncomplicated; Z86.73 Personal history of transient ischemic attack (TIA), and cerebral infarction without residual deficits; Z86.69 Personal history of other diseases of the nervous system and sense organs; Z86.2 Personal history of diseases of the blood and blood-forming organs and certain disorders involving the immune mechanism; Z87.442 Personal history of urinary calculi; Z98.890 Other specified postprocedural states; Z72.89 Other problems related to lifestyle; Z56.0 Unemployment, unspecified; Z59.0 Homelessness; Z88.8 Allergy status to other drugs, medicaments and biological substances; Z79.899 Other long term (current) drug therapy
CPT/HCPCS: 99284

== ENCOUNTER 2020-11-17 10:08 | Emergency (ER) | payer MEDICAID ==
[~2020-11-17] VITALS: Ht 177.8 cm; Wt 84.0 kg
[~2020-11-17 10:08] MED LIST changes: -DIPH25CA83 PO; -LIDO20SO16 PO; -LORA10TA7 PO; -PERM60CR19 TOP; -TETR15DR84 EACHEYE
--- NOTE | 2020-11-17 10:25 | NUR ---
PATIENT HERE FOR REFILL OF HIS SYNTHROID MEDICATION 150 MCG
--- NOTE | 2020-11-17 10:30 | NUR ---
DISCUSSED WITH MD PLAN OF CARE AND PREVIOUS TSH LABS AND THYROID MEDICATION DOSES. DR MACEDO DOES NOT WANT TO REDRAW LABS AT THIS TIME
[2020-11-17] MEDS ORDERED: ondansetron 4mg rapidly disintigrating tab PO ONE (10:35)
[2020-11-17] MEDS ORDERED: levoTHYROXINE 75mcg tablet PO ONE (10:35)
--- NOTE | 2020-11-17 10:35 | NUR ---
PATIENT STATES THAT HE IS NOT ALLERGIC TO ZOFRAN
[2020-11-17] MEDS ORDERED: LEVO75TA PO (10:38)
[2020-11-17] MEDS ORDERED: ibuprofen tablet 400 MG TABLET PO ONE (10:45)
[2020-11-17 10:54] VITALS: BP 167/110
== END 2020-11-17 10:57 | disposition home or self-care (01) ==
LOC: ER 10:09
DX: Z02.89 Encounter for other administrative examinations (principal); R11.2 Nausea with vomiting, unspecified; E03.9 Hypothyroidism, unspecified; Z76.0 Encounter for issue of repeat prescription
CPT/HCPCS: 99284

== ENCOUNTER 2020-11-18 08:24 | Emergency (ER) | payer MEDICAID ==
[~2020-11-18] VITALS: Ht 177.8 cm; Wt 72.0 kg
[~2020-11-18 08:24] MED LIST changes: +LEVO75TA PO
[2020-11-18] MEDS ORDERED: morphine 4 MG/ML inj SYRINge IV ONE (09:40)
[2020-11-18 10:43] LABS: BASOPHILS # (AUTO) 0.1 X10'3 (0-0.2); EOSINOPHILS # (AUTO) 0.2 X10'3 (0-0.9); EOSINOPHILS % (AUTO) 1.8 % (0-6); MEAN PLATELET VOLUME 7.7 FL (7.4-10.4); NEUTROPHILS # (AUTO) 3.3 X10'3 (1.8-7.7)
[2020-11-18 10:45] LABS: BASOPHILS % (AUTO) 0.7 % (0-1); HEMATOCRIT 26.9 % (42.0-52.0); HEMOGLOBIN 8.4 g/dl (14.0-17.9); LYMPHOCYTES # (AUTO) 6.7 X10'3 (1.1-4.8); LYMPHOCYTES % (AUTO) 59.3 % (21-51); MEAN CORPUSCULAR HEMOGLOBIN 25.6 PG (27.0-31.0); MEAN CORPUSCULAR HGB CONC 31.3 g/dL (33.0-36.5); MEAN CORPUSCULAR VOLUME 81.8 FL (78-98); NEUTROPHILS % (AUTO) 29.2 % (42-75); PLATELET COUNT 271 X10'3 (140-440); RED BLOOD COUNT 3.28 X10'6 (4.70-6.10); RED CELL DISTRIBUTION WIDTH 21.8 % (11.5-14.5); WHITE BLOOD COUNT 11.3 X10'3 (4.5-11.0)
[2020-11-18 11:02] LABS: ALANINE AMINOTRANSFERASE 36 U/L (12-78); ALBUMIN 3.2 G/DL (3.4-5.0); ALBUMIN/GLOBULIN RATIO 0.7 (1.1-1.5); ALKALINE PHOSPHATASE 128 IU/L (46-116); ANION GAP 14 (8-16); ASPARTATE AMINO TRANSFERASE 75 U/L (10-37); BILIRUBIN,TOTAL 0.4 MG/DL (0.1-1.0); BLOOD UREA NITROGEN 9 MG/DL (7-18); CALCIUM 8.7 MG/DL (8.5-10.1); CHLORIDE 101 MMOL/L (99-107); CREATININE 1.12 MG/DL (0.60-1.10); ETHANOL 0.073 GM/DL (0.0-0.010); GLUCOSE 86 MG/DL (70-104); SODIUM 135 MMOL/L (135-145); TOTAL CARBON DIOXIDE 19.9 MMOL/L (24-32); TOTAL PROTEIN 7.9 G/DL (6.4-8.2); eGFR 66 ML/MIN
[2020-11-18 11:29] LABS: PLATELET ESTIMATE NORMAL; TOTAL CELLS COUNTED 100
[2020-11-18 11:30] LABS: ANISOCYTOSIS 3+; SCHISTOCYTES FEW; SPHEROCYTES FEW; TARGET CELLS 2+
[2020-11-18 11:31] LABS: LARGE PLATELETS FEW; SMUDGE CELLS 1+
[2020-11-18 11:51] VITALS: BP 158/99
== END 2020-11-18 12:07 | disposition short-term general hospital (02) ==
LOC: ER 08:26
DX: S01.111A Laceration without foreign body of right eyelid and periocular area, initial encounter (principal); R11.2 Nausea with vomiting, unspecified; H57.11 Ocular pain, right eye; F10.20 Alcohol dependence, uncomplicated; I10 Essential (primary) hypertension; E03.9 Hypothyroidism, unspecified; G89.29 Other chronic pain; F12.90 Cannabis use, unspecified, uncomplicated; F15.90 Other stimulant use, unspecified, uncomplicated; Z86.73 Personal history of transient ischemic attack (TIA), and cerebral infarction without residual deficits; Z86.69 Personal history of other diseases of the nervous system and sense organs; Z86.2 Personal history of diseases of the blood and blood-forming organs and certain disorders involving the immune mechanism; Z87.442 Personal history of urinary calculi; Z98.890 Other specified postprocedural states; Z72.89 Other problems related to lifestyle; Z59.0 Homelessness; Z88.8 Allergy status to other drugs, medicaments and biological substances; Z79.899 Other long term (current) drug therapy; W18.39XA Other fall on same level, initial encounter; Y93.89 Activity, other specified; Y92.89 Other specified places as the place of occurrence of the external cause; Y99.8 Other external cause status; Y90.0 Blood alcohol level of less than 20 mg/100 ml
CPT/HCPCS: 36415; 70450; 70486; 80053; 80320; 85007; 85025; 96374; 99285; J2270

== ENCOUNTER 2021-03-16 16:10 | Emergency (ER) | payer MEDICARE, MEDICAID ==
[~2021-03-16] VITALS: Ht 177.8 cm; Wt 81.8 kg
[~2021-03-16 16:10] MED LIST changes: -LEVO75TA PO
[2021-03-16] MEDS ORDERED: normal saline 1000ML IV soln IV ONE (16:30)
[2021-03-16 17:18] LABS: EOSINOPHILS # (AUTO) 0.1 X10'3 (0-0.9); HEMOGLOBIN 8.8 g/dl (14.0-17.9); MEAN CORPUSCULAR HEMOGLOBIN 28.6 PG (27.0-31.0); RED BLOOD COUNT 3.08 X10'6 (4.70-6.10)
[2021-03-16 17:20] LABS: BASOPHILS # (AUTO) 0.1 X10'3 (0-0.2); BASOPHILS % (AUTO) 0.7 % (0-1); EOSINOPHILS % (AUTO) 0.7 % (0-6); HEMATOCRIT 27.7 % (42.0-52.0); LYMPHOCYTES # (AUTO) 12.6 X10'3 (1.1-4.8); LYMPHOCYTES % (AUTO) 78.4 % (21-51); MEAN CORPUSCULAR HGB CONC 31.8 g/dL (33.0-36.5); MEAN PLATELET VOLUME 6.9 FL (7.4-10.4); MONOCYTES # (AUTO) 0.9 X10'3 (0-0.9); MONOCYTES % (AUTO) 5.7 % (2-12); NEUTROPHILS # (AUTO) 2.3 X10'3 (1.8-7.7); NEUTROPHILS % (AUTO) 14.5 % (42-75); PLATELET COUNT 414 X10'3 (140-440); RED CELL DISTRIBUTION WIDTH 19.3 % (11.5-14.5)
[2021-03-16 17:24] VITALS: BP 108/67
[2021-03-16 17:44] LABS: ALANINE AMINOTRANSFERASE 47 U/L (12-78); ALBUMIN 3.4 G/DL (3.4-5.0); ALBUMIN/GLOBULIN RATIO 0.8 (1.1-1.5); ALKALINE PHOSPHATASE 122 IU/L (46-116); ANION GAP 14 (8-16); ASPARTATE AMINO TRANSFERASE 82 U/L (10-37); BILIRUBIN,TOTAL 0.3 MG/DL (0.1-1.0); BLOOD UREA NITROGEN 11 MG/DL (7-18); BUN/CREATININE RATIO 7.1 (5.4-32.0); CALCIUM 7.9 MG/DL (8.5-10.1); CHLORIDE 104 MMOL/L (99-107); CREATININE 1.55 MG/DL (0.60-1.10); GLUCOSE 108 MG/DL (70-104); MAGNESIUM 2.1 MG/DL (1.5-2.4); POTASSIUM 3.9 MMOL/L (3.5-5.1); SODIUM 138 MMOL/L (135-145); TOTAL PROTEIN 7.9 G/DL (6.4-8.2); eGFR 45 ML/MIN
[2021-03-16 18:21] LABS: ETHANOL 0.367 GM/DL (0.0-0.010)
--- NOTE | 2021-03-16 18:24 | NUR ---
Assumed care of patient- he is currently sitting up on edge of stretcher. Urine sample has been collected and sent.
[2021-03-16 18:30] LABS: CLARITY,URINE CLEAR (Clear); COLOR,URINE STRAW (Yellow); GLUCOSE, URINE NEGATIVE (Neg); KETONES,URINE NEGATIVE (Neg); LEUKOCYTE ESTERASE ,URINE NEGATIVE (Neg); NITRITES, URINE NEGATIVE (Neg); OCCULT BLOOD,URINE NEGATIVE (Neg); PROTEIN,URINE NEGATIVE (Neg); UROBILINOGEN,URINE 0.2 E.U/dL (0.2-1.0)
[2021-03-16 18:41] LABS: UA COLLECTION TYPE CLN CATCH MIDSTREAM
[2021-03-16 18:43] LABS: URINE AMPHETAMINE SCREEN NEGATIVE (Neg); URINE BARBITUATE SCREEN NEGATIVE (Neg); URINE BENZODIAZEPINES SCREEN NEGATIVE (Neg); URINE CANNABINOID SCREEN NEGATIVE (Neg); URINE COCAINE SCREEN NEGATIVE (Neg); URINE METHADONE SCREEN NEGATIVE (Neg); URINE OPIATE SCREEN NEGATIVE (Neg); URINE PHENCYCLIDINE SCREEN NEGATIVE (Neg)
== END 2021-03-16 18:38 | disposition home or self-care (01) ==
LOC: ER 16:11
DX: I95.9 Hypotension, unspecified (principal); F10.129 Alcohol abuse with intoxication, unspecified; D72.829 Elevated white blood cell count, unspecified; I10 Essential (primary) hypertension; E03.9 Hypothyroidism, unspecified; G89.29 Other chronic pain; F12.90 Cannabis use, unspecified, uncomplicated; F15.90 Other stimulant use, unspecified, uncomplicated; Z72.89 Other problems related to lifestyle; Z86.73 Personal history of transient ischemic attack (TIA), and cerebral infarction without residual deficits; Z86.69 Personal history of other diseases of the nervous system and sense organs; Z86.2 Personal history of diseases of the blood and blood-forming organs and certain disorders involving the immune mechanism; Z87.442 Personal history of urinary calculi; Z98.890 Other specified postprocedural states; Z56.0 Unemployment, unspecified; Z59.0 Homelessness; Z88.8 Allergy status to other drugs, medicaments and biological substances; Z79.899 Other long term (current) drug therapy
CPT/HCPCS: 36415; 71045; 80053; 80305; 80320; 81003; 83605; 83735; 84145; 85025; 87040; 93005; 96360; 96361; 99285; J7030

== ENCOUNTER 2021-03-17 06:39 | Emergency (ER) | payer MEDICARE, MEDICAID | END 2021-03-17 08:15 | disposition left against medical advice (07) | LOC: ER 06:40 | DX: H57.89 Other specified disorders of eye and adnexa (principal); Z53.21 Procedure and treatment not carried out due to patient leaving prior to being seen by health care provider ==

== ENCOUNTER 2021-03-18 05:03 | Emergency (ER) | payer MEDICARE, MEDICAID ==
[~2021-03-18] VITALS: Ht 177.8 cm; Wt 81.8 kg
[2021-03-18 05:12] VITALS: BP 148/105
== END 2021-03-18 08:42 | disposition home or self-care (01) ==
LOC: ER 05:03
DX: S16.1XXA Strain of muscle, fascia and tendon at neck level, initial encounter (principal); S00.81XA Abrasion of other part of head, initial encounter; S09.90XA Unspecified injury of head, initial encounter; E03.9 Hypothyroidism, unspecified; G89.29 Other chronic pain; G40.909 Epilepsy, unspecified, not intractable, without status epilepticus; I10 Essential (primary) hypertension; Z72.89 Other problems related to lifestyle; Z79.899 Other long term (current) drug therapy; Z86.2 Personal history of diseases of the blood and blood-forming organs and certain disorders involving the immune mechanism; Z87.442 Personal history of urinary calculi; Z87.81 Personal history of (healed) traumatic fracture; Z56.0 Unemployment, unspecified; Z59.0 Homelessness; Z98.890 Other specified postprocedural states; W19.XXXA Unspecified fall, initial encounter; Z91.81 History of falling; Y93.89 Activity, other specified; Y92.89 Other specified places as the place of occurrence of the external cause; Y99.8 Other external cause status
CPT/HCPCS: 70450; 72125; 99285

== ENCOUNTER 2021-03-21 07:06 | Emergency (ER) | payer MEDICARE, MEDICAID ==
[~2021-03-21] VITALS: Ht 177.8 cm; Wt 77.0 kg
[2021-03-21 07:07] VITALS: BP 139/94
[2021-03-21] MEDS ORDERED: LEVO150T PO (07:36)
== END 2021-03-21 07:43 | disposition home or self-care (01) ==
LOC: ER 07:07
DX: E03.9 Hypothyroidism, unspecified (principal); R46.0 Very low level of personal hygiene; G40.909 Epilepsy, unspecified, not intractable, without status epilepticus; I10 Essential (primary) hypertension; G89.29 Other chronic pain; F12.90 Cannabis use, unspecified, uncomplicated; F15.90 Other stimulant use, unspecified, uncomplicated; Z76.0 Encounter for issue of repeat prescription; Z87.81 Personal history of (healed) traumatic fracture; Z86.73 Personal history of transient ischemic attack (TIA), and cerebral infarction without residual deficits; Z86.2 Personal history of diseases of the blood and blood-forming organs and certain disorders involving the immune mechanism; Z87.442 Personal history of urinary calculi; Z98.890 Other specified postprocedural states; Z90.89 Acquired absence of other organs; Z56.0 Unemployment, unspecified; Z59.0 Homelessness; Z88.8 Allergy status to other drugs, medicaments and biological substances; Z79.899 Other long term (current) drug therapy
CPT/HCPCS: 99281

== ENCOUNTER 2021-03-21 11:38 | Emergency (ER) | payer MEDICARE, MEDICAID ==
[~2021-03-21] VITALS: Ht 177.8 cm; Wt 85.0 kg
[2021-03-21 15:39] VITALS: BP 145/70
== END 2021-03-21 15:54 | disposition home or self-care (01) ==
LOC: ER 11:38
DX: F10.129 Alcohol abuse with intoxication, unspecified (principal); R07.89 Other chest pain; R06.02 Shortness of breath; G40.909 Epilepsy, unspecified, not intractable, without status epilepticus; E03.9 Hypothyroidism, unspecified; G89.29 Other chronic pain; F12.90 Cannabis use, unspecified, uncomplicated; F15.90 Other stimulant use, unspecified, uncomplicated; Z87.81 Personal history of (healed) traumatic fracture; Z86.73 Personal history of transient ischemic attack (TIA), and cerebral infarction without residual deficits; Z86.2 Personal history of diseases of the blood and blood-forming organs and certain disorders involving the immune mechanism; Z98.890 Other specified postprocedural states; Z90.89 Acquired absence of other organs; Z56.0 Unemployment, unspecified; Z59.0 Homelessness; Z88.8 Allergy status to other drugs, medicaments and biological substances; Z79.899 Other long term (current) drug therapy; Y90.9 Presence of alcohol in blood, level not specified
CPT/HCPCS: 93005; 99284

== ENCOUNTER 2021-03-26 03:41 | Emergency (ER) | payer MEDICARE, MEDICAID ==
[~2021-03-26] VITALS: Ht 177.8 cm; Wt 87.0 kg
[2021-03-26 03:47] VITALS: BP 144/97
--- NOTE | 2021-03-26 04:06 | NUR ---
[facility] of pt[facility]
== END 2021-03-26 04:28 | disposition left against medical advice (07) ==
LOC: ER 03:42
DX: F10.20 Alcohol dependence, uncomplicated (principal); Z53.21 Procedure and treatment not carried out due to patient leaving prior to being seen by health care provider; Y90.9 Presence of alcohol in blood, level not specified
CPT/HCPCS: 99284

== ENCOUNTER 2021-03-31 12:28 | Emergency (ER) | payer MEDICARE, MEDICAID ==
[~2021-03-31] VITALS: Ht 177.8 cm; Wt 81.8 kg
[2021-03-31] MEDS ORDERED: normal saline 1000ML IV soln IVB ONE (13:10)
[2021-03-31] MEDS ORDERED: ondansetron/PF 4mg/2ml inj IM ONE (13:30)
[2021-03-31] MEDS ORDERED: thiamine inj. 100 MG in normal saline 100ml IV soln 99 ML IV ONE (13:40)
[2021-03-31] MEDS ORDERED: thiamine inj. 100 MG in normal saline 100ml IV soln 100 ML IV ONE (13:40)
--- NOTE | 2021-03-31 13:54 | NUR ---
Pt. reports not allergic to ondansetron, only has had nausea associated with taking the medication
[2021-03-31] MEDS ORDERED: ondansetron/PF 4mg/2ml inj IV ONE (14:00)
[2021-03-31 14:41] LABS: BASOPHILS % (AUTO) 0.5 % (0-1); EOSINOPHILS % (AUTO) 0.2 % (0-6); HEMATOCRIT 25.4 % (42.0-52.0); HEMOGLOBIN 8.3 g/dl (14.0-17.9); LYMPHOCYTES # (AUTO) 4.1 X10'3 (1.1-4.8); LYMPHOCYTES % (AUTO) 50.5 % (21-51); MEAN CORPUSCULAR HEMOGLOBIN 29.5 PG (27.0-31.0); MEAN CORPUSCULAR HGB CONC 32.7 g/dL (33.0-36.5); MEAN CORPUSCULAR VOLUME 90.2 FL (78-98); MEAN PLATELET VOLUME 7.7 FL (7.4-10.4); MONOCYTES # (AUTO) 0.9 X10'3 (0-0.9); MONOCYTES % (AUTO) 11.2 % (2-12); NEUTROPHILS % (AUTO) 37.6 % (42-75); PLATELET COUNT 167 X10'3 (140-440); RED BLOOD COUNT 2.82 X10'6 (4.70-6.10); RED CELL DISTRIBUTION WIDTH 21.5 % (11.5-14.5)
[2021-03-31 14:43] LABS: URINE AMPHETAMINE SCREEN POSITIVE (Neg); URINE BARBITUATE SCREEN NEGATIVE (Neg); URINE BENZODIAZEPINES SCREEN NEGATIVE (Neg); URINE CANNABINOID SCREEN NEGATIVE (Neg); URINE COCAINE SCREEN POSITIVE (Neg); URINE METHADONE SCREEN NEGATIVE (Neg); URINE OPIATE SCREEN NEGATIVE (Neg); URINE PHENCYCLIDINE SCREEN NEGATIVE (Neg)
[2021-03-31 14:45] LABS: ALANINE AMINOTRANSFERASE 31 U/L (12-78); ALBUMIN 3.3 G/DL (3.4-5.0); ALBUMIN/GLOBULIN RATIO 0.7 (1.1-1.5); ALKALINE PHOSPHATASE 146 IU/L (46-116); ANION GAP 16 (8-16); ASPARTATE AMINO TRANSFERASE 59 U/L (10-37); BILIRUBIN,TOTAL 0.4 MG/DL (0.1-1.0); BLOOD UREA NITROGEN 31 MG/DL (7-18); BUN/CREATININE RATIO 23.1 (5.4-32.0); CALCIUM 7.5 MG/DL (8.5-10.1); CHLORIDE 101 MMOL/L (99-107); CREATININE 1.34 MG/DL (0.60-1.10); GLUCOSE 93 MG/DL (70-104); POTASSIUM 3.3 MMOL/L (3.5-5.1); SODIUM 140 MMOL/L (135-145); TOTAL CARBON DIOXIDE 23.3 MMOL/L (24-32); TOTAL PROTEIN 7.8 G/DL (6.4-8.2); eGFR 53 ML/MIN
[2021-03-31] MEDS ORDERED: potassium Cl 20 mEq SR tablet PO STA (15:12)
[2021-03-31] MEDS ORDERED: LORazepam 1 MG tablet PO ONE (15:35)
[2021-03-31 16:43] VITALS: BP 161/89
== END 2021-03-31 16:42 | disposition home or self-care (01) ==
LOC: ER 12:30
DX: F10.129 Alcohol abuse with intoxication, unspecified (principal); E87.6 Hypokalemia; D64.9 Anemia, unspecified; G40.909 Epilepsy, unspecified, not intractable, without status epilepticus; I10 Essential (primary) hypertension; G89.29 Other chronic pain; F12.90 Cannabis use, unspecified, uncomplicated; F15.90 Other stimulant use, unspecified, uncomplicated; Z86.73 Personal history of transient ischemic attack (TIA), and cerebral infarction without residual deficits; Z59.0 Homelessness; Z87.442 Personal history of urinary calculi; Z87.81 Personal history of (healed) traumatic fracture; Z90.89 Acquired absence of other organs; Z98.890 Other specified postprocedural states; Z56.0 Unemployment, unspecified; Z88.8 Allergy status to other drugs, medicaments and biological substances; Z79.899 Other long term (current) drug therapy; Y90.6 Blood alcohol level of 120-199 mg/100 ml
CPT/HCPCS: 36415; 71045; 80053; 80305; 80320; 83735; 83880; 84484; 85025; 93005; 96361; 96365; 96366; 96375; 99285; J2405; J3411; J7030; 96372

== ENCOUNTER 2021-04-08 09:46 | Emergency (ER) | payer MEDICARE, MEDICAID ==
[~2021-04-08] VITALS: Ht 177.8 cm; Wt 77.3 kg
[2021-04-08 09:52] VITALS: BP 131/83
[2021-04-08] MEDS ORDERED: LEVO150T8 PO (10:07)
[2021-04-08] MEDS ORDERED: SULF1TAB45 PO (10:15)
--- NOTE | 2021-04-08 10:26 | NUR ---
Patient seen, assessed and discharged by provider. This RN had no patient contact.
== END 2021-04-08 10:27 | disposition home or self-care (01) ==
LOC: ER 09:48
DX: L03.113 Cellulitis of right upper limb (principal); I10 Essential (primary) hypertension; E03.9 Hypothyroidism, unspecified; G89.29 Other chronic pain; F12.90 Cannabis use, unspecified, uncomplicated; F15.90 Other stimulant use, unspecified, uncomplicated; Z76.0 Encounter for issue of repeat prescription; Z86.73 Personal history of transient ischemic attack (TIA), and cerebral infarction without residual deficits; Z86.69 Personal history of other diseases of the nervous system and sense organs; Z86.2 Personal history of diseases of the blood and blood-forming organs and certain disorders involving the immune mechanism; Z87.442 Personal history of urinary calculi; Z98.890 Other specified postprocedural states; Z72.89 Other problems related to lifestyle; Z56.0 Unemployment, unspecified; Z59.0 Homelessness; Z88.8 Allergy status to other drugs, medicaments and biological substances; Z79.2 Long term (current) use of antibiotics; Z79.899 Other long term (current) drug therapy
CPT/HCPCS: 99283

== ENCOUNTER 2021-04-09 04:40 | Emergency (ER) | payer MEDICARE, MEDICAID ==
[~2021-04-09] VITALS: Ht 177.8 cm; Wt 81.8 kg
[~2021-04-09 04:40] MED LIST changes: +LEVO150T8 PO; +SULF1TAB45 PO
[2021-04-09] MEDS: mupirocin 2% ointment 22GM TP ONE (05:25)
[2021-04-09] MEDS ORDERED: epiNEPHrine inj 0.3 MG in LIDOcaine 1% 30ml vial 29.7 ML IJ ONE (06:50)
[2021-04-09] MEDS ORDERED: LIDOcaine 1% W/epiNEPHrine 1:200,000 10ml vial IJ ONE (07:35)
--- NOTE | 2021-04-09 07:45 | NUR ---
Lidocaine is out of stock, pharmacy to restock.
[2021-04-09 08:22] LABS: ALBUMIN 3.3 G/DL (3.4-5.0); ANION GAP 12 (8-16); BLOOD UREA NITROGEN 13 MG/DL (7-18); BUN/CREATININE RATIO 11.6 (5.4-32.0); CALCIUM 7.6 MG/DL (8.5-10.1); CHLORIDE 102 MMOL/L (99-107); CREATININE 1.12 MG/DL (0.60-1.10); GLUCOSE 81 MG/DL (70-104); POTASSIUM 3.6 MMOL/L (3.5-5.1); SODIUM 139 MMOL/L (135-145); TOTAL CARBON DIOXIDE 25.3 MMOL/L (24-32); eGFR 66 ML/MIN
[2021-04-09 08:26] LABS: PARTIAL THROMBOPLASTIN TIME 31 SECONDS (22-32)
[2021-04-09] MEDS ORDERED: LIDOcaine 1% W/epiNEPHrine 1:100,000 20ml vial IJ ONE (08:30)
[2021-04-09 09:12] LABS: BASOPHILS # (AUTO) 0.1 X10'3 (0-0.2); BASOPHILS % (AUTO) 1.2 % (0-1); EOSINOPHILS # (AUTO) 0.2 X10'3 (0-0.9); EOSINOPHILS % (AUTO) 1.8 % (0-6); HEMATOCRIT 25.2 % (42.0-52.0); HEMOGLOBIN 8.4 g/dl (14.0-17.9); LYMPHOCYTES # (AUTO) 5.1 X10'3 (1.1-4.8); MEAN CORPUSCULAR HEMOGLOBIN 29.8 PG (27.0-31.0); MEAN CORPUSCULAR HGB CONC 33.2 g/dL (33.0-36.5); MEAN CORPUSCULAR VOLUME 89.7 FL (78-98); MEAN PLATELET VOLUME 7.8 FL (7.4-10.4); MONOCYTES # (AUTO) 0.9 X10'3 (0-0.9); MONOCYTES % (AUTO) 10.4 % (2-12); NEUTROPHILS # (AUTO) 2.4 X10'3 (1.8-7.7); NEUTROPHILS % (AUTO) 27.6 % (42-75); PLATELET COUNT 199 X10'3 (140-440); RED BLOOD COUNT 2.81 X10'6 (4.70-6.10); RED CELL DISTRIBUTION WIDTH 22.1 % (11.5-14.5); WHITE BLOOD COUNT 8.7 X10'3 (4.5-11.0)
[2021-04-09] MEDS ORDERED: TETanus/Pertussis (Acell)/Diphther VAC/PF (Tdap-Adult) 0.5ml syringe IMVAC ONE (10:35)
[2021-04-09 10:40] LABS: ANISOCYTOSIS 3+; PLATELET ESTIMATE NORMAL
[2021-04-09 10:41] LABS: GIANT PLATELET FEW; HYPOCHROMASIA 1+; LARGE PLATELETS MODERATE; POIKILOCYTOSIS 1+; SCHISTOCYTES FEW; TARGET CELLS 1+
[2021-04-09 11:28] VITALS: BP 142/64
== END 2021-04-09 11:30 | disposition home or self-care (01) ==
LOC: ER 04:41
DX: S02.119A Unspecified fracture of occiput, initial encounter for closed fracture (principal); S01.112A Laceration without foreign body of left eyelid and periocular area, initial encounter; R06.02 Shortness of breath; R05 Cough; M25.512 Pain in left shoulder; I10 Essential (primary) hypertension; E03.9 Hypothyroidism, unspecified; G89.29 Other chronic pain; F17.200 Nicotine dependence, unspecified, uncomplicated; F12.90 Cannabis use, unspecified, uncomplicated; F15.90 Other stimulant use, unspecified, uncomplicated; Z86.73 Personal history of transient ischemic attack (TIA), and cerebral infarction without residual deficits; Z86.69 Personal history of other diseases of the nervous system and sense organs; Z86.2 Personal history of diseases of the blood and blood-forming organs and certain disorders involving the immune mechanism; Z20.3 Contact with and (suspected) exposure to rabies; Z87.442 Personal history of urinary calculi; Z98.890 Other specified postprocedural states; Z72.89 Other problems related to lifestyle; Z56.0 Unemployment, unspecified; Z59.0 Homelessness; Z88.8 Allergy status to other drugs, medicaments and biological substances; Z79.2 Long term (current) use of antibiotics; Z79.899 Other long term (current) drug therapy; W19.XXXA Unspecified fall, initial encounter; Y93.89 Activity, other specified; Y92.89 Other specified places as the place of occurrence of the external cause; Y99.8 Other external cause status
CPT/HCPCS: 12011; 36415; 70450; 71046; 72125; 73030; 80048; 85008; 85025; 85610; 85730; 90471; 90715; 99285

== ENCOUNTER 2021-04-09 22:39 | Emergency (ER) | payer MEDICARE, MEDICAID ==
[~2021-04-09] VITALS: Ht 177.8 cm; Wt 81.8 kg
[2021-04-09 22:43] VITALS: BP 145/88
[2021-04-10] MEDS ORDERED: proparacaine 0.5% ophthalmic drops 15ml EACHEYE ONE (04:05)
[2021-04-11] MEDS ORDERED: PANT-47 PO (12:08)
== END 2021-04-10 04:31 | disposition home or self-care (01) ==
LOC: ER 22:40
DX: H10.33 Unspecified acute conjunctivitis, bilateral (principal); I10 Essential (primary) hypertension; E03.9 Hypothyroidism, unspecified; G89.29 Other chronic pain; F12.90 Cannabis use, unspecified, uncomplicated; F15.90 Other stimulant use, unspecified, uncomplicated; Z86.73 Personal history of transient ischemic attack (TIA), and cerebral infarction without residual deficits; Z86.69 Personal history of other diseases of the nervous system and sense organs; Z86.2 Personal history of diseases of the blood and blood-forming organs and certain disorders involving the immune mechanism; Z87.442 Personal history of urinary calculi; Z98.890 Other specified postprocedural states; Z72.89 Other problems related to lifestyle; Z56.0 Unemployment, unspecified; Z59.0 Homelessness; Z88.8 Allergy status to other drugs, medicaments and biological substances; Z79.899 Other long term (current) drug therapy
CPT/HCPCS: 99283

== ENCOUNTER 2021-04-10 13:01 | Inpatient (IN) | payer MEDICARE, MEDICAID ==
[~2021-04-10] VITALS: Ht 177.8 cm; Wt 81.8 kg
[2021-04-10 14:52] LABS: BASOPHILS # (AUTO) 0.1 X10'3 (0-0.2); HEMOGLOBIN 7.1 g/dl (14.0-17.9); NEUTROPHILS # (AUTO) 2.5 X10'3 (1.8-7.7)
[2021-04-10 14:54] LABS: BASOPHILS % (AUTO) 0.9 % (0-1); EOSINOPHILS # (AUTO) 0.1 X10'3 (0-0.9); EOSINOPHILS % (AUTO) 0.5 % (0-6); LYMPHOCYTES # (AUTO) 9.1 X10'3 (1.1-4.8); LYMPHOCYTES % (AUTO) 72.4 % (21-51); MEAN CORPUSCULAR HEMOGLOBIN 29.6 PG (27.0-31.0); MEAN CORPUSCULAR HGB CONC 32.7 g/dL (33.0-36.5); MEAN CORPUSCULAR VOLUME 90.7 FL (78-98); MONOCYTES # (AUTO) 0.8 X10'3 (0-0.9); MONOCYTES % (AUTO) 6.3 % (2-12); NEUTROPHILS % (AUTO) 19.9 % (42-75); PLATELET COUNT 180 X10'3 (140-440); RED BLOOD COUNT 2.41 X10'6 (4.70-6.10); RED CELL DISTRIBUTION WIDTH 22.1 % (11.5-14.5); WHITE BLOOD COUNT 12.5 X10'3 (4.5-11.0)
[2021-04-10 14:59] LABS: HEMATOCRIT 21.9 % (42.0-52.0)
--- NOTE | 2021-04-10 15:01 | NUR ---
hgb 7.1, hct 21.9. reported to jovon thorpe and edgard hook
[2021-04-10 15:05] LABS: ALANINE AMINOTRANSFERASE 35 U/L (12-78); ALBUMIN/GLOBULIN RATIO 0.7 (1.1-1.5); ALKALINE PHOSPHATASE 148 IU/L (46-116); ANION GAP 13 (8-16); ASPARTATE AMINO TRANSFERASE 84 U/L (10-37); BILIRUBIN,TOTAL 0.5 MG/DL (0.1-1.0); BLOOD UREA NITROGEN 12 MG/DL (7-18); BUN/CREATININE RATIO 10.3 (5.4-32.0); CALCIUM 7.2 MG/DL (8.5-10.1); CHLORIDE 95 MMOL/L (99-107); CREATININE 1.16 MG/DL (0.60-1.10); GLUCOSE 86 MG/DL (70-104); POTASSIUM 3.4 MMOL/L (3.5-5.1); SODIUM 130 MMOL/L (135-145); TOTAL CARBON DIOXIDE 22.4 MMOL/L (24-32); TOTAL PROTEIN 7.4 G/DL (6.4-8.2); eGFR 63 ML/MIN
[2021-04-10 15:20] LABS: NUCLEATED RED BLOOD CELLS 1 /100WBC (0-0); TOTAL CELLS COUNTED 100
[2021-04-10 15:22] LABS: SMUDGE CELLS FEW
[2021-04-10 15:23] LABS: ANISOCYTOSIS 3+; HYPOCHROMASIA 1+; PLATELET ESTIMATE NORMAL; POLYCHROMASIA 1+; SCHISTOCYTES FEW
[2021-04-10 15:24] LABS: LARGE PLATELETS FEW; TARGET CELLS 2+
[2021-04-10 15:28] LABS: URINE AMPHETAMINE SCREEN NEGATIVE (Neg); URINE BARBITUATE SCREEN NEGATIVE (Neg); URINE BENZODIAZEPINES SCREEN NEGATIVE (Neg); URINE CANNABINOID SCREEN NEGATIVE (Neg); URINE COCAINE SCREEN NEGATIVE (Neg); URINE METHADONE SCREEN NEGATIVE (Neg); URINE OPIATE SCREEN NEGATIVE (Neg); URINE PHENCYCLIDINE SCREEN NEGATIVE (Neg)
[2021-04-10] MEDS ORDERED: pantoprazole 40 MG vial IV ONE (16:35)
[2021-04-10 16:56] LABS: PARTIAL THROMBOPLASTIN TIME 31 SECONDS (22-32)
[2021-04-10] MEDS ORDERED: HYDROcodone/acetaminophen 5mg/325mg tablet PO PRN (17:45)
[2021-04-10] MEDS ORDERED: potassium Cl 40MEQ/1/2NS 520ml 520 ML IV PRN ×2 (17:45)
[2021-04-10] MEDS ORDERED: acetaminophen 325mg tablet PO PRN ×2 (17:45)
[2021-04-10] MEDS ORDERED: haloperidol lactate 5mg/ml inj IM PRN (17:45)
[2021-04-10] MEDS ORDERED: haloperidol 5mg tablet PO PRN (17:45)
[2021-04-10] MEDS ORDERED: magnesium 2GM in 50ml NS 50 ML IV PRN (17:45)
[2021-04-10] MEDS ORDERED: HYDROcodone/acetaminophen 10/325mg tab PO PRN (17:45)
[2021-04-10] MEDS ORDERED: potassium Cl 20 mEq SR tablet PO PRN ×2 (17:45)
[2021-04-10] MEDS ORDERED: proCHLORperazine 10 MG/2 ml inj IV PRN (17:45)
[2021-04-10] MEDS ORDERED: magnesium 4gm in 100ml NS 100 ML IV PRN (17:45)
[2021-04-10] MEDS: pantoprazole 40MG/NS 100ML BAG 100 ML IV SCH ×2 (18:43→23:25)
--- NOTE | 2021-04-10 19:45 | NUR ---
Received report from Neelima TRAN from ED, patient came up via a gurney. Able to ambulate with assistance to bed. Bed placed in locked and low position. Call light placed within reach. Bed alarm placed.
[2021-04-10 20:00] VITALS: BP 118/78
[2021-04-10 21:00] LABS: HEMOGLOBIN 7.6 g/dl (14.0-17.9); MEAN CORPUSCULAR HEMOGLOBIN 29.9 PG (27.0-31.0); MEAN CORPUSCULAR VOLUME 90.6 FL (78-98); PLATELET COUNT 189 X10'3 (140-440); RED BLOOD COUNT 2.54 X10'6 (4.70-6.10); WHITE BLOOD COUNT 8.7 X10'3 (4.5-11.0)
--- NOTE | 2021-04-10 21:07 | NUR ---
Patient requesting Synthroid medication, patient states, "I haven't taken it in 10 days." MD called and no new orders. Will start medication tomorrow AM.
[2021-04-10] MEDS: docusate sod 100mg capsule PO SCH (21:14)
[2021-04-10] MEDS: K and/or MAG REPLACEMENT MC SCH (21:14)
[2021-04-10 22:00] VITALS: BP 121/62
[2021-04-11] VITALS (12 sets, daily range): BP systolic 140–180; BP diastolic 82–109
[2021-04-11] MEDS: LORazepam 2 mg/ml vial IV PRN ×2 (03:54→10:48)
[2021-04-11 04:32] LABS: HEMATOCRIT 23.3 % (42.0-52.0); HEMOGLOBIN 7.5 g/dl (14.0-17.9); MEAN CORPUSCULAR HEMOGLOBIN 29.4 PG (27.0-31.0); MEAN CORPUSCULAR HGB CONC 32.1 g/dL (33.0-36.5); MEAN CORPUSCULAR VOLUME 91.4 FL (78-98); MEAN PLATELET VOLUME 8.1 FL (7.4-10.4); PLATELET COUNT 185 X10'3 (140-440); RED BLOOD COUNT 2.54 X10'6 (4.70-6.10); RED CELL DISTRIBUTION WIDTH 22.1 % (11.5-14.5)
[2021-04-11] MEDS: pantoprazole 40MG/NS 100ML BAG 100 ML IV SCH ×3 (04:37→11:00)
[2021-04-11 06:15] LABS: OCCULT BLOOD STOOL POSITIVE (Neg)
--- NOTE | 2021-04-11 06:24 | NUR ---
Problems reprioritized. Patient report given, questions answered & plan of care reviewed with Suzy TRAN.
--- NOTE | 2021-04-11 06:37 | NUR ---
Patient in room [facility]TH[facility] 4010. I have received report from ronny sigala and had the opportunity to ask questions and assume patient care.
[2021-04-11] MEDS ORDERED: levoTHYROXINE 75mcg tablet PO SCH (07:00)
[2021-04-11] MEDS: docusate sod 100mg capsule PO SCH (07:14)
[2021-04-11 07:15] LABS: ALANINE AMINOTRANSFERASE 36 U/L (12-78); ALBUMIN 3.1 G/DL (3.4-5.0); ALBUMIN/GLOBULIN RATIO 0.7 (1.1-1.5); ALKALINE PHOSPHATASE 168 IU/L (46-116); AMYLASE 27 U/L (25-115); ANION GAP 12 (8-16); ASPARTATE AMINO TRANSFERASE 75 U/L (10-37); BILIRUBIN,TOTAL 0.6 MG/DL (0.1-1.0); BLOOD UREA NITROGEN 10 MG/DL (7-18); BUN/CREATININE RATIO 9.4 (5.4-32.0); CALCIUM 7.7 MG/DL (8.5-10.1); CHLORIDE 103 MMOL/L (99-107); CREATININE 1.06 MG/DL (0.60-1.10); GLUCOSE 84 MG/DL (70-104); LIPASE 107 U/L (73-393); MAGNESIUM 1.8 MG/DL (1.5-2.4); PHOSPHORUS 3.1 MG/DL (2.3-4.5); POTASSIUM 4.1 MMOL/L (3.5-5.1); SODIUM 136 MMOL/L (135-145); TOTAL CARBON DIOXIDE 21.4 MMOL/L (24-32); TOTAL PROTEIN 7.6 G/DL (6.4-8.2); eGFR 70 ML/MIN
[2021-04-11] MEDS: K and/or MAG REPLACEMENT MC SCH (07:23)
[2021-04-11] MEDS ORDERED: MIDAZolam 1 MG/ML 5ML VIAL ONE (07:44)
[2021-04-11] MEDS ORDERED: fentaNYL/PF 50MCG/1 ML 2ML syringe ONE (07:44)
[2021-04-11] MEDS ORDERED: LIDOcaine Viscous 15ml cup ONE (07:44)
[2021-04-11] MEDS ORDERED: thiamine 100mg tablet PO SCH (08:00)
[2021-04-11] MEDS ORDERED: folic acid 1mg tablet PO SCH (08:00)
[2021-04-11] MEDS ORDERED: multivitamins, therapeutics tablet PO SCH (08:00)
--- NOTE | 2021-04-11 10:26 | NUR ---
PAGER ID: [phone] MESSAGE: Suzy sigala [phone] RE: Fernando Avitia [id number]. EDg complete. Full liquid diet recommended. May pt eat? Thank you
[2021-04-11 12:02] LABS: HEMATOCRIT 23.7 % (42.0-52.0); HEMOGLOBIN 7.8 g/dl (14.0-17.9); MEAN CORPUSCULAR HGB CONC 33.1 g/dL (33.0-36.5); MEAN CORPUSCULAR VOLUME 90.7 FL (78-98); MEAN PLATELET VOLUME 8.3 FL (7.4-10.4); PLATELET COUNT 180 X10'3 (140-440); RED BLOOD COUNT 2.61 X10'6 (4.70-6.10); RED CELL DISTRIBUTION WIDTH 21.8 % (11.5-14.5); WHITE BLOOD COUNT 9.6 X10'3 (4.5-11.0)
[2021-04-11] MEDS ORDERED: PANT-47 PO (12:08)
--- NOTE | 2021-04-11 14:59 | NUR ---
Pt discharged at 1406. Pt belongings sent with pt. iv's removed, tips intact, no complications. Education provided on follow up and importance of stopping drinking. Pt was given bus token. Pt was transported via wheelchair to bus stop bench outside ER. Pt discharged in stable condition.
[2021-04-11] MEDS ORDERED: pantoprazole 40mg Tablet.DR PO SCH (20:00)
[2021-04-12] MEDS ORDERED: LORazepam 2 mg/ml vial IV PRN (17:45)
[2021-04-12] MEDS ORDERED: LORazepam 1 MG tablet PO PRN (17:45)
[2021-04-14] MEDS ORDERED: LORazepam 2 mg/ml vial IV PRN (17:45)
[2021-04-14] MEDS ORDERED: LORazepam 1 MG tablet PO PRN (17:45)
== END 2021-04-11 14:06 | disposition home or self-care (01) | DRG 381 ==
LOC: ER 13:01 → ED HOLD 17:55 → EDBEDREQ 19:40 → ORTHO 4S 19:55
PROVIDERS: ADMIT Family Medicine; ATTEND Family Medicine
PROC: 0DB58ZX Excision of Esophagus, Via Natural or Artificial Opening Endoscopic, Diagnostic (ICD-10-PCS; principal; 2021-04-11)
PROC: 0DB68ZX Excision of Stomach, Via Natural or Artificial Opening Endoscopic, Diagnostic (ICD-10-PCS; 2021-04-11)
DX: K22.11 Ulcer of esophagus with bleeding (principal); E87.1 Hypo-osmolality and hyponatremia; D72.823 Leukemoid reaction; F10.229 Alcohol dependence with intoxication, unspecified; F12.90 Cannabis use, unspecified, uncomplicated; F17.210 Nicotine dependence, cigarettes, uncomplicated; G89.29 Other chronic pain; M54.9 Dorsalgia, unspecified; R19.5 Other fecal abnormalities; G40.909 Epilepsy, unspecified, not intractable, without status epilepticus; E89.0 Postprocedural hypothyroidism; E86.0 Dehydration; K29.70 Gastritis, unspecified, without bleeding; K22.2 Esophageal obstruction; D50.0 Iron deficiency anemia secondary to blood loss (chronic); K44.9 Diaphragmatic hernia without obstruction or gangrene; I10 Essential (primary) hypertension; E87.6 Hypokalemia; Z59.0 Homelessness; Z83.3 Family history of diabetes mellitus; Z86.73 Personal history of transient ischemic attack (TIA), and cerebral infarction without residual deficits; Z87.442 Personal history of urinary calculi; Z88.8 Allergy status to other drugs, medicaments and biological substances; Z80.9 Family history of malignant neoplasm, unspecified; Z79.899 Other long term (current) drug therapy; Z56.0 Unemployment, unspecified
CPT/HCPCS: 36415; 43239; 80053; 80305; 82150; 82272; 82948; 83690; 83735; 84100; 84443; 85007; 85025; 85027; 85610; 85730; 86885; 86900; 86901; 87081; 97116; 97161; 97530; 99152; 99285; A4620; C9113; G0378; J2060; J2250; J3010; J3480; J7040

== ENCOUNTER 2021-04-13 10:15 | Emergency (ER) | payer MEDICARE, MEDICAID ==
[~2021-04-13 10:15] MED LIST changes: -LEVO150T8 PO; +PANT-47 PO; -SULF1TAB45 PO
[2021-04-13] MEDS ORDERED: proCHLORperazine 10mg tablet PO ONE (11:25)
== END 2021-04-13 13:40 | disposition left against medical advice (07) ==
LOC: ER 10:15
DX: Z00.00 Encounter for general adult medical examination without abnormal findings (principal); R41.0 Disorientation, unspecified; I10 Essential (primary) hypertension; E03.9 Hypothyroidism, unspecified; G89.29 Other chronic pain; F12.90 Cannabis use, unspecified, uncomplicated; F15.90 Other stimulant use, unspecified, uncomplicated; Z87.442 Personal history of urinary calculi; Z86.73 Personal history of transient ischemic attack (TIA), and cerebral infarction without residual deficits; Z56.0 Unemployment, unspecified; Z59.0 Homelessness; Z98.890 Other specified postprocedural states; Z88.8 Allergy status to other drugs, medicaments and biological substances; Z79.899 Other long term (current) drug therapy
CPT/HCPCS: 99283

== ENCOUNTER 2021-04-16 15:31 | Emergency (ER) | payer MEDICARE, MEDICAID ==
[~2021-04-16] VITALS: Ht 177.8 cm; Wt 81.8 kg
[2021-04-16 15:55] VITALS: BP 111/71
== END 2021-04-16 20:18 | disposition left against medical advice (07) ==
LOC: ER 15:31
DX: H57.12 Ocular pain, left eye (principal); Z53.21 Procedure and treatment not carried out due to patient leaving prior to being seen by health care provider

== ENCOUNTER 2021-04-20 22:51 | Emergency (ER) | payer MEDICARE, MEDICAID ==
[~2021-04-20] VITALS: Ht 177.8 cm; Wt 81.8 kg
[2021-04-20 22:53] VITALS: BP 128/70
== END 2021-04-21 00:27 | disposition home or self-care (01) ==
LOC: ER 22:51
DX: S01.81XD Laceration without foreign body of other part of head, subsequent encounter (principal); R06.02 Shortness of breath; R47.81 Slurred speech; F10.120 Alcohol abuse with intoxication, uncomplicated; G43.909 Migraine, unspecified, not intractable, without status migrainosus; I10 Essential (primary) hypertension; E03.9 Hypothyroidism, unspecified; G89.29 Other chronic pain; Z48.02 Encounter for removal of sutures; Z86.73 Personal history of transient ischemic attack (TIA), and cerebral infarction without residual deficits; Z87.442 Personal history of urinary calculi; Z87.81 Personal history of (healed) traumatic fracture; Z85.9 Personal history of malignant neoplasm, unspecified; Z56.0 Unemployment, unspecified; Z59.0 Homelessness; Z88.8 Allergy status to other drugs, medicaments and biological substances; Z79.899 Other long term (current) drug therapy; X58.XXXD Exposure to other specified factors, subsequent encounter
CPT/HCPCS: 99283

== ENCOUNTER 2021-04-22 09:14 | Emergency (ER) | payer MEDICARE, MEDICAID | END 2021-04-22 11:20 | disposition home or self-care (01) | LOC: ER 09:15 | DX: S01.81XD Laceration without foreign body of other part of head, subsequent encounter (principal); I10 Essential (primary) hypertension; E03.9 Hypothyroidism, unspecified; G89.29 Other chronic pain; F12.90 Cannabis use, unspecified, uncomplicated; F15.90 Other stimulant use, unspecified, uncomplicated; Z86.73 Personal history of transient ischemic attack (TIA), and cerebral infarction without residual deficits; Z86.69 Personal history of other diseases of the nervous system and sense organs; Z86.2 Personal history of diseases of the blood and blood-forming organs and certain disorders involving the immune mechanism; Z87.442 Personal history of urinary calculi; Z98.890 Other specified postprocedural states; Z72.89 Other problems related to lifestyle; Z56.0 Unemployment, unspecified; Z59.0 Homelessness; Z88.8 Allergy status to other drugs, medicaments and biological substances; Z79.899 Other long term (current) drug therapy; X58.XXXD Exposure to other specified factors, subsequent encounter | CPT/HCPCS: 99281 ==

== ENCOUNTER 2021-04-22 20:26 | Emergency (ER) | payer MEDICARE, MEDICAID ==
[~2021-04-22] VITALS: Ht 172.7 cm; Wt 80.0 kg
[2021-04-22 20:54] VITALS: BP 135/77
== END 2021-04-23 03:00 | disposition home or self-care (01) ==
LOC: ER 20:27
DX: F10.129 Alcohol abuse with intoxication, unspecified (principal); M54.5 Low back pain; R53.83 Other fatigue; I10 Essential (primary) hypertension; E03.9 Hypothyroidism, unspecified; G89.29 Other chronic pain; F12.90 Cannabis use, unspecified, uncomplicated; F15.90 Other stimulant use, unspecified, uncomplicated; Z86.73 Personal history of transient ischemic attack (TIA), and cerebral infarction without residual deficits; Z86.69 Personal history of other diseases of the nervous system and sense organs; Z86.2 Personal history of diseases of the blood and blood-forming organs and certain disorders involving the immune mechanism; Z87.442 Personal history of urinary calculi; Z98.890 Other specified postprocedural states; Z72.89 Other problems related to lifestyle; Z56.0 Unemployment, unspecified; Z59.0 Homelessness; Z88.8 Allergy status to other drugs, medicaments and biological substances; Z79.899 Other long term (current) drug therapy
CPT/HCPCS: 99283

== ENCOUNTER 2021-04-23 14:19 | Emergency (ER) | payer MEDICARE, MEDICAID ==
[~2021-04-23] VITALS: Ht 177.8 cm; Wt 81.8 kg
[2021-04-23 15:42] VITALS: BP 102/62
== END 2021-04-23 20:58 | disposition left against medical advice (07) ==
LOC: ER 14:19
DX: M25.569 Pain in unspecified knee (principal); Z53.21 Procedure and treatment not carried out due to patient leaving prior to being seen by health care provider

== ENCOUNTER → 2021-04-30 | Emergency (ER) | payer MEDICARE, MEDICAID ==
[~2021-04-30] VITALS: Ht 177.8 cm; Wt 81.8 kg
[~2021-04-30] MED LIST changes: +LEVO150C4 PO; +LEVO150T8 PO; +MYCOL30CR TP; +PERM59LI8 TOP; +PERM60CR19 TOP; +PERM60CR19 TP
[2021-04-30 02:45] VITALS: BP 124/79
== END | disposition home or self-care (01) ==
LOC: ER 02:22
DX: S50.811A Abrasion of right forearm, initial encounter (principal); F10.129 Alcohol abuse with intoxication, unspecified; I10 Essential (primary) hypertension; E03.9 Hypothyroidism, unspecified; G89.29 Other chronic pain; F12.90 Cannabis use, unspecified, uncomplicated; F15.90 Other stimulant use, unspecified, uncomplicated; Z86.73 Personal history of transient ischemic attack (TIA), and cerebral infarction without residual deficits; Z86.69 Personal history of other diseases of the nervous system and sense organs; Z86.2 Personal history of diseases of the blood and blood-forming organs and certain disorders involving the immune mechanism; Z87.442 Personal history of urinary calculi; Z98.890 Other specified postprocedural states; Z72.89 Other problems related to lifestyle; Z56.0 Unemployment, unspecified; Z59.0 Homelessness; Z88.8 Allergy status to other drugs, medicaments and biological substances; Z79.899 Other long term (current) drug therapy; W19.XXXA Unspecified fall, initial encounter; Y93.89 Activity, other specified; Y92.89 Other specified places as the place of occurrence of the external cause; Y99.8 Other external cause status; Y90.9 Presence of alcohol in blood, level not specified
CPT/HCPCS: 99283

== ENCOUNTER 2021-05-03 10:46 | Emergency (ER) | payer MEDICARE, MEDICAID ==
[~2021-05-03] VITALS: Ht 177.8 cm; Wt 78.0 kg
[~2021-05-03 10:46] MED LIST changes: -LEVO150C4 PO; -LEVO150T8 PO; -MYCOL30CR TP; -PERM59LI8 TOP; -PERM60CR19 TOP; -PERM60CR19 TP
[2021-05-03 12:38] VITALS: BP 115/75
[2021-05-03] MEDS ORDERED: LEVO150C4 PO (15:50)
[2021-05-04] MEDS ORDERED: PERM60CR19 TP (09:53)
[2021-05-04] MEDS ORDERED: PERM59LI8 TOP (09:53)
[2021-05-04] MEDS ORDERED: LEVO150C4 PO (09:55)
[2021-05-10] MEDS ORDERED: LEVO150T8 PO (19:58)
== END 2021-05-03 16:13 | disposition home or self-care (01) ==
LOC: ER 10:47
DX: L29.9 Pruritus, unspecified (principal); Z76.0 Encounter for issue of repeat prescription; R47.81 Slurred speech; Z88.8 Allergy status to other drugs, medicaments and biological substances; Z79.899 Other long term (current) drug therapy; G40.909 Epilepsy, unspecified, not intractable, without status epilepticus; I10 Essential (primary) hypertension; Z86.73 Personal history of transient ischemic attack (TIA), and cerebral infarction without residual deficits; Z86.2 Personal history of diseases of the blood and blood-forming organs and certain disorders involving the immune mechanism; G89.29 Other chronic pain; Z87.81 Personal history of (healed) traumatic fracture; Z90.89 Acquired absence of other organs; Z56.0 Unemployment, unspecified; Z59.0 Homelessness
CPT/HCPCS: 99283

== ENCOUNTER 2021-05-04 07:15 | Emergency (ER) | payer MEDICARE, MEDICAID ==
[~2021-05-04] VITALS: Ht 177.8 cm; Wt 79.1 kg
[~2021-05-04 07:15] MED LIST changes: +LEVO150C4 PO
[2021-05-04 09:40] VITALS: BP 159/87
[2021-05-04] MEDS ORDERED: PERM60CR19 TP (09:53)
[2021-05-04] MEDS ORDERED: PERM59LI8 TOP (09:53)
[2021-05-04] MEDS ORDERED: LEVO150C4 PO (09:55)
[2021-05-10] MEDS ORDERED: LEVO150T8 PO (19:58)
== END 2021-05-04 10:19 | disposition home or self-care (01) ==
LOC: ER 07:16
DX: B85.2 Pediculosis, unspecified (principal); I10 Essential (primary) hypertension; G40.909 Epilepsy, unspecified, not intractable, without status epilepticus; E03.9 Hypothyroidism, unspecified; G89.29 Other chronic pain; F12.90 Cannabis use, unspecified, uncomplicated; F15.90 Other stimulant use, unspecified, uncomplicated; Z86.73 Personal history of transient ischemic attack (TIA), and cerebral infarction without residual deficits; Z87.440 Personal history of urinary (tract) infections; Z87.81 Personal history of (healed) traumatic fracture; Z90.89 Acquired absence of other organs; Z72.89 Other problems related to lifestyle; Z56.0 Unemployment, unspecified; Z59.0 Homelessness; Z88.8 Allergy status to other drugs, medicaments and biological substances; Z79.899 Other long term (current) drug therapy
CPT/HCPCS: 99283

== ENCOUNTER 2021-05-05 12:33 | Emergency (ER) | payer MEDICARE, MEDICAID ==
[~2021-05-05] VITALS: Ht 177.8 cm; Wt 81.8 kg
[~2021-05-05 12:33] MED LIST changes: +PERM59LI8 TOP; +PERM60CR19 TP
[2021-05-05 15:13] VITALS: BP 131/84
[2021-05-10] MEDS ORDERED: LEVO150T8 PO (19:58)
== END 2021-05-05 15:15 | disposition home or self-care (01) ==
LOC: ER 12:34
DX: F10.129 Alcohol abuse with intoxication, unspecified (principal); M79.601 Pain in right arm; M25.521 Pain in right elbow; F12.90 Cannabis use, unspecified, uncomplicated; F15.90 Other stimulant use, unspecified, uncomplicated; G89.29 Other chronic pain; E03.9 Hypothyroidism, unspecified; I10 Essential (primary) hypertension; G40.909 Epilepsy, unspecified, not intractable, without status epilepticus; Z88.8 Allergy status to other drugs, medicaments and biological substances; Z79.899 Other long term (current) drug therapy; Z87.81 Personal history of (healed) traumatic fracture; Z86.73 Personal history of transient ischemic attack (TIA), and cerebral infarction without residual deficits; Z72.89 Other problems related to lifestyle; W19.XXXA Unspecified fall, initial encounter; Y93.89 Activity, other specified; Y92.89 Other specified places as the place of occurrence of the external cause; Y99.8 Other external cause status; Y90.9 Presence of alcohol in blood, level not specified
CPT/HCPCS: 73080; 99283

== ENCOUNTER 2021-05-06 10:12 | Emergency (ER) | payer MEDICARE, MEDICAID ==
[~2021-05-06] VITALS: Ht 177.8 cm; Wt 81.8 kg
[2021-05-06 10:41] VITALS: BP 112/71
[2021-05-07] MEDS ORDERED: MYCOL30CR TP (13:46)
[2021-05-10] MEDS ORDERED: LEVO150T8 PO (19:58)
== END 2021-05-06 12:05 | disposition left against medical advice (07) ==
LOC: ER 10:13
DX: R07.89 Other chest pain (principal); M25.561 Pain in right knee; M25.531 Pain in right wrist; M25.532 Pain in left wrist; I10 Essential (primary) hypertension; E03.9 Hypothyroidism, unspecified; G89.29 Other chronic pain; F12.90 Cannabis use, unspecified, uncomplicated; F15.90 Other stimulant use, unspecified, uncomplicated; Z59.0 Homelessness; Z86.73 Personal history of transient ischemic attack (TIA), and cerebral infarction without residual deficits; Z86.69 Personal history of other diseases of the nervous system and sense organs; Z86.2 Personal history of diseases of the blood and blood-forming organs and certain disorders involving the immune mechanism; Z87.442 Personal history of urinary calculi; Z98.890 Other specified postprocedural states; Z72.89 Other problems related to lifestyle; Z56.0 Unemployment, unspecified; Z88.8 Allergy status to other drugs, medicaments and biological substances; Z79.899 Other long term (current) drug therapy
CPT/HCPCS: 99283

== ENCOUNTER 2021-05-07 13:30 | Emergency (ER) | payer MEDICARE, MEDICAID ==
[~2021-05-07] VITALS: Ht 177.8 cm; Wt 81.0 kg
[2021-05-07 13:34] VITALS: BP 145/91
[2021-05-07] MEDS ORDERED: MYCOL30CR TP (13:46)
[2021-05-10] MEDS ORDERED: LEVO150T8 PO (19:58)
== END 2021-05-07 14:03 | disposition home or self-care (01) ==
LOC: ER 13:30
DX: L29.9 Pruritus, unspecified (principal); R21 Rash and other nonspecific skin eruption; I10 Essential (primary) hypertension; E03.9 Hypothyroidism, unspecified; G89.29 Other chronic pain; F12.90 Cannabis use, unspecified, uncomplicated; F15.90 Other stimulant use, unspecified, uncomplicated; Z86.73 Personal history of transient ischemic attack (TIA), and cerebral infarction without residual deficits; Z86.69 Personal history of other diseases of the nervous system and sense organs; Z86.2 Personal history of diseases of the blood and blood-forming organs and certain disorders involving the immune mechanism; Z87.442 Personal history of urinary calculi; Z98.890 Other specified postprocedural states; Z72.89 Other problems related to lifestyle; Z56.0 Unemployment, unspecified; Z59.0 Homelessness; Z88.8 Allergy status to other drugs, medicaments and biological substances; Z79.899 Other long term (current) drug therapy
CPT/HCPCS: 99284

== ENCOUNTER → 2021-05-10 | Emergency (ER) | payer MEDICARE, MEDICAID ==
[~2021-05-10] VITALS: Ht 177.8 cm; Wt 81.6 kg
[~2021-05-10] MED LIST changes: +LEVO150T8 PO; +MYCOL30CR TP; +PERM60CR19 TOP
[2021-05-10 19:55] VITALS: BP 103/60
== END | disposition home or self-care (01) ==
LOC: ER 19:52
DX: E03.9 Hypothyroidism, unspecified (principal); I10 Essential (primary) hypertension; Z76.0 Encounter for issue of repeat prescription; G89.29 Other chronic pain; F15.90 Other stimulant use, unspecified, uncomplicated; Z87.442 Personal history of urinary calculi; Z86.73 Personal history of transient ischemic attack (TIA), and cerebral infarction without residual deficits; Z86.2 Personal history of diseases of the blood and blood-forming organs and certain disorders involving the immune mechanism; Z98.890 Other specified postprocedural states; F12.90 Cannabis use, unspecified, uncomplicated; Z59.0 Homelessness; Z56.0 Unemployment, unspecified; Z72.89 Other problems related to lifestyle; Z88.8 Allergy status to other drugs, medicaments and biological substances; Z79.899 Other long term (current) drug therapy
CPT/HCPCS: 99281

== ENCOUNTER 2021-05-18 09:49 | Emergency (ER) | payer MEDICARE, MEDICAID ==
[~2021-05-18] VITALS: Ht 177.8 cm; Wt 77.3 kg
[~2021-05-18 09:49] MED LIST changes: -PERM60CR19 TOP
[2021-05-18 10:05] VITALS: BP 135/71
[2021-05-18 11:16] LABS: BASOPHILS # (AUTO) 0.1 X10'3 (0-0.2); EOSINOPHILS # (AUTO) 0.3 X10'3 (0-0.9); HEMOGLOBIN 7.1 g/dl (14.0-17.9); MEAN CORPUSCULAR HEMOGLOBIN 28.2 PG (27.0-31.0); WHITE BLOOD COUNT 10.7 X10'3 (4.5-11.0)
[2021-05-18 11:19] LABS: BASOPHILS % (AUTO) 0.7 % (0-1); EOSINOPHILS % (AUTO) 3.1 % (0-6); LYMPHOCYTES # (AUTO) 5.7 X10'3 (1.1-4.8); LYMPHOCYTES % (AUTO) 53.3 % (21-51); MEAN CORPUSCULAR HGB CONC 32.5 g/dL (33.0-36.5); MEAN CORPUSCULAR VOLUME 86.8 FL (78-98); MEAN PLATELET VOLUME 7.5 FL (7.4-10.4); MONOCYTES # (AUTO) 0.9 X10'3 (0-0.9); MONOCYTES % (AUTO) 8.9 % (2-12); NEUTROPHILS # (AUTO) 3.6 X10'3 (1.8-7.7); PLATELET COUNT 196 X10'3 (140-440); RED BLOOD COUNT 2.52 X10'6 (4.70-6.10); RED CELL DISTRIBUTION WIDTH 20.7 % (11.5-14.5)
[2021-05-18 11:24] LABS: HEMATOCRIT 21.9 % (42.0-52.0)
[2021-05-18 11:42] LABS: ALANINE AMINOTRANSFERASE 26 U/L (12-78); ALBUMIN 2.8 G/DL (3.4-5.0); ALBUMIN/GLOBULIN RATIO 0.6 (1.1-1.5); ALKALINE PHOSPHATASE 172 IU/L (46-116); ANION GAP 12 (8-16); ASPARTATE AMINO TRANSFERASE 70 U/L (10-37); BILIRUBIN,TOTAL 0.5 MG/DL (0.1-1.0); BLOOD UREA NITROGEN 14 MG/DL (7-18); BUN/CREATININE RATIO 10.2 (5.4-32.0); CALCIUM 7.6 MG/DL (8.5-10.1); CHLORIDE 105 MMOL/L (99-107); CREATININE 1.37 MG/DL (0.60-1.10); GLUCOSE 99 MG/DL (70-104); POTASSIUM 3.9 MMOL/L (3.5-5.1); SODIUM 138 MMOL/L (135-145); TOTAL CARBON DIOXIDE 20.8 MMOL/L (24-32); TOTAL PROTEIN 7.7 G/DL (6.4-8.2); eGFR 52 ML/MIN
[2021-05-18 13:30] LABS: TOTAL CELLS COUNTED 100
[2021-05-18 13:31] LABS: PLATELET ESTIMATE NORMAL; SMUDGE CELLS FEW
[2021-05-18 13:32] LABS: ANISOCYTOSIS 3+; HYPOCHROMASIA 1+; TARGET CELLS 2+
[2021-05-18] MEDS ORDERED: PERM60CR19 TOP (13:46)
== END 2021-05-18 13:52 | disposition home or self-care (01) ==
LOC: ER 09:50
DX: B88.8 Other specified infestations (principal); F10.120 Alcohol abuse with intoxication, uncomplicated; G40.909 Epilepsy, unspecified, not intractable, without status epilepticus; I10 Essential (primary) hypertension; F12.90 Cannabis use, unspecified, uncomplicated; F15.90 Other stimulant use, unspecified, uncomplicated; Z56.0 Unemployment, unspecified; Z59.0 Homelessness; Z72.89 Other problems related to lifestyle; Z90.49 Acquired absence of other specified parts of digestive tract; Z90.89 Acquired absence of other organs; Z86.73 Personal history of transient ischemic attack (TIA), and cerebral infarction without residual deficits; Z88.8 Allergy status to other drugs, medicaments and biological substances; Z79.899 Other long term (current) drug therapy; Y90.9 Presence of alcohol in blood, level not specified
CPT/HCPCS: 36415; 73564; 73620; 80053; 82140; 85007; 85025; 99284

== ENCOUNTER 2021-05-20 16:59 | Emergency (ER) | payer MEDICARE, MEDICAID ==
[~2021-05-20] VITALS: Ht 177.8 cm; Wt 81.8 kg
[~2021-05-20 16:59] MED LIST changes: +PERM60CR19 TOP
[2021-05-20 17:29] VITALS: BP 112/64
[2021-05-20] MEDS ORDERED: PERM60CR19 TP (17:46)
== END 2021-05-20 18:17 | disposition home or self-care (01) ==
LOC: ER 17:00
DX: L29.9 Pruritus, unspecified (principal); B86 Scabies; I10 Essential (primary) hypertension; E03.9 Hypothyroidism, unspecified; G89.29 Other chronic pain; F17.200 Nicotine dependence, unspecified, uncomplicated; F12.90 Cannabis use, unspecified, uncomplicated; F15.90 Other stimulant use, unspecified, uncomplicated; Z86.73 Personal history of transient ischemic attack (TIA), and cerebral infarction without residual deficits; Z86.69 Personal history of other diseases of the nervous system and sense organs; Z86.2 Personal history of diseases of the blood and blood-forming organs and certain disorders involving the immune mechanism; Z87.442 Personal history of urinary calculi; Z98.890 Other specified postprocedural states; Z72.89 Other problems related to lifestyle; Z56.0 Unemployment, unspecified; Z59.0 Homelessness; Z88.1 Allergy status to other antibiotic agents; Z88.8 Allergy status to other drugs, medicaments and biological substances; Z79.899 Other long term (current) drug therapy
CPT/HCPCS: 99283

== ENCOUNTER 2021-05-21 03:53 | Emergency (ER) | payer MEDICARE, MEDICAID ==
[~2021-05-21] VITALS: Ht 175.3 cm; Wt 100.0 kg
[2021-05-21 04:23] VITALS: BP 128/84
== END 2021-05-21 04:27 | disposition left against medical advice (07) ==
LOC: ER 03:53
DX: B86 Scabies (principal); I10 Essential (primary) hypertension; E03.9 Hypothyroidism, unspecified; G89.29 Other chronic pain; F12.90 Cannabis use, unspecified, uncomplicated; F15.90 Other stimulant use, unspecified, uncomplicated; Z86.69 Personal history of other diseases of the nervous system and sense organs; Z86.73 Personal history of transient ischemic attack (TIA), and cerebral infarction without residual deficits; Z86.2 Personal history of diseases of the blood and blood-forming organs and certain disorders involving the immune mechanism; Z87.442 Personal history of urinary calculi; Z98.890 Other specified postprocedural states; Z72.89 Other problems related to lifestyle; Z56.0 Unemployment, unspecified; Z59.0 Homelessness; Z88.8 Allergy status to other drugs, medicaments and biological substances; Z79.899 Other long term (current) drug therapy
CPT/HCPCS: 99281

== ENCOUNTER 2021-05-21 22:20 | Emergency (ER) | payer MEDICARE, MEDICAID ==
[~2021-05-21] VITALS: Ht 177.8 cm; Wt 81.6 kg
--- NOTE | 2021-05-21 23:16 | NUR ---
PT PRESENTS TO ER WITH C/O HEAD TRAUMA/NECK/BACK PAIN; PT PLACED IN CCOLLAR TAKEN STRAIGHT TO CT AND THEN ROOMED IN THE ER; UPON INITIAL ASSESSMENT IN ROOM PT DOES NOT APPEAR TO BE IN DISTRESS; PT HAS HID HEAD WRAPPED WITH KRELIX FROM TRIAGE; PT PLACED ON SAW SUPERINTENDENT WITH VSS; STATES HE HAS HAD ONE BEER, DENIES HAVING ANYTHING ELSE; PT STATES HE FELL FORWARD AND BRACED HIMSELF WITH BOTH WRISTS THAT ARE SORE AND HIT HIS HEAD IN THE FRONT WHICH IS SORE; STATES IT WAS BLEEDING BUT NOT TOO BAD WHEN HE CAME IN; PT AOX4 WITH VSS; WILL CTM AND REASSESS FREQUENTLY; PT APPEARS STABLE AT THIS TIME; WILL WAIT FOR CT READ; WARM BLANKET GIVEN.
--- NOTE | 2021-05-21 23:36 | NUR ---
VO FOR ABRAHAM GTT SBP [address] BAZAN CALLED PHARMACY.
[2021-05-21] MEDS ORDERED: niCARDipine-NS 40mg/200ml IVPB 200 ML IV SCH (23:40)
[2021-05-21 23:42] LABS: BASOPHILS # (AUTO) 0.1 X10'3 (0-0.2); EOSINOPHILS # (AUTO) 0.3 X10'3 (0-0.9); PLATELET COUNT 208 X10'3 (140-440)
[2021-05-21 23:44] LABS: EOSINOPHILS % (AUTO) 3.4 % (0-6); HEMATOCRIT 23.6 % (42.0-52.0); HEMOGLOBIN 7.6 g/dl (14.0-17.9); LYMPHOCYTES % (AUTO) 59.9 % (21-51); MEAN CORPUSCULAR HEMOGLOBIN 28.6 PG (27.0-31.0); MEAN CORPUSCULAR HGB CONC 32.2 g/dL (33.0-36.5); MEAN CORPUSCULAR VOLUME 88.9 FL (78-98); MEAN PLATELET VOLUME 7.8 FL (7.4-10.4); MONOCYTES % (AUTO) 12.2 % (2-12); NEUTROPHILS % (AUTO) 23.5 % (42-75); RED BLOOD COUNT 2.66 X10'6 (4.70-6.10); RED CELL DISTRIBUTION WIDTH 22.3 % (11.5-14.5); WHITE BLOOD COUNT 8.4 X10'3 (4.5-11.0)
[2021-05-21 23:56] LABS: PARTIAL THROMBOPLASTIN TIME 29 SECONDS (22-32)
[2021-05-21 23:58] VITALS: BP 137/89
[2021-05-21 23:58] LABS: ALANINE AMINOTRANSFERASE 29 U/L (12-78); ALBUMIN/GLOBULIN RATIO 0.6 (1.1-1.5); ALKALINE PHOSPHATASE 166 IU/L (46-116); ANION GAP 13 (8-16); ASPARTATE AMINO TRANSFERASE 68 U/L (10-37); BILIRUBIN,TOTAL 0.5 MG/DL (0.1-1.0); BLOOD UREA NITROGEN 17 MG/DL (7-18); BUN/CREATININE RATIO 10.4 (5.4-32.0); CALCIUM 8.2 MG/DL (8.5-10.1); CHLORIDE 103 MMOL/L (99-107); CREATININE 1.63 MG/DL (0.60-1.10); GLUCOSE 100 MG/DL (70-104); POTASSIUM 3.4 MMOL/L (3.5-5.1); SODIUM 139 MMOL/L (135-145); TOTAL CARBON DIOXIDE 23.3 MMOL/L (24-32); eGFR 43 ML/MIN
--- NOTE | 2021-05-22 00:01 | NUR ---
Pt blood pressure is being maintained with cardene; report given to Nael TRAN at [facility]; Ambulance here for transport of patient; RN will be transporting with patient; VSS
[2021-05-22 03:18] LABS: NEUTROPHILS % (MANUAL) 16 % (42-75); TOTAL CELLS COUNTED 100
[2021-05-22 03:19] LABS: EOSINOPHILS % (MANUAL) 3 % (0-6); LYMPHOCYTES % (MANUAL) 71 % (21-51); MONOCYTES % (MANUAL) 9 % (2-12); PLATELET ESTIMATE NORMAL
[2021-05-22 03:20] LABS: ANISOCYTOSIS 3+; REACTIVE LYMPHOCYTES % 1 % (0-0)
== END 2021-05-22 00:41 | disposition short-term general hospital (02) ==
LOC: ER 22:21
DX: S02.19XA Other fracture of base of skull, initial encounter for closed fracture (principal); S06.2X9A Diffuse traumatic brain injury with loss of consciousness of unspecified duration, initial encounter; S06.5X9A Traumatic subdural hemorrhage with loss of consciousness of unspecified duration, initial encounter; Z20.822 Contact with and (suspected) exposure to COVID-19; I10 Essential (primary) hypertension; E03.9 Hypothyroidism, unspecified; G89.29 Other chronic pain; F12.90 Cannabis use, unspecified, uncomplicated; F15.90 Other stimulant use, unspecified, uncomplicated; Z86.73 Personal history of transient ischemic attack (TIA), and cerebral infarction without residual deficits; Z86.69 Personal history of other diseases of the nervous system and sense organs; Z86.2 Personal history of diseases of the blood and blood-forming organs and certain disorders involving the immune mechanism; Z87.442 Personal history of urinary calculi; Z98.890 Other specified postprocedural states; Z72.89 Other problems related to lifestyle; Z56.0 Unemployment, unspecified; Z59.0 Homelessness; Z88.8 Allergy status to other drugs, medicaments and biological substances; Z79.899 Other long term (current) drug therapy; W19.XXXA Unspecified fall, initial encounter; Y93.89 Activity, other specified; Y92.89 Other specified places as the place of occurrence of the external cause; Y99.8 Other external cause status
CPT/HCPCS: 36415; 70450; 72125; 80053; 85007; 85025; 85610; 85730; 87635; 93005; 96365; 99285; C9803

== ENCOUNTER 2021-06-01 11:32 | Emergency (ER) | payer MEDICARE, MEDICAID ==
[~2021-06-01] VITALS: Ht 177.8 cm; Wt 81.8 kg
[2021-06-01] MEDS ORDERED: thiamine inj. 100 MG in normal saline 100ml IV soln 99 ML IV ONE (12:15)
[2021-06-01] MEDS ORDERED: magnesium 2GM in 50ml NS 50 ML IV ONE (12:15)
[2021-06-01] MEDS ORDERED: normal saline 1000ML IV soln IVB ONE (12:15)
[2021-06-01] MEDS ORDERED: phenobarbital inj 260 MG in normal saline 100ml IV soln 100 ML IV ONE (12:15)
[2021-06-01 13:15] LABS: BASOPHILS # (AUTO) 0.1 X10'3 (0-0.2); EOSINOPHILS # (AUTO) 0.2 X10'3 (0-0.9); EOSINOPHILS % (AUTO) 1.7 % (0-6); HEMATOCRIT 25.8 % (42.0-52.0); HEMOGLOBIN 8.5 g/dl (14.0-17.9); LYMPHOCYTES # (AUTO) 5.7 X10'3 (1.1-4.8); LYMPHOCYTES % (AUTO) 52.4 % (21-51); MEAN CORPUSCULAR HEMOGLOBIN 29.2 PG (27.0-31.0); MEAN CORPUSCULAR VOLUME 88.6 FL (78-98); MEAN PLATELET VOLUME 7.5 FL (7.4-10.4); MONOCYTES # (AUTO) 1.1 X10'3 (0-0.9); MONOCYTES % (AUTO) 9.8 % (2-12); NEUTROPHILS # (AUTO) 3.8 X10'3 (1.8-7.7); NEUTROPHILS % (AUTO) 35.1 % (42-75); PLATELET COUNT 467 X10'3 (140-440); RED BLOOD COUNT 2.91 X10'6 (4.70-6.10); RED CELL DISTRIBUTION WIDTH 21.2 % (11.5-14.5); WHITE BLOOD COUNT 10.9 X10'3 (4.5-11.0)
[2021-06-01 13:30] LABS: ALANINE AMINOTRANSFERASE 78 U/L (12-78); ALBUMIN 2.9 G/DL (3.4-5.0); ALBUMIN/GLOBULIN RATIO 0.6 (1.1-1.5); ALKALINE PHOSPHATASE 224 IU/L (46-116); ANION GAP 12 (8-16); ASPARTATE AMINO TRANSFERASE 175 U/L (10-37); BILIRUBIN,TOTAL 0.3 MG/DL (0.1-1.0); BLOOD UREA NITROGEN 9 MG/DL (7-18); BUN/CREATININE RATIO 7.3 (5.4-32.0); CALCIUM 7.9 MG/DL (8.5-10.1); CHLORIDE 100 MMOL/L (99-107); CREATININE 1.23 MG/DL (0.60-1.10); ETHANOL 0.163 GM/DL (0.0-0.010); GLUCOSE 84 MG/DL (70-104); MAGNESIUM 2.2 MG/DL (1.5-2.4); POTASSIUM 3.2 MMOL/L (3.5-5.1); SODIUM 132 MMOL/L (135-145); TOTAL CARBON DIOXIDE 19.9 MMOL/L (24-32); eGFR 59 ML/MIN
[2021-06-01 14:09] LABS: ANISOCYTOSIS 3+; PLATELET ESTIMATE INCREASED; POLYCHROMASIA FEW; SCHISTOCYTES FEW; TARGET CELLS 1+
[2021-06-01] MEDS ORDERED: potassium Cl 20 mEq SR tablet PO STA (14:13)
[2021-06-01] MEDS ORDERED: PANT-47 PO (14:23)
[2021-06-01] MEDS ORDERED: LEVO150T8 PO (14:23)
[2021-06-01] MEDS ORDERED: LEVO150T PO (21:25)
[2021-06-01 21:42] VITALS: BP 114/70
[2021-06-02] MEDS ORDERED: levoTHYROXINE 75mcg tablet PO SCH (07:00)
== END 2021-06-01 21:48 | disposition home or self-care (01) ==
LOC: ER 11:32
DX: F10.129 Alcohol abuse with intoxication, unspecified (principal); Z20.822 Contact with and (suspected) exposure to COVID-19; R41.82 Altered mental status, unspecified; S02.119 Unspecified fracture of occiput; N28.9 Disorder of kidney and ureter, unspecified; D64.9 Anemia, unspecified; E87.6 Hypokalemia; G40.909 Epilepsy, unspecified, not intractable, without status epilepticus; I10 Essential (primary) hypertension; E03.9 Hypothyroidism, unspecified; G89.29 Other chronic pain; F12.90 Cannabis use, unspecified, uncomplicated; F15.90 Other stimulant use, unspecified, uncomplicated; Z87.81 Personal history of (healed) traumatic fracture; Z87.442 Personal history of urinary calculi; Z98.890 Other specified postprocedural states; Z56.0 Unemployment, unspecified; Z59.0 Homelessness; Z79.2 Long term (current) use of antibiotics; Z79.899 Other long term (current) drug therapy; Z88.8 Allergy status to other drugs, medicaments and biological substances; Y90.6 Blood alcohol level of 120-199 mg/100 ml
CPT/HCPCS: 36415; 70450; 80053; 80320; 83735; 85008; 85025; 87635; 93005; 96361; 96365; 96366; 96368; 99285; C9803; J2560; J3411; J3475; J7030; 99291

== ENCOUNTER 2021-06-06 17:53 | Emergency (ER) | payer MEDICARE, MEDICAID ==
[~2021-06-06] VITALS: Ht 177.8 cm; Wt 81.0 kg
[~2021-06-06 17:53] MED LIST changes: -LEVO150C4 PO; -MYCOL30CR TP; -PERM59LI8 TOP; -PERM60CR19 TOP; -PERM60CR19 TP
[2021-06-06 18:08] VITALS: BP 103/57
== END 2021-06-06 20:17 | disposition home or self-care (01) ==
LOC: ER 17:54
DX: F10.129 Alcohol abuse with intoxication, unspecified (principal); F12.90 Cannabis use, unspecified, uncomplicated; F15.90 Other stimulant use, unspecified, uncomplicated; G40.909 Epilepsy, unspecified, not intractable, without status epilepticus; I10 Essential (primary) hypertension; G89.29 Other chronic pain; Z86.73 Personal history of transient ischemic attack (TIA), and cerebral infarction without residual deficits; Z87.81 Personal history of (healed) traumatic fracture; Z90.89 Acquired absence of other organs; Z98.890 Other specified postprocedural states; Z56.0 Unemployment, unspecified; Z59.00 Homelessness unspecified; Z72.89 Other problems related to lifestyle; Z88.8 Allergy status to other drugs, medicaments and biological substances; Z79.899 Other long term (current) drug therapy; Y90.9 Presence of alcohol in blood, level not specified
CPT/HCPCS: 70450; 99284

== ENCOUNTER 2021-06-12 14:27 | Emergency (ER) | payer MEDICARE, MEDICAID ==
[~2021-06-12] VITALS: Ht 177.8 cm; Wt 80.0 kg
[2021-06-12 14:33] VITALS: BP 156/89
[2021-06-13] MEDS ORDERED: DOXY100C43 PO (00:55)
[2021-06-13] MEDS ORDERED: CEPH-585 PO (00:55)
== END 2021-06-12 20:39 | disposition left against medical advice (07) ==
LOC: ER 14:27
DX: G89.29 Other chronic pain (principal); F10.20 Alcohol dependence, uncomplicated; R47.81 Slurred speech; I10 Essential (primary) hypertension; E03.9 Hypothyroidism, unspecified; F12.90 Cannabis use, unspecified, uncomplicated; F15.90 Other stimulant use, unspecified, uncomplicated; Z86.73 Personal history of transient ischemic attack (TIA), and cerebral infarction without residual deficits; Z86.69 Personal history of other diseases of the nervous system and sense organs; Z86.2 Personal history of diseases of the blood and blood-forming organs and certain disorders involving the immune mechanism; Z87.442 Personal history of urinary calculi; Z98.890 Other specified postprocedural states; Z72.89 Other problems related to lifestyle; Z56.0 Unemployment, unspecified; Z59.00 Homelessness unspecified; Z88.8 Allergy status to other drugs, medicaments and biological substances; Z79.2 Long term (current) use of antibiotics; Z79.899 Other long term (current) drug therapy; Y90.9 Presence of alcohol in blood, level not specified
CPT/HCPCS: 99283

== ENCOUNTER 2021-06-12 20:39 | Emergency (ER) | payer MEDICARE, MEDICAID ==
[~2021-06-12] VITALS: Ht 177.8 cm; Wt 81.8 kg
[2021-06-13] MEDS ORDERED: ibuprofen tablet 400 MG TABLET PO ONE (00:55)
[2021-06-13] MEDS ORDERED: DOXY100C43 PO (00:55)
[2021-06-13] MEDS ORDERED: cephalexin 500mg capsule PO ONE (00:55)
[2021-06-13] MEDS ORDERED: CEPH-585 PO (00:55)
[2021-06-13] MEDS ORDERED: DOXYCYCLINE 100MG CAPSULE PO STA (00:55)
[2021-06-13 01:12] VITALS: BP 146/98
--- NOTE | 2021-06-13 01:14 | NUR ---
pt seen, treated and d/c by provider from triage. pt not placed in room or assigned rn.
== END 2021-06-13 01:13 | disposition home or self-care (01) ==
LOC: ER 20:40
DX: L03.113 Cellulitis of right upper limb (principal); I10 Essential (primary) hypertension; E03.9 Hypothyroidism, unspecified; G89.29 Other chronic pain; F12.90 Cannabis use, unspecified, uncomplicated; F15.90 Other stimulant use, unspecified, uncomplicated; Z86.73 Personal history of transient ischemic attack (TIA), and cerebral infarction without residual deficits; Z86.69 Personal history of other diseases of the nervous system and sense organs; Z86.2 Personal history of diseases of the blood and blood-forming organs and certain disorders involving the immune mechanism; Z87.442 Personal history of urinary calculi; Z98.890 Other specified postprocedural states; Z72.89 Other problems related to lifestyle; Z59.00 Homelessness unspecified; Z56.0 Unemployment, unspecified; Z88.8 Allergy status to other drugs, medicaments and biological substances; Z79.2 Long term (current) use of antibiotics; Z79.899 Other long term (current) drug therapy
CPT/HCPCS: 99284

== ENCOUNTER 2021-06-15 19:25 | Emergency (ER) | payer MEDICARE, MEDICAID ==
[~2021-06-15] VITALS: Ht 177.8 cm; Wt 81.8 kg
[~2021-06-15 19:25] MED LIST changes: +CEPH-585 PO; +DOXY100C43 PO
[2021-06-15 19:29] VITALS: BP 101/69
== END 2021-06-15 21:27 | disposition home or self-care (01) ==
LOC: ER 19:25
DX: R51.9 Headache, unspecified (principal); H57.12 Ocular pain, left eye; H53.8 Other visual disturbances; G40.909 Epilepsy, unspecified, not intractable, without status epilepticus; I10 Essential (primary) hypertension; E03.9 Hypothyroidism, unspecified; G89.29 Other chronic pain; F12.90 Cannabis use, unspecified, uncomplicated; F15.90 Other stimulant use, unspecified, uncomplicated; Z86.73 Personal history of transient ischemic attack (TIA), and cerebral infarction without residual deficits; Z86.2 Personal history of diseases of the blood and blood-forming organs and certain disorders involving the immune mechanism; Z87.81 Personal history of (healed) traumatic fracture; Z56.0 Unemployment, unspecified; Z59.00 Homelessness unspecified; Z72.89 Other problems related to lifestyle; Z79.2 Long term (current) use of antibiotics; Z79.899 Other long term (current) drug therapy
CPT/HCPCS: 70450; 99284

== ENCOUNTER 2021-06-19 22:32 | Emergency (ER) | payer MEDICARE, MEDICAID ==
[~2021-06-19] VITALS: Ht 177.8 cm; Wt 81.8 kg
[2021-06-20 02:59] VITALS: BP 145/98
== END 2021-06-20 03:01 | disposition home or self-care (01) ==
LOC: ER 22:33
DX: F10.129 Alcohol abuse with intoxication, unspecified (principal); R07.89 Other chest pain; I10 Essential (primary) hypertension; E03.9 Hypothyroidism, unspecified; G89.29 Other chronic pain; F12.90 Cannabis use, unspecified, uncomplicated; F15.90 Other stimulant use, unspecified, uncomplicated; Z86.73 Personal history of transient ischemic attack (TIA), and cerebral infarction without residual deficits; Z86.69 Personal history of other diseases of the nervous system and sense organs; Z87.442 Personal history of urinary calculi; Z86.2 Personal history of diseases of the blood and blood-forming organs and certain disorders involving the immune mechanism; Z98.890 Other specified postprocedural states; Z72.89 Other problems related to lifestyle; Z56.0 Unemployment, unspecified; Z59.00 Homelessness unspecified; Z88.8 Allergy status to other drugs, medicaments and biological substances; Z79.2 Long term (current) use of antibiotics; Z79.899 Other long term (current) drug therapy; Y90.9 Presence of alcohol in blood, level not specified
CPT/HCPCS: 70450; 71045; 93005; 99284; 99285

== ENCOUNTER → 2021-06-20 | Emergency (ER) | payer MEDICARE, MEDICAID ==
[~2021-06-20] VITALS: Ht 177.8 cm; Wt 81.8 kg
[~2021-06-20] MED LIST changes: +ONDA4TAB6 PO; +PERM60CR19 TOP
[2021-06-20 20:21] VITALS: BP 146/85
== END | disposition left against medical advice (07) ==
LOC: ER 20:13
DX: M25.521 Pain in right elbow (principal); Z53.21 Procedure and treatment not carried out due to patient leaving prior to being seen by health care provider

== ENCOUNTER 2021-06-22 04:25 | Emergency (ER) | payer MEDICARE, MEDICAID ==
[~2021-06-22] VITALS: Ht 177.8 cm; Wt 81.8 kg
[~2021-06-22 04:25] MED LIST changes: -ONDA4TAB6 PO; -PERM60CR19 TOP
[2021-06-22 04:27] VITALS: BP 145/87
[2021-06-22] MEDS ORDERED: DOXY100C43 PO (07:13)
[2021-06-22] MEDS ORDERED: CEPH-585 PO (07:13)
[2021-06-22] MEDS ORDERED: LIDOcaine 1% W/epiNEPHrine 1:200,000 10ml vial IJ STA (07:22)
[2021-06-22] MEDS ORDERED: LIDOcaine 1% w/epiNEPHrine 1:200,000 30ml vial IJ STA (07:32)
== END 2021-06-22 08:13 | disposition home or self-care (01) ==
LOC: ER 04:26
DX: L03.113 Cellulitis of right upper limb (principal); I10 Essential (primary) hypertension; G89.29 Other chronic pain; F12.90 Cannabis use, unspecified, uncomplicated; F15.90 Other stimulant use, unspecified, uncomplicated; Z86.73 Personal history of transient ischemic attack (TIA), and cerebral infarction without residual deficits; Z86.2 Personal history of diseases of the blood and blood-forming organs and certain disorders involving the immune mechanism; Z87.442 Personal history of urinary calculi; E03.9 Hypothyroidism, unspecified; Z90.89 Acquired absence of other organs; Z98.890 Other specified postprocedural states; Z72.89 Other problems related to lifestyle; Z56.0 Unemployment, unspecified; Z59.00 Homelessness unspecified; Z79.2 Long term (current) use of antibiotics; Z79.899 Other long term (current) drug therapy; Z88.8 Allergy status to other drugs, medicaments and biological substances
CPT/HCPCS: 10060; 87070; 99283

== ENCOUNTER 2021-06-24 07:16 | Emergency (ER) | payer MEDICARE, MEDICAID ==
[~2021-06-24] VITALS: Ht 177.8 cm; Wt 85.1 kg
[2021-06-24] MEDS ORDERED: acetaminophen 325mg tablet PO ONE (08:20)
[2021-06-24 09:24] LABS: BASOPHILS # (AUTO) 0.1 X10'3 (0-0.2); BASOPHILS % (AUTO) 0.9 % (0-1); EOSINOPHILS % (AUTO) 0.6 % (0-6); HEMATOCRIT 23.3 % (42.0-52.0); HEMOGLOBIN 7.8 g/dl (14.0-17.9); LYMPHOCYTES # (AUTO) 2.7 X10'3 (1.1-4.8); LYMPHOCYTES % (AUTO) 31.1 % (21-51); MEAN CORPUSCULAR HEMOGLOBIN 29.5 PG (27.0-31.0); MEAN CORPUSCULAR HGB CONC 33.4 g/dL (33.0-36.5); MEAN CORPUSCULAR VOLUME 88.4 FL (78-98); MEAN PLATELET VOLUME 7.2 FL (7.4-10.4); MONOCYTES # (AUTO) 0.9 X10'3 (0-0.9); MONOCYTES % (AUTO) 10.5 % (2-12); NEUTROPHILS # (AUTO) 4.9 X10'3 (1.8-7.7); NEUTROPHILS % (AUTO) 56.9 % (42-75); PLATELET COUNT 315 X10'3 (140-440); RED BLOOD COUNT 2.63 X10'6 (4.70-6.10); RED CELL DISTRIBUTION WIDTH 21.9 % (11.5-14.5); WHITE BLOOD COUNT 8.5 X10'3 (4.5-11.0)
[2021-06-24 09:38] LABS: ALANINE AMINOTRANSFERASE 30 U/L (12-78); ALBUMIN/GLOBULIN RATIO 0.6 (1.1-1.5); ALKALINE PHOSPHATASE 159 IU/L (46-116); ANION GAP 11 (8-16); ASPARTATE AMINO TRANSFERASE 59 U/L (10-37); BILIRUBIN,TOTAL 0.5 MG/DL (0.1-1.0); BLOOD UREA NITROGEN 14 MG/DL (7-18); BUN/CREATININE RATIO 10.5 (5.4-32.0); CALCIUM 7.8 MG/DL (8.5-10.1); CHLORIDE 97 MMOL/L (99-107); CREATININE 1.33 MG/DL (0.60-1.10); ETHANOL 0.123 GM/DL (0.0-0.010); GLUCOSE 87 MG/DL (70-104); POTASSIUM 3.3 MMOL/L (3.5-5.1); SODIUM 136 MMOL/L (135-145); TOTAL CARBON DIOXIDE 28.5 MMOL/L (24-32); TOTAL PROTEIN 8.2 G/DL (6.4-8.2); eGFR 54 ML/MIN
[2021-06-24 09:44] VITALS: BP 142/83
[2021-06-24 10:31] LABS: ANISOCYTOSIS 3+; HYPOCHROMASIA 1+; PLATELET ESTIMATE NORMAL
[2021-06-24 10:32] LABS: POLYCHROMASIA FEW; TARGET CELLS 1+
[2021-06-24] MEDS ORDERED: hydrOXYzine 25 MG tablet PO ONE (10:45)
[2021-06-24] MEDS ORDERED: LEVO150T8 PO (10:57)
== END 2021-06-24 11:14 | disposition home or self-care (01) ==
LOC: ER 07:16
DX: F10.129 Alcohol abuse with intoxication, unspecified (principal); E86.0 Dehydration; H57.12 Ocular pain, left eye; I10 Essential (primary) hypertension; E03.9 Hypothyroidism, unspecified; G89.29 Other chronic pain; F12.90 Cannabis use, unspecified, uncomplicated; F15.90 Other stimulant use, unspecified, uncomplicated; Z86.73 Personal history of transient ischemic attack (TIA), and cerebral infarction without residual deficits; Z86.69 Personal history of other diseases of the nervous system and sense organs; Z86.2 Personal history of diseases of the blood and blood-forming organs and certain disorders involving the immune mechanism; Z87.442 Personal history of urinary calculi; Z98.890 Other specified postprocedural states; Z72.89 Other problems related to lifestyle; Z56.0 Unemployment, unspecified; Z59.00 Homelessness unspecified; Z88.8 Allergy status to other drugs, medicaments and biological substances; Z79.2 Long term (current) use of antibiotics; Z79.899 Other long term (current) drug therapy; Y90.9 Presence of alcohol in blood, level not specified
CPT/HCPCS: 36415; 80053; 80320; 85008; 85025; 99283; Q0177

== ENCOUNTER 2021-06-26 23:49 | Emergency (ER) | payer MEDICARE, MEDICAID ==
[~2021-06-26] VITALS: Ht 177.8 cm; Wt 81.8 kg
[2021-06-26 23:51] VITALS: BP 128/66
[2021-06-27] MEDS ORDERED: ONDA4TAB6 PO (02:08)
[2021-06-27] MEDS ORDERED: PERM60CR19 TOP (02:08)
== END 2021-06-27 02:31 | disposition home or self-care (01) ==
LOC: ER 23:49
DX: R11.2 Nausea with vomiting, unspecified (principal); B88.9 Infestation, unspecified; I10 Essential (primary) hypertension; E03.9 Hypothyroidism, unspecified; G89.29 Other chronic pain; F12.90 Cannabis use, unspecified, uncomplicated; F15.90 Other stimulant use, unspecified, uncomplicated; Z86.73 Personal history of transient ischemic attack (TIA), and cerebral infarction without residual deficits; Z86.69 Personal history of other diseases of the nervous system and sense organs; Z86.2 Personal history of diseases of the blood and blood-forming organs and certain disorders involving the immune mechanism; Z87.442 Personal history of urinary calculi; Z98.890 Other specified postprocedural states; Z72.89 Other problems related to lifestyle; Z56.0 Unemployment, unspecified; Z59.00 Homelessness unspecified; Z88.8 Allergy status to other drugs, medicaments and biological substances; Z79.2 Long term (current) use of antibiotics; Z79.899 Other long term (current) drug therapy
CPT/HCPCS: 99283

== ENCOUNTER 2021-06-27 23:54 | Emergency (ER) | payer MEDICARE, MEDICAID ==
[~2021-06-27] VITALS: Ht 177.8 cm; Wt 77.3 kg
[~2021-06-27 23:54] MED LIST changes: +ONDA4TAB6 PO; +PERM60CR19 TOP
[2021-06-27 23:56] VITALS: BP 97/62
== END 2021-06-28 02:04 | disposition home or self-care (01) ==
LOC: ER 23:55
DX: M12.822 Other specific arthropathies, not elsewhere classified, left elbow (principal); M12.821 Other specific arthropathies, not elsewhere classified, right elbow; F10.129 Alcohol abuse with intoxication, unspecified; M25.522 Pain in left elbow; M25.521 Pain in right elbow; I10 Essential (primary) hypertension; E03.9 Hypothyroidism, unspecified; G89.29 Other chronic pain; F12.90 Cannabis use, unspecified, uncomplicated; F15.90 Other stimulant use, unspecified, uncomplicated; Z86.73 Personal history of transient ischemic attack (TIA), and cerebral infarction without residual deficits; Z86.69 Personal history of other diseases of the nervous system and sense organs; Z86.2 Personal history of diseases of the blood and blood-forming organs and certain disorders involving the immune mechanism; Z87.442 Personal history of urinary calculi; Z98.890 Other specified postprocedural states; Z72.89 Other problems related to lifestyle; Z56.0 Unemployment, unspecified; Z59.00 Homelessness unspecified; Z88.8 Allergy status to other drugs, medicaments and biological substances; Z79.2 Long term (current) use of antibiotics; Z79.899 Other long term (current) drug therapy; Y90.9 Presence of alcohol in blood, level not specified
CPT/HCPCS: 99283

== ENCOUNTER 2021-06-29 17:21 | Emergency (ER) | payer MEDICARE, MEDICAID ==
[~2021-06-29] VITALS: Ht 177.8 cm; Wt 77.2 kg
[2021-06-29] MEDS ORDERED: normal saline 1000ML IV soln IVB ONE (17:45)
[2021-06-29 18:37] LABS: BASOPHILS # (AUTO) 0.1 X10'3 (0-0.2); EOSINOPHILS # (AUTO) 0.2 X10'3 (0-0.9); LYMPHOCYTES # (AUTO) 6.9 X10'3 (1.1-4.8); MEAN CORPUSCULAR VOLUME 91.3 FL (78-98)
[2021-06-29 18:38] LABS: BASOPHILS % (AUTO) 0.9 % (0-1); EOSINOPHILS % (AUTO) 2.1 % (0-6); HEMATOCRIT 24.6 % (42.0-52.0); HEMOGLOBIN 7.9 g/dl (14.0-17.9); LYMPHOCYTES % (AUTO) 66.8 % (21-51); MEAN CORPUSCULAR HEMOGLOBIN 29.4 PG (27.0-31.0); MEAN CORPUSCULAR HGB CONC 32.2 g/dL (33.0-36.5); MEAN PLATELET VOLUME 7.3 FL (7.4-10.4); MONOCYTES % (AUTO) 9.7 % (2-12); NEUTROPHILS # (AUTO) 2.1 X10'3 (1.8-7.7); NEUTROPHILS % (AUTO) 20.5 % (42-75); PLATELET COUNT 302 X10'3 (140-440); RED CELL DISTRIBUTION WIDTH 24.5 % (11.5-14.5); WHITE BLOOD COUNT 10.4 X10'3 (4.5-11.0)
[2021-06-29 18:53] VITALS: BP 138/86
[2021-06-29 18:54] LABS: ALANINE AMINOTRANSFERASE 26 U/L (12-78); ALBUMIN 2.9 G/DL (3.4-5.0); ALBUMIN/GLOBULIN RATIO 0.6 (1.1-1.5); ALKALINE PHOSPHATASE 133 IU/L (46-116); ANION GAP 8 (8-16); ASPARTATE AMINO TRANSFERASE 54 U/L (10-37); BILIRUBIN,TOTAL 0.3 MG/DL (0.1-1.0); BLOOD UREA NITROGEN 13 MG/DL (7-18); BUN/CREATININE RATIO 11.6 (5.4-32.0); CHLORIDE 105 MMOL/L (99-107); CREATININE 1.12 MG/DL (0.60-1.10); ETHANOL 0.242 GM/DL (0.0-0.010); GLUCOSE 93 MG/DL (70-104); POTASSIUM 3.1 MMOL/L (3.5-5.1); SODIUM 140 MMOL/L (135-145); TOTAL CARBON DIOXIDE 26.7 MMOL/L (24-32); eGFR 66 ML/MIN
[2021-06-29 19:34] LABS: ANISOCYTOSIS 3+; HYPOCHROMASIA 1+; PLATELET ESTIMATE NORMAL; TARGET CELLS FEW; TOTAL CELLS COUNTED 100
[2021-06-29 19:35] LABS: SMUDGE CELLS FEW
[2021-06-29] MEDS: potassium Cl 10 mEq/100mL bag IV SCH ×2 (20:10→20:25)
[2021-06-29] MEDS ORDERED: potassium Cl 20 mEq SR tablet PO ONE (20:35)
== END 2021-06-29 21:04 | disposition home or self-care (01) ==
LOC: ER 17:22
DX: F10.20 Alcohol dependence, uncomplicated (principal); R07.89 Other chest pain; D64.9 Anemia, unspecified; G40.909 Epilepsy, unspecified, not intractable, without status epilepticus; I10 Essential (primary) hypertension; E03.9 Hypothyroidism, unspecified; G89.29 Other chronic pain; Z86.73 Personal history of transient ischemic attack (TIA), and cerebral infarction without residual deficits; F12.90 Cannabis use, unspecified, uncomplicated; F15.90 Other stimulant use, unspecified, uncomplicated; Z56.0 Unemployment, unspecified; Z59.00 Homelessness unspecified; Y90.8 Blood alcohol level of 240 mg/100 ml or more; Z72.89 Other problems related to lifestyle; Z90.89 Acquired absence of other organs; Z98.890 Other specified postprocedural states; Z88.8 Allergy status to other drugs, medicaments and biological substances; Z79.2 Long term (current) use of antibiotics; Z79.899 Other long term (current) drug therapy
CPT/HCPCS: 36415; 80053; 80320; 85007; 85025; 96360; 99284; J3480; J7030

== ENCOUNTER 2021-06-30 23:13 | Emergency (ER) | payer MEDICARE, MEDICAID ==
[~2021-06-30] VITALS: Ht 177.8 cm; Wt 81.8 kg
[2021-07-01 00:07] VITALS: BP 153/95
[2021-07-01 00:48] LABS: BASOPHILS # (AUTO) 0.1 X10'3 (0-0.2); BASOPHILS % (AUTO) 0.9 % (0-1); HEMOGLOBIN 7.1 g/dl (14.0-17.9); RED BLOOD COUNT 2.39 X10'6 (4.70-6.10)
[2021-07-01 00:50] LABS: EOSINOPHILS # (AUTO) 0.2 X10'3 (0-0.9); EOSINOPHILS % (AUTO) 1.8 % (0-6); LYMPHOCYTES # (AUTO) 5.1 X10'3 (1.1-4.8); LYMPHOCYTES % (AUTO) 57.1 % (21-51); MEAN CORPUSCULAR HEMOGLOBIN 29.6 PG (27.0-31.0); MEAN CORPUSCULAR HGB CONC 32.7 g/dL (33.0-36.5); MEAN CORPUSCULAR VOLUME 90.8 FL (78-98); MEAN PLATELET VOLUME 7.3 FL (7.4-10.4); MONOCYTES # (AUTO) 0.9 X10'3 (0-0.9); MONOCYTES % (AUTO) 10.5 % (2-12); NEUTROPHILS # (AUTO) 2.7 X10'3 (1.8-7.7); NEUTROPHILS % (AUTO) 29.7 % (42-75); PLATELET COUNT 279 X10'3 (140-440); RED CELL DISTRIBUTION WIDTH 23.5 % (11.5-14.5)
[2021-07-01 00:56] LABS: HEMATOCRIT 21.7 % (42.0-52.0)
[2021-07-01 01:01] LABS: ALBUMIN 2.9 G/DL (3.4-5.0); ANION GAP 10 (8-16); BLOOD UREA NITROGEN 18 MG/DL (7-18); BUN/CREATININE RATIO 15.9 (5.4-32.0); CALCIUM 7.7 MG/DL (8.5-10.1); CHLORIDE 107 MMOL/L (99-107); CREATININE 1.13 MG/DL (0.60-1.10); GLUCOSE 109 MG/DL (70-104); POTASSIUM 3.4 MMOL/L (3.5-5.1); SODIUM 143 MMOL/L (135-145); TOTAL CARBON DIOXIDE 25.6 MMOL/L (24-32); TROPONIN I < 0.04 NG/ML (0.0-0.05); eGFR 65 ML/MIN
[2021-07-01 01:40] LABS: D-DIMER 2.78 MG/L FEU (0-0.50)
[2021-07-01 01:54] LABS: ANISOCYTOSIS 3+; PLATELET ESTIMATE NORMAL; TOTAL CELLS COUNTED 100
[2021-07-01 01:55] LABS: HYPOCHROMASIA 1+; TARGET CELLS FEW
[2021-07-01 01:57] LABS: SMUDGE CELLS FEW
[2021-07-01] MEDS ORDERED: SULF1TAB49 PO (06:06)
[2021-07-01] MEDS ORDERED: PRED20TA PO (17:29)
== END 2021-07-01 02:25 | disposition left against medical advice (07) ==
LOC: ER 23:13
DX: R07.89 Other chest pain (principal); R06.02 Shortness of breath; G40.909 Epilepsy, unspecified, not intractable, without status epilepticus; I10 Essential (primary) hypertension; G89.29 Other chronic pain; E03.9 Hypothyroidism, unspecified; F12.90 Cannabis use, unspecified, uncomplicated; F15.90 Other stimulant use, unspecified, uncomplicated; Z86.73 Personal history of transient ischemic attack (TIA), and cerebral infarction without residual deficits; Z87.442 Personal history of urinary calculi; Z87.81 Personal history of (healed) traumatic fracture; Z90.89 Acquired absence of other organs; Z98.890 Other specified postprocedural states; Z56.0 Unemployment, unspecified; Z59.00 Homelessness unspecified; Z72.89 Other problems related to lifestyle; Z88.8 Allergy status to other drugs, medicaments and biological substances; Z79.2 Long term (current) use of antibiotics; Z79.899 Other long term (current) drug therapy
CPT/HCPCS: 36415; 71045; 80048; 84484; 85007; 85025; 85379; 93005; 99285

== ENCOUNTER 2021-07-01 05:12 | Emergency (ER) | payer MEDICARE, MEDICAID ==
[~2021-07-01] VITALS: Ht 177.8 cm; Wt 81.8 kg
[2021-07-01] MEDS ORDERED: sulfamethoxazole/trimethoprim DS (800/160mg) tablet PO ONE (05:20)
[2021-07-01] MEDS ORDERED: iohexol 350MG/ML 100ml bottle IV ONE (05:50)
[2021-07-01] MEDS ORDERED: HYDROcodone/acetaminophen 5mg/325mg tablet PO ONE (05:50)
[2021-07-01] MEDS ORDERED: SULF1TAB49 PO (06:06)
[2021-07-01 07:25] VITALS: BP 135/86
[2021-07-01] MEDS ORDERED: PRED20TA PO (17:29)
== END 2021-07-01 07:27 | disposition home or self-care (01) ==
LOC: ER 05:12
DX: R07.89 Other chest pain (principal); R06.02 Shortness of breath; R00.0 Tachycardia, unspecified; L03.213 Periorbital cellulitis; I10 Essential (primary) hypertension; E03.9 Hypothyroidism, unspecified; G89.29 Other chronic pain; F12.90 Cannabis use, unspecified, uncomplicated; F15.90 Other stimulant use, unspecified, uncomplicated; Z86.73 Personal history of transient ischemic attack (TIA), and cerebral infarction without residual deficits; Z86.69 Personal history of other diseases of the nervous system and sense organs; Z86.2 Personal history of diseases of the blood and blood-forming organs and certain disorders involving the immune mechanism; Z87.442 Personal history of urinary calculi; Z98.890 Other specified postprocedural states; Z72.89 Other problems related to lifestyle; Z56.0 Unemployment, unspecified; Z59.00 Homelessness unspecified; Z88.8 Allergy status to other drugs, medicaments and biological substances; Z79.2 Long term (current) use of antibiotics; Z79.899 Other long term (current) drug therapy
CPT/HCPCS: 71275; 99285; Q9967

== ENCOUNTER 2021-07-01 17:12 | Emergency (ER) | payer MEDICARE, MEDICAID ==
[~2021-07-01] VITALS: Ht 177.8 cm; Wt 81.8 kg
[~2021-07-01 17:12] MED LIST changes: +SULF1TAB49 PO
[2021-07-01] MEDS ORDERED: PRED20TA PO (17:29)
[2021-07-01] MEDS ORDERED: predniSONE 20 mg tablet PO ONE (17:30)
[2021-07-01 17:38] VITALS: BP 134/76
== END 2021-07-01 17:52 | disposition home or self-care (01) ==
LOC: ER 17:13
DX: L23.9 Allergic contact dermatitis, unspecified cause (principal); R21 Rash and other nonspecific skin eruption; I10 Essential (primary) hypertension; E03.9 Hypothyroidism, unspecified; G89.29 Other chronic pain; F12.90 Cannabis use, unspecified, uncomplicated; F15.90 Other stimulant use, unspecified, uncomplicated; Z86.73 Personal history of transient ischemic attack (TIA), and cerebral infarction without residual deficits; Z86.69 Personal history of other diseases of the nervous system and sense organs; Z86.2 Personal history of diseases of the blood and blood-forming organs and certain disorders involving the immune mechanism; Z87.442 Personal history of urinary calculi; Z98.890 Other specified postprocedural states; Z72.89 Other problems related to lifestyle; Z56.0 Unemployment, unspecified; Z59.00 Homelessness unspecified; Z88.8 Allergy status to other drugs, medicaments and biological substances; Z79.2 Long term (current) use of antibiotics; Z79.899 Other long term (current) drug therapy
CPT/HCPCS: 99283; J7512

== ENCOUNTER 2021-07-03 08:51 | Emergency (ER) | payer MEDICARE, MEDICAID ==
[~2021-07-03] VITALS: Ht 177.8 cm; Wt 81.8 kg
[~2021-07-03 08:51] MED LIST changes: +PRED20TA PO
[2021-07-03 08:55] VITALS: BP 136/82
== END 2021-07-03 12:14 | disposition left against medical advice (07) ==
LOC: ER 08:51
DX: M25.561 Pain in right knee (principal); M25.521 Pain in right elbow; I10 Essential (primary) hypertension; E03.9 Hypothyroidism, unspecified; G89.29 Other chronic pain; F12.90 Cannabis use, unspecified, uncomplicated; F15.90 Other stimulant use, unspecified, uncomplicated; Z86.73 Personal history of transient ischemic attack (TIA), and cerebral infarction without residual deficits; Z86.69 Personal history of other diseases of the nervous system and sense organs; Z86.2 Personal history of diseases of the blood and blood-forming organs and certain disorders involving the immune mechanism; Z87.442 Personal history of urinary calculi; Z98.890 Other specified postprocedural states; Z72.89 Other problems related to lifestyle; Z56.0 Unemployment, unspecified; Z59.00 Homelessness unspecified; Z88.8 Allergy status to other drugs, medicaments and biological substances; Z79.2 Long term (current) use of antibiotics; Z79.899 Other long term (current) drug therapy
CPT/HCPCS: 73080; 73560; 99284

== ENCOUNTER 2021-07-04 07:25 | Emergency (ER) | payer MEDICARE, MEDICAID ==
[~2021-07-04] VITALS: Ht 177.8 cm; Wt 81.0 kg
[2021-07-04 07:29] VITALS: BP 128/62
[2021-07-04 09:54] LABS: BLOOD UREA NITROGEN 13 MG/DL (7-18); BUN/CREATININE RATIO 11.7 (5.4-32.0); CALCIUM 7.6 MG/DL (8.5-10.1); CHLORIDE 107 MMOL/L (99-107); CREATININE 1.11 MG/DL (0.60-1.10); GLUCOSE 94 MG/DL (70-104); TOTAL CARBON DIOXIDE 23.6 MMOL/L (24-32); eGFR 66 ML/MIN
[2021-07-04 09:55] LABS: ANION GAP 11 (8-16); SODIUM 142 MMOL/L (135-145)
[2021-07-04 10:03] LABS: BASOPHILS # (AUTO) 0.1 X10'3 (0-0.2); BASOPHILS % (AUTO) 0.8 % (0-1); EOSINOPHILS % (AUTO) 0.6 % (0-6); HEMATOCRIT 23.3 % (42.0-52.0); HEMOGLOBIN 7.5 g/dl (14.0-17.9); LYMPHOCYTES # (AUTO) 4.3 X10'3 (1.1-4.8); MEAN CORPUSCULAR VOLUME 90.5 FL (78-98); MEAN PLATELET VOLUME 7.6 FL (7.4-10.4); MONOCYTES # (AUTO) 0.6 X10'3 (0-0.9); MONOCYTES % (AUTO) 7.3 % (2-12); NEUTROPHILS # (AUTO) 2.6 X10'3 (1.8-7.7); NEUTROPHILS % (AUTO) 34.3 % (42-75); PLATELET COUNT 292 X10'3 (140-440); RED BLOOD COUNT 2.58 X10'6 (4.70-6.10); RED CELL DISTRIBUTION WIDTH 22.2 % (11.5-14.5); WHITE BLOOD COUNT 7.6 X10'3 (4.5-11.0)
[2021-07-04 11:28] LABS: ANISOCYTOSIS 3+; NUCLEATED RED BLOOD CELLS 3 /100WBC (0-0); PLATELET ESTIMATE NORMAL; TOTAL CELLS COUNTED 100
[2021-07-04 11:29] LABS: HYPOCHROMASIA 1+; POLYCHROMASIA 1+; SCHISTOCYTES FEW; SMUDGE CELLS FEW
== END 2021-07-04 13:02 | disposition left against medical advice (07) ==
LOC: ER 07:25
DX: H53.132 Sudden visual loss, left eye (principal); Z88.8 Allergy status to other drugs, medicaments and biological substances; Z79.899 Other long term (current) drug therapy
CPT/HCPCS: 36415; 70450; 70480; 80048; 84484; 85007; 85025; 99285

== ENCOUNTER 2021-07-04 15:49 | Emergency (ER) | payer MEDICARE, MEDICAID ==
[~2021-07-04] VITALS: Ht 172.7 cm; Wt 80.0 kg
[2021-07-04 15:55] VITALS: BP 132/76
== END 2021-07-05 03:41 | disposition left against medical advice (07) ==
LOC: ER 15:50
DX: F10.129 Alcohol abuse with intoxication, unspecified (principal); Z53.21 Procedure and treatment not carried out due to patient leaving prior to being seen by health care provider; Y90.9 Presence of alcohol in blood, level not specified

== ENCOUNTER 2021-07-07 05:53 | Emergency (ER) | payer MEDICARE, MEDICAID ==
[~2021-07-07] VITALS: Ht 177.8 cm; Wt 100.0 kg
[~2021-07-07 05:53] MED LIST changes: -ERYT1OIN6 EACHEYE; -IVER3TAB2 PO; -LEVO150C4 PO; -PERM60CR19 TP; -acetaminophen 325mg tablet PO ONE
[2021-07-07 06:27] VITALS: BP 171/98
[2021-07-08] MEDS ORDERED: PERM60CR19 TP (09:24)
== END 2021-07-07 06:55 | disposition home or self-care (01) ==
LOC: ER 05:53
DX: R21 Rash and other nonspecific skin eruption (principal); R07.89 Other chest pain; F10.129 Alcohol abuse with intoxication, unspecified; G40.909 Epilepsy, unspecified, not intractable, without status epilepticus; I10 Essential (primary) hypertension; E03.9 Hypothyroidism, unspecified; G89.29 Other chronic pain; F12.90 Cannabis use, unspecified, uncomplicated; F15.90 Other stimulant use, unspecified, uncomplicated; Z87.442 Personal history of urinary calculi; Z87.81 Personal history of (healed) traumatic fracture; Z90.89 Acquired absence of other organs; Z86.73 Personal history of transient ischemic attack (TIA), and cerebral infarction without residual deficits; Z56.0 Unemployment, unspecified; Z59.00 Homelessness unspecified; Z72.89 Other problems related to lifestyle; Z88.8 Allergy status to other drugs, medicaments and biological substances; Z79.2 Long term (current) use of antibiotics; Z79.899 Other long term (current) drug therapy; Y90.9 Presence of alcohol in blood, level not specified
CPT/HCPCS: 93005; 99283

== ENCOUNTER → 2021-07-07 | Emergency (ER) | payer MEDICARE, MEDICAID ==
[~2021-07-07] MED LIST changes: +ERYT1OIN6 EACHEYE; +IVER3TAB2 PO; +LEVO150C4 PO; +PERM60CR19 TP; +acetaminophen 325mg tablet PO ONE
--- NOTE | 2021-07-07 12:47 | NUR ---
pt was seen and treated prior to mission assessment specialist. Pt was given bus pass and assisted to bus stop. Medically cleared by .
== END | disposition home or self-care (01) ==
LOC: ER 12:12
DX: S20.211A Contusion of right front wall of thorax, initial encounter (principal); G40.909 Epilepsy, unspecified, not intractable, without status epilepticus; I10 Essential (primary) hypertension; E03.9 Hypothyroidism, unspecified; G89.29 Other chronic pain; F12.90 Cannabis use, unspecified, uncomplicated; F15.90 Other stimulant use, unspecified, uncomplicated; Z86.72 Personal history of thrombophlebitis; Z87.442 Personal history of urinary calculi; Z87.81 Personal history of (healed) traumatic fracture; Z90.89 Acquired absence of other organs; Z98.890 Other specified postprocedural states; Z56.0 Unemployment, unspecified; Z59.00 Homelessness unspecified; Z79.2 Long term (current) use of antibiotics; Z79.899 Other long term (current) drug therapy; Z86.2 Personal history of diseases of the blood and blood-forming organs and certain disorders involving the immune mechanism; X58.XXXA Exposure to other specified factors, initial encounter; Y93.89 Activity, other specified; Y92.89 Other specified places as the place of occurrence of the external cause; Y99.8 Other external cause status
CPT/HCPCS: 71045; 99283

== ENCOUNTER 2021-07-08 09:18 | Emergency (ER) | payer MEDICARE, MEDICAID ==
[~2021-07-08] VITALS: Ht 177.8 cm; Wt 100.0 kg
[~2021-07-08 09:18] MED LIST changes: -PRED20TA PO
[2021-07-08] MEDS ORDERED: PERM60CR19 TP (09:24)
[2021-07-08 09:31] VITALS: BP 133/92
[2021-07-09] MEDS ORDERED: PERM60CR19 TOP (19:45)
[2021-07-09] MEDS ORDERED: LEVO150T8 PO (19:45)
[2021-07-09] MEDS ORDERED: PERM60CR19 TP (19:45)
[2021-07-09] MEDS ORDERED: LEVO150T PO (19:45)
== END 2021-07-08 09:37 | disposition home or self-care (01) ==
LOC: ER 09:19
DX: B86 Scabies (principal); R21 Rash and other nonspecific skin eruption; I10 Essential (primary) hypertension; E03.9 Hypothyroidism, unspecified; G89.29 Other chronic pain; F12.90 Cannabis use, unspecified, uncomplicated; F15.90 Other stimulant use, unspecified, uncomplicated; Z86.69 Personal history of other diseases of the nervous system and sense organs; Z86.2 Personal history of diseases of the blood and blood-forming organs and certain disorders involving the immune mechanism; Z86.73 Personal history of transient ischemic attack (TIA), and cerebral infarction without residual deficits; Z87.442 Personal history of urinary calculi; Z98.890 Other specified postprocedural states; Z72.89 Other problems related to lifestyle; Z56.0 Unemployment, unspecified; Z59.00 Homelessness unspecified; Z88.8 Allergy status to other drugs, medicaments and biological substances; Z79.2 Long term (current) use of antibiotics; Z79.899 Other long term (current) drug therapy
CPT/HCPCS: 99283

== ENCOUNTER 2021-07-08 11:34 | Emergency (ER) | payer MEDICARE, MEDICAID ==
[~2021-07-08] VITALS: Ht 177.8 cm; Wt 100.0 kg
[~2021-07-08 11:34] MED LIST changes: +PERM60CR19 TP
[2021-07-08 12:01] VITALS: BP 100/59
[2021-07-09] MEDS ORDERED: PERM60CR19 TP (19:45)
[2021-07-09] MEDS ORDERED: LEVO150T8 PO (19:45)
[2021-07-09] MEDS ORDERED: PERM60CR19 TOP (19:45)
[2021-07-09] MEDS ORDERED: LEVO150T PO (19:45)
== END 2021-07-08 12:35 | disposition home or self-care (01) ==
LOC: ER 11:35
DX: S63.591A Other specified sprain of right wrist, initial encounter (principal); S60.511A Abrasion of right hand, initial encounter; M25.531 Pain in right wrist; R47.81 Slurred speech; I10 Essential (primary) hypertension; E03.9 Hypothyroidism, unspecified; G89.29 Other chronic pain; F12.90 Cannabis use, unspecified, uncomplicated; F15.90 Other stimulant use, unspecified, uncomplicated; Z86.73 Personal history of transient ischemic attack (TIA), and cerebral infarction without residual deficits; Z86.69 Personal history of other diseases of the nervous system and sense organs; Z86.2 Personal history of diseases of the blood and blood-forming organs and certain disorders involving the immune mechanism; Z87.442 Personal history of urinary calculi; Z98.890 Other specified postprocedural states; Z72.89 Other problems related to lifestyle; Z56.0 Unemployment, unspecified; Z59.00 Homelessness unspecified; Z88.8 Allergy status to other drugs, medicaments and biological substances; Z79.2 Long term (current) use of antibiotics; Z79.899 Other long term (current) drug therapy; W19.XXXA Unspecified fall, initial encounter; Y93.89 Activity, other specified; Y92.89 Other specified places as the place of occurrence of the external cause; Y99.8 Other external cause status
CPT/HCPCS: 29125; 73110; 99283

== ENCOUNTER 2021-07-09 15:13 | Emergency (ER) | payer MEDICARE, MEDICAID ==
[~2021-07-09] VITALS: Ht 177.8 cm; Wt 81.8 kg
[2021-07-09 15:19] VITALS: BP 123/95
[2021-07-09] MEDS ORDERED: LEVO150T PO (19:45)
[2021-07-09] MEDS ORDERED: PERM60CR19 TP (19:45)
[2021-07-09] MEDS ORDERED: LEVO150T8 PO (19:45)
[2021-07-09] MEDS ORDERED: PERM60CR19 TOP (19:45)
== END 2021-07-09 19:40 | disposition left against medical advice (07) ==
LOC: ER 15:14
DX: R11.10 Vomiting, unspecified (principal); Z53.21 Procedure and treatment not carried out due to patient leaving prior to being seen by health care provider

== ENCOUNTER 2021-07-09 19:39 | Emergency (ER) | payer MEDICARE, MEDICAID ==
[~2021-07-09] VITALS: Ht 182.9 cm; Wt 73.0 kg
[2021-07-09 19:39] VITALS: BP 138/79
[2021-07-09] MEDS ORDERED: LEVO150T8 PO (19:45)
[2021-07-09] MEDS ORDERED: PERM60CR19 TP (19:45)
[2021-07-09] MEDS ORDERED: LEVO150T PO (19:45)
[2021-07-09] MEDS ORDERED: PERM60CR19 TOP (19:45)
--- NOTE | 2021-07-09 19:50 | NUR ---
Pt given discharge instructions. He did not want to leave. Needed to be escorted out by security.
== END 2021-07-09 19:50 | disposition home or self-care (01) ==
LOC: ER 19:40
DX: S20.212A Contusion of left front wall of thorax, initial encounter (principal); R07.89 Other chest pain; R07.81 Pleurodynia; I10 Essential (primary) hypertension; E03.9 Hypothyroidism, unspecified; G89.29 Other chronic pain; F12.90 Cannabis use, unspecified, uncomplicated; F15.90 Other stimulant use, unspecified, uncomplicated; Z76.5 Malingerer [conscious simulation]; Z91.19 Patient's noncompliance with other medical treatment and regimen; Z86.73 Personal history of transient ischemic attack (TIA), and cerebral infarction without residual deficits; Z86.69 Personal history of other diseases of the nervous system and sense organs; Z86.2 Personal history of diseases of the blood and blood-forming organs and certain disorders involving the immune mechanism; Z87.442 Personal history of urinary calculi; Z98.890 Other specified postprocedural states; Z72.89 Other problems related to lifestyle; Z56.0 Unemployment, unspecified; Z59.00 Homelessness unspecified; Z88.8 Allergy status to other drugs, medicaments and biological substances; Z79.2 Long term (current) use of antibiotics; Z79.899 Other long term (current) drug therapy; Y93.89 Activity, other specified; Y92.89 Other specified places as the place of occurrence of the external cause; Y99.8 Other external cause status
CPT/HCPCS: 99283

== ENCOUNTER 2021-07-09 21:50 | Emergency (ER) | payer MEDICARE, MEDICAID ==
[~2021-07-09] VITALS: Ht 177.8 cm; Wt 81.8 kg
[2021-07-09 22:15] VITALS: BP 90/61
--- NOTE | 2021-07-09 22:15 | NUR ---
Seen by Dr. Powell.
--- NOTE | 2021-07-09 22:23 | NUR ---
Given d/c instructions. Pt is reluctant to leave. Escorted out by security.
== END 2021-07-09 22:23 | disposition home or self-care (01) ==
LOC: ER 21:51
DX: S20.219D Contusion of unspecified front wall of thorax, subsequent encounter (principal); S60.511D Abrasion of right hand, subsequent encounter; R07.89 Other chest pain; F10.129 Alcohol abuse with intoxication, unspecified; I10 Essential (primary) hypertension; E03.9 Hypothyroidism, unspecified; G89.29 Other chronic pain; F12.90 Cannabis use, unspecified, uncomplicated; F15.90 Other stimulant use, unspecified, uncomplicated; Z86.73 Personal history of transient ischemic attack (TIA), and cerebral infarction without residual deficits; Z86.69 Personal history of other diseases of the nervous system and sense organs; Z86.2 Personal history of diseases of the blood and blood-forming organs and certain disorders involving the immune mechanism; Z87.442 Personal history of urinary calculi; Z98.890 Other specified postprocedural states; Z72.89 Other problems related to lifestyle; Z56.0 Unemployment, unspecified; Z59.00 Homelessness unspecified; Z88.8 Allergy status to other drugs, medicaments and biological substances; Z79.2 Long term (current) use of antibiotics; Z79.899 Other long term (current) drug therapy; X58.XXXD Exposure to other specified factors, subsequent encounter; Y90.9 Presence of alcohol in blood, level not specified
CPT/HCPCS: 93005; 99283

== ENCOUNTER 2021-07-11 00:37 | Emergency (ER) | payer MEDICARE, MEDICAID ==
[~2021-07-11] VITALS: Ht 180.3 cm; Wt 180.0 kg
[2021-07-11 00:41] VITALS: BP 157/72
[2021-07-11] MEDS ORDERED: Ivermectin 3mg tablet PO STA ×2 (01:13→01:15)
[2021-07-11] MEDS ORDERED: IVER3TAB2 PO (01:59)
[2021-07-11] MEDS ORDERED: CEPH-585 PO (01:59)
[2021-07-11] MEDS ORDERED: cephalexin 250mg capsule PO ONE (02:00)
--- NOTE | 2021-07-11 02:11 | NUR ---
PT REFUSING D/C VITALS WITH SECURITY AT BEDSIDE. PT ESCORTED OUT AFTER DC INSTRUCTIONS GIVEN.
== END 2021-07-11 02:11 | disposition home or self-care (01) ==
LOC: ER 00:38
DX: L73.8 Other specified follicular disorders (principal); R07.89 Other chest pain; B86 Scabies; I10 Essential (primary) hypertension; E03.9 Hypothyroidism, unspecified; G89.29 Other chronic pain; F12.90 Cannabis use, unspecified, uncomplicated; F15.90 Other stimulant use, unspecified, uncomplicated; Z86.73 Personal history of transient ischemic attack (TIA), and cerebral infarction without residual deficits; Z86.69 Personal history of other diseases of the nervous system and sense organs; Z86.2 Personal history of diseases of the blood and blood-forming organs and certain disorders involving the immune mechanism; Z87.442 Personal history of urinary calculi; Z98.890 Other specified postprocedural states; Z72.89 Other problems related to lifestyle; Z56.0 Unemployment, unspecified; Z59.00 Homelessness unspecified; Z88.8 Allergy status to other drugs, medicaments and biological substances; Z79.2 Long term (current) use of antibiotics; Z79.899 Other long term (current) drug therapy
CPT/HCPCS: 71045; 99283

== ENCOUNTER 2021-07-12 19:24 | Emergency (ER) | payer MEDICARE, MEDICAID ==
[~2021-07-12 19:24] MED LIST changes: +IVER3TAB2 PO
[2021-07-12] MEDS ORDERED: naproxen 500mg tablet PO ONE (19:35)
--- NOTE | 2021-07-12 20:13 | NUR ---
pt bib ems. seen and d/c by provider from lobby priot to triage
== END 2021-07-12 19:54 | disposition home or self-care (01) ==
LOC: ER 19:25
DX: F10.129 Alcohol abuse with intoxication, unspecified (principal); M25.521 Pain in right elbow; M25.522 Pain in left elbow; I10 Essential (primary) hypertension; E03.9 Hypothyroidism, unspecified; G89.29 Other chronic pain; F12.90 Cannabis use, unspecified, uncomplicated; F15.90 Other stimulant use, unspecified, uncomplicated; Z87.81 Personal history of (healed) traumatic fracture; Z76.5 Malingerer [conscious simulation]; Z56.0 Unemployment, unspecified; Z59.00 Homelessness unspecified; Z98.890 Other specified postprocedural states; Z88.8 Allergy status to other drugs, medicaments and biological substances; Z79.2 Long term (current) use of antibiotics; Z79.899 Other long term (current) drug therapy; Y90.9 Presence of alcohol in blood, level not specified
CPT/HCPCS: 99281; 99283

== ENCOUNTER 2021-07-13 14:01 | Emergency (ER) | payer MEDICARE, MEDICAID ==
[~2021-07-13] VITALS: Ht 177.8 cm; Wt 73.0 kg
[2021-07-13 15:16] VITALS: BP 154/94
== END 2021-07-13 17:30 | disposition home or self-care (01) ==
LOC: ER 14:02
DX: F10.129 Alcohol abuse with intoxication, unspecified (principal); G40.909 Epilepsy, unspecified, not intractable, without status epilepticus; I10 Essential (primary) hypertension; E03.9 Hypothyroidism, unspecified; G89.29 Other chronic pain; F12.90 Cannabis use, unspecified, uncomplicated; F15.90 Other stimulant use, unspecified, uncomplicated; Z87.81 Personal history of (healed) traumatic fracture; Z86.73 Personal history of transient ischemic attack (TIA), and cerebral infarction without residual deficits; Z86.2 Personal history of diseases of the blood and blood-forming organs and certain disorders involving the immune mechanism; Z87.442 Personal history of urinary calculi; Z98.890 Other specified postprocedural states; Z56.0 Unemployment, unspecified; Z59.00 Homelessness unspecified; Z72.89 Other problems related to lifestyle; Z88.8 Allergy status to other drugs, medicaments and biological substances; Z79.2 Long term (current) use of antibiotics; Z79.899 Other long term (current) drug therapy; Y90.9 Presence of alcohol in blood, level not specified
CPT/HCPCS: 99283

== ENCOUNTER 2021-07-14 10:27 | Emergency (ER) | payer MEDICARE, MEDICAID ==
[~2021-07-14] VITALS: Ht 177.8 cm; Wt 81.8 kg
[~2021-07-14 10:27] MED LIST changes: -SULF1TAB49 PO
[2021-07-14 10:35] VITALS: BP 113/79
[2021-07-14] MEDS ORDERED: acetaminophen 325mg tablet PO ONE (10:35)
== END 2021-07-14 10:48 | disposition home or self-care (01) ==
LOC: ER 10:27
DX: R60.0 Localized edema (principal); M54.50 Low back pain, unspecified; R06.02 Shortness of breath; I10 Essential (primary) hypertension; E03.9 Hypothyroidism, unspecified; F12.90 Cannabis use, unspecified, uncomplicated; F15.90 Other stimulant use, unspecified, uncomplicated; G89.29 Other chronic pain; Z72.821 Inadequate sleep hygiene; Z86.73 Personal history of transient ischemic attack (TIA), and cerebral infarction without residual deficits; Z86.69 Personal history of other diseases of the nervous system and sense organs; Z86.2 Personal history of diseases of the blood and blood-forming organs and certain disorders involving the immune mechanism; Z87.442 Personal history of urinary calculi; Z98.890 Other specified postprocedural states; Z72.89 Other problems related to lifestyle; Z59.00 Homelessness unspecified; Z56.0 Unemployment, unspecified
CPT/HCPCS: 99284

== ENCOUNTER 2021-07-18 14:04 | Emergency (ER) | payer MEDICARE, MEDICAID ==
[~2021-07-18] VITALS: Ht 177.8 cm; Wt 81.0 kg
[2021-07-18 14:09] VITALS: BP 100/57
[2021-07-18] MEDS ORDERED: LEVO150T8 PO (14:10)
== END 2021-07-18 14:25 | disposition home or self-care (01) ==
LOC: ER 14:05
DX: F10.920 Alcohol use, unspecified with intoxication, uncomplicated (principal); E03.9 Hypothyroidism, unspecified; I10 Essential (primary) hypertension; D64.9 Anemia, unspecified; G89.29 Other chronic pain; M54.9 Dorsalgia, unspecified; F15.10 Other stimulant abuse, uncomplicated; F12.10 Cannabis abuse, uncomplicated; Z59.00 Homelessness unspecified; Z88.8 Allergy status to other drugs, medicaments and biological substances; Z56.0 Unemployment, unspecified; Z79.899 Other long term (current) drug therapy
CPT/HCPCS: 99283

== ENCOUNTER 2021-07-18 22:26 | Emergency (ER) | payer MEDICARE, MEDICAID ==
[~2021-07-18] VITALS: Ht 170.2 cm; Wt 81.0 kg
[2021-07-18] MEDS ORDERED: acetaminophen 325mg tablet PO ONE (22:40)
[2021-07-19 02:40] VITALS: BP 148/92
== END 2021-07-19 02:42 | disposition home or self-care (01) ==
LOC: ER 22:27
DX: F10.929 Alcohol use, unspecified with intoxication, unspecified (principal); R07.9 Chest pain, unspecified; I10 Essential (primary) hypertension; E06.9 Thyroiditis, unspecified; F12.10 Cannabis abuse, uncomplicated; F15.10 Other stimulant abuse, uncomplicated; Z59.00 Homelessness unspecified; Z56.0 Unemployment, unspecified; Z88.8 Allergy status to other drugs, medicaments and biological substances; Z79.899 Other long term (current) drug therapy
CPT/HCPCS: 71045; 93005; 99283

== ENCOUNTER 2021-07-19 04:25 | Emergency (ER) | payer MEDICARE, MEDICAID ==
[~2021-07-19] VITALS: Ht 177.8 cm; Wt 180.0 kg
[2021-07-19 04:43] VITALS: BP 96/60
[2021-07-19] MEDS ORDERED: acetaminophen 325mg tablet PO ONE (04:55)
[2021-07-19] MEDS ORDERED: ibuprofen tablet 400 MG TABLET PO ONE (04:55)
== END 2021-07-19 05:30 | disposition home or self-care (01) ==
LOC: ER 04:26
DX: F10.129 Alcohol abuse with intoxication, unspecified (principal); M79.672 Pain in left foot; R07.9 Chest pain, unspecified; I11.9 Hypertensive heart disease without heart failure; D64.9 Anemia, unspecified; Z87.442 Personal history of urinary calculi; F12.10 Cannabis abuse, uncomplicated; F15.10 Other stimulant abuse, uncomplicated; Z56.0 Unemployment, unspecified; Z59.00 Homelessness unspecified; Z88.5 Allergy status to narcotic agent; Z88.8 Allergy status to other drugs, medicaments and biological substances; Z79.899 Other long term (current) drug therapy
CPT/HCPCS: 99283

== ENCOUNTER 2021-07-22 22:29 | Emergency (ER) | payer MEDICARE, MEDICAID ==
[~2021-07-22] VITALS: Ht 177.8 cm; Wt 77.3 kg
[2021-07-22 22:37] VITALS: BP 124/62
[2021-07-23] MEDS ORDERED: ERYT1OIN6 EACHEYE (19:19)
[2021-07-23] MEDS ORDERED: LEVO150C4 PO (19:19)
== END 2021-07-23 01:51 | disposition home or self-care (01) ==
LOC: ER 22:30
DX: F10.129 Alcohol abuse with intoxication, unspecified (principal); R07.89 Other chest pain; M25.532 Pain in left wrist; M25.531 Pain in right wrist; I10 Essential (primary) hypertension; E03.9 Hypothyroidism, unspecified; G89.29 Other chronic pain; F12.90 Cannabis use, unspecified, uncomplicated; F15.90 Other stimulant use, unspecified, uncomplicated; Z86.73 Personal history of transient ischemic attack (TIA), and cerebral infarction without residual deficits; Z86.69 Personal history of other diseases of the nervous system and sense organs; Z86.2 Personal history of diseases of the blood and blood-forming organs and certain disorders involving the immune mechanism; Z87.442 Personal history of urinary calculi; Z98.890 Other specified postprocedural states; Z72.89 Other problems related to lifestyle; Z56.0 Unemployment, unspecified; Z59.00 Homelessness unspecified; Z88.8 Allergy status to other drugs, medicaments and biological substances; Z79.2 Long term (current) use of antibiotics; Z79.899 Other long term (current) drug therapy
CPT/HCPCS: 70450; 71045; 93005; 99284

== ENCOUNTER 2021-07-23 04:22 | Emergency (ER) | payer MEDICARE, MEDICAID ==
[~2021-07-23] VITALS: Ht 177.8 cm; Wt 81.8 kg
[2021-07-23 04:41] VITALS: BP 142/96
--- NOTE | 2021-07-23 04:46 | NUR ---
new socks given to pt
[2021-07-23] MEDS ORDERED: ERYT1OIN6 EACHEYE (19:19)
[2021-07-23] MEDS ORDERED: LEVO150C4 PO (19:19)
== END 2021-07-23 05:11 | disposition home or self-care (01) ==
LOC: ER 04:23
DX: Z02.89 Encounter for other administrative examinations (principal); M79.672 Pain in left foot; I10 Essential (primary) hypertension; E03.9 Hypothyroidism, unspecified; G89.29 Other chronic pain; F12.90 Cannabis use, unspecified, uncomplicated; F15.90 Other stimulant use, unspecified, uncomplicated; Z86.73 Personal history of transient ischemic attack (TIA), and cerebral infarction without residual deficits; Z86.69 Personal history of other diseases of the nervous system and sense organs; Z86.2 Personal history of diseases of the blood and blood-forming organs and certain disorders involving the immune mechanism; Z87.442 Personal history of urinary calculi; Z98.890 Other specified postprocedural states; Z72.89 Other problems related to lifestyle; Z56.0 Unemployment, unspecified; Z59.00 Homelessness unspecified; Z88.8 Allergy status to other drugs, medicaments and biological substances; Z79.2 Long term (current) use of antibiotics; Z79.899 Other long term (current) drug therapy
CPT/HCPCS: 99281

== ENCOUNTER 2021-07-23 14:30 | Emergency (ER) | payer MEDICARE, MEDICAID ==
[~2021-07-23] VITALS: Ht 177.8 cm; Wt 81.8 kg
[2021-07-23 19:15] VITALS: BP 134/80
[2021-07-23] MEDS ORDERED: ERYT1OIN6 EACHEYE (19:19)
[2021-07-23] MEDS ORDERED: LEVO150C4 PO (19:19)
== END 2021-07-23 19:34 | disposition home or self-care (01) ==
LOC: ER 14:30
DX: I80.9 Phlebitis and thrombophlebitis of unspecified site (principal); H57.12 Ocular pain, left eye; H53.8 Other visual disturbances; I10 Essential (primary) hypertension; E03.9 Hypothyroidism, unspecified; G89.29 Other chronic pain; F12.90 Cannabis use, unspecified, uncomplicated; F15.90 Other stimulant use, unspecified, uncomplicated; Z86.73 Personal history of transient ischemic attack (TIA), and cerebral infarction without residual deficits; Z86.69 Personal history of other diseases of the nervous system and sense organs; Z86.2 Personal history of diseases of the blood and blood-forming organs and certain disorders involving the immune mechanism; Z87.442 Personal history of urinary calculi; Z98.890 Other specified postprocedural states; Z72.89 Other problems related to lifestyle; Z56.0 Unemployment, unspecified; Z59.00 Homelessness unspecified; Z88.8 Allergy status to other drugs, medicaments and biological substances; Z79.2 Long term (current) use of antibiotics; Z79.899 Other long term (current) drug therapy
CPT/HCPCS: 99283

== ENCOUNTER → 2021-07-28 | Emergency (ER) | payer MEDICARE, MEDICAID ==
[~2021-07-28] MED LIST changes: +ERYT1OIN6 EACHEYE; +LEVO150C4 PO
== END | disposition left against medical advice (07) ==
LOC: ER 01:38
DX: M54.89 Other dorsalgia (principal); Z53.21 Procedure and treatment not carried out due to patient leaving prior to being seen by health care provider

== ENCOUNTER → 2021-07-29 | Emergency (ER) | payer MEDICARE, MEDICAID ==
[~2021-07-29] VITALS: Ht 177.8 cm; Wt 81.8 kg
== END | disposition home or self-care (01) ==
LOC: ER 19:37
DX: R06.02 Shortness of breath (principal); R07.89 Other chest pain; R05.9 Cough, unspecified; I10 Essential (primary) hypertension; E03.9 Hypothyroidism, unspecified; G89.29 Other chronic pain; F12.90 Cannabis use, unspecified, uncomplicated; F15.90 Other stimulant use, unspecified, uncomplicated; Z86.73 Personal history of transient ischemic attack (TIA), and cerebral infarction without residual deficits; Z86.69 Personal history of other diseases of the nervous system and sense organs; Z86.2 Personal history of diseases of the blood and blood-forming organs and certain disorders involving the immune mechanism; Z87.442 Personal history of urinary calculi; Z98.890 Other specified postprocedural states; Z72.89 Other problems related to lifestyle; Z56.0 Unemployment, unspecified; Z59.00 Homelessness unspecified; Z88.8 Allergy status to other drugs, medicaments and biological substances; Z79.2 Long term (current) use of antibiotics; Z79.899 Other long term (current) drug therapy
CPT/HCPCS: 99281

== ENCOUNTER 2021-08-02 20:33 | Emergency (ER) | payer MEDICARE, MEDICAID ==
[~2021-08-02] VITALS: Ht 167.6 cm; Wt 84.1 kg
[2021-08-02] MEDS ORDERED: ibuprofen tablet 400 MG TABLET PO ONE (20:50)
[2021-08-02 20:58] VITALS: BP 99/59
== END 2021-08-02 21:56 | disposition home or self-care (01) ==
LOC: ER 20:34
DX: R07.89 Other chest pain (principal); F10.10 Alcohol abuse, uncomplicated; I25.10 Atherosclerotic heart disease of native coronary artery without angina pectoris; Z72.89 Other problems related to lifestyle; Z59.00 Homelessness unspecified; G40.909 Epilepsy, unspecified, not intractable, without status epilepticus; I10 Essential (primary) hypertension; E03.9 Hypothyroidism, unspecified; G89.29 Other chronic pain; Z87.81 Personal history of (healed) traumatic fracture; Z86.73 Personal history of transient ischemic attack (TIA), and cerebral infarction without residual deficits; Z86.2 Personal history of diseases of the blood and blood-forming organs and certain disorders involving the immune mechanism; Z90.89 Acquired absence of other organs; Z98.890 Other specified postprocedural states; Z56.0 Unemployment, unspecified; Z88.8 Allergy status to other drugs, medicaments and biological substances; Z79.1 Long term (current) use of non-steroidal anti-inflammatories (NSAID); Z79.899 Other long term (current) drug therapy; Y90.9 Presence of alcohol in blood, level not specified
CPT/HCPCS: 71045; 93005; 99283

== ENCOUNTER 2021-08-03 15:18 | Emergency (ER) | payer MEDICARE, MEDICAID ==
[~2021-08-03] VITALS: Ht 170.2 cm; Wt 113.6 kg
[2021-08-03 15:28] VITALS: BP 142/78
[2021-08-03] MEDS ORDERED: naproxen 500mg tablet PO ONE (15:30)
== END 2021-08-03 15:42 | disposition home or self-care (01) ==
LOC: ER 15:19
DX: R07.89 Other chest pain (principal); R07.0 Pain in throat; G40.909 Epilepsy, unspecified, not intractable, without status epilepticus; I10 Essential (primary) hypertension; E03.9 Hypothyroidism, unspecified; G89.29 Other chronic pain; F12.90 Cannabis use, unspecified, uncomplicated; F15.90 Other stimulant use, unspecified, uncomplicated; Z86.72 Personal history of thrombophlebitis; Z86.2 Personal history of diseases of the blood and blood-forming organs and certain disorders involving the immune mechanism; Z87.442 Personal history of urinary calculi; Z87.81 Personal history of (healed) traumatic fracture; Z90.89 Acquired absence of other organs; Z98.890 Other specified postprocedural states; Z56.0 Unemployment, unspecified; Z59.00 Homelessness unspecified; Z72.89 Other problems related to lifestyle; Z88.8 Allergy status to other drugs, medicaments and biological substances; Z79.2 Long term (current) use of antibiotics; Z79.899 Other long term (current) drug therapy
CPT/HCPCS: 99283

== ENCOUNTER 2021-08-12 16:50 | Emergency (ER) | payer MEDICARE, MEDICAID ==
[~2021-08-12] VITALS: Ht 175.3 cm; Wt 82.4 kg
[~2021-08-12 16:50] MED LIST changes: -PERM60CR19 TOP
[2021-08-12 18:10] VITALS: BP 146/84
[2021-08-12] MEDS ORDERED: LEVO150T8 PO (22:49)
== END 2021-08-12 19:37 | disposition home or self-care (01) ==
LOC: ER 16:51
DX: R07.89 Other chest pain (principal); F10.129 Alcohol abuse with intoxication, unspecified; I10 Essential (primary) hypertension; E03.9 Hypothyroidism, unspecified; G89.29 Other chronic pain; F12.90 Cannabis use, unspecified, uncomplicated; F15.90 Other stimulant use, unspecified, uncomplicated; Z76.5 Malingerer [conscious simulation]; Z86.73 Personal history of transient ischemic attack (TIA), and cerebral infarction without residual deficits; Z86.69 Personal history of other diseases of the nervous system and sense organs; Z86.2 Personal history of diseases of the blood and blood-forming organs and certain disorders involving the immune mechanism; Z87.442 Personal history of urinary calculi; Z98.890 Other specified postprocedural states; Z56.0 Unemployment, unspecified; Z59.00 Homelessness unspecified; Z88.8 Allergy status to other drugs, medicaments and biological substances; Z79.2 Long term (current) use of antibiotics; Z79.899 Other long term (current) drug therapy; Y90.9 Presence of alcohol in blood, level not specified
CPT/HCPCS: 93005; 99284

== ENCOUNTER 2021-08-12 22:03 | Emergency (ER) | payer MEDICARE, MEDICAID ==
[~2021-08-12] VITALS: Ht 175.3 cm; Wt 82.4 kg
[2021-08-12 22:17] VITALS: BP 91/58
[2021-08-12] MEDS ORDERED: LEVO150T8 PO (22:49)
== END 2021-08-12 23:05 | disposition home or self-care (01) ==
LOC: ER 22:04
DX: Z76.0 Encounter for issue of repeat prescription (principal); R06.02 Shortness of breath; I10 Essential (primary) hypertension; E03.9 Hypothyroidism, unspecified; G89.29 Other chronic pain; F12.90 Cannabis use, unspecified, uncomplicated; F15.90 Other stimulant use, unspecified, uncomplicated; Z86.73 Personal history of transient ischemic attack (TIA), and cerebral infarction without residual deficits; Z86.69 Personal history of other diseases of the nervous system and sense organs; Z86.2 Personal history of diseases of the blood and blood-forming organs and certain disorders involving the immune mechanism; Z87.442 Personal history of urinary calculi; Z98.890 Other specified postprocedural states; Z72.89 Other problems related to lifestyle; Z56.0 Unemployment, unspecified; Z59.00 Homelessness unspecified; Z88.8 Allergy status to other drugs, medicaments and biological substances; Z79.2 Long term (current) use of antibiotics; Z79.899 Other long term (current) drug therapy
CPT/HCPCS: 99281; 99283

== ENCOUNTER 2021-08-13 23:42 | Emergency (ER) | payer MEDICARE, MEDICAID ==
[~2021-08-13] VITALS: Ht 180.3 cm; Wt 77.3 kg
[2021-08-14] VITALS: BP 109/73
== END 2021-08-14 00:25 | disposition home or self-care (01) ==
LOC: ER 23:42
DX: Z76.5 Malingerer [conscious simulation] (principal); I10 Essential (primary) hypertension; E03.9 Hypothyroidism, unspecified; G89.29 Other chronic pain; F12.90 Cannabis use, unspecified, uncomplicated; F15.90 Other stimulant use, unspecified, uncomplicated; Z86.73 Personal history of transient ischemic attack (TIA), and cerebral infarction without residual deficits; Z86.69 Personal history of other diseases of the nervous system and sense organs; Z86.2 Personal history of diseases of the blood and blood-forming organs and certain disorders involving the immune mechanism; Z87.442 Personal history of urinary calculi; Z98.890 Other specified postprocedural states; Z72.89 Other problems related to lifestyle; Z56.0 Unemployment, unspecified; Z59.00 Homelessness unspecified; Z88.8 Allergy status to other drugs, medicaments and biological substances; Z79.2 Long term (current) use of antibiotics; Z79.899 Other long term (current) drug therapy
CPT/HCPCS: 99283

== ENCOUNTER 2021-08-16 02:40 | Emergency (ER) | payer MEDICARE, MEDICAID ==
[2021-08-16] MEDS ORDERED: naproxen 500mg tablet PO ONE (02:55)
== END 2021-08-16 07:17 | disposition home or self-care (01) ==
LOC: ER 02:41
DX: G89.29 Other chronic pain (principal); R07.89 Other chest pain; I10 Essential (primary) hypertension; G40.909 Epilepsy, unspecified, not intractable, without status epilepticus; E03.9 Hypothyroidism, unspecified; F12.90 Cannabis use, unspecified, uncomplicated; F15.90 Other stimulant use, unspecified, uncomplicated; Z56.0 Unemployment, unspecified; Z86.73 Personal history of transient ischemic attack (TIA), and cerebral infarction without residual deficits; Z86.2 Personal history of diseases of the blood and blood-forming organs and certain disorders involving the immune mechanism; Z87.442 Personal history of urinary calculi; Z87.81 Personal history of (healed) traumatic fracture; Z90.89 Acquired absence of other organs; Z98.890 Other specified postprocedural states; Z59.00 Homelessness unspecified; Z72.89 Other problems related to lifestyle; Z88.8 Allergy status to other drugs, medicaments and biological substances; Z79.2 Long term (current) use of antibiotics; Z79.899 Other long term (current) drug therapy; Z76.5 Malingerer [conscious simulation]
CPT/HCPCS: 93005; 99283

== ENCOUNTER 2021-08-16 13:07 | Emergency (ER) | payer MEDICARE, MEDICAID | END 2021-08-16 13:18 | disposition home or self-care (01) | LOC: ER 13:07 | DX: F10.129 Alcohol abuse with intoxication, unspecified (principal); G40.909 Epilepsy, unspecified, not intractable, without status epilepticus; I10 Essential (primary) hypertension; G89.29 Other chronic pain; E03.9 Hypothyroidism, unspecified; F12.90 Cannabis use, unspecified, uncomplicated; F15.90 Other stimulant use, unspecified, uncomplicated; Z72.89 Other problems related to lifestyle; Z86.73 Personal history of transient ischemic attack (TIA), and cerebral infarction without residual deficits; Z86.2 Personal history of diseases of the blood and blood-forming organs and certain disorders involving the immune mechanism; Z87.81 Personal history of (healed) traumatic fracture; Z90.89 Acquired absence of other organs; Z98.890 Other specified postprocedural states; Z59.00 Homelessness unspecified; Z56.0 Unemployment, unspecified; Y90.9 Presence of alcohol in blood, level not specified | CPT/HCPCS: 99283 ==

== ENCOUNTER 2021-08-16 14:29 | Emergency (ER) | payer MEDICARE, MEDICAID ==
[~2021-08-16] VITALS: Ht 180.3 cm; Wt 77.0 kg
[2021-08-16 14:40] VITALS: BP 109/73
== END 2021-08-16 14:46 ==
LOC: ER 14:30
DX: F10.129 Alcohol abuse with intoxication, unspecified (principal); G40.909 Epilepsy, unspecified, not intractable, without status epilepticus; I10 Essential (primary) hypertension; G89.29 Other chronic pain; F12.90 Cannabis use, unspecified, uncomplicated; F15.90 Other stimulant use, unspecified, uncomplicated; Z86.73 Personal history of transient ischemic attack (TIA), and cerebral infarction without residual deficits; Z86.2 Personal history of diseases of the blood and blood-forming organs and certain disorders involving the immune mechanism; Z76.5 Malingerer [conscious simulation]; Z87.81 Personal history of (healed) traumatic fracture; Z90.89 Acquired absence of other organs; Z98.890 Other specified postprocedural states; Z72.89 Other problems related to lifestyle; Z56.0 Unemployment, unspecified; Z59.00 Homelessness unspecified; Z88.8 Allergy status to other drugs, medicaments and biological substances; Z79.2 Long term (current) use of antibiotics; Z79.899 Other long term (current) drug therapy; Y90.9 Presence of alcohol in blood, level not specified
CPT/HCPCS: 99283

== ENCOUNTER 2021-08-18 20:16 | Emergency (ER) | payer MEDICARE, MEDICAID ==
[~2021-08-18] VITALS: Ht 180.3 cm; Wt 77.0 kg
[2021-08-18 20:47] VITALS: BP 140/64
== END 2021-08-19 02:03 | disposition left against medical advice (07) ==
LOC: ER 20:17
DX: F10.129 Alcohol abuse with intoxication, unspecified (principal); Z53.21 Procedure and treatment not carried out due to patient leaving prior to being seen by health care provider; Y90.9 Presence of alcohol in blood, level not specified

== ENCOUNTER 2021-08-23 08:18 | Emergency (ER) | payer MEDICARE, MEDICAID ==
[~2021-08-23] VITALS: Ht 177.8 cm; Wt 109.1 kg
[2021-08-23 08:25] VITALS: BP 154/89
== END 2021-08-23 08:44 | disposition home or self-care (01) ==
LOC: ER 08:20
DX: M79.671 Pain in right foot (principal); M25.572 Pain in left ankle and joints of left foot; G40.909 Epilepsy, unspecified, not intractable, without status epilepticus; I10 Essential (primary) hypertension; G89.29 Other chronic pain; Z86.2 Personal history of diseases of the blood and blood-forming organs and certain disorders involving the immune mechanism; Z87.442 Personal history of urinary calculi; Z87.891 Personal history of nicotine dependence; Z90.89 Acquired absence of other organs; Z98.890 Other specified postprocedural states; Z56.0 Unemployment, unspecified; Z59.00 Homelessness unspecified; Z72.89 Other problems related to lifestyle; Z88.8 Allergy status to other drugs, medicaments and biological substances; Z79.2 Long term (current) use of antibiotics; Z79.899 Other long term (current) drug therapy
CPT/HCPCS: 99283

== ENCOUNTER 2021-08-25 15:46 | Emergency (ER) | payer MEDICARE, MEDICAID ==
[~2021-08-25] VITALS: Ht 175.3 cm; Wt 88.6 kg
[~2021-08-25 15:46] MED LIST changes: -ERYT1OIN6 EACHEYE
--- NOTE | 2021-08-25 15:57 | NUR ---
pt brought in by [facility] Er for CP, upon arrival pt went "unresponsive" in the vehicle. Pt responded to sternal rub and became combative. Ekg done.
[2021-08-25 16:01] VITALS: BP 130/78
== END 2021-08-25 21:56 | disposition left against medical advice (07) ==
LOC: ER 15:47
DX: R07.9 Chest pain, unspecified (principal); Z53.21 Procedure and treatment not carried out due to patient leaving prior to being seen by health care provider
CPT/HCPCS: 93005

== ENCOUNTER 2021-08-27 12:52 | Emergency (ER) | payer MEDICARE, MEDICAID ==
[~2021-08-27] VITALS: Ht 177.8 cm; Wt 100.0 kg
[2021-08-27 13:15] VITALS: BP 146/90
[2021-08-27] MEDS ORDERED: acetaminophen 325mg tablet PO ONE (13:50)
[2021-08-27] MEDS ORDERED: ACET-1008 PO (13:52)
== END 2021-08-27 14:38 | disposition home or self-care (01) ==
LOC: ER 12:52
DX: S92.515A Nondisplaced fracture of proximal phalanx of left lesser toe(s), initial encounter for closed fracture (principal); S80.01XA Contusion of right knee, initial encounter; M25.561 Pain in right knee; I10 Essential (primary) hypertension; E03.9 Hypothyroidism, unspecified; G89.29 Other chronic pain; F12.90 Cannabis use, unspecified, uncomplicated; F15.90 Other stimulant use, unspecified, uncomplicated; Z86.73 Personal history of transient ischemic attack (TIA), and cerebral infarction without residual deficits; Z86.69 Personal history of other diseases of the nervous system and sense organs; Z86.2 Personal history of diseases of the blood and blood-forming organs and certain disorders involving the immune mechanism; Z87.442 Personal history of urinary calculi; Z98.890 Other specified postprocedural states; Z72.89 Other problems related to lifestyle; Z56.0 Unemployment, unspecified; Z59.00 Homelessness unspecified; Z88.8 Allergy status to other drugs, medicaments and biological substances; Z79.2 Long term (current) use of antibiotics; Z79.899 Other long term (current) drug therapy; X58.XXXA Exposure to other specified factors, initial encounter; Y93.89 Activity, other specified; Y92.89 Other specified places as the place of occurrence of the external cause; Y99.8 Other external cause status
CPT/HCPCS: 73560; 73620; 99284

== ENCOUNTER 2021-08-28 07:30 | Emergency (ER) | payer MEDICARE, MEDICAID ==
[~2021-08-28] VITALS: Ht 175.3 cm; Wt 81.8 kg
[~2021-08-28 07:30] MED LIST changes: +ACET-1008 PO
== END 2021-08-28 08:17 | disposition home or self-care (01) ==
LOC: ER 07:30
DX: R07.89 Other chest pain (principal); R06.02 Shortness of breath; I10 Essential (primary) hypertension; E03.9 Hypothyroidism, unspecified; G89.29 Other chronic pain; F12.90 Cannabis use, unspecified, uncomplicated; F15.90 Other stimulant use, unspecified, uncomplicated; Z59.00 Homelessness unspecified; Z86.73 Personal history of transient ischemic attack (TIA), and cerebral infarction without residual deficits; Z86.69 Personal history of other diseases of the nervous system and sense organs; Z86.2 Personal history of diseases of the blood and blood-forming organs and certain disorders involving the immune mechanism; Z87.442 Personal history of urinary calculi; Z98.890 Other specified postprocedural states; Z72.89 Other problems related to lifestyle; Z56.0 Unemployment, unspecified; Z88.8 Allergy status to other drugs, medicaments and biological substances; Z79.2 Long term (current) use of antibiotics; Z79.899 Other long term (current) drug therapy
CPT/HCPCS: 99284

== ENCOUNTER 2021-08-28 21:08 | Emergency (ER) | payer MEDICARE, MEDICAID ==
[~2021-08-28] VITALS: Ht 177.8 cm; Wt 81.8 kg
[2021-08-28 21:17] VITALS: BP 186/108
[2021-08-28] MEDS ORDERED: acetaminophen 325mg tablet PO ONE (21:25)
== END 2021-08-28 21:16 | disposition home or self-care (01) ==
LOC: ER 21:08
DX: Z76.5 Malingerer [conscious simulation] (principal); R07.89 Other chest pain; I10 Essential (primary) hypertension; E03.9 Hypothyroidism, unspecified; G89.29 Other chronic pain; F12.90 Cannabis use, unspecified, uncomplicated; F15.90 Other stimulant use, unspecified, uncomplicated; Z86.73 Personal history of transient ischemic attack (TIA), and cerebral infarction without residual deficits; Z86.69 Personal history of other diseases of the nervous system and sense organs; Z86.2 Personal history of diseases of the blood and blood-forming organs and certain disorders involving the immune mechanism; Z87.442 Personal history of urinary calculi; Z98.890 Other specified postprocedural states; Z72.89 Other problems related to lifestyle; Z56.0 Unemployment, unspecified; Z59.00 Homelessness unspecified; Z88.8 Allergy status to other drugs, medicaments and biological substances; Z79.2 Long term (current) use of antibiotics; Z79.899 Other long term (current) drug therapy
CPT/HCPCS: 99283

== ENCOUNTER 2021-09-01 15:10 | Emergency (ER) | payer MEDICARE, MEDICAID ==
[~2021-09-01] VITALS: Ht 177.8 cm; Wt 81.8 kg
[2021-09-01 15:28] VITALS: BP 138/80
== END 2021-09-01 15:45 | disposition home or self-care (01) ==
LOC: ER 15:11
DX: G89.29 Other chronic pain (principal); G40.909 Epilepsy, unspecified, not intractable, without status epilepticus; I10 Essential (primary) hypertension; E03.9 Hypothyroidism, unspecified; Z86.72 Personal history of thrombophlebitis; Z86.2 Personal history of diseases of the blood and blood-forming organs and certain disorders involving the immune mechanism; Z87.442 Personal history of urinary calculi; Z87.81 Personal history of (healed) traumatic fracture; Z90.89 Acquired absence of other organs; Z56.0 Unemployment, unspecified; Z59.00 Homelessness unspecified; Z79.899 Other long term (current) drug therapy; Z79.2 Long term (current) use of antibiotics; Z88.8 Allergy status to other drugs, medicaments and biological substances
CPT/HCPCS: 99281; 99283

== ENCOUNTER 2021-09-02 09:59 | Emergency (ER) | payer MEDICARE, MEDICAID ==
[~2021-09-02] VITALS: Ht 177.8 cm; Wt 77.2 kg
--- NOTE | 2021-09-02 10:18 | NUR ---
TECH ATTEMPTED TO DO EKG ON PT, PT REFUSED TO ALLOW TECH AND NURSE TO DO EKG, [facility] NOTIFIED.
--- NOTE | 2021-09-02 11:03 | NUR ---
PT NOT COOPERATIVE. REFUSING TO ALLOW EKG. NOTIFIED. PT D/C'D BUT REFUSING TO LEAVE. PT DEMANDING TO BE BROUGHT INSIDE TO HAVE A WARM PLACE TO STAY. SUGGESTED PT GO TO [facility] FOR [facility], PT REFUSING. SECURITY CALLED, [employer] CALLED.
[2021-09-02 11:07] VITALS: BP 131/89
== END 2021-09-02 11:12 | disposition home or self-care (01) ==
LOC: ER 10:00
DX: R07.89 Other chest pain (principal); R06.02 Shortness of breath; I10 Essential (primary) hypertension; E03.9 Hypothyroidism, unspecified; G89.29 Other chronic pain; F12.90 Cannabis use, unspecified, uncomplicated; F15.90 Other stimulant use, unspecified, uncomplicated; Z76.5 Malingerer [conscious simulation]; Z86.73 Personal history of transient ischemic attack (TIA), and cerebral infarction without residual deficits; Z86.69 Personal history of other diseases of the nervous system and sense organs; Z86.2 Personal history of diseases of the blood and blood-forming organs and certain disorders involving the immune mechanism; Z87.442 Personal history of urinary calculi; Z98.890 Other specified postprocedural states; Z72.89 Other problems related to lifestyle; Z56.0 Unemployment, unspecified; Z59.00 Homelessness unspecified; Z88.8 Allergy status to other drugs, medicaments and biological substances; Z79.2 Long term (current) use of antibiotics; Z79.899 Other long term (current) drug therapy
CPT/HCPCS: 99283

== ENCOUNTER 2021-09-03 18:11 | Emergency (ER) | payer MEDICARE, MEDICAID ==
[~2021-09-03] VITALS: Ht 175.3 cm; Wt 100.0 kg
[2021-09-03 18:27] VITALS: BP 123/76
== END 2021-09-03 19:10 | disposition home or self-care (01) ==
LOC: ER 18:12
DX: Z02.89 Encounter for other administrative examinations (principal); F10.129 Alcohol abuse with intoxication, unspecified; R47.81 Slurred speech; I10 Essential (primary) hypertension; E03.9 Hypothyroidism, unspecified; G89.29 Other chronic pain; F12.90 Cannabis use, unspecified, uncomplicated; F15.90 Other stimulant use, unspecified, uncomplicated; Z86.73 Personal history of transient ischemic attack (TIA), and cerebral infarction without residual deficits; Z86.69 Personal history of other diseases of the nervous system and sense organs; Z86.2 Personal history of diseases of the blood and blood-forming organs and certain disorders involving the immune mechanism; Z87.442 Personal history of urinary calculi; Z98.890 Other specified postprocedural states; Z72.89 Other problems related to lifestyle; Z56.0 Unemployment, unspecified; Z59.00 Homelessness unspecified; Z88.8 Allergy status to other drugs, medicaments and biological substances; Z79.2 Long term (current) use of antibiotics; Z79.899 Other long term (current) drug therapy; Y90.9 Presence of alcohol in blood, level not specified
CPT/HCPCS: 99283

== ENCOUNTER 2021-09-10 08:40 | Emergency (ER) | payer MEDICARE, MEDICAID ==
[~2021-09-10] VITALS: Ht 175.3 cm; Wt 100.0 kg
[2021-09-10 08:56] VITALS: BP 119/79
[2021-09-10] MEDS ORDERED: LEVO150T8 PO (11:24)
== END 2021-09-10 14:03 | disposition home or self-care (01) ==
LOC: ER 08:42
DX: R53.1 Weakness (principal); F10.288 Alcohol dependence with other alcohol-induced disorder; E03.9 Hypothyroidism, unspecified; I10 Essential (primary) hypertension; G89.29 Other chronic pain; F12.90 Cannabis use, unspecified, uncomplicated; F15.90 Other stimulant use, unspecified, uncomplicated; Z76.0 Encounter for issue of repeat prescription; Z86.73 Personal history of transient ischemic attack (TIA), and cerebral infarction without residual deficits; Z86.69 Personal history of other diseases of the nervous system and sense organs; Z86.2 Personal history of diseases of the blood and blood-forming organs and certain disorders involving the immune mechanism; Z87.442 Personal history of urinary calculi; Z98.890 Other specified postprocedural states; Z72.89 Other problems related to lifestyle; Z56.0 Unemployment, unspecified; Z59.00 Homelessness unspecified
CPT/HCPCS: 71045; 93005; 99283

== ENCOUNTER 2021-09-12 05:03 | Emergency (ER) | payer MEDICARE, MEDICAID ==
[~2021-09-12] VITALS: Ht 177.8 cm; Wt 87.0 kg
[2021-09-12] MEDS ORDERED: normal saline 1000ML IV soln IVB ONE ×2 (06:00→07:35)
[2021-09-12 06:51] LABS: BASOPHILS # (AUTO) 0.1 X10'3 (0-0.2); BASOPHILS % (AUTO) 0.8 % (0-1); EOSINOPHILS # (AUTO) 0.1 X10'3 (0-0.9); RED BLOOD COUNT 2.94 X10'6 (4.70-6.10)
[2021-09-12 06:52] LABS: EOSINOPHILS % (AUTO) 0.9 % (0-6); HEMATOCRIT 25.7 % (42.0-52.0); HEMOGLOBIN 8.2 g/dl (14.0-17.9); LYMPHOCYTES % (AUTO) 64.4 % (21-51); MEAN CORPUSCULAR HEMOGLOBIN 27.7 PG (27.0-31.0); MEAN CORPUSCULAR HGB CONC 31.7 g/dL (33.0-36.5); MEAN CORPUSCULAR VOLUME 87.3 FL (78-98); MEAN PLATELET VOLUME 7.2 FL (7.4-10.4); MONOCYTES # (AUTO) 0.7 X10'3 (0-0.9); MONOCYTES % (AUTO) 7.8 % (2-12); NEUTROPHILS # (AUTO) 2.4 X10'3 (1.8-7.7); NEUTROPHILS % (AUTO) 26.1 % (42-75); PLATELET COUNT 367 X10'3 (140-440); RED CELL DISTRIBUTION WIDTH 21.3 % (11.5-14.5); WHITE BLOOD COUNT 9.3 X10'3 (4.5-11.0)
[2021-09-12 06:55] LABS: ALANINE AMINOTRANSFERASE 19 U/L (12-78); ALBUMIN 2.8 G/DL (3.4-5.0); ALBUMIN/GLOBULIN RATIO 0.6 (1.1-1.5); ALKALINE PHOSPHATASE 111 IU/L (46-116); ANION GAP 10 (8-16); ASPARTATE AMINO TRANSFERASE 51 U/L (10-37); BILIRUBIN,TOTAL 0.2 MG/DL (0.1-1.0); BLOOD UREA NITROGEN 18 MG/DL (7-18); BUN/CREATININE RATIO 17.1 (5.4-32.0); CALCIUM 7.7 MG/DL (8.5-10.1); CHLORIDE 102 MMOL/L (99-107); CREATININE 1.05 MG/DL (0.60-1.10); ETHANOL 0.207 GM/DL (0.0-0.010); GLUCOSE 94 MG/DL (70-104); SODIUM 135 MMOL/L (135-145); TOTAL CARBON DIOXIDE 22.8 MMOL/L (24-32); TOTAL PROTEIN 7.2 G/DL (6.4-8.2); eGFR 71 ML/MIN
[2021-09-12 06:58] LABS: POTASSIUM 2.9 MMOL/L (3.5-5.1)
[2021-09-12] MEDS ORDERED: potassium Cl 10 mEq/100mL bag IV ONE (07:30)
[2021-09-12] MEDS ORDERED: POTASSIUM BICARB 20meq eff tab 20 MEQ TABLET.EFF PO ONE (07:30)
[2021-09-12] MEDS ORDERED: thiamine 100mg/ml 2ml inj. IV ONE (07:35)
[2021-09-12] MEDS ORDERED: folic acid 1mg/0.2ml inj IV ONE (07:35)
[2021-09-12 11:51] VITALS: BP 110/70
== END 2021-09-12 11:53 | disposition home or self-care (01) ==
LOC: ER 05:04
DX: F10.129 Alcohol abuse with intoxication, unspecified (principal); T68.XXXA Hypothermia, initial encounter; G40.909 Epilepsy, unspecified, not intractable, without status epilepticus; I10 Essential (primary) hypertension; E03.9 Hypothyroidism, unspecified; G89.29 Other chronic pain; F12.90 Cannabis use, unspecified, uncomplicated; F15.90 Other stimulant use, unspecified, uncomplicated; Z86.73 Personal history of transient ischemic attack (TIA), and cerebral infarction without residual deficits; Z87.81 Personal history of (healed) traumatic fracture; Z86.2 Personal history of diseases of the blood and blood-forming organs and certain disorders involving the immune mechanism; Z87.442 Personal history of urinary calculi; Z90.89 Acquired absence of other organs; Z98.890 Other specified postprocedural states; Z56.0 Unemployment, unspecified; Z59.00 Homelessness unspecified; Z88.8 Allergy status to other drugs, medicaments and biological substances; Z79.2 Long term (current) use of antibiotics; Z79.899 Other long term (current) drug therapy; Y90.8 Blood alcohol level of 240 mg/100 ml or more; X31.XXXA Exposure to excessive natural cold, initial encounter
CPT/HCPCS: 36415; 80053; 80320; 82948; 85025; 96361; 96374; 96375; 99285; J3411; J3480; J3490; J7030

== ENCOUNTER 2021-09-12 20:24 | Emergency (ER) | payer MEDICARE, MEDICAID | END 2021-09-13 00:40 | disposition left against medical advice (07) | LOC: ER 20:25 | DX: R52 Pain, unspecified (principal); Z53.21 Procedure and treatment not carried out due to patient leaving prior to being seen by health care provider ==

== ENCOUNTER 2021-09-15 04:15 | Emergency (ER) | payer MEDICARE, MEDICAID | END 2021-09-15 04:57 | disposition left against medical advice (07) | LOC: ER 04:16 | DX: M54.9 Dorsalgia, unspecified (principal); Z53.21 Procedure and treatment not carried out due to patient leaving prior to being seen by health care provider ==